=== PATIENT | male | born 1970 | race Caucasian/White ===

== ENCOUNTER 2019-10-29 17:01 | Emergency (ER) | payer OTHER, SELFPAY ==
[2019-10-29] VITALS (7 sets, daily range): BP systolic 129–140; BP diastolic 87–93; PULSE 77–98; RESP 14–17; TEMP 36.7; O2SAT 92–96; BMI 34.9
--- NOTE | 2019-10-29 17:31 | ED_ITS ---
Entered by Dania Solis, acting as scribe for Curtis Valdovinos DO Oct 29, 2019 17:01 Documented by User: Curtis Valdovinos DO 10/30/19 06:18 HPI - Abdominal Pain General: Chief Complaint: Abdominal Pain Stated Complaint: ABD PAIN LOW Time Seen by Provider: 10/29/19 17:34 History of Present Illness: HPI narrative: 49 yo male presents with abd pain. Pt states that his pain started today. pt states that he has nausea and chills. Pt denies vomiting or diarrhea. MD elicited complaint: abdominal pain Associated Symptoms: Reports nausea; Denies chills, coffee ground emesis, constipation, GI cramping, diarrhea, dysuria, fever(s), heartburn, hematochezia, hematuria, hematemesis, melena, syncope and vomiting Review of Systems Const: Denies: fever, chills, body aches, fatigue, malaise or night sweats Eyes: Denies: change in vision or blurry vision ENMT: Denies: throat pain, oral sores/lesions, dental pain, nasal discharge or nasal congestion Card: Denies: chest pain, palpitations, irregular heart rhythm, edema, syncope, shortness of breath on exertion, shortness of breath when lying down or leg pain with exertion Resp: Denies: shortness of breath, productive cough, non-productive cough or wheezing GI: Reports: abdominal pain and nausea; Denies: vomiting, vomiting blood, coffee grounds in vomit, difficulty swallowing, heartburn/indigestion, diarrhea, constipation, cramping, blood in stool or black tarry stool : Denies: flank pain, difficulty urinating, painful urination, urinary frequency, urinary urgency, urinary incontinence or blood in urine Musc: Denies: neck pain, back pain, extremity pain, extremity swelling, joint pain or joint swelling Skin/Breast: Denies: rash, itching or redness Neuro: Denies: headache, numbness in extremities, weakness in extremities, changes in sensation, lack of coordination, difficulty walking, frequent falls, dizziness, vertigo or confusion Psych: Denies: anxiety, depression, loss of interest, visual hallucinations, auditory hallucinations, suicidal ideation or homicidal ideation Endo: Denies: excessive urination, excessive thirst, tired all the time or cold intolerance Wiliam/Lymph: Denies: easy bruising, easy bleeding, petechiae, enlarged lymph nodes or tender lymph nodes PFSH ED PFSH: Statuses (acute, chronic, etc) shown below reflect problem list status as previously entered and may not be historically accurate Surgical History History of hemorrhoidectomy (Acute) Social History Smoking and tobacco status: never smoked Physical Exam Const: COMMON NORMALS: average body habitus, oriented x3 and alert GENERAL APPEARANCE: cooperative, comfortable, well kempt and well developed NUTRITIONAL APPEARANCE: obese ORIENTATION/CONSCIOUSNESS: Yes awake, Yes oriented to person and Yes oriented to place HENMT: COMMON NORMALS: normocephalic, head/scalp atraumatic, EAC's normal, TM's normal bilaterally, external nose normal, moist oral mucous membranes and oropharynx normal HEAD & SCALP: normocephalic and atraumatic NOSE: external nose normal EXTERNAL AUDITORY CANAL: EAC's normal TYMPANIC MEMBRANE: TM's normal bilaterally MOUTH: oral and palatal mucosa normal, lip normal and tongue normal THROAT: posterior oropharynx normal and tonsils normal Eye: COMMON NORMALS: PERRL, EOMs intact bilaterally, conjunctivae normal and no scleral icterus CONJUNCTIVA: Yes conjunctivae normal PUPIL: Yes PERRL Neck/C-Spine: COMMON NORMALS: full ROM, no lymphadenopathy, supple, no meningeal signs and thyroid normal THYROID: thyroid normal and asymmetrical Lymph: LYMPHATIC: no lymphadenopathy noted Resp: COMMON NORMALS: normal respiratory effort, no retractions, no use of accessory muscles and clear to auscultation bilaterally AUSCULTATION: clear to auscultation bilaterally Cardio: COMMON NORMALS: regular rate and regular rhythm RATE: regular rate RHYTHM: regular rhythm HEART SOUNDS: no murmurs GI: COMMON NORMALS: soft to palpation; negative for non-tender AUSCULTATION: Yes absent bowel sounds PALPATION: Yes soft and Yes tender (periumbilical) OTHER: umbillical hernia - easily reducible : COMMON NORMALS: Yes no CVA tenderness BLADDER/KIDNEY EXAM: Yes no CVA tenderness Back/Pelvis: COMMON NORMALS: no CVA tenderness LUMBAR SPINE/LOWER BACK: Yes normal to inspection Extremity: COMMON NORMALS: no clubbing, cyanosis or edema, no calf tenderness and no pedal edema Neuro: COMMON NORMALS: oriented x3 SENSORIUM/ORIENTATION: Yes alert, Yes oriented to person and Yes oriented to place MENINGEAL SIGNS: Yes no meningeal signs Psych: APPEARANCE: Yes well kempt Skin: COMMON NORMALS: no rashes or lesions noted and skin turgor normal GENERAL SKIN EXAM: no rashes or lesions noted and turgor normal Course Vital Signs: Vital signs: Vital Signs Temperature 98.1 F 10/29/19 17:21 Pulse Rate 98 10/29/19 21:52 Respiratory Rate 14 10/29/19 21:52 Blood Pressure 133/92 10/29/19 21:52 Pulse Oximetry 94 10/29/19 21:52 MDM - Abdominal Pain Lab Data: Labs: Lab Results 10/29/19 10/29/19 10/29/19 Range/Units 17:54 17:54 18:10 WBC 10.9 H (4.0-10.0) 10^3/ uL RBC 4.71 (4.1-5.3) 10^6/u L Hgb 14.5 (11.7-16.6) g/dL Hct 42.5 (42.0-52.0) % MCV 90.2 (80-94) fL MCH 30.8 (28.0-34.0) pg MCHC 34.1 (30.0-36.0) g/dL RDW 12.1 (12.1-15.1) % Plt Count 196 (130-400) 10^3/c mm MPV 10.8 H (7.4-10.4) fL Neut % (Auto) 70.4 % Lymph % (Auto) 19.3 % [place] % (Auto) 8.8 % Eos % (Auto) 1.1 % Baso % (Auto) 0.2 % Neut # (Auto) 7.7 (1.8-7.7) 10^3/u L Lymph # (Auto) 2.1 (0.8-4.8) 10^3/u L [place] # (Auto) 1.0 H (0.2-0.9) 10^3/u L Eos # (Auto) 0.1 (0.0-0.8) 10^3/u L Baso # (Auto) 0.0 (0.0-0.1) 10^3/u L Nucleated RBC % (a uto) 0 % Nucleated RBCs # 0.0 /100WBC Sodium 140 (136-145) mmol/L Potassium 3.8 (3.5-5.1) mmol/L Chloride 100 (98-107) mmol/L Carbon Dioxide 29 (22-29) mmol/L Anion Gap 14.8 (5-19) BUN 11 (6-20) mg/dL Creatinine 0.9 (0.7-1.2) mg/dL GFR Calculation 89.3 L (90-130) mL/min Glucose 114 (65-115) mg/dL Calcium 10.3 (8.5-10.5) mg/dL Total Bilirubin 0.5 (0.15-1.2) mg/dL AST 17 (0-40) U/L ALT 17 (0-41) U/L Alkaline Phosphata se 65 (40-130) IU/L Total Protein 7.7 (6.6-8.7) g/dL Albumin 4.7 (3.5-5.2) g/dL Globulin 3.0 (1.3-4.6) g/dL Lipase 32 (13-60) U/L Urine Color Yellow (Yellow) Urine Appearance Clear (CLEAR) Urine pH 7 (5-7) Ur Specific Gravit y 1.010 (1.005-1.030) Urine Protein Neg (Negative) Urine Glucose (UA) Norm (Normal) Urine Ketones Negative (Negative) Urine Occult Blood Neg (Negative) Urine Nitrate Negative (Negative) Urine Bilirubin Neg (NEGATIVE) Urine Urobilinogen Norm (Negative) mg/dL Ur Leukocyte Janeen ase Negative (Negative) Discharge Plan Discharge Patient Disposition: Home, Self-Care Clinical Impression: Diverticulitis Condition: Stable Prescriptions: New metronidazole 500 mg tablet 500 mg PO Q8H 10 Days Qty: 30 RF: 0 ciprofloxacin HCl 500 mg tablet 500 mg PO Q12H 10 Days Qty: 20 RF: 0 Zofran 4 mg tablet 4 mg PO Q6H PRN (Reason: nausea and vomiting) Qty: 10 RF: 0 [place] 7.5-325 mg tablet 1 tab PO Q6H PRN (Reason: pain) Qty: 14 RF: 0 Discharge Orders: Discharge Order (Routine); Ordered 10/29/19 Ordered By: Constantin Storm Referrals: Ruben Mueller MD [Physician] - 7-10 days Discharge Diet: Advance as tolerated and Clear Liquid Discharge Activity: Increase activity as tolerated Patient Instructions: Diverticulitis (ED) Activity Restrictions/Additional Instructions: Return for fever greater than 100, worsening pain, vomiting liquids or medications despite 2-3 doses of antibiotics. Return for any other concerning symptoms. You should have a colonoscopy as an outpatient. We will have you follow-up with surgery. Call the surgeon's office listed on your discharge instructions Friday morning for follow-up. Discharge Date/Time: 10/29/19 22:00 Coding Level of Care Code ED Forging Dies Final Finisher for Chg Fwd Exam Problem Focused Documented by User: Constantin Storm DO 10/29/19 19:37 HPI - Abdominal Pain General: Chief Complaint: Abdominal Pain Stated Complaint: ABD PAIN LOW Time Seen by Provider: 10/29/19 17:34 PFSH ED PFSH: Statuses (acute, chronic, etc) shown below reflect problem list status as previously entered and may not be historically accurate Surgical History History of hemorrhoidectomy (Acute) Social History Smoking and tobacco status: never smoked Course ED course: 49-year-old male checked out to me by Dr. Valdovinos. He presents with decreased bowel sounds, and generalized lower belly pain. He has a white count of 11. His electrolytes are normal. His CT scan shows diverticulitis with no abscess. He is not vomiting. He is not had diarrhea. He instead complains of some constipation. Admission was offered, but the patient would like to go home. He will be treated as an outpatient. Warning signs were given to return. Vital Signs: Vital signs: Vital Signs Temperature 98.1 F 10/29/19 17:21 Pulse Rate 98 10/29/19 21:52 Respiratory Rate 14 10/29/19 21:52 Blood Pressure 133/92 10/29/19 21:52 Pulse Oximetry 94 10/29/19 21:52 MDM - Abdominal Pain Lab Data: Labs: Lab Results 10/29/19 10/29/19 10/29/19 Range/Units 17:54 17:54 18:10 WBC 10.9 H (4.0-10.0) 10^3/ uL RBC 4.71 (4.1-5.3) 10^6/u L Hgb 14.5 (11.7-16.6) g/dL Hct 42.5 (42.0-52.0) % MCV 90.2 (80-94) fL MCH 30.8 (28.0-34.0) pg MCHC 34.1 (30.0-36.0) g/dL RDW 12.1 (12.1-15.1) % Plt Count 196 (130-400) 10^3/c mm MPV 10.8 H (7.4-10.4) fL Neut % (Auto) 70.4 % Lymph % (Auto) 19.3 % [place] % (Auto) 8.8 % Eos % (Auto) 1.1 % Baso % (Auto) 0.2 % Neut # (Auto) 7.7 (1.8-7.7) 10^3/u L Lymph # (Auto) 2.1 (0.8-4.8) 10^3/u L [place] # (Auto) 1.0 H (0.2-0.9) 10^3/u L Eos # (Auto) 0.1 (0.0-0.8) 10^3/u L Baso # (Auto) 0.0 (0.0-0.1) 10^3/u L Nucleated RBC % (a uto) 0 % Nucleated RBCs # 0.0 /100WBC Sodium 140 (136-145) mmol/L Potassium 3.8 (3.5-5.1) mmol/L Chloride 100 (98-107) mmol/L Carbon Dioxide 29 (22-29) mmol/L Anion Gap 14.8 (5-19) BUN 11 (6-20) mg/dL Creatinine 0.9 (0.7-1.2) mg/dL GFR Calculation 89.3 L (90-130) mL/min Glucose 114 (65-115) mg/dL Calcium 10.3 (8.5-10.5) mg/dL Total Bilirubin 0.5 (0.15-1.2) mg/dL AST 17 (0-40) U/L ALT 17 (0-41) U/L Alkaline Phosphata se 65 (40-130) IU/L Total Protein 7.7 (6.6-8.7) g/dL Albumin 4.7 (3.5-5.2) g/dL Globulin 3.0 (1.3-4.6) g/dL Lipase 32 (13-60) U/L Urine Color Yellow (Yellow) Urine Appearance Clear (CLEAR) Urine pH 7 (5-7) Ur Specific Gravit y 1.010 (1.005-1.030) Urine Protein Neg (Negative) Urine Glucose (UA) Norm (Normal) Urine Ketones Negative (Negative) Urine Occult Blood Neg (Negative) Urine Nitrate Negative (Negative) Urine Bilirubin Neg (NEGATIVE) Urine Urobilinogen Norm (Negative) mg/dL Ur Leukocyte Janeen ase Negative (Negative) Discharge Plan Discharge Patient Disposition: Home, Self-Care Clinical Impression: Diverticulitis Condition: Stable Prescriptions: New metronidazole 500 mg tablet 500 mg PO Q8H 10 Days Qty: 30 RF: 0 ciprofloxacin HCl 500 mg tablet 500 mg PO Q12H 10 Days Qty: 20 RF: 0 Zofran 4 mg tablet 4 mg PO Q6H PRN (Reason: nausea and vomiting) Qty: 10 RF: 0 [place] 7.5-325 mg tablet 1 tab PO Q6H PRN (Reason: pain) Qty: 14 RF: 0 Discharge Orders: Discharge Order (Routine); Ordered 10/29/19 Ordered By: Constantin Storm Referrals: Ruben Mueller MD [Physician] - 7-10 days Discharge Diet: Advance as tolerated and Clear Liquid Discharge Activity: Increase activity as tolerated Patient Instructions: Diverticulitis (ED) Activity Restrictions/Additional Instructions: Return for fever greater than 100, worsening pain, vomiting liquids or medications despite 2-3 doses of antibiotics. Return for any other concerning symptoms. You should have a colonoscopy as an outpatient. We will have you follow-up with surgery. Call the surgeon's office listed on your discharge instructions Friday morning for follow-up. Discharge Date/Time: 10/29/19 22:00 Coding Level of Care Code ED Forging Dies Final Finisher for Chg Fwd Exam Problem Focused The documentation recorded by the Will cardoza Kialy, accurately reflects the service I personally performed and the decisions made by Aruna marshall Curtis L, DO Oct 29, 2019 17:01
--- NOTE | 2019-10-29 17:47 | CTR_ITS ---
PROCEDURE INFORMATION: Exam: CT Abdomen And Pelvis With Contrast Exam date and time: 10/29/2019 6:23 PM Age: 49 years old Clinical indication: Abdominal pain; Generalized; Additional info: Abd pain TECHNIQUE: Imaging protocol: Computed tomography of the abdomen and pelvis with intravenous contrast. Total DLP: 1336.01 mGy-cm Radiation optimization: All CT scans at this facility use at least one of these dose optimization techniques: automated exposure control; mA and/or kV adjustment per patient size (includes targeted exams where dose is matched to clinical indication); or iterative reconstruction. Contrast material: OMNI 300; Contrast volume: 95 ml; Contrast route: LT AC; COMPARISON: No relevant prior studies available. FINDINGS: Lungs: There is subpleural atelectasis of the dependent portions of the lungs. There is partially calcified subpleural nodule left lung base measuring 7 mm in size. The appearance is compatible with a calcified granuloma or hamartoma. Mediastinum: A small hiatal hernia is present. Liver: There is a diffuse decrease in hepatic parenchymal density, consistent with fatty infiltration. Gallbladder and bile ducts: Normal. No calcified stones. No ductal dilation. Pancreas: Normal. No ductal dilation. Spleen: Normal. No splenomegaly. Adrenals: Normal. No mass. Kidneys and ureters: There is punctate nephrolithiasis. No hydronephrosis. Stomach and bowel: Moderate diverticulosis is present in the distal colon. There is a segment of colonic wall thickening consistent with moderate acute colitis/diverticulitis. As an underlying colonic malignancy cannot be excluded, a follow-up examination after a course of treatment is recommended if clinically warranted. There is pericolonic inflammatory stranding. Appendix: A normal appendix is identified. Intraperitoneal space: Unremarkable. No free air. No significant fluid collection. Vasculature: Unremarkable.No abdominal aortic aneurysm. Lymph nodes: Unremarkable.No enlarged lymph nodes. Bladder: There is nonspecific bladder wall thickening. This may be related to incomplete distention. Reproductive: Unremarkable as visualized. Bones/joints: Unremarkable. No acute fracture. Soft tissues: There is a fat-containing umbilical hernia. Small fat filled inguinal hernias are noted. Other findings: No abscess. CT/CT abdomen pelvis w con* [id number] IMPRESSION: 1. There is a segment of colonic wall thickening consistent with moderate acute colitis/diverticulitis. As an underlying colonic malignancy cannot be excluded, a follow-up examination after a course of treatment is recommended if clinically warranted. No abscess or free air. 2. Bilateral punctate nephrolithiasis. No hydronephrosis. Incidental findings are also noted as above. 3. Partially calcified nodule left lower lobe. This has characteristics compatible with old granulomatous changes or hamartoma. For patients at low risk (minimal or absent history of smoking and of other known risk factors), no routine follow-up is indicated. For patients at high risk (history of smoking or of other known risk factors), consider optional CT at 12 months. (Gladys et al., Fleischner Society, 2017) Radiation Dose CTDIVOL = (mGy): DLP = 1336.01 (mGy-cm)
[2019-10-29 18:03] LABS: Basophils % 0.2 %; Eosinophils # 0.1 10^3/uL (0.0-0.8); Eosinophils % 1.1 %; Hematocrit 42.5 % (42.0-52.0); Hemoglobin 14.5 g/dL (11.7-16.6); Lymphocytes # 2.1 10^3/uL (0.8-4.8); Lymphocytes % 19.3 %; Mean Corpuscular HGB Conc 34.1 g/dL (30.0-36.0); Mean Corpuscular Hemoglobin 30.8 pg (28.0-34.0); Mean Corpuscular Volume 90.2 fL (80-94); Mean Platelet Volume 10.8 fL (7.4-10.4); Monocytes % 8.8 %; Neutrophils # 7.7 10^3/uL (1.8-7.7); Neutrophils % 70.4 %; Nucleated Red Blood Cells % 0 %; Platelet Count 196 10^3/cmm (130-400); Red Blood Count 4.71 10^6/uL (4.1-5.3); Red Cell Distribution Width 12.1 % (12.1-15.1); White Blood Count 10.9 10^3/uL (4.0-10.0)
[2019-10-29 18:19] LABS: Alanine Aminotransferase 17 U/L (0-41); Albumin Level 4.7 g/dL (3.5-5.2); Alkaline Phosphatase 65 IU/L (40-130); Anion Gap 14.8 (5-19); Aspartate Amino Transferase 17 U/L (0-40); Blood Urea Nitrogen 11 mg/dL (6-20); Calcium 10.3 mg/dL (8.5-10.5); Carbon Dioxide 29 mmol/L (22-29); Chloride 100 mmol/L (98-107); Glomerular Filtration Rate 89.3 mL/min (90-130); Glucose 114 mg/dL (65-115); Lipase 32 U/L (13-60); Potassium 3.8 mmol/L (3.5-5.1); Sodium 140 mmol/L (136-145); Total Bilirubin 0.5 mg/dL (0.15-1.2); Total Protein 7.7 g/dL (6.6-8.7)
[2019-10-29 18:20] LABS: Add Urine Microscopic? NO
[2019-10-29] MEDS: sodium chloride 0.9% 1,000 ML 999 ML IV (18:25)
[2019-10-29 18:41] LABS: Bilirubin Urine Neg (NEGATIVE); Blood Urine Neg (Negative); Glucose Urine UA Norm (Normal); Ketones Urine Negative (Negative); Leukocyte Esterase Urine Negative (Negative); Nitrate Urine Negative (Negative); Protein Urine Neg (Negative); Urine Appearance Clear (CLEAR); Urine Color Yellow (Yellow); Urobilinogen Urine Norm (Negative); pH Urine 7 (5-7)
[2019-10-29] MEDS: iohexol 300 mg/mL 100 mL Btl 95 ML IV (18:45)
--- NOTE | 2019-10-29 19:02 | PC.NURSE ---
Patient report given to oncoming shift.
--- NOTE | 2019-10-29 19:03 | PC.NURSE ---
Report received from TOR Tovar and care transferred to TOR Oliver
[2019-10-29] MEDS: metroNIDAZOLE 500 MG Tablet PO (19:42)
[2019-10-29] MEDS: magnesium citrate Btl 296 mL PO (19:42)
[2019-10-29] MEDS: ciprofloxacin 500 mg Tablet PO (19:42)
--- NOTE | 2019-10-29 20:39 | PC.NURSE ---
PATIENT AMBULATED TO BATHROOM
[2019-10-29] MEDS: morphine 4 mg/mL SDV 1 mL IVP (21:11)
[2019-10-29] MEDS: ondansetron 2 mg/ML SDV 2 mL 4 MG IVP (21:11)
--- NOTE | 2019-11-01 11:36 | DCPLANNER ---
corporate travel manager had message to schedule a follow up appointment for patient with Dr. Mueller. corporate travel manager spoke with patient and informed patient that Dr. Mueller was not able to see patient until the end of the month. corporate travel manager offered to schedule a follow up appointment for patient with [facility], patient stated that would be fine. corporate travel manager called the clinic, spoke with Isa, a follow up appointment was scheduled for Friday, November 03, 2019 at 1:[address] Carter. corporate travel manager called patient and informed patient of the scheduled appointment.
--- NOTE | 2019-11-12 15:16 | DCPLANNER ---
Patient did attend appointment scheduled for 11.03.19 with [facility].
== END 2019-10-29 22:00 | disposition home or self-care (01) ==
PROVIDERS: Family Medicine; Emergency Provider Emergency Medicine
DX: K57.92 Diverticulitis of intestine, part unspecified, without perforation or abscess without bleeding (principal)
CPT/HCPCS: 74177; 80053; 81003; 83690; 85025; 96360; 96361; 96365; 96366; 96375; 99283; J2270; J2405; J7030; Q9967

== ENCOUNTER 2019-11-01 12:44 | Emergency (ER) | payer OTHER, SELFPAY ==
[2019-11-01 12:52] VITALS: BP 137/87; PULSE 92; RESP 18; TEMP 36.7; O2SAT 94; BMI 34.9
[2019-11-01 13:53] LABS: Basophils % 0.3 %; Eosinophils # 0.3 10^3/uL (0.0-0.8); Eosinophils % 2.9 %; Hematocrit 43.6 % (42.0-52.0); Hemoglobin 14.4 g/dL (11.7-16.6); Lymphocytes # 2.1 10^3/uL (0.8-4.8); Lymphocytes % 23.3 %; Mean Corpuscular Hemoglobin 30.3 pg (28.0-34.0); Mean Corpuscular Volume 91.6 fL (80-94); Monocytes # 0.7 10^3/uL (0.2-0.9); Neutrophils # 5.9 10^3/uL (1.8-7.7); Neutrophils % 65.2 %; Nucleated Red Blood Cells % 0 %; Platelet Count 230 10^3/cmm (130-400); Red Blood Count 4.76 10^6/uL (4.1-5.3); Red Cell Distribution Width 11.9 % (12.1-15.1)
[2019-11-01 14:06] LABS: Alanine Aminotransferase 16 U/L (0-41); Albumin Level 4.1 g/dL (3.5-5.2); Alkaline Phosphatase 54 IU/L (40-130); Anion Gap 17.1 (5-19); Aspartate Amino Transferase 20 U/L (0-40); Blood Urea Nitrogen 10 mg/dL (6-20); Carbon Dioxide 28 mmol/L (22-29); Chloride 97 mmol/L (98-107); Glomerular Filtration Rate 89.3 mL/min (90-130); Glucose 132 mg/dL (65-115); Lipase 28 U/L (13-60); Potassium 4.1 mmol/L (3.5-5.1); Sodium 138 mmol/L (136-145); Total Bilirubin 0.3 mg/dL (0.15-1.2); Total Protein 7.1 g/dL (6.6-8.7)
--- NOTE | 2019-11-01 14:24 | W.ED.GENADLT ---
HPI - General Adult General: Chief complaint: Abdominal Pain Stated complaint: lower abd pain Time Seen by Provider: 11/01/19 14:16 History of Present Illness: HPI narrative: Patient comes in complaining of some abdominal pain. He had been on pain medicine got constipated since she is diagnosed with diverticulitis and he had been able to have a bowel movement last couple days and now he feels pressure in his lower abdomen. Not having fever chills or other problems. Has been able to work can medications as prescribed but he did stop his pain medicine then he started hurting again. MD complaint: Constipation Onset (ago): day(s) Location: abdomen Radiation: non-radiation Severity scale (1-10): 4 Quality: aching Pain Consistency: intermittent Relieving factors: rest Associated symptoms: Deny chest pain, dyspnea, headache(s), nausea, rash or vomiting Review of Systems Const: Denies: fever, chills or body aches Eyes: Denies: change in vision or blurry vision ENMT: Denies: throat pain or nasal congestion Card: Denies: chest pain or shortness of breath on exertion Resp: Denies: shortness of breath, productive cough or non-productive cough GI: Reports: abdominal pain and constipation; Denies: nausea, vomiting, bloating or cramping : Denies: difficulty urinating Musc: Denies: extremity pain Skin/Breast: Denies: rash Neuro: Denies: headache Psych: Denies: anxiety or depression Wiliam/Lymph: Denies: easy bruising PFSH ED PFSH: Statuses (acute, chronic, etc) shown below reflect problem list status as previously entered and may not be historically accurate Social History Smoking and tobacco status: never smoked Physical Exam Const: COMMON NORMALS: no apparent distress, average body habitus and oriented x3 HENMT: COMMON NORMALS: normocephalic HEAD & SCALP: normal to inspection and normocephalic FACE & SINUS: normal facial exam Eye: COMMON NORMALS: conjunctivae normal GENERAL EYE: normal appearance of both eyes CONJUNCTIVA: Yes conjunctivae normal Neck/C-Spine: COMMON NORMALS: no JVD Chest: COMMONS NORMALS: inspection of chest normal Resp: COMMON NORMALS: normal respiratory effort and clear to auscultation bilaterally AUSCULTATION: clear to auscultation bilaterally Cardio: COMMON NORMALS: no JVD, regular rate and regular rhythm RATE: regular rate RHYTHM: regular rhythm GI: COMMON NORMALS: normal to inspection, nondistended, normoactive bowel sounds INSPECTION: Yes normal to inspection AUSCULTATION: Yes normoactive bowel sounds PALPATION: Yes tender Details: LUQ and RUQ Extremity: COMMON NORMALS: normal to inspection and full ROM Neuro: COMMON NORMALS: oriented x3 Course Vital Signs: Vital signs: Vital Signs Temperature 98.1 F 11/01/19 12:52 Pulse Rate 92 11/01/19 12:52 Respiratory Rate 18 11/01/19 12:52 Blood Pressure 137/87 11/01/19 12:52 Pulse Oximetry 94 11/01/19 12:52 [facility] - General Adult Lab Data: Labs: Lab Results 11/01/19 11/01/19 Range/Units 13:45 13:45 WBC 9.0 (4.0-10.0) 10^3/ uL RBC 4.76 (4.1-5.3) 10^6/u L Hgb 14.4 (11.7-16.6) g/dL Hct 43.6 (42.0-52.0) % MCV 91.6 (80-94) fL MCH 30.3 (28.0-34.0) pg MCHC 33.0 (30.0-36.0) g/dL RDW 11.9 L (12.1-15.1) % Plt Count 230 (130-400) 10^3/c mm MPV 11.0 H (7.4-10.4) fL Neut % (Auto) 65.2 % Lymph % (Auto) 23.3 % [place] % (Auto) 8.0 % Eos % (Auto) 2.9 % Baso % (Auto) 0.3 % Neut # (Auto) 5.9 (1.8-7.7) 10^3/u L Lymph # (Auto) 2.1 (0.8-4.8) 10^3/u L [place] # (Auto) 0.7 (0.2-0.9) 10^3/u L Eos # (Auto) 0.3 (0.0-0.8) 10^3/u L Baso # (Auto) 0.0 (0.0-0.1) 10^3/u L Nucleated RBC % (a uto) 0 % Nucleated RBCs # 0.0 /100WBC Sodium 138 (136-145) mmol/L Potassium 4.1 (3.5-5.1) mmol/L Chloride 97 L (98-107) mmol/L Carbon Dioxide 28 (22-29) mmol/L Anion Gap 17.1 (5-19) BUN 10 (6-20) mg/dL Creatinine 0.9 (0.7-1.2) mg/dL GFR Calculation 89.3 L (90-130) mL/min Glucose 132 H (65-115) mg/dL Calcium 10.0 (8.5-10.5) mg/dL Total Bilirubin 0.3 (0.15-1.2) mg/dL AST 20 (0-40) U/L ALT 16 (0-41) U/L Alkaline Phosphata se 54 (40-130) IU/L Total Protein 7.1 (6.6-8.7) g/dL Albumin 4.1 (3.5-5.2) g/dL Globulin 3.0 (1.3-4.6) g/dL Lipase 28 (13-60) U/L Discharge Plan Discharge Patient Disposition: Home, Self-Care Clinical Impression: Diverticulitis, Constipation due to pain medication Condition: Stable Prescriptions: No Action metronidazole 500 mg tablet 500 mg PO Q8H 10 Days Qty: 30 RF: 0 ciprofloxacin HCl 500 mg tablet 500 mg PO Q12H 10 Days Qty: 20 RF: 0 Zofran 4 mg tablet 4 mg PO Q6H PRN (Reason: nausea and vomiting) Qty: 10 RF: 0 [place] 7.5-325 mg tablet 1 tab PO Q6H PRN (Reason: pain) Qty: 14 RF: 0 Discharge Orders: Discharge Order (Routine); Ordered 11/01/19 Ordered By: Oskar Martino Discharge Diet: As Directed Discharge Activity: Increase activity as tolerated Patient Instructions: Constipation (ED) Activity Restrictions/Additional Instructions: Follow-up with medical provider as directed. Take medications as prescribed. Return to the ER or your medical provider if condition worsens. Please read and understand discharge instructions. If any questions ask please. Can start back on pain medicine. Use mag citrate to try to get the bowels moving. Increase fluids. Keep appointment for colonoscopy on Friday afternoon. Coding Level of Care Code ED Plating Foreman for Jerman Lira
[2019-11-01 14:41] VITALS: BP 126/89; PULSE 77; RESP 18; O2SAT 95
== END 2019-11-01 14:42 | disposition home or self-care (01) ==
PROVIDERS: Emergency Provider Nurse Practitioner Family
DX: K57.92 Diverticulitis of intestine, part unspecified, without perforation or abscess without bleeding (principal); K59.03 Drug induced constipation
CPT/HCPCS: 36415; 80053; 83690; 85025; 99281; 99282

== ENCOUNTER 2019-11-01 16:08 | Emergency (ER) | payer OTHER, SELFPAY | END 2019-11-01 17:04 | disposition left against medical advice (07) | LOC: ER 11-05 13:13 | PROVIDERS: Emergency Provider Family Medicine | DX: K59.03 Drug induced constipation (principal); K57.92 Diverticulitis of intestine, part unspecified, without perforation or abscess without bleeding; K62.89 Other specified diseases of anus and rectum; Z53.21 Procedure and treatment not carried out due to patient leaving prior to being seen by health care provider | CPT/HCPCS: 99281 ==

== ENCOUNTER 2020-02-23 10:57 | Emergency (ER) | payer OTHER, SELFPAY ==
[2020-02-23 11:17] VITALS: BP 133/82; PULSE 71; RESP 20; TEMP 36.9; O2SAT 95; BMI 34.9
--- NOTE | 2020-02-23 11:30 | W.ED.ABDPA2 ---
HPI - Abdominal Pain General: Chief Complaint: Abdominal Pain Stated Complaint: LOWER ABD PAIN Time Seen by Provider: 02/23/20 11:18 History of Present Illness: HPI narrative: [age]-year-old male comes in complaining of abdominal pain he refers it to mostly suprapubic and began 2 days ago's been slowly worsening since then he denies any fever he has had generalized myalgias he denies any diarrhea actually states it is been difficult for him to go no hematochezia melena no dark tarry stools. Is been very nauseous but not had any vomiting. He has been taking fluids well but unable to take solids very good denies dysuria no other symptoms no shortness of breath cough cold fever sweats or chills recently denies urgency or frequency. He had a similar episode a few months ago and was seen in the ER for extended period of time but declined to be hospitalized sounds like he was set up with Dr. Barnard for an outpatient colonoscopy but due to the recent [place] pandemic this was delayed. MD elicited complaint: abdominal pain Pertinent past history: diverticulitis Onset (ago): day(s) (3) Pain Consistency: constant Location: Suprapubic Severity: moderate Quality: cramping and aching Radiation: none Migration to: LLQ Exacerbating factors: eating Associated Symptoms: Reports anorexia, bloating, change in bowel habits, change in stool character, nausea and poor appetite; Denies coffee ground emesis, diarrhea, dyspepsia, dysuria, fever(s), heartburn, hematochezia, hematuria, hematemesis, fecal incontinence, loose stools, melena, syncope and vomiting Review of Systems Const: Denies: fever(s) ENMT: Denies: throat pain, ear or mastoid pain, nasal discharge or nasal congestion Card: Denies: syncope Resp: Denies: dyspnea, productive cough or non-productive cough GI: Reports: nausea, bloating, change in bowel habits and change in stool character; Denies: vomiting, hematemesis, coffee ground emesis, heartburn, diarrhea, fecal incontinence, hematochezia or melena : Denies: dysuria or hematuria Skin/Breast: Denies: rash or pruritus PFSH ED PFSH: Medical History (Updated 02/23/20 @ 12:50 by Curtis Valdovinos DO) Diverticulitis Surgical History History of hemorrhoidectomy Family History Denies family history of Anesthesia complication Bleeding disorder Social History Smoking and tobacco status: never smoked Physical Exam Const: COMMON NORMALS: no acute distress GENERAL APPEARANCE: cooperative and comfortable ORIENTATION/CONSCIOUSNESS: Yes awake, Yes oriented to person, Yes oriented to place and Yes oriented to time HENMT: COMMON NORMALS: normocephalic, atraumatic, hearing grossly normal bilaterally, external ears normal, EAC's normal, TM's normal bilaterally, Normal nasal mucous membranes and turbinates present, moist oral mucous membranes and oropharynx normal HEAD & SCALP: normocephalic and atraumatic NOSE: Normal nasal mucous membranes and turbinates present EXTERNAL EAR: Yes external ears normal EXTERNAL AUDITORY CANAL: EAC's normal TYMPANIC MEMBRANE: TM's normal bilaterally Eye: COMMON NORMALS: Equal, round and reactive pupils present, EOMs intact bilaterally, conjunctivae normal and no scleral icterus CONJUNCTIVA: Yes conjunctivae normal PUPIL: Yes Equal, round and reactive pupils present Neck/C-Spine: COMMON NORMALS: full ROM, no lymphadenopathy, supple and no JVD Lymph: LYMPHATIC: no lymphadenopathy noted and no lymphedema noted Resp: COMMON NORMALS: normal respiratory effort, No retractions, No use of accessory muscles and clear to auscultation bilaterally AUSCULTATION: clear to auscultation bilaterally Cardio: COMMON NORMALS: no JVD, regular rate, regular rhythm and No murmurs present (Cardio) RATE: regular rate RHYTHM: regular rhythm GI: COMMON NORMALS: Soft to palpation and No hepatosplenomegaly present AUSCULTATION: Yes Hypoactive bowel sounds present PALPATION: Yes Soft to palpation, Yes Tenderness to palpation present (GI) Details: LLQ, No Guarding due to palpation present (GI) and Yes No hepatosplenomegaly present Extremity: COMMON NORMALS: normal to inspection, capillary refill normal, no clubbing, cyanosis or edema, no calf tenderness and no pedal edema Neuro: SENSORIUM/ORIENTATION: Yes oriented to person, Yes oriented to place and Yes oriented to time Skin: COMMON NORMALS: no rashes or lesions noted GENERAL SKIN EXAM: no rashes or lesions noted Course Vital Signs: Vital signs: Vital Signs Temperature 98.4 F 02/23/20 11:17 Pulse Rate 67 02/23/20 14:23 Respiratory Rate 20 H 02/23/20 11:17 Blood Pressure 113/81 02/23/20 14:23 Pulse Oximetry 97 02/23/20 14:23 MDM - Abdominal Pain MDM Narrative: Medical decision making narrative: Reviewed findings with the patient. We will start him on Cipro and metronidazole Zofran hydrocodone for pain he does need to follow-up with Dr. Barnard for another colonoscopy that will be in a few weeks caseworker intake will make arrangements for that. Advised if he has any worsening of symptoms return to the emergency room to be reevaluated. Lab Data: Labs: Lab Results 02/23/20 02/23/20 02/23/20 Range/Units 11:50 11:50 11:50 WBC 8.3 (4.0-10.0) 10^3/ uL RBC 4.72 (4.1-5.3) 10^6/u L Hgb 14.6 (11.7-16.6) g/dL Hct 42.9 (42.0-52.0) % MCV 90.9 (80-94) fL MCH 30.9 (28.0-34.0) pg MCHC 34.0 (30.0-36.0) g/dL RDW 12.1 (12.1-15.1) % Plt Count 172 (130-400) 10^3/c mm MPV 11.1 H (7.4-10.4) fL Neut % (Auto) 67.5 % Lymph % (Auto) 20.2 % [place] % (Auto) 10.4 % Eos % (Auto) 1.5 % Baso % (Auto) 0.2 % Neut # (Auto) 5.6 (1.8-7.7) 10^3/u L Lymph # (Auto) 1.7 (0.8-4.8) 10^3/u L [place] # (Auto) 0.9 (0.2-0.9) 10^3/u L Eos # (Auto) 0.1 (0.0-0.8) 10^3/u L Baso # (Auto) 0.0 (0.0-0.1) 10^3/u L Nucleated RBC % (a uto) 0 % Nucleated RBCs # 0.0 /100WBC Sodium 140 (136-145) mmol/L Potassium 3.7 (3.5-5.1) mmol/L Chloride 100 (98-107) mmol/L Carbon Dioxide 27 (22-29) mmol/L Anion Gap 16.7 (5-19) BUN 12 (6-20) mg/dL Creatinine 0.9 (0.7-1.2) mg/dL GFR Calculation 89.0 L (90-130) mL/min Glucose 101 (65-115) mg/dL Calculated Osmolal ity 286 (285-295) mOsm/k g Lactate 1.1 (0.5-2.2) mmol/L Calcium 9.6 (8.5-10.5) mg/dL Total Bilirubin 0.6 (0.15-1.2) mg/dL AST 17 (0-40) U/L ALT 15 (0-41) U/L Alkaline Phosphata se 57 (40-130) IU/L Total Protein 7.1 (6.6-8.7) g/dL Albumin 4.5 (3.5-5.2) g/dL Globulin 2.6 (1.3-4.6) g/dL Lipase 214 H (13-60) U/L Urine Color (Yellow) Urine Appearance (CLEAR) Urine pH (5-7) Ur Specific Gravit y (1.005-1.030) Urine Protein (Negative) Urine Glucose (UA) (Normal) Urine Ketones (Negative) Urine Blood (Negative) Urine Nitrate (Negative) Urine Bilirubin (NEGATIVE) Urine Urobilinogen (Negative) mg/dL Ur Leukocyte Janeen ase (Negative) Serum Ketones (Negative) 02/23/20 02/23/20 Range/Units 11:50 12:05 WBC (4.0-10.0) 10^3/ uL RBC (4.1-5.3) 10^6/u L Hgb (11.7-16.6) g/dL Hct (42.0-52.0) % MCV (80-94) fL MCH (28.0-34.0) pg MCHC (30.0-36.0) g/dL RDW (12.1-15.1) % Plt Count (130-400) 10^3/c mm MPV (7.4-10.4) fL Neut % (Auto) % Lymph % (Auto) % [place] % (Auto) % Eos % (Auto) % Baso % (Auto) % Neut # (Auto) (1.8-7.7) 10^3/u L Lymph # (Auto) (0.8-4.8) 10^3/u L [place] # (Auto) (0.2-0.9) 10^3/u L Eos # (Auto) (0.0-0.8) 10^3/u L Baso # (Auto) (0.0-0.1) 10^3/u L Nucleated RBC % (a uto) % Nucleated RBCs # /100WBC Sodium (136-145) mmol/L Potassium (3.5-5.1) mmol/L Chloride (98-107) mmol/L Carbon Dioxide (22-29) mmol/L Anion Gap (5-19) BUN (6-20) mg/dL Creatinine (0.7-1.2) mg/dL GFR Calculation (90-130) mL/min Glucose (65-115) mg/dL Calculated Osmolal ity (285-295) mOsm/k g Lactate (0.5-2.2) mmol/L Calcium (8.5-10.5) mg/dL Total Bilirubin (0.15-1.2) mg/dL AST (0-40) U/L ALT (0-41) U/L Alkaline Phosphata se (40-130) IU/L Total Protein (6.6-8.7) g/dL Albumin (3.5-5.2) g/dL Globulin (1.3-4.6) g/dL Lipase (13-60) U/L Urine Color Straw (Yellow) Urine Appearance Clear (CLEAR) Urine pH 6.0 (5-7) Ur Specific Gravit y 1.005 (1.005-1.030) Urine Protein Neg (Negative) Urine Glucose (UA) Norm (Normal) Urine Ketones Negative (Negative) Urine Blood Neg (Negative) Urine Nitrate Negative (Negative) Urine Bilirubin Neg (NEGATIVE) Urine Urobilinogen Norm (Negative) mg/dL Ur Leukocyte Janeen ase Negative (Negative) Serum Ketones Negative (Negative) Discharge Plan Discharge Patient Disposition: Home, Self-Care Clinical Impression: Diverticulitis Condition: Stable Prescriptions: New Cipro 500 mg tablet 500 mg PO BID 7 Days Qty: 14 RF: 0 metronidazole 500 mg tablet 500 mg PO Q8H 7 Days Qty: 21 RF: 0 Zofran 4 mg tablet 4 mg PO Q6H PRN (Reason: nausea and vomiting) Qty: 20 RF: 0 hydrocodone-acetaminophen 5-325 mg tablet 1 tab PO Q6H PRN (Reason: pain) Qty: 20 RF: 0 Discharge Orders: Discharge Order (Routine); Ordered 02/23/20 Ordered By: Curtis Valdovinos Discharge Diet: Clear Liquid Discharge Activity: Limit activity as instructed Activity Restrictions/Additional Instructions: Case management will call to reschedule your appointment Dr. Carter for colonoscopy in a few weeks. Discharge Date/Time: 02/23/20 14:23 Coding Level of Care Code ED Mechanical Meter Tester for Chg Fwd Exam Comprehensive
--- NOTE | 2020-02-23 11:31 | ECG_ITS ---
Measurements Intervals [place] Rate: 75 P: 48 AR: 169 QRS: -18 QRSD: 95 T: 177 QT: 388 QTc: 435 SINUS RHYTHM NONSPECIFIC T-WAVE ABNORMALITY No previous ECG available for comparison Electronically Signed On 02-23-2020 20:57:05 CDT by Nadya Zambrano M.D. [email or web address]
--- NOTE | 2020-02-23 11:42 | CT_ITS ---
WS: [id number] CT abdomen pelvis w con* [id number] REASON FOR EXAM: abd pain IV CONTRAST ADMINISTERED: Omnipaque 300 95 mL. TOTAL EXAM DLP: 1213.[address] scans at [facility] use at least one of these dose optimization techniques: automat ed exposure control; mA and/or kV adjustment per patient size (includes targeted exams where dose is matched to clinical indication); or iterative reconstruction. FINDINGS: At the level of the superior pelvic area the descending colon shows extensive clutter of di verticulosis with stranding of the peritoneum consistent with low-grade peritendinitis. There was no evidence of abscess seen. Sigmoid colon shows diverticular changes also. The bladder was normal. The prostate is small. In the upper abdomen lower lung chen were normal. The liver shows normal appearance no masses in the liver seen. The gallbladder was normal. The head, body, tail of the pancreas are normal. The spleen and stomach show no abnormalities. The right and left adrenal glands were normal with no adenomas seen. The right and left kidneys were normal no hydronephrosis no stones are seen. The aorta and inferior vena cava were normal. The right colon was normal. The small bowel was normal. The pelvis bony structures were normal. The lumbar spine was normal. CT/CT abdomen pelvis w con* [id number] IMPRESSION: Extensive diverticulosis with localized diverticulitis of the lower descending colon above the area of the sigmoid colon. On the left side
[2020-02-23 11:53] VITALS: O2SAT 92
[2020-02-23 11:59] LABS: Basophils % 0.2 %; Eosinophils # 0.1 10^3/uL (0.0-0.8); Eosinophils % 1.5 %; Hematocrit 42.9 % (42.0-52.0); Hemoglobin 14.6 g/dL (11.7-16.6); Lymphocytes # 1.7 10^3/uL (0.8-4.8); Lymphocytes % 20.2 %; Mean Corpuscular Hemoglobin 30.9 pg (28.0-34.0); Mean Corpuscular Volume 90.9 fL (80-94); Mean Platelet Volume 11.1 fL (7.4-10.4); Monocytes # 0.9 10^3/uL (0.2-0.9); Monocytes % 10.4 %; Neutrophils # 5.6 10^3/uL (1.8-7.7); Neutrophils % 67.5 %; Nucleated Red Blood Cells % 0 %; Platelet Count 172 10^3/cmm (130-400); Red Blood Count 4.72 10^6/uL (4.1-5.3); Red Cell Distribution Width 12.1 % (12.1-15.1); White Blood Count 8.3 10^3/uL (4.0-10.0)
[2020-02-23] MEDS: ciprofloxacin 400 MG/200 ML PREMIX 200 MG IV (12:03)
[2020-02-23] MEDS: sodium chloride 0.9% 1,000 ML 999 ML IV (12:03)
[2020-02-23] MEDS: ondansetron 2 mg/ML SDV 2 mL 4 MG IVP (12:03)
[2020-02-23 12:07] LABS: Add Urine Microscopic? NO
[2020-02-23 12:14] LABS: Lactate (Lactic Acid level) 1.1 mmol/L (0.5-2.2)
[2020-02-23 12:15] LABS: Alanine Aminotransferase 15 U/L (0-41); Albumin Level 4.5 g/dL (3.5-5.2); Alkaline Phosphatase 57 IU/L (40-130); Anion Gap 16.7 (5-19); Aspartate Amino Transferase 17 U/L (0-40); Blood Urea Nitrogen 12 mg/dL (6-20); Calcium 9.6 mg/dL (8.5-10.5); Carbon Dioxide 27 mmol/L (22-29); Chloride 100 mmol/L (98-107); Globulin 2.6 g/dL (1.3-4.6); Glucose 101 mg/dL (65-115); Lipase 214 U/L (13-60); Osmolality Calculated 286 mOsm/kg (285-295); Potassium 3.7 mmol/L (3.5-5.1); Sodium 140 mmol/L (136-145); Total Bilirubin 0.6 mg/dL (0.15-1.2); Total Protein 7.1 g/dL (6.6-8.7)
[2020-02-23 12:18] LABS: Ketone (Acetest) Serum Negative (Negative)
[2020-02-23 12:21] LABS: Bilirubin Urine Neg (NEGATIVE); Blood Urine Neg (Negative); Glucose Urine UA Norm (Normal); Ketones Urine Negative (Negative); Leukocyte Esterase Urine Negative (Negative); Nitrate Urine Negative (Negative); Protein Urine Neg (Negative); Specific Gravity, Urine 1.005 (1.005-1.030); Urine Appearance Clear (CLEAR); Urine Color Straw (Yellow); Urobilinogen Urine Norm (Negative)
[2020-02-23] MEDS: iohexol 300 mg/mL 100 mL Btl IV (12:29)
[2020-02-23] MEDS: metroNIDAZOLE IV 500 MG/100 ML PREMIX 100 MG IV (13:17)
[2020-02-23 13:21] VITALS: BP 131/91; PULSE 63; O2SAT 97
[2020-02-23 14:23] VITALS: BP 113/81; PULSE 67; O2SAT 97
--- NOTE | 2020-02-23 14:23 | PC.NURSE ---
18 g IV removed from left AC space. tip intact. pressure dressing applied. pt tolerated well.
--- NOTE | 2020-02-24 12:34 | DCPLANNER ---
manager rn case had message to schedule a follow up appointment with [facility]. manager rn case called [facility], spoke with Yi. A follow up appointment is scheduled for , March 02, 2020 at 10:[address] Carter. Clinic will call patient with appointment information.
--- NOTE | 2020-03-09 15:26 | DCPLANNER ---
Patient did attend appointment scheduled for 03.02.20 with [facility].
== END 2020-02-23 14:23 | disposition home or self-care (01) ==
PROVIDERS: Emergency Provider Family Medicine
DX: K57.92 Diverticulitis of intestine, part unspecified, without perforation or abscess without bleeding (principal)
CPT/HCPCS: 12345; 36415; 74177; 80053; 81003; 82009; 83605; 83690; 85025; 87040; 93005; 96360; 96365; 96366; 96375; 99283; 99284; J0744; J2405; J7030; Q9967; S0030

== ENCOUNTER 2020-05-28 15:49 | Emergency (ER) | payer OTHER, SELFPAY ==
[2020-05-28 16:14] VITALS: BP 130/85; PULSE 82; RESP 20; TEMP 37.1; O2SAT 97; BMI 36.6
[2020-05-28 16:19] VITALS: BP 130/85; PULSE 79; RESP 20; TEMP 36.9; O2SAT 97
--- NOTE | 2020-05-28 16:35 | ED_ITS ---
HPI - Abdominal Pain General: Chief Complaint: Abdominal Pain Stated Complaint: abd pain Time Seen by Provider: 05/28/20 16:16 Source: patient Mode of arrival: ambulatory Limitations: no limitations History of Present Illness: HPI narrative: Patient is a nice 50-year-old male who presents to ED today with complaint of left lower quadrant pain over the past few days. He is also had watery diarrhea. He states the watery diarrhea at a maximum is 7 stools a day. No foul odor present. No bloody stools. No nausea/vomiting. No fevers. He has a hx of diverticulitis. Associated Symptoms: Reports diarrhea; Denies chills, dysuria, fever(s), nausea and vomiting Review of Systems Const: Denies: fever(s), chills, body aches, fatigue or malaise Card: Denies: chest pain Resp: Denies: dyspnea GI: Reports: abdominal pain and diarrhea; Denies: nausea or vomiting : Denies: flank pain, difficulty urinating, dysuria, urinary frequency or urinary urgency Musc: Denies: neck pain, back pain, extremity pain, extremity swelling, joint pain or joint swelling Skin/Breast: Denies: rash Neuro: Denies: headache(s), numbness in extremities, weakness in extremities or sensory changes PFS ED PFSH: Medical History (Updated 05/28/20 @ 17:21 by ISRAEL Oglesby) Diverticulitis Surgical History History of hemorrhoidectomy Family History Denies family history of Anesthesia complication Bleeding disorder Social History Smoking and tobacco status: never smoked Physical Exam Const: COMMON NORMALS: no acute distress, average body habitus, patient oriented x3, no limitations, healthy appearing, alert and well nourished Resp: COMMON NORMALS: normal respiratory effort and clear to auscultation bilaterally AUSCULTATION: clear to auscultation bilaterally Cardio: COMMON NORMALS: regular rate and regular rhythm RATE: regular rate RHYTHM: regular rhythm GI: COMMON NORMALS: Normal to inspection, nondistended, normoactive bowel sounds present, Soft to palpation, No hepatosplenomegaly present and no masses PALPATION: Yes Soft to palpation, Yes Tenderness to palpation present (GI) Details: LLQ and Yes No hepatosplenomegaly present : COMMON NORMALS: Yes no CVA tenderness BLADDER/KIDNEY EXAM: Yes no CVA tenderness Back/Pelvis: COMMON NORMALS: no CVA tenderness Extremity: COMMON NORMALS: normal to inspection and no pedal edema GENERAL: Yes normal exam except as noted Neuro: COMMON NORMALS: patient oriented x3 SENSORIUM/ORIENTATION: Yes alert Skin: COMMON NORMALS: no rashes or lesions noted GENERAL SKIN EXAM: no rashes or lesions noted Course Vital Signs: Vital signs: Vital Signs Temperature 98.4 F 05/28/20 16:19 Pulse Rate 79 05/28/20 16:19 Respiratory Rate 20 H 05/28/20 16:19 Blood Pressure 130/85 05/28/20 16:19 Pulse Oximetry 97 05/28/20 16:19 MDM - Abdominal Pain Lab Data: Labs: Lab Results 05/28/20 05/28/20 05/28/20 Range/Units 16:25 16:25 17:11 WBC 10.5 H (4.0-10.0) 10^3/ uL RBC 4.98 (4.1-5.3) 10^6/u L Hgb 15.5 (11.7-16.6) g/dL Hct 46.6 (42.0-52.0) % MCV 93.6 (80-94) fL MCH 31.1 (28.0-34.0) pg MCHC 33.3 (30.0-36.0) g/dL RDW 12.3 (12.1-15.1) % Plt Count 181 (130-400) 10^3/c mm MPV 11.8 H (7.4-10.4) fL Neut % (Auto) 71.0 % Lymph % (Auto) 19.3 % [place] % (Auto) 7.8 % Eos % (Auto) 1.4 % Baso % (Auto) 0.3 % Neut # (Auto) 7.48 (1.8-7.7) 10^3/u L Lymph # (Auto) 2.0 (0.8-4.8) 10^3/u L [place] # (Auto) 0.8 (0.2-0.9) 10^3/u L Eos # (Auto) 0.2 (0.0-0.8) 10^3/u L Baso # (Auto) 0.0 (0.0-0.1) 10^3/u L Nucleated RBC % (a uto) 0 % Nucleated RBCs # 0.0 /100WBC Sodium 140 (136-145) mmol/L Potassium 4.0 (3.5-5.1) mmol/L Chloride 104 (98-107) mmol/L Carbon Dioxide 26 (22-29) mmol/L Anion Gap 14.0 (5-19) BUN 20 (6-20) mg/dL Creatinine 0.8 (0.7-1.2) mg/dL GFR Calculation 101.9 (90-130) mL/min Glucose 107 (65-115) mg/dL Calculated Osmolal ity 287 (285-295) mOsm/k g Calcium 9.2 (8.5-10.5) mg/dL Total Bilirubin 0.6 (0.15-1.2) mg/dL AST 21 (0-40) U/L ALT 17 (0-41) U/L Alkaline Phosphata se 50 (40-130) IU/L Total Protein 7.2 (6.6-8.7) g/dL Albumin 4.5 (3.5-5.2) g/dL Globulin 2.7 (1.3-4.6) g/dL Lipase 35 (13-60) U/L Urine Color Yellow (Yellow) Urine Appearance Clear (CLEAR) Urine pH 6.5 (5-7) Ur Specific Gravit y 1.005 (1.005-1.030) Urine Protein Neg (Negative) Urine Glucose (UA) Norm (Normal) Urine Ketones Negative (Negative) Urine Blood Neg (Negative) Urine Nitrate Negative (Negative) Urine Bilirubin Neg (NEGATIVE) Urine Urobilinogen Norm (Negative) mg/dL Ur Leukocyte Janeen ase Negative (Negative) Imaging Data ^: CT Abd/Pel: Radiologist's impression: [address] [id number] [address] Scan Report Signed Patient: Dex Cross Unit #: [id number] : 1970 Age/Sex: 50 / M ADM Date: 05/28/20 Loc: ER Room/Bed: Attending Dr: Ordering Provider/Ordering MD: Sarah Benoit Date of Service: 05/28/20 Procedure(s): CT abdomen pelvis w con* [id number] Accession Number(s): [id number] Report Number: [id number] PROCEDURE INFORMATION: Exam: CT Abdomen And Pelvis With Contrast Exam date and time: 05/28/2020 4:57 PM Age: 50 years old Clinical indication: Other: Diarrhea; Abdominal pain; Localized; Left lower quadrant (llq); Patient HX: HX of diverticulitis; Additional info: Llq pain; Diarrhea; HX of diverticulitis TECHNIQUE: Imaging protocol: Computed tomography of the abdomen and pelvis with intravenous contrast. Radiation optimization: All CT scans at this facility use at least one of these dose optimization techniques: automated exposure control; mA and/or kV adjustment per patient size (includes targeted exams where dose is matched to clinical indication); or iterative reconstruction. Contrast material: OMNIPAQUE 300; Contrast volume: 95 ml; Contrast route: INTRAVENOUS (IV); COMPARISON: CT abdomen pelvis w con* [id number] 02/23/2020 12:19 PM RADIATION DOSE METRICS: Total DLP (mGy-cm): 1104.51 FINDINGS: Liver: Normal. No mass. Gallbladder and bile ducts: Normal. No calcified stones. No ductal dilation. Pancreas: Normal. No ductal dilation. Spleen: Normal. No splenomegaly. Adrenals: Normal. No mass. Kidneys and ureters: Normal. No hydronephrosis. Stomach and bowel: Mild colonic diverticulosis. Mild left lower quadrant diverticulitis without abscess or perforation in the junction of the descending colon and sigmoid colon. Appendix: Normal appendix. Intraperitoneal space: Unremarkable. No free air. No significant fluid collection. Vasculature: Calcification of the abdominal aorta and/or iliac arteries consistent with atherosclerotic vessel disease. Lymph nodes: Unremarkable. No enlarged lymph nodes. Bladder: Unremarkable as visualized. Reproductive: Unremarkable as visualized. Bones/joints: Unremarkable. No acute fracture. Soft tissues: Unremarkable. CT/CT abdomen pelvis w con* [id number] IMPRESSION: Mild left lower quadrant diverticulitis without abscess or perforation in the junction of the descending colon and sigmoid colon. Radiation Dose CTDIVOL = (mGy): DLP = 1104.51 (mGy-cm) Dictated By: Oskar Watters MD Signed By: Oskar Watters MD Signed Date/Time: 0 05/28/201714 DD/ 12 Discharge Plan Discharge Patient Disposition: Home Clinical Impression: Diverticulitis Condition: Stable Prescriptions: New Flagyl 500 mg tablet 500 mg PO BID 7 Days Qty: 14 RF: 0 Cipro 500 mg tablet 500 mg PO Q12H Qty: 14 RF: 0 No Action multivitamin Tablet 1 tab PO DAILY RF: 0 Discharge Orders: Discharge Order (Routine); Ordered 05/28/20 Ordered By: Sarah Benoit Patient Instructions: Diverticulitis, Diverticulitis (ED) Activity Restrictions/Additional Instructions: Please return to ED for worsening abdominal pain, vomiting, diarrhea, bloody stools, or fevers or any other concerns you may have. Coding Level of Care Code ED Service Worker Helper for Jerman Fwd Exam Detailed
[2020-05-28 16:36] LABS: Basophils % 0.3 %; Eosinophils # 0.2 10^3/uL (0.0-0.8); Eosinophils % 1.4 %; Hematocrit 46.6 % (42.0-52.0); Hemoglobin 15.5 g/dL (11.7-16.6); Lymphocytes % 19.3 %; Mean Corpuscular HGB Conc 33.3 g/dL (30.0-36.0); Mean Corpuscular Hemoglobin 31.1 pg (28.0-34.0); Mean Corpuscular Volume 93.6 fL (80-94); Mean Platelet Volume 11.8 fL (7.4-10.4); Monocytes # 0.8 10^3/uL (0.2-0.9); Monocytes % 7.8 %; Neutrophils # 7.48 10^3/uL (1.8-7.7); Nucleated Red Blood Cells % 0 %; Platelet Count 181 10^3/cmm (130-400); Red Blood Count 4.98 10^6/uL (4.1-5.3); Red Cell Distribution Width 12.3 % (12.1-15.1); White Blood Count 10.5 10^3/uL (4.0-10.0)
[2020-05-28 16:54] LABS: Alanine Aminotransferase 17 U/L (0-41); Albumin Level 4.5 g/dL (3.5-5.2); Alkaline Phosphatase 50 IU/L (40-130); Aspartate Amino Transferase 21 U/L (0-40); Blood Urea Nitrogen 20 mg/dL (6-20); Calcium 9.2 mg/dL (8.5-10.5); Carbon Dioxide 26 mmol/L (22-29); Chloride 104 mmol/L (98-107); Globulin 2.7 g/dL (1.3-4.6); Glomerular Filtration Rate 101.9 mL/min (90-130); Glucose 107 mg/dL (65-115); Lipase 35 U/L (13-60); Osmolality Calculated 287 mOsm/kg (285-295); Sodium 140 mmol/L (136-145); Total Bilirubin 0.6 mg/dL (0.15-1.2); Total Protein 7.2 g/dL (6.6-8.7)
[2020-05-28] MEDS: iohexol 300 mg/mL 100 mL Btl IV (16:59)
[2020-05-28 17:15] LABS: Add Urine Microscopic? NO
[2020-05-28] MEDS: sodium chloride 0.9% 1,000 ML 999 ML IV (17:15)
[2020-05-28 17:32] LABS: Bilirubin Urine Neg (NEGATIVE); Blood Urine Neg (Negative); Glucose Urine UA Norm (Normal); Ketones Urine Negative (Negative); Leukocyte Esterase Urine Negative (Negative); Nitrate Urine Negative (Negative); Protein Urine Neg (Negative); Specific Gravity, Urine 1.005 (1.005-1.030); Urine Appearance Clear (CLEAR); Urine Color Yellow (Yellow); Urobilinogen Urine Norm (Negative); pH Urine 6.5 (5-7)
[2020-05-28 17:53] VITALS: BP 132/85; PULSE 65; RESP 16; O2SAT 97
[2020-05-28] MEDS: metroNIDAZOLE 500 MG Tablet PO (18:20)
[2020-05-28] MEDS: ciprofloxacin 500 mg Tablet PO (18:20)
== END 2020-05-28 17:53 | disposition home or self-care (01) ==
PROVIDERS: Emergency Provider Physician Assistant
DX: K57.92 Diverticulitis of intestine, part unspecified, without perforation or abscess without bleeding (principal)
CPT/HCPCS: 12345; 74177; 80053; 81003; 83690; 85025; 96360; 99283; J7030; Q9967

== ENCOUNTER 2020-10-01 18:35 | Emergency (ER) | payer OTHER, SELFPAY ==
--- NOTE | 2020-10-01 19:11 | XRR_ITS ---
PROCEDURE INFORMATION: Exam: XR Right Wrist Exam date and time: 10/01/2020 7:17 PM Age: 50 years old Clinical indication: Injury or trauma; Fall; Blunt trauma (contusions or hematomas); Wrist; Right TECHNIQUE: Imaging protocol: XR Right wrist. Views: 3 or more views. COMPARISON: CR Hand 3 views, RIGHT* [id number] 09/21/2018 10:18 PM FINDINGS: Bones/joints: Normal. Soft tissues: There is edema and/or hematoma in the soft tissues along the dorsum of the wrist and forearm. XR/XR wrist RT min 3V* [id number] IMPRESSION: There is edema and/or hematoma in the soft tissues along the dorsum of the wrist and forearm.
--- NOTE | 2020-10-01 19:11 | XRR_ITS ---
PROCEDURE INFORMATION: Exam: XR Right Hand Exam date and time: 10/01/2020 7:17 PM Age: 50 years old Clinical indication: Injury or trauma; Fall; Blunt trauma (contusions or hematomas); Wrist; Right TECHNIQUE: Imaging protocol: XR Right hand. Views: 3 or more views. COMPARISON: CR Hand 3 views, RIGHT* [id number] 09/21/2018 10:18 PM FINDINGS: Bones/joints: Normal. Soft tissues: There is edema and/or hematoma in the soft tissues along the dorsum of the wrist. XR/XR hand RT min 3V* [id number] IMPRESSION: There is edema and/or hematoma in the soft tissues along the dorsum of the wrist.
[2020-10-01 19:13] VITALS: BP 143/80; PULSE 69; RESP 14; TEMP 36.2; O2SAT 97; BMI 36.6
[2020-10-01 19:59] VITALS: PULSE 71
[2020-10-01 20:20] VITALS: RESP 17; O2SAT 97
[2020-10-01] MEDS: oxyCODONE-APAP 5-325 mg Tablet 2 TAB PO (20:20)
[2020-10-01] MEDS: HYDROcodone-acetaminophen 5-325 mg Tablet 2 TAB PO (20:47)
[2020-10-01 20:49] VITALS: BP 140/92; PULSE 89; RESP 17; TEMP 36.6; O2SAT 97
--- NOTE | 2020-10-02 02:00 | W.ED.EXTPRO ---
HPI - Extremity Problem General: Chief complaint: Extremity Injury, Upper Stated complaint: fall/injury to right wrist & hand Time Seen by Provider: 10/01/20 19:36 History of Present Illness: HPI Narrative: 50-year-old gentleman who fell at home, on his outstretched hand. He complains of right wrist pain and swelling. MD Complaint: extremity pain, extremity swelling and joint pain Onset (ago): hour(s) Pain Consistency: constant Location: right and upper extremity Quality: stabbing and aching Radiation: none Relieving factors: immobilization Exacerbating factors: range of motion Associated symptoms: Deny chest pain, fever(s), myalgias, rash or short of breath Review of Systems Const: Denies: fever(s) Card: Denies: chest pain Resp: Denies: dyspnea GI: Denies: abdominal pain, nausea or vomiting Skin/Breast: Denies: rash PFSH ED PFSH: Medical History (Updated 10/01/20 @ 20:11 by Constantin Storm DO) Diverticulitis Surgical History History of hemorrhoidectomy Family History Denies family history of Anesthesia complication Bleeding disorder Social History Smoking and tobacco status: never smoked Physical Exam Const: COMMON NORMALS: no acute distress, patient oriented x3 and alert Resp: COMMON NORMALS: normal respiratory effort, No retractions and No use of accessory muscles Cardio: COMMON NORMALS: regular rate and regular rhythm RATE: regular rate RHYTHM: regular rhythm Extremity: OTHER: Exam the right wrist reveals mainly ulnar-sided tenderness. There is no deformity. There is mild dorsal swelling. There is pain with finger and wrist motion. Neurovascularly intact. Neuro: COMMON NORMALS: patient oriented x3 SENSORIUM/ORIENTATION: Yes alert Course Vital Signs: Vital signs: Vital Signs Temperature 97.8 F 10/01/20 20:49 Pulse Rate 89 10/01/20 20:49 Respiratory Rate 17 10/01/20 20:49 Blood Pressure 140/92 10/01/20 20:49 Pulse Oximetry 97 10/01/20 20:49 MDM - Extremity (Nontraumatic) MDM Narrative: Medical decision making narrative: X-ray of the wrist is negative for bony injury. There is soft tissue swelling, and perhaps a small joint effusion. Attempted to place a Velcro wrist brace, but we did not have one that fit. Instead a volar splint is fashioned. He will follow up with his primary physician next week. We have prescribed him a volar Velcro wrist brace to be acquired from the medical supply store. Discharge Plan Discharge Patient Disposition: Home Clinical Impression: Sprain and strain of wrist Condition: Stable Prescriptions: [place] 5-325 mg tablet 1 tab PO Q6H Qty: 7 RF: 0 No Action multivitamin Tablet 1 tab PO DAILY RF: 0 Cipro 500 mg tablet 500 mg PO Q12H Qty: 14 RF: 0 Discharge Orders: Discharge ED (Routine); Ordered 10/01/20 Ordered By: Constantin Storm Discharge Diet: Usual diet Discharge Activity: Limit activity as instructed Patient Instructions: Wrist Sprain (ED) Activity Restrictions/Additional Instructions: Wear the brace you were given for 1 week. If still painful, see your primary care physician for repeat exam and possible repeat x-ray. Ice will help with pain and swelling. Anti-inflammatories will help with pain and swelling, such as ibuprofen. You may take a pain pill if needed. Stand Alone Forms: Work/School Release Coding Level of Care Code ED Boatbuilder Apprentice Wood for Jerman Lira
== END 2020-10-01 20:49 | disposition home or self-care (01) ==
PROVIDERS: Emergency Provider Emergency Medicine
DX: S63.501A Unspecified sprain of right wrist, initial encounter (principal); S66.911A Strain of unspecified muscle, fascia and tendon at wrist and hand level, right hand, initial encounter; W19.XXXA Unspecified fall, initial encounter
CPT/HCPCS: 12345; 29125; 73110; 73130; 99281; 99283

== ENCOUNTER → 2020-11-29 14:30 | Outpatient (BNVA) | payer OTHER, SELFPAY | PROVIDERS: Visit Provider Surgery | DX: Z01.812 Encounter for preprocedural laboratory examination (principal); K64.9 Unspecified hemorrhoids | CPT/HCPCS: 87635 ==

== ENCOUNTER 2020-12-05 08:05 | Day surgery (SDC) | payer OTHER, SELFPAY ==
[2020-12-04 09:33] VITALS: BMI 36.6
[2020-12-05 08:22] VITALS: BP 134/96; PULSE 68; RESP 18; TEMP 36.6; O2SAT 95
[2020-12-05] MEDS: sodium chloride 0.9% 1,000 ML 30 ML IV (08:40)
--- NOTE | 2020-12-05 10:05 | ANES.PREANE2 ---
Pre-Anesthetic Assessment Pre-Anesthetic Assessment: Height/Weight: Height 1.65 m Weight 99.79 kg Temp Pulse Resp BP Pulse Ox 97.8 F 68 18 134/96 95 12/05/20 08:22 12/05/20 08:22 12/05/20 08:22 12/05/20 08:22 12/05/20 08:22 Preop Diagnosis: Symptomatic hemorrhoids And perianal fistula Proposed Procedure: Operation Date: 12/05/20 09:45 Proposed Procedures p Exam Under Anesthesia 41924 K64.9(Not Applicable) - Simon Carter MD s Poss Fistulotomy Anal 29136 K64.9(Not Applicable) - Simon Carter MD s Poss Hemorroidectomy 08691 K64.9(Not Applicable) - Simon Carter MD Was Beta Jael taken within 24 hours: N/A Was Clonidine taken within 24 hours: N/A Last intake: Intake Last Liquid Date 12/04/20 Last Liquid Time 22:00 Last Solid Date 12/04/20 Last Solid Time 12:00 Social: Social History: No alcohol and No tobacco Exam: Pre-Anes Outpt Exam: alert, oriented x 3, clear to auscultation bilaterally and regular rate & rhythm Airway: Submandibular: WNL Cervical ROM: WNL MP: 2 Dentition: Full Pulmonary: Pulmonary: Sleep apnea Metabolic: Metabolic: Morbid obesity Anesthetic Plan: ASA status: 2 Anesthesia: General Risk of > 500 ml blood loss (7ml/kg in children): No Meds/Allergies Current Medications: Current Medications Generic Name Dose Route Start Last Admin Trade Name Freq PRN Reason Stop Dose Admin Sodium Chloride 1,000 mls @ 30 ml s/hr 12/05/20 08:15 12/05/20 08:40 Sodium Chloride 0.9% IV 12/06/20 08:14 30 mls/hr .Q24H FISH Administration PFSH Anesthesia PFSH: Medical History Diverticulitis Surgical History History of hemorrhoidectomy Family History Denies family history of Anesthesia complication Bleeding disorder Social History Smoking and tobacco status: never smoked Data Anesthesia Cardiac Studies: No Data to Display
--- NOTE | 2020-12-05 10:45 | W.PM.OPSUD ---
Surgery/Procedure H&P Update DATE OF PROCEDURE: December 05, 2020 DATE H&P PERFORMED: 11/29/20 H&P UPDATE INFORMATION: I have reviewed H&P completed within last 30 days, I have examined patient prior to procedure and No changes to prior documentation PREOP DIAGNOSIS: Symptomatic hemorrhoids And perianal fistula PRIMARY INDICATION FOR PROCEDURE: The same PLANNED PROCEDURE: Operation Date: 12/05/20 09:45 Proposed Procedures p Exam Under Anesthesia 97301 K64.9(Not Applicable) - Simon Carter MD s Poss Fistulotomy Anal 69083 K64.9(Not Applicable) - Simon Carter MD s Poss Hemorroidectomy 79819 K64.9(Not Applicable) - Simon Carter MD
[2020-12-05] MEDS: piperacillin-tazobactam 3.375 GM in sodium chloride 0.9% (plus) 50 ML IV (11:50)
[2020-12-05] MEDS: lidocaine 2% INJ 20 mL (12:00)
[2020-12-05] MEDS: neomycin-poly-bacitracin oint 28 gm 28 APPLIC (12:02)
--- NOTE | 2020-12-05 12:03 | PM.OP ---
Operative Report Date of procedure: December 05, 2020 Pre-op Diagnosis: Symptomatic hemorrhoids And perianal fistula Post-op Findings: Normal anal examination except for left perianal cyst 1 x 1 cm no evidence of fistulae or hemorrhoidal disease Procedure Done: Examination under anesthesia and excision of left perianal cyst Specimens removed/disposition: Left perianal cyst Surgeon: Simon Carter Garment Steamer: Frankie Garg Circulating nurse Peyton Anesthesia: General (LMA Marisol Donnelly and Dr. Hall) Estimated blood loss (mL): 5 Condition: stable Disposition: same day Brief History: Bleeding per rectum and concern of hemorrhoidal disease and perianal fistula. Full H&P per chart and informed consent. Procedure: Patient was identified in the holding area and was taken back to the operating room, which was first placed in supine position got intubated by anesthesia, prophylactic IV antibiotics were given per protocol,Time-out was done verifying the patient's name/date of /planned procedure and destination after the procedure, all were in agreement. Patient was placed in lithotomy position were all pressure points were padded, prep and drape of the perineum was done under the usual sterile technique. Digital rectal examination was done showed no masses or induration. Perianal examination showed no fistulae or fissures yet a small 1 x 1 cm left perianal cyst was noticed.A lubricated Anoscope was introduced to facilitate examination under anesthesia and wet 4 x 4 was placed in the anal canal and thorough examination of the anal segment was done showing no fistulae or hemorrhoidal disease. Or anal masses. Attention was deviated towards the left perianal cyst and lacrimal probe was used for cannulation for concern of any potential underlying fistula and examination was negative.lidocaine 2% was injected surrounding cyst size. An elliptical incision was done for excision of the cyst and dissection was carried without violating the external sphincter. And the cyst was excised sent for permanent pathology.Continuous 3-0 chromic catgut was used to close the dissection site. At that point after removal of the 4 x 4's was achieved. Triple antibiotic ointment was applied at the site of the excision of the cyst followed by ABDs and surgical pants. Count was completed at the end of the procedure, patient was then extubated and was taken to the recovery room in stable condition I was present for the whole entire procedure
[2020-12-05 12:13] VITALS: BP 120/92; PULSE 66; RESP 8; TEMP 36.4; O2SAT 98
[2020-12-05 12:15] VITALS: BP 117/87; PULSE 66; RESP 10; TEMP 36.4; O2SAT 98
[2020-12-05 12:20] VITALS: BP 120/92; PULSE 64; RESP 16; O2SAT 99
[2020-12-05 12:35] VITALS: BP 139/102; PULSE 68; TEMP 36.7; O2SAT 94
--- NOTE | 2020-12-05 12:40 | SUR.PHASEI ---
1232 PT AWAKEALERT TALKING TO DR RAMIREZ ,ASKING QUESTIONS VSS DRESSING D/I HANDOFF AT BEDSIDE.
[2020-12-05 12:55] VITALS: BP 135/83; PULSE 68; O2SAT 92
[2020-12-05] MEDS: HYDROcodone-acetaminophen 5-325 mg Tablet 1 TAB PO (13:10)
--- NOTE | 2020-12-05 14:13 | ANE.PACU2 ---
Inpatient post-anesthesia follow up: Airway intact: Yes Vital signs: Temperature 98.1 F Pulse Rate 68 Respiratory Rate 16 Blood Pressure 135/83 Pulse Oximetry 92 Oxygen Delivery Me thod Room Air Oxygen Flow Rate 6 Fraction of Inspir ed Oxygen Hydration adequate: Yes Nausea and vomiting: No Pain level: 1 Mental status: Baseline
== END 2020-12-05 13:31 | disposition home or self-care (01) ==
PROVIDERS: Visit Provider Surgery
PROC: (CPT 46922; principal; 2020-12-05 09:45)
DX: K62.89 Other specified diseases of anus and rectum (principal); K64.4 Residual hemorrhoidal skin tags; G47.30 Sleep apnea, unspecified; E66.01 Morbid (severe) obesity due to excess calories; Z68.36 Body mass index [BMI] 36.0-36.9, adult
CPT/HCPCS: 46922; 88304; J0131; J1100; J2405; J2543; J2704; J3010; J7030

== ENCOUNTER 2021-09-04 14:25 | Inpatient (IN) | payer OTHER, SELFPAY ==
[2021-09-04 14:39] VITALS: BP 146/89; PULSE 74; RESP 18; TEMP 37.2; O2SAT 97; BMI 33.1
[2021-09-04 18:03] LABS: Basophils % 0.1 %; Eosinophils # 0.1 10^3/uL (0.0-0.8); Eosinophils % 0.4 %; Hematocrit 46.2 % (42.0-52.0); Hemoglobin 15.3 g/dL (11.7-16.6); Lymphocytes # 2.2 10^3/uL (0.8-4.8); Lymphocytes % 14.1 %; Mean Corpuscular HGB Conc 33.1 g/dL (30.0-36.0); Mean Corpuscular Hemoglobin 30.7 pg (28.0-34.0); Mean Corpuscular Volume 92.8 fl (80-94); Mean Platelet Volume 11.9 fL (7.4-10.4); Monocytes # 1.2 10^3/uL (0.2-0.9); Monocytes % 7.5 %; Neutrophils # 12.08 10^3/uL (1.8-7.7); Neutrophils % 77.6 %; Nucleated Red Blood Cells % 0 %; Platelet Count 211 10^3/cmm (130-400); Red Blood Count 4.98 10^6/uL (4.1-5.3); Red Cell Distribution Width 12.2 % (12.1-15.1); White Blood Count 15.6 10^3/uL (4.0-10.0)
[2021-09-04 18:23] LABS: Alanine Aminotransferase 12 U/L (0-41); Albumin Level 4.6 g/dL (3.5-5.2); Alkaline Phosphatase 50 IU/L (40-130); Anion Gap 18.1 (5-19); Aspartate Amino Transferase 12 U/L (0-40); Blood Urea Nitrogen 9 mg/dL (6-20); Calcium 9.3 mg/dL (8.5-10.5); Carbon Dioxide 27 mmol/L (22-29); Chloride 100 mmol/L (98-107); Globulin 2.8 g/dL (1.3-4.6); Glomerular Filtration Rate 101.5 mL/min (90-130); Glucose 88 mg/dL (65-115); Osmolality Calculated 290 mOsm/kg (285-295); Potassium 4.1 mmol/L (3.5-5.1); Sodium 141 mmol/L (136-145); Total Bilirubin 0.8 mg/dL (0.15-1.2); Total Protein 7.4 g/dL (6.6-8.7)
--- NOTE | 2021-09-04 19:51 | CTR_ITS ---
PROCEDURE INFORMATION: Exam: CT Abdomen And Pelvis With Contrast Exam date and time: 09/04/2021 7:51 PM Age: 51 years old Clinical indication: Nausea; Abdominal pain; Localized; Right lower quadrant (rlq); Additional info: Abd pain, HX of diveritculitis TECHNIQUE: Imaging protocol: Computed tomography of the abdomen and pelvis with contrast. Radiation optimization: All CT scans at this facility use at least one of these dose optimization techniques: automated exposure control; mA and/or kV adjustment per patient size (includes targeted exams where dose is matched to clinical indication); or iterative reconstruction. Contrast material: OMNI 300; Contrast volume: 95 ml; Contrast route: INTRAVENOUS (IV); COMPARISON: CT abdomen pelvis w con* [id number] 05/28/2020 4:53 PM RADIATION DOSE METRICS: Total DLP (mGy-cm): 1645.55 FINDINGS: Lungs: Visualized lungs are clear. Stable partially calcified granuloma in the left lower lobe. Pleural spaces: No pleural effusion. Heart: Visualized portions of the heart are unremarkable. Liver: The liver is unremarkable. Gallbladder and bile ducts: The gallbladder is unremarkable. No biliary ductal dilatation. Pancreas: The pancreas is unremarkable. No pancreatic ductal dilatation. Spleen: The spleen is unremarkable. Adrenal glands: The right and left adrenal glands are unremarkable. Kidneys and ureters: The right and left kidneys are unremarkable. The right and left ureters are unremarkable. Stomach and bowel: No acute abnormality in the stomach. No acute abnormality in the small bowel. Numerous diverticula in the sigmoid colon. Marked wall thickening of the sigmoid colon with extensive surrounding pericolonic inflammatory change. Two tiny foci of extraluminal air just superior to the area of inflamed sigmoid colon, consistent with localized diverticular perforation (series 602, images 41-42 and series 2, images 58-60). Appendix: The appendix is visualized and is unremarkable. No findings to suggest acute appendicitis. Intraperitoneal space: No loculated fluid collections to suggest an abscess. No ascites. Vasculature: Hepatic veins, portal veins, splenic vein, and SMV are patent. Mild atherosclerotic changes in the visualized arteries. No evidence for aortic aneurysm or aortic dissection. Lymph nodes: No lymphadenopathy. Urinary bladder: The bladder is incompletely filled, which can limit evaluation. No focal abnormality in the bladder however. Reproductive: Stable calcifications in the vas deferens. Bones/joints: Degenerative changes in the spine and hips. Mild spinal canal stenosis at L3-L4, L4-L5, and L5-S1 Multilevel foraminal stenosis of varying severity in the lumbar spine. Osseous findings are stable. Soft tissues: No acute abnormality in the extra-abdominal soft tissues. Small, fat-containing umbilical hernia. No evidence for strangulation. CT/CT abdomen pelvis w con* [id number] IMPRESSION: 1. Sigmoid diverticulosis. Findings consistent with severe sigmoid diverticulitis and associated findings consistent with localized diverticular perforation just superior to the inflamed sigmoid colon. 2. Stable calcifications in the vas deferens. Findings raise suspicion for diabetes mellitus. Recommend clinical correlation. 3. Incidental/nonacute findings are listed in the report.
--- NOTE | 2021-09-04 19:53 | ED_ITS ---
HPI - Abdominal Pain General: Chief Complaint: Abdominal Pain Stated Complaint: R LOWER ABD & BACK PAIN Time Seen by Provider: 09/04/21 19:50 History of Present Illness: HPI narrative: A 51-year-old male comes in today with right lower quadrant abdominal pain since Friday evening. Patient reports history of diverticulitis and a rectal abscess. Patient denies any other abdominal surgeries and continues to have his gallbladder and appendix. Patient reports feeling feverish but no recorded temperature was noted. Patient was seen by primary care today and was referred to the ER for further evaluation due to right lower quadrant tenderness. Patient appears mildly unwell but not toxic. Patient appears in moderate pain. Review of Systems General: Reports: 10 or more systems reviewed and unremarkable except in HPI and below GI: Reports: abdominal pain (rlq) PFSH ED PFSH: Medical History Diverticulitis Perianal cyst Surgical History History of hemorrhoidectomy Family History Denies family history of Anesthesia complication Bleeding disorder Social History Smoking and tobacco status: never smoked Physical Exam Const: COMMON NORMALS: no acute distress and patient oriented x3 GENERAL APPEARANCE: cooperative HENMT: COMMON NORMALS: normocephalic and Normal external nose present HEAD & SCALP: normal to inspection and normocephalic NOSE: Normal external nose present MOUTH: Normal oral and palatal mucosa present Eye: GENERAL EYE: appearance normal, both eyes and all related structures Neck/C-Spine: COMMON NORMALS: full ROM Chest: COMMONS NORMALS: normal inspection of the chest Resp: COMMON NORMALS: normal respiratory effort EFFORT & INSPECTION: Yes able to speak in complete sentences Cardio: COMMON NORMALS: regular rate and regular rhythm RATE: regular rate RHYTHM: regular rhythm GI: COMMON NORMALS: Soft to palpation AUSCULTATION: Yes normoactive bowel sounds PALPATION: Yes Soft to palpation, Yes Tenderness to palpation present (GI) Details: RLQ, Yes Guarding due to palpation present (GI) and Yes Rebound tenderness present : BLADDER/KIDNEY EXAM: Yes CVA tenderness on the right Back/Pelvis: COMMON NORMALS: thoracic and lumbar spine normal to inspection GENERAL BACK: Yes CVA tenderness Extremity: COMMON NORMALS: normal to inspection Neuro: COMMON NORMALS: patient oriented x3 and moves all extremities Psych: COMMON NORMALS: mental status grossly normal and cooperative Skin: COMMON NORMALS: no rashes or lesions noted GENERAL SKIN EXAM: no rashes or lesions noted Course ED course: 2139, discussed with Dr. Villavicencio patient's abnormal CT of diverticulitis with microperforation/contained perforation. He recommended discussion with Dr. Carter with admission to hospitalist care. 2156, Dr. Carter was consulted and agreed to plan with IV antibiotics and to consult. 2199, Dr. Velarde agreed to admission to hospitalist care for IV antibiotic treatment of diverticulitis with microperforation. Vital Signs: Vital signs: Vital Signs Temperature 98.9 F 09/04/21 14:39 Pulse Rate 74 09/04/21 14:39 Respiratory Rate 18 09/04/21 20:07 Blood Pressure 146/89 09/04/21 14:39 Pulse Oximetry 97 09/04/21 14:39 MDM - Abdominal Pain MDM Narrative: Medical decision making narrative: 51-year-old male patient comes in today with complaints of mid to right abdominal pain since Friday evening. Patient was seen by primary care today and was referred to the ER for further evaluation. On exam patient was tender on palpation to the right lower quadrant of the abdomen. Patient did have some rebound tenderness and also some CVA right tenderness on percussion. Vital signs were normal. Skin was warm and dry. Differential diagnosis includes but not limited to appendicitis, diverticulitis, intra-abdominal abscess. CT of the abdomen indicated diverticulitis with microperforation with no obvious abscess at this time. Patient was started on IV antibiotics at first we were going to give Cipro and patient was infused Cipro but due to shortage of Flagyl we switched to Zosyn single therapy. Dr. Carter was consulted for surgical. Dr. Velarde will admit to hospitalist care. Reviewed care with Dr. Villavicencio who agreed to plan. Lab Data: Labs: Lab Results 09/04/21 09/04/21 09/04/21 14:53 17:42 17:42 WBC 15.6 10^3/uL H 10 ^3/uL (4.0-10.0) RBC 4.98 10^6/uL 10^6 /uL (4.1-5.3) Hgb 15.3 g/dL g/dL (11.7-16.6) Hct 46.2 % % (42.0-52.0) MCV 92.8 fl fl (80-94) MCH 30.7 pg pg (28.0-34.0) MCHC 33.1 g/dL g/dL (30.0-36.0) RDW 12.2 % % (12.1-15.1) Plt Count 211 10^3/cmm 10^3 /cmm (130-400) MPV 11.9 fL H fL (7.4-10.4) Neut % (Auto) 77.6 % % Lymph % (Auto) 14.1 % % [place] % (Auto) 7.5 % % Eos % (Auto) 0.4 % % Baso % (Auto) 0.1 % % Neut # (Auto) 12.08 10^3/uL H 1 0^3/uL (1.8-7.7) Lymph # (Auto) 2.2 10^3/uL 10^3/ uL (0.8-4.8) [place] # (Auto) 1.2 10^3/uL H 10^ 3/uL (0.2-0.9) Eos # (Auto) 0.1 10^3/uL 10^3/ uL (0.0-0.8) Baso # (Auto) 0.0 10^3/uL 10^3/ uL (0.0-0.1) Nucleated RBC % (a uto) 0 % % Nucleated RBCs # 0.0 /100WBC /100W BC Sodium 141 mmol/L mmol/L (136-145) Potassium 4.1 mmol/L mmol/L (3.5-5.1) Chloride 100 mmol/L mmol/L (98-107) Carbon Dioxide 27 mmol/L mmol/L (22-29) Anion Gap 18.1 (5-19) BUN 9 mg/dL mg/dL (6-20) Creatinine 0.8 mg/dL mg/dL (0.7-1.2) GFR Calculation 101.5 mL/min mL/m in (90-130) Glucose 88 mg/dL mg/dL (65-115) Calculated Osmolal ity 290 mOsm/kg mOsm/ kg (285-295) Calcium 9.3 mg/dL mg/dL (8.5-10.5) Total Bilirubin 0.8 mg/dL mg/dL (0.15-1.2) AST 12 U/L U/L (0-40) ALT 12 U/L U/L (0-41) Alkaline Phosphata se 50 IU/L IU/L (40-130) Total Protein 7.4 g/dL g/dL (6.6-8.7) Albumin 4.6 g/dL g/dL (3.5-5.2) Globulin 2.8 g/dL g/dL (1.3-4.6) Urine Color Yellow (Yellow) Urine Appearance Clear (CLEAR) Urine pH 8 H (5-7) Ur Specific Gravit y 1.010 (1.005-1.030) Urine Protein Neg (Negative) Urine Glucose (UA) Norm (Normal) Urine Ketones Negative (Negative) Urine Blood Neg (Negative) Urine Nitrate Negative (Negative) Urine Bilirubin Neg (Negative) Urine Urobilinogen Norm mg/dL mg/dL (Negative) Ur Leukocyte Janeen ase Negative (Negative) Discharge Plan Discharge Patient Disposition: Admitted As Inpatient Clinical Impression: Diverticulitis of colon with perforation Condition: Stable Coding Level of Care 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
[2021-09-04] MEDS: ondansetron 2 mg/ML SDV 2 mL 4 MG IVP (20:04)
[2021-09-04] MEDS: sodium chloride 0.9% 1,000 ML 999 ML IV (20:04)
[2021-09-04 20:07] VITALS: RESP 18
[2021-09-04] MEDS: morphine 4 mg/mL SDV 1 mL IVP (20:07)
[2021-09-04] MEDS: iohexol 300 mg/mL 100 mL Btl IV (20:14)
[2021-09-04 20:59] LABS: Add Urine Microscopic? NO; Charge for UA Resulting for Rev
[2021-09-04 21:01] LABS: Urine Appearance Clear (CLEAR); Urine Color Yellow (Yellow); pH Urine 8 (5-7)
[2021-09-04 21:02] LABS: Bilirubin Urine Neg (Negative); Blood Urine Neg (Negative); Glucose Urine UA Norm (Normal); Ketones Urine Negative (Negative); Leukocyte Esterase Urine Negative (Negative); Nitrate Urine Negative (Negative); Protein Urine Neg (Negative); Urobilinogen Urine Norm (Negative)
[2021-09-04] MEDS: ciprofloxacin 400 MG/200 ML PREMIX 200 MG IV (21:57)
[2021-09-04 22:30] LABS: Lactic Sepsis W/Reflex 0.6 mmol/L (0.5-2.2)
[2021-09-04 22:37] VITALS: BP 120/72; PULSE 72; RESP 16; O2SAT 94
[2021-09-04] MEDS: piperacillin-tazobactam 3.375 GM in sodium chloride 0.9% (plus) 50 ML IV (22:59)
[2021-09-04 23:18] VITALS: BP 114/70; PULSE 71; RESP 16; O2SAT 96
[2021-09-05] VITALS (13 sets, daily range): BP systolic 102–116; BP diastolic 64–73; PULSE 71–77; RESP 16–22; TEMP 36.9–37.5; O2SAT 91–98; BMI 33.6
--- NOTE | 2021-09-05 00:35 | PM.HP ---
Providers/Chief Complaint Admitting Physician: Shy Velarde MD Primary Care Provider: Halie Batres MD Chief Complaint: R LOWER ABD & BACK PAIN History of Present Illness Dex Cross is a 51 year old male with history of sigmoid colon diverticulitis(10/2019) treated with oral abx at the time, colonoscopy delayed due to COVID pandemic and other reasons at the time. He has had multiple ER visits through 2019 for recurrent abdominal pain. In 11/2020, found to have left perianal cyst s/p removal, no evidence of fistulae at the time. Planned colonoscopy for screening purposes in few months recommended but not completed yet. Presented to ER today with right lower quadrant abdominal pain that started ~2 days ago. He was evaluated by PCP today and instructed to present to ER due to concerns for recurrent diverticulitis vs appendicitis. Ct abdomen shows sigmoid diverticulitis with conatiend perfortaion. Gen/surg consulted from ER. Denies any known medical comorbidities. Review of Systems General: Reports: 10 or more systems reviewed and unremarkable except in HPI and below Const: Denies: fever(s), chills or body aches Eyes: Denies: change in vision, blurry vision or photophobia ENMT: Denies: throat pain, enlarged tonsils, odynophagia or nasal congestion Card: Denies: chest pain, palpitations, irregular heart rhythm, edema, swelling of feet/ankles, lightheadedness, pre-syncope, dyspnea on exertion or orthopnea Resp: Denies: dyspnea, productive cough, non-productive cough, wheezing, stridor, pain on inspiration, change in phlegm color, hemoptysis or chest congestion GI: Reports: abdominal pain and nausea; Denies: vomiting, hematemesis, coffee ground emesis, dysphagia, heartburn, diarrhea, constipation, GI cramping, change in stool character, hematochezia or melena : Denies: flank pain, dysuria, urinary frequency, urinary urgency, urinary hesitancy or hematuria Musc: Denies: neck pain, back pain, extremity pain, joint swelling, joint warmth or deformity Neuro: Denies: headache(s), numbness in extremities, weakness in extremities, sensory changes, difficulty walking, frequent falls, dizziness, vertigo, behavioral changes, Slurred speech present or seizure-like activity Psych: Denies: anxiety, depression, suicidal ideation or homicidal ideation Endo: Denies: polyuria, polydipsia, tired all the time, cold intolerance or hot flashes [place]/Lymph: Denies: easy bruising or easy bleeding Medications/Allergies Home Medications Medication Instructions Recorded Confirmed Last Taken Type multivitamin 1 tab PO DAILY 05/28/20 01/11/21 12/03/20 History omega-3 fatty acids-fish oil 1 cap PO DAILY 12/04/20 01/11/21 12/03/20 History Allergies Allergy/AdvReac Type Severity Reaction Status Date / Time No Known Allergies Allergy Verified 09/05/21 00:49 PFSH Acute PFSH: Medical History Diverticulitis Perianal cyst Surgical History History of hemorrhoidectomy Family History Denies family history of Anesthesia complication Bleeding disorder Social History Smoking and tobacco status: never smoked Vitals/I&O/Wt Last Vital Signs Temp 98.9 F 09/04/21 14:39 Pulse 74 09/05/21 00:05 Resp 16 09/05/21 00:05 BP 116/73 09/05/21 00:05 Pulse Ox 98 09/05/21 00:05 09/04/21 09/04/21 09/05/21 14:59 22:59 06:59 Intake Total 1000 / 1000 250 / 1250 Balance 1000 / 1000 250 / 1250 Weight last 48 hrs Weight 90.265 kg Data : 09/04/21 17:42 09/04/21 17:42 Micro: Microbiology 09/04/21 21:24 Blood Culture - Preliminary Blood SPECIMEN COLLECTED 09/04/21 21:24 Blood Culture - Preliminary Blood SPECIMEN COLLECTED Attestation for Other Data: I personally reviewed and interpreted the following: Other data: Laboratory Results WBC 15.6 10^3/uL (4.0-10.0) H 09/04/21 17:42 RBC 4.98 10^6/uL (4.1-5.3) 09/04/21 17:42 Hgb 15.3 g/dL (11.7-16.6) 09/04/21 17:42 Hct 46.2 % (42.0-52.0) 09/04/21 17:42 MCV 92.8 fl (80-94) 09/04/21 17:42 MCH 30.7 pg (28.0-34.0) 09/04/21 17:42 MCHC 33.1 g/dL (30.0-36.0) 09/04/21 17:42 RDW 12.2 % (12.1-15.1) 09/04/21 17:42 Plt Count 211 10^3/cmm (130-400) 09/04/21 17:42 MPV 11.9 fL (7.4-10.4) H 09/04/21 17:42 Neut % (Auto) 77.6 % 09/04/21 17:42 Lymph % (Auto) 14.1 % 09/04/21 17:42 [place] % (Auto) 7.5 % 09/04/21 17:42 Eos % (Auto) 0.4 % 09/04/21 17:42 Baso % (Auto) 0.1 % 09/04/21 17:42 Neut # (Auto) 12.08 10^3/uL (1.8-7.7) H 09/04/21 17:42 Lymph # (Auto) 2.2 10^3/uL (0.8-4.8) 09/04/21 17:42 [place] # (Auto) 1.2 10^3/uL (0.2-0.9) H 09/04/21 17:42 Eos # (Auto) 0.1 10^3/uL (0.0-0.8) 09/04/21 17:42 Baso # (Auto) 0.0 10^3/uL (0.0-0.1) 09/04/21 17:42 Nucleated RBC % (auto) 0 % 09/04/21 17:42 Nucleated RBCs # 0.0 /100WBC 09/04/21 17:42 Sodium 141 mmol/L (136-145) 09/04/21 17:42 Potassium 4.1 mmol/L (3.5-5.1) 09/04/21 17:42 Chloride 100 mmol/L (98-107) 09/04/21 17:42 Carbon Dioxide 27 mmol/L (22-29) 09/04/21 17:42 Anion Gap 18.1 (5-19) 09/04/21 17:42 BUN 9 mg/dL (6-20) 09/04/21 17:42 Creatinine 0.8 mg/dL (0.7-1.2) 09/04/21 17:42 GFR Calculation 101.5 mL/min (90-130) 09/04/21 17:42 Glucose 88 mg/dL (65-115) 09/04/21 17:42 Calculated Osmolality 290 mOsm/kg (285-295) 09/04/21 17:42 Lactic Acid 0.6 mmol/L (0.5-2.2) 09/04/21 21:54 Calcium 9.3 mg/dL (8.5-10.5) 09/04/21 17:42 Total Bilirubin 0.8 mg/dL (0.15-1.2) 09/04/21 17:42 AST 12 U/L (0-40) 09/04/21 17:42 ALT 12 U/L (0-41) 09/04/21 17:42 Alkaline Phosphatase 50 IU/L (40-130) 09/04/21 17:42 Total Protein 7.4 g/dL (6.6-8.7) 09/04/21 17:42 Albumin 4.6 g/dL (3.5-5.2) 09/04/21 17:42 Globulin 2.8 g/dL (1.3-4.6) 09/04/21 17:42 Urine Color Yellow (Yellow) 09/04/21 14:53 Urine Appearance Clear (CLEAR) 09/04/21 14:53 Urine pH 8 (5-7) H 09/04/21 14:53 Ur Specific [place] 1.010 (1.005-1.030) 09/04/21 14:53 Urine Protein Neg (Negative) 09/04/21 14:53 Urine Glucose (UA) Norm (Normal) 09/04/21 14:53 Urine Ketones Negative (Negative) 09/04/21 14:53 Urine Blood Neg (Negative) 09/04/21 14:53 Urine Nitrate Negative (Negative) 09/04/21 14:53 Urine Bilirubin Neg (Negative) 09/04/21 14:53 Urine Urobilinogen Norm mg/dL (Negative) 09/04/21 14:53 Ur Leukocyte Esterase Negative (Negative) 09/04/21 14:53 Impressions Abdomen/Pelvis CT 09/04/21 19:51 IMPRESSION: 1. Sigmoid diverticulosis. Findings consistent with severe sigmoid diverticulitis and associated findings consistent with localized diverticular perforation just superior to the inflamed sigmoid colon. 2. Stable calcifications in the vas deferens. Findings raise suspicion for diabetes mellitus. Recommend clinical correlation. Date of Service: 05/28/20 Procedure(s): CT abdomen pelvis w con* [id number] IMPRESSION: Mild left lower quadrant diverticulitis without abscess or perforation in the junction of the descending colon and sigmoid colon. 02/23/20 Procedure(s): CT abdomen pelvis w con* [id number] Extensive diverticulosis with localized diverticulitis of the lower descending colon above the area of the sigmoid colon. On the left side 10/29/19 Procedure(s): CT abdomen pelvis w con* [id number] IMPRESSION: 1. There is a segment of colonic wall thickening consistent with moderate acute colitis/diverticulitis. As an underlying colonic malignancy cannot be excluded, a follow-up examination after a course of treatment is recommende A&P Assessment and plan (1) Diverticulitis of colon with perforation: Sigmoid diverticulosis currently with severe sigmoid diverticulitis and associated findings consistent with localized diverticular perforation just superior to the inflamed sigmoid colon. H/o recurrent diverticulitis appearing to be in same region on priro scans NPO Currently IVF D5 NS @ 75cc/hr trend leukocytosis Blood cx taken prior to starting abx Iv abx treatment with Piperacillin-Tazobactam. This will provide broad spectrum coverage incl gram negatives and anaerobes. 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
[2021-09-05] MEDS: dextrose 5%-sod chloride 0.9% 1,000 ML 75 ML IV ×2 (01:22→13:51)
[2021-09-05] MEDS: famotidine 20 mg/2 mL INJ IVP ×2 (01:28→11:52)
[2021-09-05] MEDS: morphine 4 mg/mL SDV 1 mL 2 MG IVP ×2 (01:28→06:05)
[2021-09-05 01:30] LABS: Estmated Average Glucose 103; Hemoglobin A1C 5.2 % (4.0-6.0)
[2021-09-05] MEDS: piperacillin-tazobactam 3.375 GM in sodium chloride 0.9% (plus) 50 ML IV ×3 (05:54→21:44)
--- NOTE | 2021-09-05 06:09 | PM.CONSULT ---
Providers/Reason For Consult Consulting Physician/Specialty*: Simon Carter MD Reason for Consult*: Sigmoid diverticulitis Attending Physician: Shy Velarde MD Primary Care Provider: Halie Batres MD History of Present Illness History of Present Illness Chief Complaint: My tummy hurts History of present illness: Mr. Dex Cross is a 51 year old male is well-known to me from previous clinical encounters, presents with worsening right-sided abdominal pain being sharp for the past couple of days or so not being referred nothing seems to make it better or worse, she had a previous episode of sigmoid diverticulitis back in 2019 and was treated with oral antibiotics at the time. Mr. Cross was supposed to get a colonoscopy at some point but that did not take place yet. Further work-up in the ER showed leukocytosis of 15.6 otherwise unremarkable lab values. CT scan of the abdomen pelvis shows 1. Sigmoid diverticulosis. Findings consistent with severe sigmoid diverticulitis and associated findings consistent with localized diverticular perforation just superior to the inflamed sigmoid colon. 2. Stable calcifications in the vas deferens. Findings raise suspicion for diabetes mellitus. Recommend clinical correlation. 3. Incidental/nonacute findings are listed in the report. Patient was admitted on the hospitalist service and was placed on broad-spectrum antibiotics and general surgery was consulted for potential management due to the concern of the above findings Review of Systems General: Reports: 10 or more systems reviewed and unremarkable except in HPI and below Meds/Allergies Home Medications and Allergies Home Medications Medication Instructions Recorded Confirmed Last Taken Type multivitamin 1 tab PO DAILY 05/28/20 09/05/21 12/03/20 History omega-3 fatty acids-fish oil 1 cap PO DAILY 12/04/20 09/05/21 12/03/20 History Allergies Allergy/AdvReac Type Severity Reaction Status Date / Time No Known Allergies Allergy Verified 09/05/21 15:02 Current Medications Current Medications Generic Name Dose Route Start Last Admin Trade Name Freq PRN Reason Stop Dose Admin Famotidine 20 mg 09/05/21 01:00 09/05/21 01:28 Famotidine 20 Mg/2 Ml Inj IVP 20 mg Q12H FISH Administration Dextrose/Sodium Chloride 1,000 mls @ 75 mls/hr 09/05/21 01:00 09/05/21 01:22 Dextrose 5%-Sod Chloride 0.9% IV 75 mls/hr .[id number] FISH Administration Piperacillin Sod/Tazobactam 50 mls @ 12.5 mls/hr 09/05/21 06:00 09/05/21 05:54 Sod 3.375 gm/ Sodium Chloride IV 12.5 mls/hr Q8H FISH Administration Protocol Morphine Sulfate 2 mg 09/05/21 00:56 09/05/21 01:28 Morphine 4 Mg/Ml Sdv 1 Ml IVP 2 mg Q4H PRN Administration SEVERE PAIN PFSH Acute PFSH: Medical History Diverticulitis Perianal cyst Surgical History History of hemorrhoidectomy Family History Denies family history of Anesthesia complication Bleeding disorder Social History Smoking and tobacco status: never smoked Vitals/I&O/Wt Last Vital Signs Temp 98.9 F 09/05/21 03:59 Pulse 73 09/05/21 03:59 Resp 17 09/05/21 03:59 BP 103/64 09/05/21 03:59 Pulse Ox 94 09/05/21 03:59 09/04/21 09/04/21 09/05/21 14:59 22:59 06:59 Intake Total 1000 / 1000 250 / 1250 Output Total 200 / 200 Balance 1000 / 1000 50 / 1050 Weight last 48 hrs Weight 202 lb 8 oz Weight 202 lb Weight 199 lb Physical Exam Const: COMMON NORMALS: no acute distress and patient oriented x3 GENERAL APPEARANCE: cooperative ORIENTATION/CONSCIOUSNESS: Yes awake, Yes oriented to person, Yes oriented to place and Yes oriented to time HENMT: COMMON NORMALS: normocephalic HEAD & SCALP: normocephalic Eye: COMMON NORMALS: Equal, round and reactive pupils present and no scleral icterus PUPIL: Yes Equal, round and reactive pupils present Lymph: LYMPHATIC: no lymphadenopathy noted Chest: COMMONS NORMALS: normal inspection of the chest Resp: COMMON NORMALS: normal respiratory effort and clear to auscultation bilaterally AUSCULTATION: clear to auscultation bilaterally Cardio: COMMON NORMALS: S1 normal heart sound present and S2 normal heart sound present; negative for No murmurs present (Cardio) HEART SOUNDS: S1 normal heart sound present and S2 normal heart sound present GI: COMMON NORMALS: Soft to palpation; negative for No hepatosplenomegaly present INSPECTION: Yes normal to inspection PALPATION: Yes Soft to palpation, No Firmness to palpation present (GI), Yes Tenderness to palpation present (GI) Details: RLQ and other (Suprapubic tenderness), No Guarding due to palpation present (GI), No Rigid due to palpation and No No hepatosplenomegaly present Neuro: COMMON NORMALS: patient oriented x3 SENSORIUM/ORIENTATION: Yes oriented to person, Yes oriented to place and Yes oriented to time Psych: COMMON NORMALS: mental status grossly normal Skin: COMMON NORMALS: no rashes or lesions noted GENERAL SKIN EXAM: no rashes or lesions noted Data Micro: Micro: Microbiology 09/04/21 21:24 Blood Culture - Pr eliminary Blood SPECIMEN [facility] 09/04/21 21:24 Blood Culture - Pr eliminary Blood SPECIMEN [facility] A&P Assessment and plan (1) Diverticulitis of colon with perforation: After thorough history physical examination reviewing the chart and images with my personal interpretation. I do see couple of gas bubbles at the sigmoid colon likely due to microperforation. From surgical standpoint of view I would highly recommend the following: Broad-spectrum IV antibiotic IV fluid resuscitation Strict I's and O's Ice chips for now Pharmacologic DVT prophylaxis Repeated physical examination Encourage ambulation Likely the patient would benefit from a colonoscopy in 6 to 8 weeks after the subsidence of this episode to rule out potential underlying colon malignancy Assurance and education All questions have been answered and all concerns have been addressed to patient's satisfaction. Thank you for consulting general surgery to participate taking care Mr. Cross Status: Acute Consult Attestations Medical Necessity Statement: Per admitting service Time Spent in Patient Care: (>than 50% of time spent in counselling and/or direct pt care on unit). Coding Level of Care Code Acute Photographic Equipment Technician for [facility] Fwd Exam Comprehensive Diagnoses Diverticulitis of colon with perforation K57.20
[2021-09-05 06:43] LABS: Alanine Aminotransferase 10 U/L (0-41); Albumin Level 4.2 g/dL (3.5-5.2); Alkaline Phosphatase 39 IU/L (40-130); Aspartate Amino Transferase 12 U/L (0-40); Blood Urea Nitrogen 8 mg/dL (6-20); Calcium 8.5 mg/dL (8.5-10.5); Carbon Dioxide 26 mmol/L (22-29); Chloride 101 mmol/L (98-107); Globulin 2.4 g/dL (1.3-4.6); Glomerular Filtration Rate 88.6 mL/min (90-130); Glucose 97 mg/dL (65-115); Osmolality Calculated 292 mOsm/kg (285-295); Sodium 142 mmol/L (136-145); Total Bilirubin 0.9 mg/dL (0.15-1.2); Total Protein 6.6 g/dL (6.6-8.7)
[2021-09-05] MEDS: morphine 4 mg/mL SDV 1 mL IVP (09:28)
--- NOTE | 2021-09-05 10:11 | PC.CHAP ---
Pastoral Care Encounter/Spiritual Assessment Type of Contact [] Declined digital archivist visit [] Patient/Family/Request visit [] Outpatient visit [] Follow-up visit [] Physician referral [] Code/Alert x[x] Routine visit [] Staff referral [] Actively dying [] Patient sleeping [] Family support [] [] Out of room [] Palliative care [] [] Receiving care in room [] Pre-surgical visit [] Trauma [] Long length of stay [] ICU visit [] Other: Relational/Emotional Strength [x] Patient feels connected with others/family/visitors/staff [] Distress [] Loneliness/isolation [] Abandonment Spirituality of Patient [x] Person of Shi [] Attends Scientology of their Shi [x] Believes in Prayer [] Reads Bible or Samaritan materials [] There are Spiritual issues to be addressed Technician [employer] Interventions [x] Prayer [x] Active listening [x] Non-anxious presence [] Spiritual/emotional support [] Crisis/trauma care [] Spiritual counseling [] Bereavement support [] Provided bereavement packet [] Provided Bible/devotional materials [] Provided toy/stuffed animal, coloring book to patient or family member [] Provided Communion [] Anointing/Murray [] Salvation [] Completed spiritual assessment [] Other: Impact on Illness or Injury [] Angry [] Fearful [] Anxious [] Often cries [] Exhaustion [x] Unable to work [x] Unable to attend spiritism [] Unable to walk/stand [] Unable to read [] Unable to drive [] Unable to eat/drink [] Unable to sleep [] Unable to be with family [] Patient intubated [] Other: Summary Time spent with patient 10 min
[2021-09-05] MEDS: HYDROmorphone 1 mg/mL INJ 1 mL 0.5 MG IVP ×3 (11:53→21:50)
[2021-09-06] VITALS (9 sets, daily range): BP systolic 95–115; BP diastolic 60–77; PULSE 57–65; RESP 16–18; TEMP 36.5–37.2; O2SAT 93–97
[2021-09-06] MEDS: famotidine 20 mg/2 mL INJ IVP ×3 (00:28→23:40)
[2021-09-06] MEDS: dextrose 5%-sod chloride 0.9% 1,000 ML 75 ML IV (01:31)
[2021-09-06] MEDS: acetaminophen 325 mg Tablet 650 MG PO (01:31)
[2021-09-06] MEDS: piperacillin-tazobactam 3.375 GM in sodium chloride 0.9% (plus) 50 ML IV ×3 (05:32→21:59)
[2021-09-06 05:48] LABS: Basophils % 0.2 %; Eosinophils # 0.2 10^3/uL (0.0-0.8); Eosinophils % 2.1 %; Hematocrit 39.1 % (42.0-52.0); Hemoglobin 13.1 g/dL (11.7-16.6); Lymphocytes # 2.2 10^3/uL (0.8-4.8); Lymphocytes % 20.9 %; Mean Corpuscular HGB Conc 33.5 g/dL (30.0-36.0); Mean Corpuscular Hemoglobin 31.5 pg (28.0-34.0); Mean Platelet Volume 11.7 fL (7.4-10.4); Monocytes # 0.9 10^3/uL (0.2-0.9); Monocytes % 8.8 %; Neutrophils # 7.25 10^3/uL (1.8-7.7); Neutrophils % 67.7 %; Nucleated Red Blood Cells % 0 %; Platelet Count 169 10^3/cmm (130-400); Red Blood Count 4.16 10^6/uL (4.1-5.3); White Blood Count 10.7 10^3/uL (4.0-10.0)
[2021-09-06 06:06] LABS: Alanine Aminotransferase 7 U/L (0-41); Albumin Level 3.7 g/dL (3.5-5.2); Alkaline Phosphatase 37 IU/L (40-130); Anion Gap 17.8 (5-19); Aspartate Amino Transferase 8 U/L (0-40); Blood Urea Nitrogen 8 mg/dL (6-20); Calcium 8.5 mg/dL (8.5-10.5); Carbon Dioxide 26 mmol/L (22-29); Chloride 102 mmol/L (98-107); Globulin 2.6 g/dL (1.3-4.6); Glomerular Filtration Rate 101.5 mL/min (90-130); Glucose 99 mg/dL (65-115); Osmolality Calculated 292 mOsm/kg (285-295); Potassium 3.8 mmol/L (3.5-5.1); Sodium 142 mmol/L (136-145); Total Bilirubin 0.7 mg/dL (0.15-1.2); Total Protein 6.3 g/dL (6.6-8.7)
[2021-09-06 06:08] LABS: Lactic Sepsis W/Reflex 0.7 mmol/L (0.5-2.2)
[2021-09-06] MEDS: morphine 4 mg/mL SDV 1 mL IVP ×3 (08:00→23:40)
--- NOTE | 2021-09-06 10:40 | PM.PN ---
Subjective Subjective: Interval history: 51-year-old gentleman admitted with acute sigmoid diverticulitis, with pericolonic contained peritoneal air. This is a very small amount. The colonic wall is also slightly thickened. Patient had an elevated white blood cell count and abdominal pain particularly in the suprapubic region. This is consistent with the presenting diagnosis. In the past 24 hours the patient has tolerated ice chips and reports that his abdominal pain is significantly improved. His white count is also declined to 10. He has had no fevers and chills no tachycardia and is blood pressure is normal. Patient reports that he is ambulating and passing flatus. Vitals/I&O/Wt Last Vital Signs Temp 97.7 F 09/06/21 07:59 Pulse 58 L 09/06/21 07:59 Resp 18 09/06/21 08:00 BP 99/62 09/06/21 07:59 Pulse Ox 93 09/06/21 07:59 09/05/21 09/06/21 09/06/21 22:59 06:59 14:59 Intake Total 80 / 1066.25 925 / 1991.25 50 / 50 Output Total 900 / 900 850 / 1750 Balance -820 / 166.25 75 / 241.25 50 / 50 Weight last 48 hrs Weight 200 lb Weight 202 lb 8 oz Weight 202 lb Weight 199 lb Physical Exam Narrative: EXAM NARRATIVE: Head: Normocephalic atraumatic General: Appearing well, slightly overweight Skin: No jaundice, no exposed lesions Eyes: No scleral icterus, conjugate gaze Neuro: Moves all 4 extremities and follows commands Psych: Cooperative, alert and oriented x3 Abdomen: Soft mildly tender to palpation in left lower and right lower quadrants more tender in the suprapubic region. Very mild tenderness to palpation throughout the abdominal cavity. It is otherwise soft. There is no significant distention. There is no significant rigidity. Lungs: Equal and symmetric rise of the chest wall, no accessory muscle use. Musculoskeletal: No muscular wasting Data : 09/06/21 02:52 09/06/21 02:52 Micro: Microbiology 09/04/21 21:24 Blood Culture - Preliminary Blood NEGATIVE TO DATE 09/04/21 21:24 Blood Culture - Preliminary Blood NEGATIVE TO DATE A&P Additional A&P Information 51-year-old gentleman presenting with acute sigmoid diverticulitis with no free air and not in septic shock. White blood cell count improving on IV antibiotics. I would recommend continuing the IV antibiotics, patient can be started on a clear liquid diet. I encouraged the patient to ambulate as he is currently not on Lovenox. If the patient tolerates a clear liquid diet, then he can be transition to a soft diet tomorrow and started on oral antibiotics assuming that the white blood cell count and the remainder of vital signs are normal Attestations Medical Necessity Statement*: Acute sigmoid diverticulitis requiring inpatient care for IV antibiotics etc. Coding Level of Care Code Acute Home Connect Lpn for [facility]
[2021-09-06] MEDS: enoxaparin 40 mg/0.4 mL Syringe SUBCUT (12:33)
--- NOTE | 2021-09-06 14:17 | P.PN_ITS ---
Subjective Subjective: Interval history: Diet advanced to clear liquid, general surgery evaluate the patient, patient is stating he is improving, abdominal pain has improved, still endorsing mild cramping in epigastric region No active nausea vomiting, no fever hemodynamically stable no leukocytosis His DVT prophylaxis was held at the time of admission in anticipation of any surgical intervention, Lovenox added today he was encouraged to ambulate in the hospital as well Vitals/I&O/Wt Last Vital Signs Temp 97.7 F 09/06/21 11:17 Pulse 57 L 09/06/21 11:17 Resp 16 09/06/21 11:17 BP 95/60 09/06/21 11:17 Pulse Ox 95 09/06/21 11:17 09/05/21 09/06/21 09/06/21 22:59 06:59 14:59 Intake Total 80 / 1066.25 925 / 1991.25 410 / 410 Output Total 900 / 900 850 / 1750 250 / 250 Balance -820 / 166.25 75 / 241.25 160 / 160 Weight last 48 hrs Weight 90.718 kg Weight 91.852 kg Weight 91.626 kg Weight 90.265 kg Physical Exam Narrative: EXAM NARRATIVE: Patient laying supine Nonfocal neuro exam No audible stridor or wheezing Saturating well on room air S1, S2 Abdomen soft tenderness on deep palpation improved Bowel sounds present Nonfocal neuro exam EOMI, PERRLA Data : 09/06/21 02:52 09/06/21 02:52 Micro: Microbiology 09/04/21 21:24 Blood Culture - Preliminary Blood NEGATIVE TO DATE 09/04/21 21:24 Blood Culture - Preliminary Blood NEGATIVE TO DATE A&P Assessment and plan (1) Diverticulitis of colon with perforation: Status: Acute (2) Diverticulitis: Status: Acute Additional A&P Information Diverticulitis with microperforation Clinically stable No leukocytosis Afebrile Diet advanced to clear liquid Plan is to advance his diet by tomorrow and if he is tolerating his diet and clinically stays stable might be able to go home on oral antibiotics and outpatient follow-up for colonoscopy Clear liquid diet DVT prophylaxis Lovenox Full code Appreciate general surgery recommendations Attestations Medical Necessity Statement*: Discharge tomorrow if stable Time Spent in Patient Care: less than 15 minutes Coding Level of Care Code Acute Weaver Needle Loom for [facility] Fwd Diagnoses Diverticulitis of colon with perforation K57.20 Diverticulitis K57.92
[2021-09-07] VITALS: BP 118/78; PULSE 62; RESP 17; TEMP 36.6; O2SAT 95
[2021-09-07 04:00] VITALS: BP 111/74; PULSE 63; RESP 18; TEMP 36.8; O2SAT 94
[2021-09-07] MEDS: piperacillin-tazobactam 3.375 GM in sodium chloride 0.9% (plus) 50 ML IV (04:48)
[2021-09-07 06:33] LABS: Basophils % 0.3 %; Eosinophils # 0.2 10^3/uL (0.0-0.8); Eosinophils % 2.2 %; Hematocrit 40.1 % (42.0-52.0); Hemoglobin 13.5 g/dL (11.7-16.6); Lymphocytes # 2.2 10^3/uL (0.8-4.8); Lymphocytes % 24.8 %; Mean Corpuscular HGB Conc 33.7 g/dL (30.0-36.0); Mean Corpuscular Hemoglobin 31.2 pg (28.0-34.0); Mean Corpuscular Volume 92.6 fl (80-94); Mean Platelet Volume 12.4 fL (7.4-10.4); Monocytes # 0.8 10^3/uL (0.2-0.9); Neutrophils # 5.51 10^3/uL (1.8-7.7); Neutrophils % 63.5 %; Nucleated Red Blood Cells % 0 %; Platelet Count 199 10^3/cmm (130-400); Red Blood Count 4.33 10^6/uL (4.1-5.3); Red Cell Distribution Width 11.7 % (12.1-15.1); White Blood Count 8.7 10^3/uL (4.0-10.0)
[2021-09-07 07:01] LABS: Anion Gap 16.5 (5-19); Blood Urea Nitrogen 7 mg/dL (6-20); Calcium 8.7 mg/dL (8.5-10.5); Carbon Dioxide 25 mmol/L (22-29); Chloride 102 mmol/L (98-107); Glomerular Filtration Rate 101.5 mL/min (90-130); Glucose 78 mg/dL (65-115); Osmolality Calculated 287 mOsm/kg (285-295); Potassium 3.5 mmol/L (3.5-5.1); Sodium 140 mmol/L (136-145)
[2021-09-07 07:47] VITALS: BP 113/69; PULSE 57; RESP 16; TEMP 36.9; O2SAT 94
--- NOTE | 2021-09-07 10:33 | PM.DCS ---
Discharge Providers Date of Admission: 09/04/21 22:04 Date of Discharge: September 07, 2021 Attending Provider at Admission: Shy Velarde MD Attending Provider at Discharge: Kenrick Romero MD Primary Care Provider: Halie Batres MD Diagnoses at Discharge Discharge Diagnosis (1) Diverticulitis of colon with perforation: Status: Acute (2) Diverticulitis: Status: Acute Reason for Visit Reason for Visit: R LOWER ABD & BACK PAIN Hospital Course Hospital Course 51 YO Male who was admitted for management & evaluation of diverticulitis with microperforation. He was managed conservatively. He was kept n.p.o., given IV antibiotics Zosyn. General surgery consulted. Patient's diet was advanced to mechanical soft after 24hrs, he never spiked any fever, no signs of severe leukocytosis, he had a bowel movement on 09/07, was able to tolerate his mechanical soft diet, there was no worsening abdominal pain, nausea, vomiting. Patient got discharged on 08/28/2017 on ciprofloxacin and Flagyl 10-day regimen and outpatient follow-up with Dr. Carter for colonoscopy once his inflammation subsides. Physical Exam Narrative: EXAM NARRATIVE: Patient sitting comfortably in his bed, tolerating his diet Afebrile Abdomen soft No signs of peritonitis, rigidity Well-hydrated S1, S2 Saturating well on room air EOMI, PERRLA Discharge Data Data Completed and Pending: Completed Studies During Hospitalization Category Date Time Status CT abdomen pelvis w con* [id number] Urge nt Cat Scan 09/04/21 19:51 Completed Pending at discharge Category Date Time Status Blood Culture Sta t Lab 09/04/21 21:24 Results Labs from last 24 hours 09/07/21 09/07/21 05:16 05:16 WBC 8.7 RBC 4.33 Hgb 13.5 Hct 40.1 L MCV 92.6 MCH 31.2 MCHC 33.7 RDW 11.7 L Plt Count 199 MPV 12.4 H Neut % (Auto) 63.5 Lymph % (Auto) 24.8 [place] % (Auto) 9.0 Eos % (Auto) 2.2 Baso % (Auto) 0.3 Neut # (Auto) 5.51 Lymph # (Auto) 2.2 [place] # (Auto) 0.8 Eos # (Auto) 0.2 Baso # (Auto) 0.0 Nucleated RBC % (a uto) 0 Nucleated RBCs # 0.0 Sodium 140 Potassium 3.5 Chloride 102 Carbon Dioxide 25 Anion Gap 16.5 BUN 7 Creatinine 0.8 GFR Calculation 101.5 Glucose 78 Calculated Osmolal ity 287 Calcium 8.7 Vitals: Last Vital Signs Temp 98.5 F 09/07/21 07:47 Pulse 57 L 09/07/21 07:47 Resp 16 09/07/21 07:47 BP 113/69 09/07/21 07:47 Pulse Ox 94 09/07/21 07:47 Discharge Plan Discharge Patient Disposition: Home Condition: Stable Prescriptions: New ciprofloxacin HCl 500 mg tablet 500 mg PO BID Qty: 10 RF: 0 Flagyl 500 mg tablet 500 mg PO Q8H 10 Days Qty: 30 RF: 0 oxycodone 5 mg tablet 5 mg PO Q12H PRN (Reason: pain) Qty: 5 RF: 0 Continued omega-3 fatty acids-fish oil 684-1,200 mg Capsule,Delayed Release(Dr/Ec) 1 cap PO DAILY RF: 0 multivitamin Tablet 1 tab PO DAILY RF: 0 Discharge Orders: Discharge Order (Routine); Ordered 09/07/21 Ordered By: Kenrick Romero Referrals: Halie Batres MD [Primary Care Provider] - 09/10/21 4:00 pm Simon Carter MD [Physician] - 10/01/21 9:50 am Discharge Diet: Advance as tolerated Discharge Activity: Resume usual activity Patient Instructions: Diverticulitis, Ciprofloxacin (By mouth) (Cipro), Oxycodone/Acetaminophen (By mouth), Metronidazole (By mouth), Perforated Bowel (IP), Opioid Safety Discharge Attestations Time Spent in Discharge Care*: less than 30 min Quality Metrics Clinical Quality Measures During this hospital stay, did patient experience: None Coding Level of Care Code Acute Chg FW DC note Diagnoses Diverticulitis of colon with perforation K57.20 Diverticulitis K57.92
[2021-09-07 11:40] VITALS: BP 117/81; PULSE 60; RESP 16; TEMP 36.6; O2SAT 95
--- NOTE | 2021-09-09 15:21 | PM.HP ---
Providers/Chief Complaint Admitting Physician: Shy Velarde MD Primary Care Provider: Halie Batres MD Chief Complaint: R LOWER ABD & BACK PAIN History of Present Illness Dex Cross is a 51 year old male had multiple admissions secondary to abdominal pain, has history of diverticulitis, could not go for colonoscopy because of Covid pandemic, he was discharged on 09/07 on oral antibiotics and opioids after inpatient treatment with IV antibiotics for 48 hours, he remained afebrile, no leukocytosis, abdominal pain improved at the time of discharge, he tolerated his diet and had a bowel movement, today he presented for worsening of his abdominal pain which she is describing as cramping/colicky sensation in his lower quadrants. In the ER he was diagnosed with: Diverticulitis abscess in right pelvis appendicitis cannot completely ruled out, general surgery notified and consulted started him on IV antibiotics, keep him n.p.o. no signs of sepsis, no leukocytosis, Plan for surgical intervention today Review of Systems Eyes: Denies: change in vision ENMT: Denies: throat pain Card: Denies: palpitations Resp: Denies: dyspnea GI: Reports: abdominal pain, nausea and GI cramping : Denies: flank pain Musc: Denies: neck pain Skin/Breast: Denies: rash Neuro: Denies: headache(s) Psych: Reports: anxiety Endo: Denies: polyuria Wiliam/Lymph: Denies: easy bruising All/Imm: Denies: urticaria Medications/Allergies Home Medications Medication Instructions Recorded Confirmed Last Taken Type multivitamin 1 tab PO DAILY 05/28/20 09/09/21 09/08/21 History omega-3 fatty acids-fish oil 1 cap PO DAILY 12/04/20 09/09/21 09/08/21 History ciprofloxacin HCl 500 mg PO BID #10 tab 09/07/21 09/09/21 09/08/21 Rx metronidazole [Flagyl] 500 mg PO Q8H 10 Days #30 tab 09/07/21 09/09/21 09/08/21 Rx oxycodone 5 mg PO Q12H PRN #5 tab 09/07/21 09/09/21 Unknown Rx Allergies Allergy/AdvReac Type Severity Reaction Status Date / Time No Known Allergies Allergy Verified 09/05/21 15:02 PFSH Acute PFSH: Medical History Diverticulitis Perianal cyst Surgical History History of hemorrhoidectomy Family History Denies family history of Anesthesia complication Bleeding disorder Social History Smoking and tobacco status: never smoked Vitals/I&O/Wt Last Vital Signs Temp 97.9 F 09/07/21 11:40 Pulse 60 09/07/21 11:40 Resp 16 09/07/21 11:40 BP 117/81 09/07/21 11:40 Pulse Ox 95 09/07/21 11:40 Physical Exam Narrative: EXAM NARRATIVE: male Appear stated age signs of dehydration In distress because of abdominal pain Abdominal pain elicited on palpation of abdomen, rigidity, guarding positive EOMI, PERRLA Nonfocal neuro exam Saturating well on room air Data : 09/07/21 05:16 09/07/21 05:16 A&P Assessment and plan (1) Pelvic abscess: Status: Acute (2) Diverticulitis: Status: Acute Additional A&P Information Diverticulitis with perforation Right pelvic abscess Appendicitis not completely ruled out Clinically has signs of rigidity and guarding plan to take him to the OR for surgical intervention Start IV antibiotics, keep him n.p.o. Start DVT prophylaxis 12 hours after the surgery Opioids for analgesia Maintain IV line for IV fluids Full code N.p.o. 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
[2021-09-10 03:13] LABS: Basophils % 0.3 %; Hematocrit 42.1 % (42.0-52.0); Hemoglobin 13.8 g/dL (11.7-16.6); Lymphocytes # 0.4 10^3/uL (0.8-4.8); Lymphocytes % 2.6 %; Mean Corpuscular HGB Conc 32.8 g/dL (30.0-36.0); Mean Corpuscular Volume 94.6 fl (80-94); Mean Platelet Volume 11.9 fL (7.4-10.4); Monocytes % 6.4 %; Neutrophils # 13.94 10^3/uL (1.8-7.7); Neutrophils % 90.4 %; Nucleated Red Blood Cells % 0 %; Platelet Count 252 10^3/cmm (130-400); Red Blood Count 4.45 10^6/uL (4.1-5.3); Red Cell Distribution Width 11.9 % (12.1-15.1); White Blood Count 15.4 10^3/uL (4.0-10.0)
[2021-09-10 03:48] LABS: Blood Urea Nitrogen 7 mg/dL (6-20); C Reactive Protein 113.5 mg/L (0.0-4.9); Calcium 8.2 mg/dL (8.5-10.5); Carbon Dioxide 22 mmol/L (22-29); Chloride 104 mmol/L (98-107); Glomerular Filtration Rate 88.6 mL/min (90-130); Glucose 193 mg/dL (65-115); Magnesium 1.8 mg/dL (1.7-2.3); Osmolality Calculated 295 mOsm/kg (285-295); Sodium 141 mmol/L (136-145)
== END 2021-09-07 13:00 | disposition home or self-care (01) | DRG 392 ==
LOC: ER 23:42 → MEDSURG 23:44
PROVIDERS: Physician Assistant; Admitting Provider Student in an Organized Health Care Education/Training Program; Emergency Provider Nurse Practitioner Family; PCP Family Medicine; Visit Provider Internal Medicine
DX: K57.20 Diverticulitis of large intestine with perforation and abscess without bleeding (principal)
CPT/HCPCS: 12345; 36415; 74177; 80048; 80053; 81003; 83036; 83605; 83735; 85025; 86140; 87040; 96365; 96367; 96372; 96375; 99285; J0744; J1170; J1650; J2270; J2405; J2543; J3490; J7030; Q9967

== ENCOUNTER 2021-09-09 11:37 | Inpatient (IN) | payer OTHER, SELFPAY ==
[2021-09-09] VITALS (15 sets, daily range): BP systolic 111–168; BP diastolic 62–108; PULSE 75–104; RESP 10–26; TEMP 36.3–36.5; O2SAT 90–100; BMI 31.6
--- NOTE | 2021-09-09 12:06 | CTR_ITS ---
PROCEDURE INFORMATION: Exam: CT Abdomen And Pelvis With Contrast Exam date and time: 09/09/2021 12:06 PM Age: 51 years old Clinical indication: Right lower quadrant abdominal pain. Worsening diverticulitis post discharge? TECHNIQUE: Imaging protocol: Computed tomography of the abdomen and pelvis with contrast. Radiation optimization: All CT scans at this facility use at least one of these dose optimization techniques: automated exposure control; mA and/or kV adjustment per patient size (includes targeted exams where dose is matched to clinical indication); or iterative reconstruction. Contrast material: OMNI 300; Contrast volume: 95 ml; Contrast route: INTRAVENOUS (IV); COMPARISON: CT abdomen pelvis w con* [id number] 09/04/2021 8:12 PM RADIATION DOSE METRICS: Total DLP (mGy-cm): 1650.05 FINDINGS: Lungs: Calcified granuloma in the left lower lobe. No pericardial effusion. No hiatal hernia. Liver: The liver is enlarged measuring 18.5 cm. Gallbladder and bile ducts: The gallbladder is unremarkable. Pancreas: The pancreas is unremarkable. Spleen: The spleen is unremarkable. Adrenal glands: The adrenal glands are unremarkable. Kidneys and ureters: A subcentimeter right renal hypodensity is too small to accurately characterize and requires no follow-up. Stomach and bowel: Colonic diverticulosis with acute diverticulitis involving the mid sigmoid colon. There is perforation with mild free air. There is a collection containing gas and fluid in the right pelvis that measures 5.3 x 1.8 x 5.6 cm. This collection appears to have a recess that extends along the margin of the distal ileum. There is reactive wall thickening of the large and small bowel loops in the right pelvis. Appendix: The appendix is thickened measuring up to 1 cm. This is suspected to be reactive. It is impossible to completely exclude acute appendicitis. Vasculature: No abdominal aortic aneurysm. Lymph nodes: No retroperitoneal lymphadenopathy. Urinary bladder: The bladder wall is thickened. Correlate with urinalysis to exclude cystitis. Reproductive: The prostate measures 3.1 x 3.5 cm. Bones/joints: No acute fracture is seen. Soft tissues: Small fat containing umbilical hernia. CT/CT abdomen pelvis w con* [id number] IMPRESSION: 1. Findings compatible with acute sigmoid diverticulitis. There is perforation with mild free air, and there is an abscess in the right pelvis containing gas and fluid. There is extensive associated inflammation in the right pelvis with reactive wall thickening of large and small bowel loops. 2. The appendix is thickened measuring up to 1 cm. This is suspected to be reactive. It is impossible to completely exclude acute appendicitis. 3. The bladder wall is thickened. Correlate with urinalysis to exclude cystitis. 4. Hepatomegaly.
--- NOTE | 2021-09-09 12:08 | W.ED.GENADLT ---
HPI - General Adult General: Chief complaint: Abdominal Pain Stated complaint: ABD pains Time Seen by Provider: 09/09/21 12:01 History of Present Illness: HPI narrative: Patient is a 51-year-old male with history of recurrent diverticulitis most recently discharged from hospital in 09/07/2021 presenting to emergency room with worsening right lower quadrant dull pain x1 day. Patient tells me that on 09/04 2021, he had right lower quadrant abdominal pain was told to go to the emergency room evaluation of appendicitis and was found to have diverticulitis w/ perforation. Patient was admitted to the hospital for IV abx. Since his discharge from the hospital, patient has been taking his antibiotics compliantly. Yesterday night, patient suddenly noted severe pain in the right lower quadrant in the same area where he had diverticulitis previously. Patient denies any fever/chills, has had mild dysuria symptoms. Denies any testicular pain or new penile discharge. Patient denies any melena or hematochezia. Patient has been able to tolerate p.o. No history of inguinal hernias. Onset:1 day ago Duration:1 day Location:home Severity:moderate/severe Review of Systems Narrative: Constitutional: No fever, no chills. HEENT: No vision changes CV: No chest pain, no palpitations PULM: no cough, no dyspnea. GI: +RLQ abdominal pain, no N/V/D. : No dysuria MSKEL: No muscle pain SKIN: No new rashes, no lesions. NEURO: No headache, no focal weakness. 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 NO guarding rebound, guarding, rigidity. No CVA tenderness to percussion. Neg Cruz/Neg McBurney's point tenderness, no suprabupic tenderness to palpation. EXTREMITY: Normal ROM SKIN: No rash or erythema NEURO: Awake and alert, no focal motor deficits PSYCH: Normal mood and affect : normal external genitalia, Testicles non-tender b/l, no erythema. Course Vital Signs: Vital signs: Vital Signs Temperature 98.4 F 09/10/21 20:06 Pulse Rate 63 09/10/21 20:06 Respiratory Rate 16 09/10/21 20:06 Blood Pressure 112/69 09/10/21 20:06 Pulse Oximetry 95 09/10/21 20:06 MDM - General Adult MDM Narrative: Medical decision making narrative: 51-year-old male presents emergency room with worsening right lower quadrant pain after discharge from hospital with diagnosis of diverticulitis. Today, patient is afebrile, in moderate distress with significant right lower quadrant tenderness palpation. No guarding no rebound tenderness. S/p zosyn for pelvic abscess and perforation At 2pm, Findings of abscess and perforation discussed with Dr. Jeffery who recommended admission for abx for now and possible OR vs IR guided drainage. Pain controlled with morphine. Dr. Jeffery took patient to the OR for drainage and bowel evaluation. Disposition: admission Lab Data: Labs: Lab Results 09/09/21 09/09/21 09/09/21 12:15 12:15 12:15 WBC 8.9 10^3/uL 10^3/ uL (4.0-10.0) RBC 4.67 10^6/uL 10^6 /uL (4.1-5.3) Hgb 14.7 g/dL g/dL (11.7-16.6) Hct 43.3 % % (42.0-52.0) MCV 92.7 fl fl (80-94) MCH 31.5 pg pg (28.0-34.0) MCHC 33.9 g/dL g/dL (30.0-36.0) RDW 12.0 % L % (12.1-15.1) Plt Count 239 10^3/cmm 10^3 /cmm (130-400) MPV 11.2 fL H fL (7.4-10.4) Neut % (Auto) 68.6 % % Lymph % (Auto) 19.8 % % [place] % (Auto) 10.3 % % Eos % (Auto) 1.0 % % Baso % (Auto) 0.2 % % Neut # (Auto) 6.13 10^3/uL 10^3 /uL (1.8-7.7) Lymph # (Auto) 1.8 10^3/uL 10^3/ uL (0.8-4.8) [place] # (Auto) 0.9 10^3/uL 10^3/ uL (0.2-0.9) Eos # (Auto) 0.1 10^3/uL 10^3/ uL (0.0-0.8) Baso # (Auto) 0.0 10^3/uL 10^3/ uL (0.0-0.1) Nucleated RBC % (a uto) 0 % % Nucleated RBCs # 0.0 /100WBC /100W BC PT INR APTT Sodium 142 mmol/L mmol/L (136-145) Potassium 3.7 mmol/L mmol/L (3.5-5.1) Chloride 102 mmol/L mmol/L (98-107) Carbon Dioxide 25 mmol/L mmol/L (22-29) Anion Gap 18.7 (5-19) BUN 7 mg/dL mg/dL (6-20) Creatinine 0.9 mg/dL mg/dL (0.7-1.2) GFR Calculation 88.6 mL/min L mL/ min (90-130) Glucose 95 mg/dL mg/dL (65-115) Calculated Osmolal ity 292 mOsm/kg mOsm/ kg (285-295) Lactate 1.4 mmol/L mmol/L (0.5-2.2) Calcium 9.0 mg/dL mg/dL (8.5-10.5) Total Bilirubin 0.4 mg/dL mg/dL (0.15-1.2) AST 13 U/L U/L (0-40) ALT 11 U/L U/L (0-41) Alkaline Phosphata se 47 IU/L IU/L (40-130) Total Protein 7.1 g/dL g/dL (6.6-8.7) Albumin 4.2 g/dL g/dL (3.5-5.2) Globulin 2.9 g/dL g/dL (1.3-4.6) Lipase 57 U/L U/L (13-60) Procalcitonin 09/09/21 09/09/21 12:15 14:10 WBC RBC Hgb Hct MCV MCH MCHC RDW Plt Count MPV Neut % (Auto) Lymph % (Auto) [place] % (Auto) Eos % (Auto) Baso % (Auto) Neut # (Auto) Lymph # (Auto) [place] # (Auto) Eos # (Auto) Baso # (Auto) Nucleated RBC % (a uto) Nucleated RBCs # PT 15.10 SECONDS H S ECONDS (12.1-14.9) INR 1.15 (0.8-1.2) APTT 29.9 SECONDS SECO NDS (23.9-36.7) Sodium Potassium Chloride Carbon Dioxide Anion Gap BUN Creatinine GFR Calculation Glucose Calculated Osmolal ity Lactate Calcium Total Bilirubin AST ALT Alkaline Phosphata se Total Protein Albumin Globulin Lipase Procalcitonin 0.08 ng/mL ng/mL (0-0.5) Imaging Data^: Other Imaging: Radiologist's impression: [address] [id number] Scan ReportSigned with Addenda Patient: Greg Cross #: [id number]: 1970Acct#:[id number]/Sex: 51 / MADM Date: 09/09/21Loc: ERRoom/Bed:Attending Dr: Ordering Provider/Ordering MD: Jose Francisco Benavides MD Date of Service: 09/09/21 Procedure(s): CT abdomen pelvis w con* [id number] Accession Number(s): [id number] Report Number: [id number]/CT abdomen pelvis w con* [id number] Findings relayed to JOSE FRANCISCO BENAVIDES who confirmed receipt of report at 09/09/2021 1:55 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 Addendum Dictated By: Andres McintoshAddendum Signed By: Bernie Mcintosh Date/Time:09/09/21 1356Addendum Cosigned By: PROCEDURE INFORMATION: Exam: CT Abdomen And Pelvis With Contrast Exam date and time: 09/09/2021 12:06 PM Age: 51 years old Clinical indication: Right lower quadrant abdominal pain. Worsening diverticulitis post discharge? TECHNIQUE: Imaging protocol: Computed tomography of the abdomen and pelvis with contrast. Radiation optimization: All CT scans at this facility use at least one of these dose optimization techniques: automated exposure control; mA and/or kV adjustment per patient size (includes targeted exams where dose is matched to clinical indication); or iterative reconstruction. Contrast material: OMNI 300; Contrast volume: 95 ml; Contrast route: INTRAVENOUS (IV); COMPARISON: CT abdomen pelvis w con* [id number] 09/04/2021 8:12 PM RADIATION DOSE METRICS: Total DLP (mGy-cm): 1650.05 FINDINGS: Lungs: Calcified granuloma in the left lower lobe. No pericardial effusion. No hiatal hernia. Liver: The liver is enlarged measuring 18.5 cm. Gallbladder and bile ducts: The gallbladder is unremarkable. Pancreas: The pancreas is unremarkable. Spleen: The spleen is unremarkable. Adrenal glands: The adrenal glands are unremarkable. Kidneys and ureters: A subcentimeter right renal hypodensity is too small to accurately characterize and requires no follow-up. Stomach and bowel: Colonic diverticulosis with acute diverticulitis involving the mid sigmoid colon. There is perforation with mild free air. There is a collection containing gas and fluid in the right pelvis that measures 5.3 x 1.8 x 5.6 cm. This collection appears to have a recess that extends along the margin of the distal ileum. There is reactive wall thickening of the large and small bowel loops in the right pelvis. Appendix: The appendix is thickened measuring up to 1 cm. This is suspected to be reactive. It is impossible to completely exclude acute appendicitis. Vasculature: No abdominal aortic aneurysm. Lymph nodes: No retroperitoneal lymphadenopathy. Urinary bladder: The bladder wall is thickened. Correlate with urinalysis to exclude cystitis. Reproductive: The prostate measures 3.1 x 3.5 cm. Bones/joints: No acute fracture is seen. Soft tissues: Small fat containing umbilical hernia. CT/CT abdomen pelvis w con* [id number] IMPRESSION: 1. Findings compatible with acute sigmoid diverticulitis. There is perforation with mild free air, and there is an abscess in the right pelvis containing gas and fluid. There is extensive associated inflammation in the right pelvis with reactive wall thickening of large and small bowel loops. 2. The appendix is thickened measuring up to 1 cm. This is suspected to be reactive. It is impossible to completely exclude acute appendicitis. 3. The bladder wall is thickened. Correlate with urinalysis to exclude cystitis. 4. Hepatomegaly. 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
[2021-09-09 12:23] LABS: Basophils % 0.2 %; Eosinophils # 0.1 10^3/uL (0.0-0.8); Hematocrit 43.3 % (42.0-52.0); Hemoglobin 14.7 g/dL (11.7-16.6); Lymphocytes # 1.8 10^3/uL (0.8-4.8); Lymphocytes % 19.8 %; Mean Corpuscular HGB Conc 33.9 g/dL (30.0-36.0); Mean Corpuscular Hemoglobin 31.5 pg (28.0-34.0); Mean Corpuscular Volume 92.7 fl (80-94); Mean Platelet Volume 11.2 fL (7.4-10.4); Monocytes # 0.9 10^3/uL (0.2-0.9); Monocytes % 10.3 %; Neutrophils # 6.13 10^3/uL (1.8-7.7); Neutrophils % 68.6 %; Nucleated Red Blood Cells % 0 %; Platelet Count 239 10^3/cmm (130-400); Red Blood Count 4.67 10^6/uL (4.1-5.3); White Blood Count 8.9 10^3/uL (4.0-10.0)
[2021-09-09] MEDS: morphine 4 mg/mL SDV 1 mL IVP (12:46)
[2021-09-09] MEDS: sodium chloride 0.9% 1,000 ML 999 ML IV (12:47)
[2021-09-09] MEDS: famotidine 20 mg/2 mL INJ IVP (12:47)
[2021-09-09 13:02] LABS: Alanine Aminotransferase 11 U/L (0-41); Albumin Level 4.2 g/dL (3.5-5.2); Alkaline Phosphatase 47 IU/L (40-130); Anion Gap 18.7 (5-19); Aspartate Amino Transferase 13 U/L (0-40); Blood Urea Nitrogen 7 mg/dL (6-20); Carbon Dioxide 25 mmol/L (22-29); Chloride 102 mmol/L (98-107); Globulin 2.9 g/dL (1.3-4.6); Glomerular Filtration Rate 88.6 mL/min (90-130); Glucose 95 mg/dL (65-115); Lactate (Lactic Acid level) 1.4 mmol/L (0.5-2.2); Lipase 57 U/L (13-60); Osmolality Calculated 292 mOsm/kg (285-295); Potassium 3.7 mmol/L (3.5-5.1); Sodium 142 mmol/L (136-145); Total Bilirubin 0.4 mg/dL (0.15-1.2); Total Protein 7.1 g/dL (6.6-8.7)
[2021-09-09] MEDS: piperacillin-tazobactam 4.5 GM in sodium chloride 0.9% (plus) 50 ML IV (14:12)
[2021-09-09 14:32] LABS: INR 1.15 (0.8-1.2)
[2021-09-09 14:33] LABS: Partial Thromboplastin Time 29.9 SECONDS (23.9-36.7)
--- NOTE | 2021-09-09 15:13 | PM.CONSULT ---
Providers/Reason For Consult Consulting Physician/Specialty*: shapera Reason for Consult*: sigmoid diverticulitis Primary Care Provider: Halie Batres MD History of Present Illness History of Present Illness Dex Cross is a 51 year old male presenting with abdominal pain. He was recently discharged from the hospital with a diagnosis of hinchey ii acute sigmoid diverticulitis on oral antibiotics after successful nonoperative management. 24 hours after discharge the patient reports vague abdominal tenderness and malaise. The pain then localized to the right lower quadrant. He proceeded to the emergency department after the oxycodone that he was given (he was given 5 oxycodone, 5 tablets, to be taken every 12 hours), was insufficient to manage his pain. He had been prescribed ciprofloxacin and metronidazole orally as well. At the emergency department he has normal vital signs, no fever, no white blood cell count. On CT scan however there is a 5 cm irregular shaped fluid collection with air within it adjacent to the sigmoid colon. The CT scan a few days prior obtained from the prior visit did not have this fluid collection, it did have some mesenteric inflammation and phlegmon changes. In addition the CT scan shows an inflamed appearing appendix. Past medical history: The patient denies any. Past surgical history: Patient denies any abdominal surgery, he reports hemorrhoidectomy. Allergies: Nonpertinent. Family history: None regarding colon or stomach cancer. Social history: Never abused tobacco before. Rare alcohol use in the past. Review of Systems General: Reports: 10 or more systems reviewed and unremarkable except in HPI and below Meds/Allergies Home Medications and Allergies Home Medications Medication Instructions Recorded Confirmed Last Taken Type multivitamin 1 tab PO DAILY 05/28/20 09/09/21 09/08/21 History omega-3 fatty acids-fish oil 1 cap PO DAILY 12/04/20 09/09/21 09/08/21 History ciprofloxacin HCl 500 mg PO BID #10 tab 09/07/21 09/09/21 09/08/21 Rx metronidazole [Flagyl] 500 mg PO Q8H 10 Days #30 tab 09/07/21 09/09/21 09/08/21 Rx oxycodone 5 mg PO Q12H PRN #5 tab 09/07/21 09/09/21 Unknown Rx Allergies Allergy/AdvReac Type Severity Reaction Status Date / Time No Known Allergies Allergy Verified 09/05/21 15:02 PFSH Acute PFSH: Medical History Diverticulitis Perianal cyst Surgical History History of hemorrhoidectomy Family History Denies family history of Anesthesia complication Bleeding disorder Social History Smoking and tobacco status: never smoked Vitals/I&O/Wt Last Vital Signs Temp 97.7 F 09/09/21 12:01 Pulse 77 09/09/21 12:01 Resp 18 09/09/21 12:01 BP 130/86 09/09/21 12:01 Pulse Ox 96 09/09/21 12:01 09/09/21 09/09/21 09/09/21 06:59 14:59 22:59 Intake Total 50 / 50 Balance 50 / 50 Weight last 48 hrs Weight 190 lb Physical Exam Narrative: EXAM NARRATIVE: Head: Normocephalic, atraumatic. Eyes: No scleral icterus, normal conjugate gaze Psych: Cooperative, pleasant mood. Neuro: Moves all 4 extremities follows commands. Skin: No jaundice no major exposed lesions. Abdomen: Umbilical hernia is appreciated, it is reducible. There is substantial tenderness in the bilateral lower quadrants worse on the right. There is no rigidity, there is rebound tenderness however. Lungs: Normal symmetric expansion of the chest wall, no accessory muscle use. Musculoskeletal: No obvious muscle wasting, appropriate tone Data Micro: Micro: Microbiology 09/09/21 12:53 Blood Culture - Pr eliminary Blood SPECIMEN [facility] 09/09/21 12:57 Blood Culture - Pr eliminary Blood SPECIMEN [facility] A&P Additional A&P Information 51-year-old gentleman recently discharged with hinchey ii diverticulitis. Although he is hemodynamically normal with a normal white blood cell count, he was on oral antibiotics. The CT scan shows extraluminal air and fluid, possible reactive versus acutely inflamed appendix. In addition there has been a sudden change in the patient's clinical picture so that he is very tender in the right lower quadrant. The change in the character of the pain from vague to localize to the right lower quadrant does argue for appendicitis even though it is likely that the appendix is inflamed secondarily to the abscess. I had a discussion with the radiologist who read the CT scan, unfortunately he is not in-house. However we discussed that there is no good window for interventional radiologist to drain the abscess. Therefore the patient will require laparoscopic drainage of this abscess and drain placement. In addition I shall examine the cecum and attempt an appendectomy. I explained to the patient that there is a small possibility that a free sigmoid perforation will be identified intraoperatively. If this is the case then a sigmoidectomy may be required, possibly with a Danelle procedure versus loop ileostomy to protect any possible anastomosis. I also explained that I may have to convert to an exploratory laparotomy. The risks benefits indications alternatives and expected perioperative recovery of such procedure was explained to the patient in simple terms and he expressed an understanding to proceed. Plan: 1. Keep the patient n.p.o. administer IV fluids administer IV antibiotics. 2. Take the patient to the operating room for the operating plan as above. 3. Postoperatively the patient will require chemical DVT prophylaxis. Thank you for allowing me to participate in the care of this patient. 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
--- NOTE | 2021-09-09 15:50 | ANES.PREANE2 ---
Pre-Anesthetic Assessment Pre-Anesthetic Assessment: Height/Weight: Height 1.65 m Weight 86.183 kg Temp Pulse Resp BP Pulse Ox 97.7 F 77 18 130/86 96 09/09/21 12:01 09/09/21 12:01 09/09/21 12:01 09/09/21 12:01 09/09/21 12:01 Preop Diagnosis: Symptomatic hemorrhoids And perianal fistula Proposed Procedure: Operation Date: 09/09/21 17:00 Proposed Procedures p Laparoscopy(Not Applicable) - Hernandez Jeffery MD Was Beta Jael taken within 24 hours: N/A Was Clonidine taken within 24 hours: N/A Social: Social History: No alcohol and No tobacco Exam: Pre-Anes Outpt Exam: alert, oriented x 3, clear to auscultation bilaterally and regular rate & rhythm Airway: Submandibular: WNL Cervical ROM: WNL MP: 1 Dentition: Full History/ROS: No significant history except as noted Pulmonary: Pulmonary: None reported CV/HEM: CV/HEM: None reported : : None reported Hepatic: Hepatic: None reported GI: Comments: CT Abdomen CT/CT abdomen pelvis w con* [id number] IMPRESSION: 1. Findings compatible with acute sigmoid diverticulitis. There is perforation with mild free air, and there is an abscess in the right pelvis containing gas and fluid. There is extensive associated inflammation in the right pelvis with reactive wall thickening of large and small bowel loops. 2. The appendix is thickened measuring up to 1 cm. This is suspected to be reactive. It is impossible to completely exclude acute appendicitis. 3. The bladder wall is thickened. Correlate with urinalysis to exclude cystitis. 4. Hepatomegaly. Metabolic: Metabolic: None reported Musc/skel: Musc/skel: None reported Neuropsych: Neuropsych: None reported Anesthetic Plan: ASA status: 2 Anesthesia: General Risk of > 500 ml blood loss (7ml/kg in children): No PFSH Anesthesia PFSH: Medical History Diverticulitis Perianal cyst Surgical History History of hemorrhoidectomy Family History Denies family history of Anesthesia complication Bleeding disorder Social History Smoking and tobacco status: never smoked Data Anesthesia CBC & Chem 7: 09/09/21 12:15 09/09/21 12:15 Other Labs: Laboratory Results - last 48 hr 09/09/21 09/09/21 09/09/21 12:15 12:15 12:15 WBC 8.9 RBC 4.67 Hgb 14.7 Hct 43.3 MCV 92.7 MCH 31.5 MCHC 33.9 RDW 12.0 L Plt Count 239 MPV 11.2 H Neut % (Auto) 68.6 Lymph % (Auto) 19.8 [place] % (Auto) 10.3 Eos % (Auto) 1.0 Baso % (Auto) 0.2 Neut # (Auto) 6.13 Lymph # (Auto) 1.8 [place] # (Auto) 0.9 Eos # (Auto) 0.1 Baso # (Auto) 0.0 Nucleated RBC % (auto) 0 Nucleated RBCs # 0.0 PT INR APTT Sodium 142 Potassium 3.7 Chloride 102 Carbon Dioxide 25 Anion Gap 18.7 BUN 7 Creatinine 0.9 GFR Calculation 88.6 L Glucose 95 Calculated Osmolality 292 Lactate 1.4 Calcium 9.0 Total Bilirubin 0.4 AST 13 ALT 11 Alkaline Phosphatase 47 Total Protein 7.1 Albumin 4.2 Globulin 2.9 Lipase 57 09/09/21 14:10 WBC RBC Hgb Hct MCV MCH MCHC RDW Plt Count MPV Neut % (Auto) Lymph % (Auto) [place] % (Auto) Eos % (Auto) Baso % (Auto) Neut # (Auto) Lymph # (Auto) [place] # (Auto) Eos # (Auto) Baso # (Auto) Nucleated RBC % (auto) Nucleated RBCs # PT 15.10 H INR 1.15 APTT 29.9 Sodium Potassium Chloride Carbon Dioxide Anion Gap BUN Creatinine GFR Calculation Glucose Calculated Osmolality Lactate Calcium Total Bilirubin AST ALT Alkaline Phosphatase Total Protein Albumin Globulin Lipase Micro: Microbiology 09/09/21 12:53 Blood Culture - Preliminary Blood SPECIMEN COLLECTED 09/09/21 12:57 Blood Culture - Preliminary Blood SPECIMEN COLLECTED Cardiac Studies: No Data to Display
[2021-09-09] MEDS: sodium chloride 0.9% 1,000 ML 30 ML IV (16:15)
--- NOTE | 2021-09-09 18:43 | PM.HP ---
Providers/Chief Complaint Admitting Physician: Hernandez Jeffery MD Primary Care Provider: Halie Batres MD Chief Complaint: ABD pains History of Present Illness History of Present Illness Dex Cross is a 51 year old male had multiple admissions secondary to abdominal pain, has history of diverticulitis, could not go for colonoscopy because of Covid pandemic, he was discharged on 09/07 on oral antibiotics and opioids after inpatient treatment with IV antibiotics for 48 hours, he remained afebrile, no leukocytosis, abdominal pain improved, he tolerated his diet and had a bowel movement at the time of discharge, today he presented for worsening of his abdominal pain which she is describing as cramping/colicky sensation in his lower quadrants. Stating that when he was discharged she went straight to [facility] to get his antibiotics, he felt fine on Friday and on Friday he did eat lira which was air fried, he had hotdogs on Friday, he started experiencing diarrhea and some pain which got worse on Friday evening, he called his PCP who recommended him to watch him for next few hours, he could not tolerate his pain on Friday, drove himself to the ER for further evaluation. In the ER he was diagnosed with: Diverticulitis abscess in right pelvis appendicitis cannot , general surgery notified and consulted started him on IV antibiotics, keep him n.p.o. no signs of sepsis, no leukocytosis, Plan for surgical intervention today Review of Systems Narrative: Review of Systems Eyes: Denies: change in vision ENMT: Denies: throat pain Card: Denies: palpitations Resp: Denies: dyspnea GI: Reports: abdominal pain, nausea and GI cramping : Denies: flank pain Musc: Denies: neck pain Skin/Breast: Denies: rash Neuro: Denies: headache(s) Psych: Reports: anxiety Endo: Denies: polyuria Wiliam/Lymph: Denies: easy bruising All/Imm: Denies: urticaria Medications/Allergies Home Medications Medication Instructions Recorded Confirmed Last Taken Type multivitamin 1 tab PO DAILY 05/28/20 09/09/21 09/08/21 History omega-3 fatty acids-fish oil 1 cap PO DAILY 12/04/20 09/09/21 09/08/21 History ciprofloxacin HCl 500 mg PO BID #10 tab 09/07/21 09/09/21 09/08/21 Rx metronidazole [Flagyl] 500 mg PO Q8H 10 Days #30 tab 09/07/21 09/09/21 09/08/21 Rx oxycodone 5 mg PO Q12H PRN #5 tab 09/07/21 09/09/21 Unknown Rx Allergies Allergy/AdvReac Type Severity Reaction Status Date / Time silk Allergy Unknown Unknown Verified 09/10/21 01:54 hydromorphone Allergy ADR-Headach Verified 09/09/21 23:46 e PFSH Acute PFSH: Medical History Diverticulitis Perianal cyst Surgical History History of hemorrhoidectomy Family History Denies family history of Anesthesia complication Bleeding disorder Social History Smoking and tobacco status: never smoked Current occupation: [employer] op Vitals/I&O/Wt Last Vital Signs Temp 97.7 F 09/09/21 16:19 Pulse 75 09/09/21 16:19 Resp 18 09/09/21 16:19 BP 130/80 09/09/21 16:19 Pulse Ox 96 09/09/21 16:19 09/09/21 09/09/21 09/09/21 06:59 14:59 22:59 Intake Total 50 / 50 Balance 50 / 50 Weight last 48 hrs Weight 86.183 kg Physical Exam Narrative: EXAM NARRATIVE: male Appears stated age signs of dehydration In distress because of abdominal pain Abdominal pain elicited on palpation of abdomen, rigidity, guarding positive EOMI, PERRLA Nonfocal neuro exam Saturating well on room air Urinary Catheter Management^: Madsen: Cath Placed During This Visit: yes Urinary Catheter Date of Insertion: 09/09/21 Urinary Catheter Time of Insertion: 16:40 Data : 09/09/21 12:15 09/10/21 02:06 Micro: Microbiology 09/09/21 12:53 Blood Culture - Preliminary Blood SPECIMEN COLLECTED 09/09/21 12:57 Blood Culture - Preliminary Blood SPECIMEN COLLECTED A&P Assessment and plan (1) Diverticulitis: Status: Acute (2) Pelvic abscess: Status: Acute (3) Abdominal pain: Status: Acute Additional A&P Information Diverticulitis with perforation Right pelvic abscess Appendicitis not completely ruled out Clinically has signs of rigidity and guarding plan to take him to the OR for surgical intervention Start IV antibiotics, keep him n.p.o. Start DVT prophylaxis 12 hours after the surgery Opioids for analgesia Maintain IV line for IV fluids Full code N.p.o. 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
[2021-09-09 19:21] LABS: Procalcitonin 0.08 ng/mL (0-0.5)
--- NOTE | 2021-09-09 20:10 | PC.NURSE ---
2004 attempted to call the sister by cell phone but no answer
[2021-09-09] MEDS: piperacillin-tazobactam 3.375 GM in sodium chloride 0.9% (plus) 50 ML IV (20:16)
--- NOTE | 2021-09-09 21:56 | PM.OP ---
Operative Report Date of procedure: September 09, 2021 Pre-op Diagnosis: 1. Acute Appendicitis 2. Diverticulitis, perforated Post-op diagnosis: same Procedure Done: 1. Diagnostic Laparoscopy 2. Laparoscopic Sigmoidectomy 3. End Colostomy and Danelle's pouch 4. Drain placement Specimens removed/disposition: 1. Appendix 2. Sigmoid Colon Surgeon: Hernandez Jeffery Anesthesia: General Estimated blood loss (mL): 200 Condition: stable Disposition: floor Procedure: This is a 51-year-old gentleman who presented abdominal pain after nonoperative management of diverticulitis. CT scan showed an acutely inflamed appendix and a fluid collection in the pelvis not amenable to IR drainage. Therefore an operation is indicated to remove the appendix at the drain the fluid collection. I explained to the patient that if I unroofed the fluid collection, there is a chance that I could encounter a free hole in the sigmoid colon which would mandate sigmoidectomy. This may lead to Iver anastomosis and loop ileostomy, or a Danelle procedure with an end colostomy. Patient understood these risks and elected to proceed. The operation is indicated because the patient is having worsening symptoms and is returned to the hospital after discharge on antibiotics. Therefore this is failure of nonoperative management. Patient was taken to the OR by anesthesia in the OR stop. He was laid supine induced intubated prepped and draped. At the umbilicus the peritoneal cavity was entered by cutdown technique and pneumoperitoneum was established to 15 mmHg pressure. A 5 mm trocar was inserted at the suprapubic region and the left lower quadrant under direct laparoscopic visualization. The cecum was identified. The ileum the sigmoid colon and the cecum were adherent to each of her due to an interloop abscess loop. These loops of intestine were carefully teased apart and the abscess suctioned. The perforation in the sigmoid colon was appreciated. It was leaking purulence and had only a very thin friable film of fibrinous exudates around it. Therefore at this point I could not depend on the sigmoid colon sealing itself off especially since the patient already had a fluid collection and worsening abdominal pain. In addition identified the appendix after freeing up the cecum and appreciate that it was significantly inflamed, more than what would be expected from simple reactive process to the diverticular fluid collection. I proceeded to transect the appendix with a blue load on Ethicon stapler and divided the mesoappendix with a laparoscopic vessel sealing device. The appendix was placed in an Endo Catch bag and retrieved through the umbilical incision. Next the sigmoid colon mesentery was mobilized and freed from the retroperitoneum. The diverticular perforation was right in fact very close to the rectosigmoid junction. Therefore I had to make a window in the mesentery of the proximal portion of the rectum. I used a green load to transect the rectum. This required 2 firings. Next taking great care not to enter into the retroperitoneum the mesentery of the sigmoid colon was divided. In anticipation of a planned colorectal anastomosis the left colon was mobilized by dividing the white line of Toldt. This required an additional 5 MM trocar to be inserted in the right lower quadrant for adequate retraction and exposure. I mobilized the splenic flexure. I chose a point immediately proximal to where the diverticuli ended. I divided the colon here with use of a green load of the laparoscopic stapler. The sigmoid colon was then placed in a large Endo Catch bag. Next I attempted to bring the 2 ends of the colon together. Unfortunately the left colon did not appear to reach the rectum very well. I could not complete this anastomosis laparoscopically. I enlarged the incision on the left lower quadrant port site and expanded the fascial incision here. I brought the rectum stump and left colon up through this wound, although the left colon could reach the rectal stump could barely protrude through the fascia. I therefore could not safely perform an open colorectal anastomosis. At this point I elected not to mobilize the transverse colon, and I elected not to perform a handsewn anastomosis as the resection of the sigmoid colon had already required a significant amount of time due to the very inflamed short and fat and nature of the visceral fat in the mesentery of the rectum and colon, due to the patient's habitus. This also likely contributed to the inability of the left colon to reach down to the rectum. At this point I made the decision that the safest next step for the patient was to proceed with the creation of an end colostomy. I sutured a 2-0 Prolene suture onto the rectal stump staple line at a long length so that a future surgeon could easily identify the rectal stump in preparation for a future colorectal anastomosis and restorationism of intestinal continuity. I also placed a 10 Icelandic VASILIY drain through the right lower quadrant incision and secured at the skin level with nylon stitch. This drain will help capture any fluid of further purulence. I then attempted to search for any fervor infected fluid I could find none. I performed a thorough diagnostic laparoscopy and could find no further pathology. The remainder of the intestine was all completely viable and healthy. I would also like to point out that at no point to light into the retroperitoneum, and the Madsen remained free of any bloody output. I was confident that I did not injure any ureter. I retrieved the sigmoid colon specimen in the Endo Catch bag through the left lower quadrant incision and then I proceeded to mature the left and colon stump enterocolostomy. I did this with the use of 2-0 Vicryl suture interrupted at 12 points. The colon at the colostomy appeared viable and healthy at the end of the case. The colostomy bag was placed on top. The patient tolerated the procedure very well without any immediate evidence of complications.
[2021-09-09] MEDS: labetalol 5 mg/mL SDV 20mL IVP (22:14)
--- NOTE | 2021-09-09 22:55 | PC.NURSE ---
2255 Emptied VASILIY drain of 40ml serousanginuous fluid, dark red in color.
[2021-09-10] VITALS (11 sets, daily range): BP systolic 105–138; BP diastolic 53–80; PULSE 62–88; RESP 16–18; TEMP 36.4–36.9; O2SAT 95–98; BMI 34.2
[2021-09-10] MEDS: dextrose 5%-sod chloride 0.9% 1,000 ML 125 ML IV ×3 (00:24→18:09)
[2021-09-10] MEDS: ketorolac 30 mg/mL INJ 15 MG IVP ×5 (00:24→23:43)
[2021-09-10] MEDS: piperacillin-tazobactam 3.375 GM in sodium chloride 0.9% (plus) 50 ML IV ×3 (02:05→18:00)
[2021-09-10 03:47] LABS: Alanine Aminotransferase 10 U/L (0-41); Albumin Level 3.6 g/dL (3.5-5.2); Alkaline Phosphatase 42 IU/L (40-130); Anion Gap 20.3 (5-19); Aspartate Amino Transferase 14 U/L (0-40); Blood Urea Nitrogen 7 mg/dL (6-20); Calcium 7.8 mg/dL (8.5-10.5); Carbon Dioxide 22 mmol/L (22-29); Chloride 104 mmol/L (98-107); Glomerular Filtration Rate 88.6 mL/min (90-130); Glucose 189 mg/dL (65-115); Osmolality Calculated 297 mOsm/kg (285-295); Potassium 4.3 mmol/L (3.5-5.1); Sodium 142 mmol/L (136-145); Total Bilirubin 0.5 mg/dL (0.15-1.2); Total Protein 5.6 g/dL (6.6-8.7)
[2021-09-10] MEDS: morphine 4 mg/mL SDV 1 mL IVP (09:26)
--- NOTE | 2021-09-10 10:35 | P.PN_ITS ---
Vitals/I&O/Wt Last Vital Signs Temp 97.8 F 09/10/21 07:11 Pulse 67 09/10/21 07:11 Resp 18 09/10/21 09:26 BP 138/53 09/10/21 07:11 Pulse Ox 96 09/10/21 09:26 09/09/21 09/10/21 09/10/21 22:59 06:59 14:59 Intake Total 2350 / 2400 50 / 2450 1000 / 1000 Output Total 400 / 400 1010 / 1410 Balance 1950 / 2000 -960 / 1040 1000 / 1000 Weight last 48 hrs Weight 206 lb 1.6 oz Weight 190 lb Physical Exam Urinary Catheter Management^: Madsen: Cath Placed During This Visit: yes Reason for Continuing Indwelling Catheter: Required Immobilization for Trauma or Surgery or Anesthesia Urinary Catheter Date of Insertion: 09/09/21 Urinary Catheter Time of Insertion: 16:40 Data : 09/09/21 12:15 09/10/21 02:06 Micro: Microbiology 09/09/21 12:53 Blood Culture - Preliminary Blood SPECIMEN COLLECTED 09/09/21 12:57 Blood Culture - Preliminary Blood SPECIMEN COLLECTED A&P Additional A&P Information 51-year-old gentleman who is postoperative day 1 from diagnostic laparoscopy, laparoscopic appendectomy, laparoscopic sigmoidectomy, laparoscopic-assisted end colostomy. He had recently been discharged after nonoperative management of HINCHEY 2 diverticulitis. Patient reports feeling mentally better. His main concern is abdominal pain from the incisions. There was no fever or chills overnight. No tachycardia. RN reports 70 cc of serosanguineous output from the VASILIY drain. On physical examination his abdomen is appropriately tender to incisions but soft. The colon at the colostomy site appears viable. There is no output. The wounds are well dressed. The VASILIY drain is serosanguineous output. White blood cell count is 15, this is a expected postoperative rise from yesterday. Patient appears to be recovering well from surgery. Plan: 1. Patient can be given sips of liquids. I have added p.o. gabapentin scheduled, p.o. Flexeril as needed, p.o. oxycodone as needed. He already has IV morphine as needed and IV Toradol scheduled. 2. I counseled the patient on the importance of ambulation. 3. Start Lovenox 40 mg injection for DVT prophylaxis 4. Incentive spirometry to prevent pneumonia and atelectasis. 5. Physical therapy and Occupational Therapy consultation. 6. Case management consultation for possible need for placement. 7. Continue IV Zosyn antibiotics. Trend CBC and chemistry daily. 8. We will plan to advance diet tomorrow if doing well. 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
--- NOTE | 2021-09-10 11:01 | ANE.PACU2 ---
Inpatient post-anesthesia follow up: Airway intact: Yes Vital signs: Temperature 97.8 F Pulse Rate 67 Respiratory Rate 18 Blood Pressure 138/53 Pulse Oximetry 96 Oxygen Delivery Me thod Nasal Cannula Oxygen Flow Rate 2 Fraction of Inspir ed Oxygen Hydration adequate: Yes Nausea and vomiting: No Pain level: 3 Mental status: Baseline Additional Comments: EMR review
[2021-09-10] MEDS: oxyCODONE 5 mg IR Tab/Cap PO ×2 (12:03→22:18)
[2021-09-10] MEDS: enoxaparin 40 mg/0.4 mL Syringe SUBCUT (12:15)
[2021-09-10] MEDS: phenazopyridine 100 mg Tablet 200 MG PO (12:15)
--- NOTE | 2021-09-10 13:55 | PM.PN ---
Subjective Subjective: Interval history: Patient is n.p.o. tolerating ice chips Complaining of pain / Afebrile Madsen catheter removed Patient was complaining of mild burning, requested Pyridium Vitals/I&O/Wt Last Vital Signs Temp 97.5 F L 09/10/21 12:14 Pulse 74 09/10/21 12:14 Resp 17 09/10/21 12:14 BP 121/79 09/10/21 12:14 Pulse Ox 95 09/10/21 12:14 09/09/21 09/10/21 09/10/21 22:59 06:59 14:59 Intake Total 2350 / 2400 50 / 2450 1000 / 1000 Output Total 400 / 400 1010 / 1410 345 / 345 Balance 1950 / 1999 -960 / 1040 655 / 655 Weight last 48 hrs Weight 93.485 kg Weight 86.183 kg Physical Exam Urinary Catheter Management^: Madsen: Cath Placed During This Visit: yes, but has since been removed by the nurse Reason for Continuing Indwelling Catheter: Required Immobilization for Trauma or Surgery or Anesthesia Urinary Catheter Date of Insertion: 09/09/21 Urinary Catheter Time of Insertion: 16:40 Date Urinary Catheter Removed: 09/10/21 Time Urinary Catheter Discontinued: 10:55 Data : 09/09/21 12:15 09/10/21 02:06 Micro: Microbiology 09/09/21 12:53 Blood Culture - Preliminary Blood NEGATIVE TO DATE 09/09/21 12:57 Blood Culture - Preliminary Blood NEGATIVE TO DATE A&P Additional A&P Information Postoperative day 1 from diagnostic laparoscopy, laparoscopic appendectomy, laparoscopic sigmoidectomy, laparoscopic-assisted end colostomy. -Continue Zosyn Diet will be advanced as per general surgery recommendations Patient has 50 to 70 cc of serosanguineous discharge which was noted by the nursing staff and VASILIY drain Colostomy bag without output Patient is complaining of pain 6/10 however abdomen is soft no drainage around surgical site Afebrile Blood cultures are negative Madsen catheter removed, start Pyridium for burning sensation, will request UA Continue IV fluids Full code DVT prophylaxis started today Attestations Medical Necessity Statement*: Continue medical management Time Spent in Patient Care: less than 15 minutes Coding Level of Care Code 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
[2021-09-10] MEDS: gabapentin 100 mg Capsule PO ×2 (15:41→20:27)
[2021-09-10] MEDS: oxyCODONE 5 mg IR Tab/Cap 10 MG PO (18:07)
[2021-09-10] MEDS: cyclobenzaprine 10 mg Tablet 5 MG PO (18:07)
[2021-09-10 18:51] LABS: Urine Appearance Clear (CLEAR); Urine Color Orange (Yellow); pH Urine 5 (5-7)
[2021-09-10 18:52] LABS: Add Urine Microscopic? YES; Bilirubin Urine Neg (Negative); Blood Urine 2+ (Negative); Glucose Urine UA Norm (Normal); Ketones Urine Negative (Negative); Leukocyte Esterase Urine Negative (Negative); Nitrate Urine Positive (Negative); Protein Urine 2+ (Negative); Urobilinogen Urine 4 mg/dL (Negative)
[2021-09-10 18:53] LABS: RBC Urine 0-4 /hpf (0-2)
[2021-09-10 18:54] LABS: Add Urine Culture? Yes; Bacteria Urine TRACE /hpf
[2021-09-11] VITALS (10 sets, daily range): BP systolic 97–119; BP diastolic 59–77; PULSE 71–83; RESP 16–21; TEMP 36.4–36.7; O2SAT 90–95
[2021-09-11] MEDS: piperacillin-tazobactam 3.375 GM in sodium chloride 0.9% (plus) 50 ML IV ×3 (01:37→18:33)
[2021-09-11] MEDS: dextrose 5%-sod chloride 0.9% 1,000 ML 125 ML IV ×2 (01:37→09:18)
[2021-09-11 02:51] LABS: Basophils % 0.1 %; Eosinophils % 0.2 %; Hematocrit 35.4 % (42.0-52.0); Hemoglobin 11.4 g/dL (11.7-16.6); Lymphocytes # 1.9 10^3/uL (0.8-4.8); Mean Corpuscular HGB Conc 32.2 g/dL (30.0-36.0); Mean Corpuscular Hemoglobin 30.5 pg (28.0-34.0); Mean Corpuscular Volume 94.7 fl (80-94); Mean Platelet Volume 11.7 fL (7.4-10.4); Monocytes # 0.9 10^3/uL (0.2-0.9); Monocytes % 7.5 %; Neutrophils # 8.77 10^3/uL (1.8-7.7); Neutrophils % 75.9 %; Nucleated Red Blood Cells % 0 %; Platelet Count 231 10^3/cmm (130-400); Red Blood Count 3.74 10^6/uL (4.1-5.3); Red Cell Distribution Width 12.1 % (12.1-15.1); White Blood Count 11.6 10^3/uL (4.0-10.0)
[2021-09-11 03:25] LABS: Anion Gap 14.6 (5-19); Blood Urea Nitrogen 8 mg/dL (6-20); Calcium 7.9 mg/dL (8.5-10.5); Carbon Dioxide 24 mmol/L (22-29); Chloride 108 mmol/L (98-107); Glomerular Filtration Rate 118.4 mL/min (90-130); Glucose 115 mg/dL (65-115); Osmolality Calculated 295 mOsm/kg (285-295); Potassium 3.6 mmol/L (3.5-5.1); Sodium 143 mmol/L (136-145)
[2021-09-11] MEDS: oxyCODONE 5 mg IR Tab/Cap 10 MG PO ×3 (05:28→21:04)
[2021-09-11] MEDS: ketorolac 30 mg/mL INJ 15 MG IVP ×4 (05:29→23:48)
[2021-09-11] MEDS: gabapentin 100 mg Capsule PO ×3 (09:18→21:05)
[2021-09-11] MEDS: cyclobenzaprine 10 mg Tablet 5 MG PO ×2 (09:19→16:52)
[2021-09-11] MEDS: oxyCODONE 5 mg IR Tab/Cap PO (09:19)
--- NOTE | 2021-09-11 09:28 | P.PN_ITS ---
Subjective Subjective: Interval history: Diet advanced by during surgery Leukocytosis trending down, afebrile He is noticing output from his colostomy bag Patient is stating that he had a rough night, was not able to sleep when he got muscle relaxant and opioids, he was drowsy but not able to go to sleep because of restless legs Tolerating his clear liquid diet Patient stated that this morning eggs/ biscuit were brought in the room however he told them that he is on restricted diet and did not eat any, I would report this to the charge nurse Vitals/I&O/Wt Last Vital Signs Temp 98.1 F 09/11/21 07:25 Pulse 74 09/11/21 07:25 Resp 18 09/11/21 09:19 BP 105/68 09/11/21 07:25 Pulse Ox 92 09/11/21 09:19 09/10/21 09/11/21 09/11/21 22:59 06:59 14:59 Intake Total 1170 / 2220 1203.333 / 3423.333 960.417 / 960.417 Output Total 320 / 665 600 / 1265 Balance 850 / 1555 603.333 / 2158.333 960.417 / 960.417 Weight last 48 hrs Weight 93.485 kg Weight 86.183 kg Physical Exam Narrative: EXAM NARRATIVE: Patient laying comfortably in his bed Dark room Watching television Abdomen soft Output noted from colostomy bag VASILIY drain 100 mL serosanguineous discharge Abdomen no signs of peritonitis Active bowel sounds, loud sounds No acute respite distress saturating well on room air S1, S2 Clinically does not look well-hydrated Urinary Catheter Management^: Madsen: Cath Placed During This Visit: yes, but has since been removed by the nurse Reason for Continuing Indwelling Catheter: Required Immobilization for Trauma or Surgery or Anesthesia Urinary Catheter Date of Insertion: 09/09/21 Urinary Catheter Time of Insertion: 16:40 Date Urinary Catheter Removed: 09/10/21 Time Urinary Catheter Discontinued: 10:55 Data : 09/11/21 01:42 09/11/21 01:42 Micro: Microbiology 09/09/21 12:53 Blood Culture - Preliminary Blood NEGATIVE TO DATE 09/09/21 12:57 Blood Culture - Preliminary Blood NEGATIVE TO DATE A&P Assessment and plan (1) Diverticulitis: Status: Acute (2) Pelvic abscess: Status: Acute Additional A&P Information Postop day 2 Diet advance per general surgery Leukocytosis improving Output noticed through colostomy bag, active bowel sounds Afebrile Normal blood pressure Continue IV antibiotics For insomnia we will give him 1 dose of Ambien this morning, he could not sleep last night Try liquid diet DVT prophylaxis on board Full code Attestations Medical Necessity Statement*: Continue medical management Time Spent in Patient Care: less than 15 minutes Coding Level of Care Code Acute Airport Clerk for [facility] Diagnoses Diverticulitis K57.92 Pelvic abscess
--- NOTE | 2021-09-11 10:07 | PC.NUTR ---
Nutrition note: Notified by MD in rounds this AM that patient received wrong diet at breakfast. Spoke with pt and nurse, who confirmed this. Unclear whether dietary staff or nursing aid delivered tray, but pt confirms that it was not clear liquids as ordered. Fortunately pt states he not eat the incorrect items received, and did later receive appropriate tray. Apologized to patient and have notified kitchen steward.
[2021-09-11] MEDS: morphine 4 mg/mL SDV 1 mL IVP (10:12)
--- NOTE | 2021-09-11 11:58 | PM.PN ---
Vitals/I&O/Wt Last Vital Signs Temp 97.8 F 09/11/21 11:15 Pulse 72 09/11/21 11:15 Resp 18 09/11/21 11:15 BP 97/59 09/11/21 11:15 Pulse Ox 90 09/11/21 11:15 09/10/21 09/11/21 09/11/21 22:59 06:59 14:59 Intake Total 1170 / 2220 1203.333 / 3423.333 1140.417 / 1140.417 Output Total 320 / 665 600 / 1265 Balance 850 / 1555 603.333 / 2158.333 1140.417 / 1140.417 Weight last 48 hrs Weight 206 lb 1.6 oz Weight 190 lb Physical Exam Urinary Catheter Management^: Madsen: Cath Placed During This Visit: yes, but has since been removed by the nurse Reason for Continuing Indwelling Catheter: Required Immobilization for Trauma or Surgery or Anesthesia Urinary Catheter Date of Insertion: 09/09/21 Urinary Catheter Time of Insertion: 16:40 Date Urinary Catheter Removed: 09/10/21 Time Urinary Catheter Discontinued: 10:55 Data : 09/11/21 01:42 09/11/21 01:42 Micro: Microbiology 09/09/21 12:53 Blood Culture - Preliminary Blood NEGATIVE TO DATE 09/09/21 12:57 Blood Culture - Preliminary Blood NEGATIVE TO DATE A&P Additional A&P Information 51 y M POD 2 from laparoscopic sigoidmectomy and eloisa procedure. Patient complaining of abdominal incisional pain, dysuria, pain when ambulating, but feels better. Taking multiple oral pain medications (oxycodone, morphine, gabapentin, cyclobenzaprine) and IV Toradol. He tolerated a liquid diet. On exam, his wound dressings are intact. His ostomy is productive of stool. His abdomen is benign. His WBC is 11 from 15. He has no fever, no tachycardia, no hypotension Plan: Advance diet to soft as he is not liking the soups. He is hungry. He has bowel function. Continue IV Abx. Can transition to oral abx, consider Augmentin or Cipro/Flagyl. Stop IV Fluids. Lovenox 40 mg daily for DVT prophylaxis. Continue VASILIY Drain for now, but may DC soon, tomorrow or day after as it is not purulent, only 120ml in 24 hrs. 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
--- NOTE | 2021-09-11 11:59 | PC.CHAP ---
Pastoral Care Encounter/Spiritual Assessment Type of Contact [] Declined software systems analyst visit [] Patient/Family/Request visit [] Outpatient visit [] Follow-up visit [] Physician referral [] Code/Alert [x] Routine visit [] Staff referral [] Actively dying [] Patient sleeping [] Family support [] [] Out of room [] Palliative care [] [] Receiving care in room [] Pre-surgical visit [] Trauma [] Long length of stay [] ICU visit [] Other: Relational/Emotional Strength [] Patient feels connected with others/family/visitors/staff [] Distress [] Loneliness/isolation [] Abandonment Spirituality of Patient [] Person of Shi [] Attends Shinto of their Shi [] Believes in Prayer [] Reads Bible or Sabianism materials [x] There are Spiritual issues to be addressed Fur Machine Operator Interventions [] Prayer [] Active listening [] Non-anxious presence [] Spiritual/emotional support [] Crisis/trauma care [] Spiritual counseling [] Bereavement support [] Provided bereavement packet [] Provided Bible/devotional materials [] Provided toy/stuffed animal, coloring book to patient or family member [] Provided Communion [] Anointing/[place] [] Salvation [] Completed spiritual assessment [] Other: Impact on Illness or Injury [] Angry [] Fearful [] Anxious [] Often cries [] Exhaustion [] Unable to work [] Unable to attend holiness [] Unable to walk/stand [] Unable to read [] Unable to drive [] Unable to eat/drink [] Unable to sleep [] Unable to be with family [] Patient intubated [] Other: Summary After introducing self, Pt stated he was not having a good day. Explored this with Pt and he stated he really didn't want to get started on it but he was very unhappy. I asked if he was unhappy with his care at the hospital and he again stated it is best he not talk about it. He was friendly but closed and it was apparent by his mannerism he was upset. Time spent with patient 5m
[2021-09-11] MEDS: enoxaparin 40 mg/0.4 mL Syringe SUBCUT (13:20)
[2021-09-11] MEDS: zolpidem 5 mg Tablet PO (21:04)
[2021-09-12] VITALS (9 sets, daily range): BP systolic 105–116; BP diastolic 65–74; PULSE 56–72; RESP 16–19; TEMP 36.6–36.9; O2SAT 92–96
[2021-09-12] MEDS: piperacillin-tazobactam 3.375 GM in sodium chloride 0.9% (plus) 50 ML IV ×2 (02:05→07:53)
[2021-09-12] MEDS: oxyCODONE 5 mg IR Tab/Cap 10 MG PO ×5 (02:39→23:37)
[2021-09-12 03:47] LABS: Basophils % 0.2 %; Eosinophils # 0.1 10^3/uL (0.0-0.8); Eosinophils % 1.6 %; Hemoglobin 11.2 g/dL (11.7-16.6); Lymphocytes # 2.2 10^3/uL (0.8-4.8); Lymphocytes % 24.3 %; Mean Corpuscular HGB Conc 31.1 g/dL (30.0-36.0); Mean Corpuscular Hemoglobin 30.4 pg (28.0-34.0); Mean Corpuscular Volume 97.8 fl (80-94); Mean Platelet Volume 11.3 fL (7.4-10.4); Monocytes # 0.9 10^3/uL (0.2-0.9); Monocytes % 10.1 %; Neutrophils # 5.65 10^3/uL (1.8-7.7); Neutrophils % 63.4 %; Nucleated Red Blood Cells % 0 %; Platelet Count 254 10^3/cmm (130-400); Red Blood Count 3.68 10^6/uL (4.1-5.3); White Blood Count 8.9 10^3/uL (4.0-10.0)
[2021-09-12 04:14] LABS: Anion Gap 15.6 (5-19); Blood Urea Nitrogen 7 mg/dL (6-20); Calcium 8.3 mg/dL (8.5-10.5); Carbon Dioxide 27 mmol/L (22-29); Chloride 101 mmol/L (98-107); Glomerular Filtration Rate 88.6 mL/min (90-130); Glucose 73 mg/dL (65-115); Magnesium 1.9 mg/dL (1.7-2.3); Osmolality Calculated 287 mOsm/kg (285-295); Phosphorus 3.2 mg/dL (2.5-4.5); Potassium 3.6 mmol/L (3.5-5.1); Sodium 140 mmol/L (136-145)
[2021-09-12] MEDS: ketorolac 30 mg/mL INJ 15 MG IVP ×4 (06:21→23:28)
--- NOTE | 2021-09-12 06:22 | PC.NURSE ---
SHIFT SUMMARY Has rested better tonight. Told me last evening that he had not slept well since being here. Received the prn Ambien at HS. Has been medicated for pain tonight with only the po OXYIR and scheduled IV Toradol. Says the pain pills do seem to last longer. Is up in room and ambulated in the penny in the evening. Dressings to abd incisions are C&D. VASILIY drain R abd with 75ml serosanguinous drainage this shift. Ostomy to LLQ abd with soft BM and appears to be functioning well. Receiving IV antibiotics as ordered. Taking po fluids well
[2021-09-12] MEDS: gabapentin 100 mg Capsule PO ×3 (07:52→19:24)
--- NOTE | 2021-09-12 08:59 | P.PN_ITS ---
Subjective Subjective: Interval history: Diet advanced yesterday, experiences abdominal pain and discomfort when he tries to get out of bed however he has been using walker to ambulate Leukocytosis improved Normal hemodynamics Hemoglobin 11.2 Potassium 3.6 magnesium 1.9, afebrile Patient stating that his family will be traveling this Tiffany, he is very anxious about going home, agreeable with home health services if he is feeling better by tomorrow, did not qualify for snf Vitals/I&O/Wt Last Vital Signs Temp 98.5 F 09/12/21 07:41 Pulse 64 09/12/21 07:41 Resp 16 09/12/21 07:41 BP 109/69 09/12/21 07:41 Pulse Ox 94 09/12/21 07:41 09/11/21 09/12/21 09/12/21 22:59 06:59 14:59 Intake Total 1780 / 3714.584 460 / 4174.584 Output Total 1025 / 1025 1475 / 2500 Balance 755 / 2689.584 -1015 / 1674.584 Physical Exam Narrative: EXAM NARRATIVE: Patient lying comfortably in his bed Abdomen is soft no signs of peritonitis VASILIY drain 100 cc of serosanguineous fluid Output noted from colostomy bag No signs of rigidity No signs of edema of legs Sacral area not palpated Looks well-hydrated S1, S2 Nonfocal neuro exam Doing well on room air no audible stridor or wheezing Urinary Catheter Management^: Madsen: Cath Placed During This Visit: yes, but has since been removed by the nurse Reason for Continuing Indwelling Catheter: Required Immobilization for Trauma or Surgery or Anesthesia Urinary Catheter Date of Insertion: 09/09/21 Urinary Catheter Time of Insertion: 16:40 Date Urinary Catheter Removed: 09/10/21 Time Urinary Catheter Discontinued: 10:55 Data : 09/12/21 02:36 09/12/21 02:36 A&P Assessment and plan (1) Diverticulitis: Status: Acute (2) Pelvic abscess: Status: Acute (3) Status post laparoscopic-assisted sigmoidectomy: Status: Acute (4) Status post Eloisa procedure: Status: Acute (5) Appendicitis: Status: Acute (6) S/P appendectomy: Status: Acute Additional A&P Information POD 3 from laparoscopic sigoidmectomy, appendectomy and eloisa procedure Patient tolerating his GI soft diet Good output from colostomy Leukocytosis improved Afebrile VASILIY drain to be removed by general surgery Replenish mag and potassium Patient stating that today he is not ready to go home, did not qualify for snf De-escalate antibiotics to Augmentin, Plan to discharge him home with home health services Diet to be advanced as per general surgery recommendations DVT prophylaxis on board Encouraged patient to walk with a walker Full code Attestations Medical Necessity Statement*: Discharged within the next 24 to 36 hours Time Spent in Patient Care: less than 15 minutes Coding Level of Care Code Acute 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
[2021-09-12] MEDS: potassium chloride ER 20 mEq Tablet 40 MEQ PO (09:17)
[2021-09-12] MEDS: amoxicillin-clav 875-125 mg Tablet 1 TAB PO ×2 (09:17→18:00)
[2021-09-12] MEDS: enoxaparin 40 mg/0.4 mL Syringe SUBCUT (10:55)
--- NOTE | 2021-09-12 13:41 | PM.PN ---
Vitals/I&O/Wt Last Vital Signs Temp 98 F 09/12/21 11:53 Pulse 61 09/12/21 11:53 Resp 16 09/12/21 11:53 BP 105/66 09/12/21 11:53 Pulse Ox 96 09/12/21 11:53 09/11/21 09/12/21 09/12/21 22:59 06:59 14:59 Intake Total 1780 / 3714.584 460 / 4174.584 166.25 / 166.25 Output Total 1025 / 1025 1475 / 2500 Balance 755 / 2689.584 -1015 / 1674.584 166.25 / 166.25 Physical Exam Urinary Catheter Management^: Madsen: Cath Placed During This Visit: yes, but has since been removed by the nurse Reason for Continuing Indwelling Catheter: Required Immobilization for Trauma or Surgery or Anesthesia Urinary Catheter Date of Insertion: 09/09/21 Urinary Catheter Time of Insertion: 16:40 Date Urinary Catheter Removed: 09/10/21 Time Urinary Catheter Discontinued: 10:55 Data : 09/12/21 02:36 09/12/21 02:36 Micro: Microbiology 09/11/21 12:01 Urine Culture - Preliminary Urine,Voided A&P Additional A&P Information 51 y M who is POD 3 from laparoscopic sigmoidectomy for acute perforated diverticulitis after failure of non-operative management. His abdominal pain is under control. He ambulates. He has ostomy output. He tolerated a diet. He is voiding appropriately. He was given liquids multiple times from the kitchen despite being given a soft diet order. On exam, his abdomen is benign, the colostomy appears viable, there is good functional stool output. His labs show no leukocytosis. Cultures are negative. VASILIY drain is serosanguinous. Plan: Continue soft diet until follow up with Dr Wheatley in 2 weeks. Can remove VASILIY drain tomorrow. Recommend aggressive PT, OT. Patient disposition dependent on ability to physically take care of himself. Agree with change IV Abx to PO Augmentin. Also DC'd IV opioids. Continue Lovenox until discharge and ambulatory at home. 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
[2021-09-12] MEDS: magnesium oxide 400 mg tablet PO (18:00)
--- NOTE | 2021-09-12 19:25 | PC.NURSE ---
patient requested gabapentin now , planning on going to bed
[2021-09-13] VITALS (9 sets, daily range): BP systolic 117–169; BP diastolic 67–92; PULSE 57–64; RESP 16–18; TEMP 36.3–36.7; O2SAT 92–96
[2021-09-13 02:40] LABS: Basophils % 0.4 %; Eosinophils # 0.3 10^3/uL (0.0-0.8); Eosinophils % 4.1 %; Hematocrit 35.9 % (42.0-52.0); Hemoglobin 11.9 g/dL (11.7-16.6); Lymphocytes # 2.2 10^3/uL (0.8-4.8); Lymphocytes % 31.3 %; Mean Corpuscular HGB Conc 33.1 g/dL (30.0-36.0); Mean Corpuscular Volume 93.5 fl (80-94); Monocytes # 0.6 10^3/uL (0.2-0.9); Neutrophils # 3.93 10^3/uL (1.8-7.7); Neutrophils % 54.9 %; Nucleated Red Blood Cells % 0 %; Platelet Count 274 10^3/cmm (130-400); Red Blood Count 3.84 10^6/uL (4.1-5.3); Red Cell Distribution Width 11.8 % (12.1-15.1); White Blood Count 7.2 10^3/uL (4.0-10.0)
[2021-09-13 03:19] LABS: Anion Gap 17.6 (5-19); Blood Urea Nitrogen 8 mg/dL (6-20); Calcium 8.6 mg/dL (8.5-10.5); Carbon Dioxide 28 mmol/L (22-29); Chloride 101 mmol/L (98-107); Glomerular Filtration Rate 78.5 mL/min (90-130); Glucose 95 mg/dL (65-115); Osmolality Calculated 294 mOsm/kg (285-295); Potassium 3.6 mmol/L (3.5-5.1); Sodium 143 mmol/L (136-145)
[2021-09-13] MEDS: ketorolac 30 mg/mL INJ 15 MG IVP ×3 (06:21→18:10)
[2021-09-13] MEDS: magnesium oxide 400 mg tablet PO ×2 (08:01→17:32)
[2021-09-13] MEDS: gabapentin 100 mg Capsule PO ×3 (08:01→20:54)
[2021-09-13] MEDS: amoxicillin-clav 875-125 mg Tablet 1 TAB PO ×2 (08:01→17:32)
[2021-09-13] MEDS: oxyCODONE 5 mg IR Tab/Cap 10 MG PO ×4 (08:06→23:29)
--- NOTE | 2021-09-13 09:05 | P.PN_ITS ---
Subjective Subjective: Interval history: Patient is tolerating his diet Adequate output from colostomy VASILIY drain bulb 300 cc drained by the nurse, patient is complaining of abdominal cramps and burning sensation especially when he tries to get out of bed, he is very concerned and anxious about his abdominal pain, he thinks he will be ready to go home by tomorrow Tolerating GI soft diet, general surgery to advance his diet Afebrile, no leukocytosis Cultures negative Vitals/I&O/Wt Last Vital Signs Temp 97.8 F 09/13/21 07:29 Pulse 64 09/13/21 07:29 Resp 18 09/13/21 08:06 BP 137/84 09/13/21 07:29 Pulse Ox 94 09/13/21 08:06 09/12/21 09/13/21 09/13/21 22:59 06:59 14:59 Intake Total 240 / 406.25 760 / 1166.25 Output Total 650 / 650 1090 / 1740 Balance -410 / -243.75 -330 / -573.75 Physical Exam Narrative: EXAM NARRATIVE: Clinically hydrated Appears comfortable in his bed S1, S2 Abdomen soft Adequate output from colostomy bag VASILIY drain with serosanguineous discharge above 30 cc Abdomen is soft no signs of peritonitis Tova, PERRLUZ Nonfocal exam Saturating well on room air Nurse at the bedside Urinary Catheter Management^: Madsen: Cath Placed During This Visit: yes, but has since been removed by the nurse Reason for Continuing Indwelling Catheter: Required Immobilization for Trauma or Surgery or Anesthesia Urinary Catheter Date of Insertion: 09/09/21 Urinary Catheter Time of Insertion: 16:40 Date Urinary Catheter Removed: 09/10/21 Time Urinary Catheter Discontinued: 10:55 Data : 09/13/21 02:10 09/13/21 02:10 Micro: Microbiology 09/11/21 12:01 Urine Culture - Preliminary Urine,Voided A&P Assessment and plan (1) S/P appendectomy: Status: Acute (2) Appendicitis: Status: Acute (3) Status post Danelle procedure: Status: Acute (4) Status post laparoscopic-assisted sigmoidectomy: Status: Acute (5) Diverticulitis: Status: Acute (6) Pelvic abscess: Status: Acute (7) Abdominal pain: Status: Acute Additional A&P Information Postop day 4 Laparoscopic sigmoidectomy for perforated diverticulitis s/p Appendectomy Pain under control Adequate output from colostomy bag Afebrile Cultures negative Urine culture negative, he was complaining of burning sensation Diet to be advanced by general surgery currently tolerating his GI soft No signs of peritonitis VASILIY drain removal as per general surgery Anxiety: Requiring gabapentin, muscle relaxants Patient is able to ambulate, he did walk in the hallway without the use of walker I did teach him to roll over in his bed in order to get up and put a pillow in front of his abdomen to avoid putting too much pressure DVT prophylaxis: Lovenox GI soft diet Plan to discharge him on home health services, opioids and 10 days of Augmentin at the time of discharge Attestations Medical Necessity Statement*: Discharge tomorrow Time Spent in Patient Care: 16 - 35 minutes Coding Level of Care Code Acute 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
[2021-09-13] MEDS: enoxaparin 40 mg/0.4 mL Syringe SUBCUT (12:44)
--- NOTE | 2021-09-13 17:03 | P.PN_ITS ---
Subjective Subjective: Interval history: Patient still reporting some significant pain. Denies N/V. Tolerating regular diet. Vitals/I&O/Wt Last Vital Signs Temp 97.7 F 09/13/21 15:36 Pulse 62 09/13/21 15:36 Resp 18 09/13/21 15:36 BP 144/92 09/13/21 15:36 Pulse Ox 95 09/13/21 15:36 09/13/21 09/13/21 09/13/21 06:59 14:59 22:59 Intake Total 760 / 1166.25 360 / 360 Output Total 1090 / 1740 Balance -330 / -573.75 360 / 360 -15 / 345 Physical Exam Narrative: EXAM NARRATIVE: NAD, AAOx3 GI: OTHER: S, ND, appropriately TTP, no g/r/m Ostomy viable with moderate output Urinary Catheter Management^: Madsen: Cath Placed During This Visit: yes, but has since been removed by the nurse Reason for Continuing Indwelling Catheter: Required Immobilization for Trauma or Surgery or Anesthesia Urinary Catheter Date of Insertion: 09/09/21 Urinary Catheter Time of Insertion: 16:40 Date Urinary Catheter Removed: 09/10/21 Time Urinary Catheter Discontinued: 10:55 Data : 09/13/21 02:10 09/13/21 02:10 Micro: Microbiology 09/11/21 12:01 Urine Culture - Final Urine,Voided A&P Additional A&P Information 51 y M who is POD 4 from laparoscopic sigmoidectomy for acute perforated diverticulitis after failure of non-operative management. 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
[2021-09-13] MEDS: zolpidem 5 mg Tablet PO (23:30)
[2021-09-14] VITALS (8 sets, daily range): BP systolic 127–132; BP diastolic 84–86; PULSE 54–67; RESP 16–18; TEMP 36.2–36.7; O2SAT 92–98
[2021-09-14] MEDS: ketorolac 30 mg/mL INJ 15 MG IVP ×3 (00:24→11:28)
[2021-09-14 05:40] LABS: Basophils % 0.5 %; Eosinophils # 0.3 10^3/uL (0.0-0.8); Eosinophils % 4.7 %; Hematocrit 39.1 % (42.0-52.0); Hemoglobin 12.9 g/dL (11.7-16.6); Lymphocytes # 1.9 10^3/uL (0.8-4.8); Lymphocytes % 32.3 %; Mean Corpuscular Hemoglobin 30.3 pg (28.0-34.0); Mean Corpuscular Volume 91.8 fl (80-94); Mean Platelet Volume 11.3 fL (7.4-10.4); Monocytes # 0.6 10^3/uL (0.2-0.9); Monocytes % 10.1 %; Neutrophils # 3.11 10^3/uL (1.8-7.7); Neutrophils % 52.2 %; Nucleated Red Blood Cells % 0 %; Platelet Count 321 10^3/cmm (130-400); Red Blood Count 4.26 10^6/uL (4.1-5.3); Red Cell Distribution Width 11.6 % (12.1-15.1)
[2021-09-14 05:55] LABS: Anion Gap 17.6 (5-19); Blood Urea Nitrogen 10 mg/dL (6-20); Calcium 8.8 mg/dL (8.5-10.5); Carbon Dioxide 28 mmol/L (22-29); Chloride 100 mmol/L (98-107); Glomerular Filtration Rate 101.5 mL/min (90-130); Glucose 105 mg/dL (65-115); Osmolality Calculated 293 mOsm/kg (285-295); Potassium 3.6 mmol/L (3.5-5.1); Sodium 142 mmol/L (136-145)
[2021-09-14] MEDS: magnesium oxide 400 mg tablet PO ×2 (08:02→16:44)
[2021-09-14] MEDS: amoxicillin-clav 875-125 mg Tablet 1 TAB PO ×2 (08:02→16:44)
[2021-09-14] MEDS: gabapentin 100 mg Capsule PO ×2 (08:03→15:30)
[2021-09-14] MEDS: oxyCODONE 5 mg IR Tab/Cap 10 MG PO ×3 (08:16→16:44)
--- NOTE | 2021-09-14 11:10 | PC.NURSE ---
stoma measured to be 2.25in in width and 1in. in length. Stoma is shaped oblong not round. Was wet and red in appearance. Patient tolerated dressing change well.
--- NOTE | 2021-09-14 11:24 | PM.PN ---
Subjective Subjective: Interval history: Seen this AM. Still reports abdominal pain. Denies nausea/vomitting. States he cannot take care of his colostomy bag at home on his own. He would like to be trained on it and would like to change it infront of nurses to make sure he can handle it. Tolerating diet. Vitals/I&O/Wt Last Vital Signs Temp 97.1 F L 09/14/21 07:59 Pulse 54 L 09/14/21 07:59 Resp 16 09/14/21 08:16 BP 132/84 09/14/21 07:59 Pulse Ox 98 09/14/21 07:59 09/13/21 09/14/21 09/14/21 22:59 06:59 14:59 Intake Total 880 / 1240 620 / 1860 240 / 240 Output Total 415 / 430 Balance 865 / 1225 205 / 1430 240 / 240 Physical Exam Narrative: EXAM NARRATIVE: Appears comfortable in his bed S1, S2 Abdomen soft, non tender to palpation, adequate output from colostomy bag, no guarding Neuro: Nonfocal Saturating well on room air Lungs clear to auscultation b/l, no LE edema Urinary Catheter Management^: Madsen: Cath Placed During This Visit: yes, but has since been removed by the nurse Reason for Continuing Indwelling Catheter: Required Immobilization for Trauma or Surgery or Anesthesia Urinary Catheter Date of Insertion: 09/09/21 Urinary Catheter Time of Insertion: 16:40 Date Urinary Catheter Removed: 09/10/21 Time Urinary Catheter Discontinued: 10:55 Data : 09/14/21 04:42 09/14/21 04:42 Micro: Microbiology 09/11/21 12:01 Urine Culture - Final Urine,Voided A&P Assessment and plan (1) S/P appendectomy: Status: Acute (2) Appendicitis: Status: Acute (3) Status post Danelle procedure: Status: Acute (4) Status post laparoscopic-assisted sigmoidectomy: Status: Acute (5) Diverticulitis: Status: Acute (6) Pelvic abscess: Status: Acute (7) Abdominal pain: Status: Acute Additional A&P Information Postop day 5 Laparoscopic sigmoidectomy for perforated diverticulitis s/p Appendectomy Pain under control Adequate output from colostomy bag Afebrile Cultures negative Urine culture negative, he was complaining of burning sensation Diet to be advanced by general surgery currently tolerating his rregular diet. No signs of peritonitis VASILIY drain removal as per general surgery Anxiety: Requiring gabapentin, muscle relaxants Plan to send home with home health in AM. DVT prophylaxis: Lovenox Regular diet Plan to discharge him on home health services, opioids and 10 days of Augmentin at the time of discharge Attestations Medical Necessity Statement*: > 24 hour stay Coding Level of Care Code Acute Assistant At Surgery for [facility] Fw Diagnoses S/P appendectomy Z90.49 Appendicitis K37 Status post Danelle procedure Z93.3 Status post laparoscopic-assisted sigmoidectomy Z90.49 Diverticulitis K57.92 Pelvic abscess Abdominal pain R10.9
[2021-09-14] MEDS: enoxaparin 40 mg/0.4 mL Syringe SUBCUT (11:28)
--- NOTE | 2021-09-14 11:35 | PC.CHAP ---
Pastoral Care Encounter/Spiritual Assessment Type of Contact [] Declined girls tennis coach visit [] Patient/Family/Request visit [] Outpatient visit [xx] Follow-up visit [] Physician referral [] Code/Alert [xx] Routine visit [] Staff referral [] Actively dying [] Patient sleeping [] Family support [] [] Out of room [] Palliative care [] [] Receiving care in room [] Pre-surgical visit [] Trauma [xx] Long length of stay [] ICU visit [] Other: Relational/Emotional Strength [xx] Patient feels connected with others/family/visitors/staff [] Distress [] Loneliness/isolation [] Abandonment Spirituality of Patient [] Person of Shi [] Attends Anabaptism of their Shi [xx] Believes in Prayer [] Reads Bible or Quaker materials [] There are Spiritual issues to be addressed Medical Technician Assistant Interventions [xx] Prayer [xx] Active listening [xx] Non-anxious presence [] Spiritual/emotional support [] Crisis/trauma care [] Spiritual counseling [] Bereavement support [] Provided bereavement packet [] Provided Bible/devotional materials [] Provided toy/stuffed animal, coloring book to patient or family member [] Provided Communion [] Anointing/Clune [] Salvation [xx] Completed spiritual assessment [] Other: Impact on Illness or Injury [] Angry [] Fearful [xx] Anxious [] Often cries [] Exhaustion [] Unable to work [] Unable to attend nondenominational [] Unable to walk/stand [] Unable to read [] Unable to drive [] Unable to eat/drink [] Unable to sleep [] Unable to be with family [] Patient intubated [] Other: Summary Patient wants to go home but feels he has not had proper instruction on on use of colostomy bag and its care. Medical Technician Assistant mentioned this to a nurse who checked and said this instruction would be given to him today. Time spent with patient 5 minutes
--- NOTE | 2021-09-14 13:14 | PM.DCS ---
Discharge Providers Date of Admission: 09/09/21 18:04 Date of Discharge: September 14, 2021 Attending Provider at Admission: Hernandez Jeffery MD Attending Provider at Discharge: Rebel Mcclure DO Primary Care Provider: Halie Batres MD Diagnoses at Discharge Discharge Diagnosis (1) S/P appendectomy: Status: Acute (2) Appendicitis: Status: Acute (3) Status post Danelle procedure: Status: Acute (4) Status post laparoscopic-assisted sigmoidectomy: Status: Acute (5) Diverticulitis: Status: Acute (6) Pelvic abscess: Status: Acute (7) Abdominal pain: Status: Acute Reason for Visit Reason for Visit: [facility] Hospital Course Hospital Course 51 year old gentleman presented to the hospital with abdominal pain. He was found to have perforated diverticulitis and appendicitis. He underwent a Danelle procedure as well as appendectomy. He did well postoperatively and was discharged home on POD#5 with home health antibiotics and pain medication, in good condition. Physical Exam Const: COMMON NORMALS: no acute distress and patient oriented x3 Chest: COMMONS NORMALS: normal inspection of the chest and normal palpation of entire chest wall Resp: COMMON NORMALS: normal respiratory effort and No retractions GI: OTHER: Abdomen S, ND, appropriately tender. ostomy pink/patent and producing Neuro: COMMON NORMALS: patient oriented x3 Urinary Catheter Management^: Madsen: Cath Placed During This Visit: yes, but has since been removed by the nurse Reason for Continuing Indwelling Catheter: Required Immobilization for Trauma or Surgery or Anesthesia Urinary Catheter Date of Insertion: 09/09/21 Urinary Catheter Time of Insertion: 16:40 Date Urinary Catheter Removed: 09/10/21 Time Urinary Catheter Discontinued: 10:55 Discharge Data Data Completed and Pending: Completed Studies During Hospitalization Category Date Time Status CT abdomen pelvis w con* [id number] Urge nt Cat Scan 09/09/21 12:06 Completed Pathology: Surgic al [PTH] Routine Pth 09/09/21 21:30 Completed Pending at discharge Category Date Time Status ES surgery / GI i mages Routine Exams 09/09/21 16:05 Taken Basic Metabolic P kevin AM LABS Lab 09/15/21 04:00 Ordered Complete Blood Co unt w/Auto AM LABS Lab 09/15/21 04:00 Ordered Magnesium AM LABS Lab 09/15/21 04:00 Ordered Labs from last 24 hours 09/14/21 09/14/21 04:42 04:42 WBC 6.0 RBC 4.26 Hgb 12.9 Hct 39.1 L MCV 91.8 MCH 30.3 MCHC 33.0 RDW 11.6 L Plt Count 321 MPV 11.3 H Neut % (Auto) 52.2 Lymph % (Auto) 32.3 Sharkey % (Auto) 10.1 Eos % (Auto) 4.7 Baso % (Auto) 0.5 Neut # (Auto) 3.11 Lymph # (Auto) 1.9 Sharkey # (Auto) 0.6 Eos # (Auto) 0.3 Baso # (Auto) 0.0 Nucleated RBC % (a uto) 0 Nucleated RBCs # 0.0 Sodium 142 Potassium 3.6 Chloride 100 Carbon Dioxide 28 Anion Gap 17.6 BUN 10 Creatinine 0.8 GFR Calculation 101.5 Glucose 105 Calculated Osmolal ity 293 Calcium 8.8 Magnesium 2.0 Vitals: Last Vital Signs Temp 97.1 F L 09/14/21 12:00 Pulse 67 09/14/21 12:00 Resp 16 09/14/21 13:12 BP 128/86 09/14/21 12:00 Pulse Ox 92 09/14/21 12:00 Discharge Plan Discharge Patient Disposition: Home Health Service Condition: Stable Prescriptions: New Augmentin 875-125 mg tablet 1 tab PO Q12H 10 Days Qty: 20 RF: 0 oxycodone 10 mg tablet 10 mg PO Q8H PRN (Reason: pain) Qty: 25 RF: 0 Continued omega-3 fatty acids-fish oil 684-1,200 mg Capsule,Delayed Release(Dr/Ec) 1 cap PO DAILY RF: 0 multivitamin Tablet 1 tab PO DAILY RF: 0 Held oxycodone 5 mg tablet 5 mg PO Q12H PRN (Reason: pain) Qty: 5 RF: 0 Hold Instructions: Resume on 09/18/21. hold until your prescription from the hospital is finished Discontinued ciprofloxacin HCl 500 mg tablet 500 mg PO BID Qty: 10 RF: 0 metronidazole [Flagyl] 500 mg tablet 500 mg PO Q8H 10 Days Qty: 30 RF: 0 Discharge Orders: Discharge Order (Routine); Ordered 09/14/21 Ordered By: Rebel Mcclure Referrals: Halie Batres MD [Primary Care Provider] - Discharge Diet: Advance as tolerated Discharge Activity: Limit activity as instructed Patient Instructions: Opioid Safety Activity Restrictions/Additional Instructions: Do not lift, push or pull anything over 15 lbs for 6 weeks. Follow up with general surgery in 2 weeks Follow up with your primary care physician in 1-2 weeks Discharge Attestations Time Spent in Discharge Care*: less than 30 min Specific Discharge Activities: educating patient Quality Metrics Clinical Quality Measures During this hospital stay, did patient experience: None Coding Level of Care Code Acute [facility] note Diagnoses S/P appendectomy Z90.49 Appendicitis K37 Status post Danelle procedure Z93.3 Status post laparoscopic-assisted sigmoidectomy Z90.49 Diverticulitis K57.92 Pelvic abscess Abdominal pain R10.9
--- NOTE | 2021-09-14 15:34 | PC.NURSE ---
Patient was explained that he was being discharged and asked what questions he had about his colostomy. He stated he felt comfortable with his discharge. Described in depth how to change a colostomy bag. Refused to demonstrate the process.
--- NOTE | 2021-09-14 16:35 | PC.NURSE ---
Educated patient on how to change the ostomy again and what to look for. Educated patient on showering at home. Discharge and meds discussed along with follow ups to be made when the clinic is open on Friday. All questions were answered and paper prescription was given. Copy in the chart.
== END 2021-09-14 17:16 | disposition home health service (06) | DRG 330 ==
LOC: ER 15:21 → OR 15:33 → MEDSURG 09-10 06:44
PROVIDERS: Emergency Medicine; Internal Medicine; Admitting Provider Surgery; Emergency Provider Emergency Medicine; PCP Family Medicine; Visit Provider Surgery
PROC: 0DTJ4ZZ Resection of Appendix, Percutaneous Endoscopic Approach (ICD-10-PCS; CPT 44970; principal; 2021-09-09 17:00)
PROC: 0DTN4ZZ Resection of Sigmoid Colon, Percutaneous Endoscopic Approach (ICD-10-PCS; CPT 44204; 2021-09-09 17:00)
PROC: 0DTN4ZZ Resection of Sigmoid Colon, Percutaneous Endoscopic Approach (ICD-10-PCS; CPT 44320; 2021-09-09 17:00)
DX: K57.20 Diverticulitis of large intestine with perforation and abscess without bleeding (principal); K35.80 Unspecified acute appendicitis
CPT/HCPCS: 12345; 36415; 51702; 74177; 76705; 80048; 80053; 81001; 83605; 83690; 83735; 84100; 84145; 85025; 85610; 85730; 87040; 87086; 88304; 88309; 96365; 96372; 96375; 97116; 97161; 97165; 99285; J0330; J1100; J1170; J1650; J1885; J2250; J2270; J2405; J2543; J2704; J2710; J3010; J3490; J7030; Q9967

== ENCOUNTER 2022-01-30 20:32 | Emergency (ER) | payer OTHER, MEDICAID, SELFPAY ==
[2022-01-30 20:38] VITALS: BP 202/111; PULSE 68; RESP 20; TEMP 36.7; O2SAT 98; BMI 36.2
--- NOTE | 2022-01-30 20:47 | W.ED.BACK ---
HPI - Back Pain/Injury General: Chief Complaint: Back Pain/Injury Stated Complaint: back pain Time Seen by Provider: 01/30/22 20:41 History of Present Illness: Patient is a 52-year-old male comes to the ED with back pain. Injury occurred approximately 3 days ago. Patient was lifting an AC unit and strained his lower back. Since then he has been having muscle pain and spasms in lower back with certain movements. He rates his pain currently 8 out of 10. He denies any cauda equina symptoms. He does not have any pain or numbness tingling radiating down his legs. Associated symptoms: Deny abdominal pain, chills, dysuria, fatigue, fever(s), hematuria, nausea or vomiting Review of Systems Const: Denies: fever(s), chills or fatigue Eyes: Denies: change in vision or eye discomfort ENMT: Denies: throat pain, odynophagia, nasal discharge or nasal congestion Card: Denies: chest pain, palpitations, edema, swelling of feet/ankles, dyspnea on exertion or orthopnea Resp: Denies: dyspnea, productive cough or non-productive cough GI: Denies: abdominal pain, nausea, vomiting, diarrhea, constipation or hematochezia : Denies: flank pain, difficulty urinating, dysuria or hematuria Musc: Reports: back pain; Denies: neck pain or extremity swelling Skin/Breast: Denies: rash or new lesions Neuro: Denies: headache(s), numbness in extremities or weakness in extremities PFS ED PFSH: Medical History Diverticulitis Perianal cyst Surgical History History of hemorrhoidectomy Family History Denies family history of Anesthesia complication Bleeding disorder Social History Smoking and tobacco status: never smoked Alcohol intake: current Alcohol intake frequency: holidays/special occasions only Current occupation: [employer] History of recent travel: No Physical Exam Const: COMMON NORMALS: patient oriented x3, healthy appearing and alert GENERAL APPEARANCE: cooperative and comfortable HENMT: COMMON NORMALS: normocephalic HEAD & SCALP: normocephalic MOUTH: Normal oral and palatal mucosa present THROAT: posterior oropharynx normal and uvula midline Neck/C-Spine: COMMON NORMALS: supple GENERAL: Yes normal visual inspection Resp: COMMON NORMALS: normal respiratory effort, No retractions, No use of accessory muscles and clear to auscultation bilaterally AUSCULTATION: clear to auscultation bilaterally Cardio: COMMON NORMALS: regular rate, regular rhythm, S1 normal heart sound present, S2 normal heart sound present, No gallops present (Cardio), No clicks present (Cardio), No murmurs present (Cardio) and Peripheral pulses 2+ throughout RATE: regular rate RHYTHM: regular rhythm HEART SOUNDS: S1 normal heart sound present and S2 normal heart sound present PERIPHERAL PULSES: Peripheral pulses 2+ throughout GI: COMMON NORMALS: Normal to inspection, nondistended, normoactive bowel sounds present, Soft to palpation, non-tender and no masses PALPATION: Yes Soft to palpation : COMMON NORMALS: Yes no CVA tenderness BLADDER/KIDNEY EXAM: Yes no CVA tenderness Back/Pelvis: COMMON NORMALS: no CVA tenderness LUMBAR SPINE/LOWER BACK: Yes pain with ROM, No lumbar spinal tenderness and Yes paraspinal muscle tenderness Lumbar paraspinal muscle tenderness: bilateral Bilateral lumbar paraspinal muscle tenderness: L3, L4 and L5 Extremity: COMMON NORMALS: normal to inspection Neuro: COMMON NORMALS: patient oriented x3 and moves all extremities SENSORIUM/ORIENTATION: Yes alert Skin: GENERAL SKIN EXAM: dry skin Course Vital Signs: Vital signs: Vital Signs Temperature 97.7 F 01/30/22 21:35 Pulse Rate 60 01/30/22 21:35 Respiratory Rate 18 01/30/22 21:35 Blood Pressure 149/93 01/30/22 21:35 Pulse Oximetry 97 01/30/22 21:35 MDM - Back Pain/Injury Medical Decision Making Patient is a 52-year-old male comes to the ED with low back strain. Patient was lifting a heavy object and caused symptoms in the lower back. Denies any cauda equina symptoms. Denies any pain radiating down the legs. Vitals are stable. He has some paraspinal lumbar muscle tenderness bilaterally with no spinal tenderness noted. Patient was given a dose of Toradol, Norflex and steroid while here in the ED. Diagnosed with low back strain. He was stable for discharge home. He was sent home with a prescription for Celebrex, muscle relaxer and steroid. Return to ED precautions. Follow-up with PCP in the next week for reevaluation. Patient was treated with plan. Discharge Plan Discharge Patient Disposition: Home Clinical Impression: Low back strain Qualifiers: Encounter type: initial encounter Qualified Code(s): S39.012A - Strain of muscle, fascia and tendon of lower back, initial encounter Condition: Stable Prescriptions: New Celebrex 100 mg capsule 100 mg PO BID PRN (Reason: pain) Qty: 20 0RF prednisone 20 mg tablet 20 mg PO BID 5 Days Qty: 10 0RF cyclobenzaprine 7.5 mg tablet 7.5 mg PO BID PRN (Reason: muscle spasm) Qty: 20 0RF No Action omega-3 fatty acids-fish oil 684-1,200 mg Capsule,Delayed Release(Dr/Ec) 1 cap PO DAILY 0RF multivitamin Tablet 1 tab PO DAILY 0RF Discharge Orders: Discharge ED (Routine); Ordered 01/30/22 Ordered By: Nestor Rosales Referrals: Halie Batres MD [Primary Care Provider] - Discharge Diet: Regular Discharge Activity: Increase activity as tolerated Patient Instructions: Low Back Strain (ED), Lower Back Exercises (ED) Activity Restrictions/Additional Instructions: Follow-up with medical provider as directed in the next 7 to 10 days reevaluation. Take medications as prescribed. Apply cold pack on lower back to help with symptoms. Stretch lower back daily and also massage lower back muscles lumbar symptoms as well. Return to the ER or your medical provider if condition worsens. Please read and understand discharge instructions. Thank you for choosing [facility] [place] for your healthcare needs today. Please realize this is an emergency room and that we are providing you with a medical screening exam and this may not be complete and all inclusive of all the testing and or work up that you may need to determine your ailment or severity of your illness. It is very important that you follow up as instructed or that you return to the Emergency Department should you have concerns or if your condition changes or worsens in any way. Stand Alone Forms: Work/School Release Coding Level of Care Code ED Bsa Officer for Jerman Fwly Exam Comprehensive
[2022-01-30 20:56] VITALS: BP 157/87; PULSE 65; RESP 18; O2SAT 97
[2022-01-30] MEDS: ketorolac 60 mg/2 mL INJ IM (21:07)
[2022-01-30] MEDS: orphenadrine 30 mg/mL Inj 2 mL 60 MG IM (21:08)
[2022-01-30 21:35] VITALS: BP 149/93; PULSE 60; RESP 18; TEMP 36.5; O2SAT 97
== END 2022-01-30 21:37 | disposition home or self-care (01) ==
PROVIDERS: Emergency Provider Physician Assistant; PCP Family Medicine
DX: S39.012A Strain of muscle, fascia and tendon of lower back, initial encounter (principal); X50.0XXA Overexertion from strenuous movement or load, initial encounter
CPT/HCPCS: 96372; 99283; J1885; J2360; J2930

== ENCOUNTER 2022-04-13 17:05 | Emergency (ER) | payer MEDICAID, SELFPAY ==
[2022-04-13 18:26] VITALS: BMI 33.3
--- NOTE | 2022-04-13 19:54 | CTR_ITS ---
PROCEDURE INFORMATION: Exam: CT Abdomen And Pelvis With Contrast Exam date and time: 04/13/2022 8:05 PM Age: 52 years old Clinical indication: Prior surgery; Surgery date: 6+ months; Surgery type: Danelle procedure. Patient HX: New onset of swelling and pain to ostomy site. ; Additional info: Ostomy pain TECHNIQUE: Imaging protocol: Computed tomography of the abdomen and pelvis with contrast. Radiation optimization: All CT scans at this facility use at least one of these dose optimization techniques: automated exposure control; mA and/or kV adjustment per patient size (includes targeted exams where dose is matched to clinical indication); or iterative reconstruction. Contrast material: OMNI 350; Contrast volume: 95 ml; Contrast route: INTRAVENOUS (IV); COMPARISON: CT abdomen pelvis w con* [id number] 09/09/2021 12:25 PM RADIATION DOSE METRICS: Total DLP (mGy-cm): 1181.66 FINDINGS: Liver: Normal. No mass. Gallbladder and bile ducts: Normal. No calcified stones. No ductal dilation. Pancreas: Normal. No ductal dilation. Spleen: Normal. No splenomegaly. Adrenal glands: Normal. No mass. Kidneys and ureters: Normal. No hydronephrosis. Stomach and bowel: Interval partial left colectomy with left rectosigmoid colon stump. Left lower quadrant colostomy with inflammation in the fat surrounding the percutaneous portion of the colostomy. Appendix: No evidence of appendicitis. Intraperitoneal space: Unremarkable. No free air. No significant fluid collection. Vasculature: Unremarkable. No abdominal aortic aneurysm. Lymph nodes: Stable left calcified hilar nodes and/or mediastinal nodes and/or lung nodules consistent with old granulomatous disease. Urinary bladder: Unremarkable as visualized. Reproductive: Unremarkable as visualized. Bones/joints: Unremarkable. No acute fracture. Soft tissues: Unremarkable. CT/CT abdomen pelvis w con* [id number] IMPRESSION: 1. Interval partial left colectomy with left rectosigmoid colon stump. 2. Left lower quadrant colostomy with inflammation in the fat surrounding the percutaneous portion of the colostomy.
--- NOTE | 2022-04-13 19:55 | ED_ITS ---
HPI - Abdominal Pain General: Chief Complaint: Abdominal Pain Stated Complaint: swelling around post op site Time Seen by Provider: 04/13/22 19:42 History of Present Illness: 52-year-old presents due to abdominal pain. He had an ostomy placed in August and states that over the last week it has become red and inflamed. Still has output from the ostomy site. Denies any nausea vomiting diarrhea constipation. Denies fevers or chills. Denies dysuria or urethral discharge. Denies any other abdominal pain. Review of Systems 2 Narrative: - CONSTITUTIONAL: Denies weight loss, fever and chills. - HEENT: Denies changes in vision and hearing. - RESPIRATORY: Denies SOB and cough. - CV: Denies palpitations and CP. - GI: As above - : Denies dysuria and urinary frequency. - MSK: Denies myalgia and joint pain. - SKIN: Denies rash and pruritus. - NEUROLOGICAL: Denies headache, weakness, numbness and syncope. - PSYCHIATRIC: Denies suicidal ideation PFSH ED PFSH: Medical History Diverticulitis Perianal cyst Surgical History History of hemorrhoidectomy Family History Denies family history of Anesthesia complication Bleeding disorder Social History Smoking and tobacco status: never smoked Alcohol intake: current Alcohol intake frequency: holidays/special occasions only Current occupation: [employer] History of recent travel: No Physical Exam Narrative: EXAM NARRATIVE: - GENERAL: Alert and oriented x 3. No acute distress. Well-nourished. - EYES: EOMI. Anicteric. - HENT: Atraumatic, no C-spine tenderness. Moist mucous membranes. No scleral icterus. No cervical lymphadenopathy. - LUNGS: Clear to auscultation bilaterally. No accessory muscle use. Equal lung sounds bilaterally. No respiratory distress. - CARDIOVASCULAR: Regular rate and rhythm. No murmur. No JVD. - ABDOMEN: Soft, non-distended. Negative CVA tenderness bilaterally, no rebound or guarding, negative Cruz sign. No palpable masses. There is a left-sided abdominal ostomy with some erythema and tenderness to palpation. - EXTREMITIES: No edema. Non-tender. - SKIN: No rashes or lesions. Warm. - NEUROLOGIC: No meningismus or focal neurological deficits. CN II-XII grossly intact. - PSYCHIATRIC: Cooperative. Appropriate mood and affect. Course Vital Signs: Vital signs: Vital Signs Temperature 97.9 F 04/13/22 19:59 Pulse Rate 62 04/13/22 21:00 Respiratory Rate 17 04/13/22 20:30 Blood Pressure 129/84 04/13/22 21:00 Pulse Oximetry 96 04/13/22 21:00 MDM - Abdominal Pain Medical Decision Making 52-year-old presents with pain and irritation to stoma site. CT scan does not reveal any obstruction herniation or acute abnormality except some surrounding edema and fatty tissue consistent with localized focal infection without sign of abscess. Lab work unremarkable. Discussed with surgeon on-call and recommends application of zinc oxide to the stoma and prescription for Augmentin which was provided. At this time I believe patient would be safe for discharge and outpatient follow-up. Return precautions provided. Plan was reviewed with the patient who expressed understanding. Questions answered. Patient will follow up with surgery. Patient discharged in stable condition. Lab Data : 04/13/22 20:01 04/13/22 20:01 Labs/Radiology: Radiology Impressions Abdomen/Pelvis CT 04/13/22 19:54 IMPRESSION: 1. Interval partial left colectomy with left rectosigmoid colon stump. 2. Left lower quadrant colostomy with inflammation in the fat surrounding the percutaneous portion of the colostomy. Laboratory Results WBC 8.4 10^3/uL (4.0-10.0) 04/13/22 20:01 RBC 4.93 10^6/uL (4.1-5.3) 04/13/22 20:01 Hgb 15.4 g/dL (11.7-16.6) 04/13/22 20:01 Hct 45.1 % (42.0-52.0) 04/13/22 20:01 MCV 91.5 fl (80-94) 04/13/22 20:01 MCH 31.2 pg (28.0-34.0) 04/13/22 20: MCHC 34.1 g/dL (30.0-36.0) 04/13/22 20:01 RDW 12.7 % (12.1-15.1) 04/13/22 20:01 Plt Count 200 10^3/cmm (130-400) 04/13/22 20:01 MPV 11.0 fL (7.4-10.4) H 04/13/22 20:01 Neut % (Auto) 54.9 % 04/13/22 20:01 Lymph % (Auto) 34.1 % 04/13/22 20:01 [place] % (Auto) 9.1 % 04/13/22 20:01 Eos % (Auto) 1.4 % 04/13/22 20:01 Baso % (Auto) 0.4 % 04/13/22 20:01 Neut # (Auto) 4.62 10^3/uL (1.8-7.7) 04/13/22 20:01 Lymph # (Auto) 2.9 10^3/uL (0.8-4.8) 04/13/22 20:01 [place] # (Auto) 0.8 10^3/uL (0.2-0.9) 04/13/22 20:01 Eos # (Auto) 0.1 10^3/uL (0.0-0.8) 04/13/22 20:01 Baso # (Auto) 0.0 10^3/uL (0.0-0.1) 04/13/22 20:01 Nucleated RBC % (auto) 0 % 04/13/22 20: Nucleated RBCs # 0.0 /100WBC 04/13/22 20:01 Sodium 135 mmol/L (136-145) L 04/13/22 20:01 Potassium 3.9 mmol/L (3.5-5.1) 04/13/22 20:01 Chloride 99 mmol/L (98-107) 04/13/22 20:01 Carbon Dioxide 26 mmol/L (22-29) 04/13/22 20:01 Anion Gap 13.9 (5-19) 04/13/22 20:01 BUN 12 mg/dL (6-20) 04/13/22 20:01 Creatinine 0.9 mg/dL (0.7-1.2) 04/13/22 20: GFR Calculation 88.3 mL/min (90-130) L 04/13/22 20:01 Glucose 85 mg/dL (65-115) 04/13/22 20:01 Calculated Osmolality 279 mOsm/kg (285-295) L 04/13/22 20: Calcium 9.9 mg/dL (8.5-10.5) 04/13/22 20: Total Bilirubin 0.6 mg/dL (0.15-1.2) 04/13/22 20: AST 30 U/L (0-40) 04/13/22 20: ALT 29 U/L (0-41) 04/13/22 20: Alkaline Phosphatase 46 IU/L (40-130) 04/13/22 20: Total Protein 7.5 g/dL (6.6-8.7) 04/13/22 20: Albumin 5.1 g/dL (3.5-5.2) 04/13/22 20: Globulin 2.4 g/dL (1.3-4.6) 04/13/22 20: Lipase 32 U/L (13-60) 04/13/22 20: Urine Color Yellow (Yellow) 04/13/22 20: Urine Appearance Clear (CLEAR) 04/13/22 20: Urine pH 6 (5-7) 04/13/22 20:31 Ur Specific Gate 1.015 (1.005-1.030) 04/13/22 20: Urine Protein Neg (Negative) 04/13/22 20: Urine Glucose (UA) Norm (Normal) 04/13/22 20: Urine Ketones Negative (Negative) 04/13/22 20: Urine Blood Neg (Negative) 04/13/22 20: Urine Nitrate Negative (Negative) 04/13/22 20:31 Urine Bilirubin Neg (Negative) 04/13/22 20:31 Urine Urobilinogen Neg mg/dL (Negative) 04/13/22 20: Ur Leukocyte Esterase Negative (Negative) 04/13/22 20: Urine RBC 0-4 /hpf (0-2) H 04/13/22 20:31 Urine WBC 0-4 /hpf (0-5) H 04/13/22 20:31 Ur Squamous Epith Cells 0-4 /hpf (0-5) H 04/13/22 20:31 Amorphous Sediment Trace /hpf 04/13/22 20:31 Urine Bacteria None /hpf (NONE) 04/13/22 20:31 Urine Mucus 1+ /hpf 04/13/22 20:31 Discharge Plan Discharge Condition: Stable Prescriptions: No Action omega-3 fatty acids-fish oil 684-1,200 mg Capsule,Delayed Release(Dr/Ec) 1 cap PO DAILY 0RF multivitamin Tablet 1 tab PO DAILY 0RF Celebrex 100 mg capsule 100 mg PO BID PRN (Reason: pain) Qty: 20 0RF cyclobenzaprine 7.5 mg tablet 7.5 mg PO BID PRN (Reason: muscle spasm) Qty: 20 0RF Referrals: Halie Batres MD [Primary Care Provider] - Coding Level of Care Code ED Compliance Officer for Jerman Lira
[2022-04-13 19:59] VITALS: BP 134/101; PULSE 95; RESP 18; TEMP 36.6; O2SAT 95
[2022-04-13 20:00] VITALS: BP 135/90; PULSE 67; RESP 16; O2SAT 92
[2022-04-13 20:05] LABS: Basophils % 0.4 %; Eosinophils # 0.1 10^3/uL (0.0-0.8); Eosinophils % 1.4 %; Hematocrit 45.1 % (42.0-52.0); Hemoglobin 15.4 g/dL (11.7-16.6); Lymphocytes # 2.9 10^3/uL (0.8-4.8); Lymphocytes % 34.1 %; Mean Corpuscular HGB Conc 34.1 g/dL (30.0-36.0); Mean Corpuscular Hemoglobin 31.2 pg (28.0-34.0); Mean Corpuscular Volume 91.5 fl (80-94); Monocytes # 0.8 10^3/uL (0.2-0.9); Monocytes % 9.1 %; Neutrophils # 4.62 10^3/uL (1.8-7.7); Neutrophils % 54.9 %; Nucleated Red Blood Cells % 0 %; Platelet Count 200 10^3/cmm (130-400); Red Blood Count 4.93 10^6/uL (4.1-5.3); Red Cell Distribution Width 12.7 % (12.1-15.1); White Blood Count 8.4 10^3/uL (4.0-10.0)
[2022-04-13] MEDS: iohexol 350 mg/mL 100 mL Btl IV (20:08)
[2022-04-13] MEDS: sodium chloride 0.9% 1,000 ML 999 ML IV (20:24)
[2022-04-13] MEDS: fentaNYL 50 mcg/mL INJ 2mL IVP (20:25)
[2022-04-13] MEDS: ondansetron 2 mg/ML SDV 2 mL 4 MG IVP (20:26)
[2022-04-13 20:27] LABS: Alanine Aminotransferase 29 U/L (0-41); Albumin Level 5.1 g/dL (3.5-5.2); Alkaline Phosphatase 46 IU/L (40-130); Anion Gap 13.9 (5-19); Aspartate Amino Transferase 30 U/L (0-40); Blood Urea Nitrogen 12 mg/dL (6-20); Calcium 9.9 mg/dL (8.5-10.5); Carbon Dioxide 26 mmol/L (22-29); Chloride 99 mmol/L (98-107); Globulin 2.4 g/dL (1.3-4.6); Glomerular Filtration Rate 88.3 mL/min (90-130); Glucose 85 mg/dL (65-115); Lipase 32 U/L (13-60); Osmolality Calculated 279 mOsm/kg (285-295); Potassium 3.9 mmol/L (3.5-5.1); Sodium 135 mmol/L (136-145); Total Bilirubin 0.6 mg/dL (0.15-1.2); Total Protein 7.5 g/dL (6.6-8.7)
[2022-04-13 20:30] VITALS: BP 117/89; RESP 17; O2SAT 97
[2022-04-13 20:44] LABS: Bilirubin Urine Neg (Negative); Blood Urine Neg (Negative); Glucose Urine UA Norm (Normal); Ketones Urine Negative (Negative); Leukocyte Esterase Urine Negative (Negative); Mucus Urine 1+ /hpf; Nitrate Urine Negative (Negative); Protein Urine Neg (Negative); RBC Urine 0-4 /hpf (0-2); Specific Gravity, Urine 1.015 (1.005-1.030); Squamous Epithelial Cell Urine 0-4 /hpf (0-5); Urine Appearance Clear (CLEAR); Urine Color Yellow (Yellow); Urobilinogen Urine Neg (Negative); WBC Urine 0-4 /hpf (0-5); pH Urine 6 (5-7)
[2022-04-13 20:45] LABS: Add Urine Culture? No; Amorphous Sediment Urine TRACE /hpf
[2022-04-13 21:00] VITALS: BP 129/84; PULSE 62; O2SAT 96
[2022-04-13 21:20] LABS: Lactate (Lactic Acid level) 1.2 mmol/L (0.5-2.2)
[2022-04-13] MEDS: amoxicillin-clav 875-125 mg Tablet 1 TAB PO (22:25)
[2022-04-13] MEDS: HYDROcodone-acetaminophen 5-325 mg Tablet 1 TAB PO (22:25)
[2022-04-13 22:31] VITALS: BP 129/84; PULSE 62; O2SAT 96
== END 2022-04-13 22:33 | disposition home or self-care (01) ==
PROVIDERS: Emergency Medicine; Emergency Provider Emergency Medicine; PCP Family Medicine
DX: R10.9 Unspecified abdominal pain (principal)
CPT/HCPCS: 74177; 80053; 81001; 83605; 83690; 85025; 96374; 96375; 99285; J2405; J3010; J7030; Q9967

== ENCOUNTER 2022-04-25 14:09 | Emergency (ER) | payer MEDICAID, SELFPAY ==
[2022-04-25 14:44] VITALS: BP 156/100; PULSE 63; RESP 16; TEMP 36.4; O2SAT 97
[2022-04-25 16:30] LABS: Basophils % 0.4 %; Eosinophils # 0.2 10^3/uL (0.0-0.8); Eosinophils % 2.3 %; Hematocrit 45.6 % (42.0-52.0); Hemoglobin 15.2 g/dL (11.7-16.6); Lymphocytes # 2.7 10^3/uL (0.8-4.8); Lymphocytes % 37.9 %; Mean Corpuscular HGB Conc 33.3 g/dL (30.0-36.0); Mean Corpuscular Hemoglobin 31.3 pg (28.0-34.0); Mean Corpuscular Volume 93.8 fl (80-94); Mean Platelet Volume 11.4 fL (7.4-10.4); Monocytes # 0.7 10^3/uL (0.2-0.9); Neutrophils % 49.3 %; Nucleated Red Blood Cells % 0 %; Platelet Count 169 10^3/cmm (130-400); Red Blood Count 4.86 10^6/uL (4.1-5.3); Red Cell Distribution Width 12.9 % (12.1-15.1); White Blood Count 7.1 10^3/uL (4.0-10.0)
[2022-04-25 17:06] LABS: Alanine Aminotransferase 33 U/L (0-41); Albumin Level 4.8 g/dL (3.5-5.2); Alkaline Phosphatase 46 IU/L (40-130); Anion Gap 11.9 (5-19); Aspartate Amino Transferase 29 U/L (0-40); Blood Urea Nitrogen 11 mg/dL (6-20); Calcium 9.7 mg/dL (8.5-10.5); Carbon Dioxide 30 mmol/L (22-29); Chloride 100 mmol/L (98-107); Globulin 2.6 g/dL (1.3-4.6); Glomerular Filtration Rate 88.3 mL/min (90-130); Glucose 84 mg/dL (65-115); Osmolality Calculated 285 mOsm/kg (285-295); Potassium 3.9 mmol/L (3.5-5.1); Sodium 138 mmol/L (136-145); Total Bilirubin 0.5 mg/dL (0.15-1.2); Total Protein 7.4 g/dL (6.6-8.7)
--- NOTE | 2022-04-25 18:50 | W.ED.ABDPA2 ---
HPI - Abdominal Pain General: Chief Complaint: Abdominal Pain Stated Complaint: open wound on stomach Time Seen by Provider: 04/25/22 18:26 History of Present Illness: Patient is a 52-year-old male comes to the ED with abdominal pain. Patient had an ostomy placed back in August 2021 after he had a perforated bowel due to diverticulitis. He has had problems with the stoma ever since surgery. Over the past 2 weeks he has had some pain right around his stoma. He was seen here in the ED on April 13 and diagnosed with cellulitis around stoma and put on an antibiotic. He took all of his antibiotics says the stoma area still sore and painful. He endorses feeling malaise and fatigue. He has not had a bowel movement now out of his ostomy in the last 24 hours. Denies any fevers, nausea or vomiting. Patient is also complaining of having some pain in his left ear. Associated Symptoms: Denies chills, constipation, diarrhea, dysuria, fever(s), hematochezia, hematuria, nausea and vomiting Review of Systems Const: Reports: fatigue and malaise; Denies: fever(s) or chills Eyes: Denies: change in vision or eye discomfort ENMT: Reports: ear or mastoid pain (Left ear); Denies: throat pain, odynophagia, nasal discharge or nasal congestion Card: Denies: chest pain, palpitations, edema, swelling of feet/ankles, dyspnea on exertion or orthopnea Resp: Denies: dyspnea, productive cough or non-productive cough GI: Reports: abdominal pain (Pain at ostomy site); Denies: nausea, vomiting, diarrhea, constipation or hematochezia : Denies: flank pain, difficulty urinating, dysuria or hematuria Musc: Denies: neck pain, back pain or extremity swelling Skin/Breast: Denies: rash or new lesions Neuro: Denies: headache(s), numbness in extremities or weakness in extremities PFS ED PFSH: Medical History Diverticulitis Perianal cyst Surgical History History of hemorrhoidectomy Family History Denies family history of Anesthesia complication Bleeding disorder Social History Smoking and tobacco status: never smoked Alcohol intake: current Alcohol intake frequency: holidays/special occasions only Current occupation: [employer] History of recent travel: No Physical Exam Const: COMMON NORMALS: patient oriented x3 and alert GENERAL APPEARANCE: cooperative HENMT: COMMON NORMALS: normocephalic HEAD & SCALP: normocephalic EXTERNAL AUDITORY CANAL: Abnormal EAC present EAC laterality: left Details: erythema, edema and EAC tenderness TYMPANIC MEMBRANE: TM abnormal TM laterality: bilateral dull and with fluid behind the TM MOUTH: Normal oral and palatal mucosa present THROAT: posterior oropharynx normal and uvula midline Eye: COMMON NORMALS: Equal, round and reactive pupils present and conjunctivae normal CONJUNCTIVA: Yes conjunctivae normal PUPIL: Yes Equal, round and reactive pupils present Neck/C-Spine: COMMON NORMALS: supple GENERAL: Yes normal visual inspection Resp: COMMON NORMALS: normal respiratory effort, No retractions, No use of accessory muscles and clear to auscultation bilaterally AUSCULTATION: clear to auscultation bilaterally Cardio: COMMON NORMALS: regular rate, regular rhythm, S1 normal heart sound present, S2 normal heart sound present, No gallops present (Cardio), No clicks present (Cardio), No murmurs present (Cardio) and Peripheral pulses 2+ throughout RATE: regular rate RHYTHM: regular rhythm HEART SOUNDS: S1 normal heart sound present and S2 normal heart sound present PERIPHERAL PULSES: Peripheral pulses 2+ throughout GI: COMMON NORMALS: Normal to inspection, nondistended, normoactive bowel sounds present, Soft to palpation and no masses INSPECTION: Yes GI ostomy present (Stoma appears normal and no surrounding erythema or warmth) PALPATION: Yes Soft to palpation and Yes Tenderness to palpation present (GI) (Tenderness around ostomy site in the left lower quadrant) : COMMON NORMALS: Yes no CVA tenderness BLADDER/KIDNEY EXAM: Yes no CVA tenderness Back/Pelvis: COMMON NORMALS: no CVA tenderness Extremity: COMMON NORMALS: normal to inspection Neuro: COMMON NORMALS: patient oriented x3 SENSORIUM/ORIENTATION: Yes alert GAIT: Yes Normal gait present Skin: GENERAL SKIN EXAM: dry skin Course Vital Signs: Vital signs: Vital Signs Temperature 97.8 F 04/25/22 22:59 Pulse Rate 62 04/25/22 22:59 Respiratory Rate 17 04/25/22 22:59 Blood Pressure 119/79 04/25/22 22:59 Pulse Oximetry 95 04/25/22 22:59 Oxygen Delivery Me thod 04/25/22 22:54 MDM - Abdominal Pain Medical Decision Making Exam of thePatient is a 52-year-old male comes to the ED with abdominal pain. Patient had an ostomy placed back in August 2021 after he had a perforated bowel due to diverticulitis. He has had problems with the stoma ever since surgery. Over the past 2 weeks he has had some pain right around his stoma. He was seen here in the ED on April 13 and diagnosed with cellulitis around stoma and put on an antibiotic. He took all of his antibiotics says the stoma area still sore and painful. He endorses feeling malaise and fatigue. He has not had a bowel movement now out of his ostomy in the last 24 hours. Denies any fevers, nausea or vomiting. Patient is also complaining of having some pain in his left ear. Vital stable. Patient appears nontoxic and in no acute distress. Patient's ostomy and stoma appear normal and no signs of cellulitis around stoma noted. He does have some tenderness upon palpation around ostomy. Pain patient's left EAC shows otitis externa. rest of exam is benign. Labs are all unremarkable. CT of abdomen pelvis showed no acute findings but did note some constipation. Patient was diagnosed with constipation and otitis externa. He was discharged home with Ciprodex eardrops and told to take [id number] MiraLAX to help with constipation. He has a follow-up appointment with surgeon in the next couple weeks. Strict return to ED precautions given. Patient understood and agreed with plan. Lab Data I reviewed the patient's lab results. : 04/25/22 16:23 04/25/22 16:23 Labs/Radiology: Radiology Impressions Abdomen/Pelvis CT 04/25/22 18:54 IMPRESSION: 1. Negative for acute inflammatory process in the abdomen or pelvis. 2. Left lower lobe calcified granuloma. 3. Hepatic steatosis. 4. Constipation. 5. Left-sided ostomy site. Laboratory Results WBC 7.1 10^3/uL (4.0-10.0) 04/25/22 16:23 RBC 4.86 10^6/uL (4.1-5.3) 04/25/22 16: Hgb 15.2 g/dL (11.7-16.6) 04/25/22 16: Hct 45.6 % (42.0-52.0) 04/25/22 16: MCV 93.8 fl (80-94) 04/25/22 16: MCH 31.3 pg (28.0-34.0) 04/25/22 16: MCHC 33.3 g/dL (30.0-36.0) 04/25/22 16: RDW 12.9 % (12.1-15.1) 04/25/22: Plt Count 169 10^3/cmm (130-400) 04/25/22 16: MPV 11.4 fL (7.4-10.4) H 04/25/22 16: Neut % (Auto) 49.3 % 04/25/22 16: Lymph % (Auto) 37.9 % 04/25/22 16: [place] % (Auto) 10.0 % 04/25/22 16: Eos % (Auto) 2.3 % 04/25/22 16: Baso % (Auto) 0.4 % 04/25/22: Neut # (Auto) 3.50 10^3/uL (1.8-7.7) 04/25/22 16: Lymph # (Auto) 2.7 10^3/uL (0.8-4.8) 04/25/22 16: [place] # (Auto) 0.7 10^3/uL (0.2-0.9) 04/25/22 16: Eos # (Auto) 0.2 10^3/uL (0.0-0.8) 04/25/22: Baso # (Auto) 0.0 10^3/uL (0.0-0.1) 04/25/22: Nucleated RBC % (auto) 0 % 04/25/22: Nucleated RBCs # 0.0 /100WBC 04/25/22 16: Sodium 138 mmol/L (136-145) 04/25/22 16: Potassium 3.9 mmol/L (3.5-5.1) 04/25/22 16:23 Chloride 100 mmol/L (98-107) 04/25/22 16:23 Carbon Dioxide 30 mmol/L (22-29) H 04/25/22 16:23 Anion Gap 11.9 (5-19) 04/25/22 16:23 BUN 11 mg/dL (6-20) 04/25/22 16:23 Creatinine 0.9 mg/dL (0.7-1.2) 04/25/22 16:23 GFR Calculation 88.3 mL/min (90-130) L 04/25/22 16:23 Glucose 84 mg/dL (65-115) 04/25/22 16:23 Calculated Osmolality 285 mOsm/kg (285-295) 04/25/22 16:23 Calcium 9.7 mg/dL (8.5-10.5) 04/25/22 16:23 Total Bilirubin 0.5 mg/dL (0.15-1.2) 04/25/22 16:23 AST 29 U/L (0-40) 04/25/22 16:23 ALT 33 U/L (0-41) 04/25/22 16:23 Alkaline Phosphatase 46 IU/L (40-130) 04/25/22 16:23 Total Protein 7.4 g/dL (6.6-8.7) 04/25/22 16:23 Albumin 4.8 g/dL (3.5-5.2) 04/25/22 16:23 Globulin 2.6 g/dL (1.3-4.6) 04/25/22 16:23 Discharge Plan Discharge Patient Disposition: Home Clinical Impression: Constipation Qualifiers: Constipation type: unspecified constipation type Qualified Code(s): K59.00 - Constipation, unspecified Otitis externa Qualifiers: Otitis externa type: unspecified type Chronicity: acute Laterality: left Qualified Code(s): H60.502 - Unspecified acute noninfective otitis externa, left ear Condition: Stable Prescriptions: New Ciprodex 0.3-0.1 % drops,suspension 4 drp otic (ear) BID 7 Days Qty: 7.5 0RF No Action multivitamin Tablet 1 tab PO DAILY potassium 99 mg Tablet 99 mg PO DAILY Discharge Orders: Discharge ED (Routine); Ordered 04/25/22 Ordered By: Nestor Rosales Referrals: Halie Batres MD [Primary Care Provider] - Discharge Diet: Regular Discharge Activity: Increase activity as tolerated Patient Instructions: Otitis Externa - Adult, Constipation (DC) Activity Restrictions/Additional Instructions: Follow-up with medical provider as directed. Take [id number] MiraLAX as needed for constipation. Continue taking all home medications as previously prescribed. Drink plenty of fluids and stay hydrated. Use eardrops in left ear as prescribed. Return to the ER or your medical provider if condition worsens. Please read and understand discharge instructions. Thank you for choosing [facility] for your healthcare needs today. Please realize this is an emergency room and that we are providing you with a medical screening exam and this may not be complete and all inclusive of all the testing and or work up that you may need to determine your ailment or severity of your illness. It is very important that you follow up as instructed or that you return to the Emergency Department should you have concerns or if your condition changes or worsens in any way. Coding Level of Care Code ED [employer] for Chg Fwd Exam Comprehensive
--- NOTE | 2022-04-25 18:54 | CTR_ITS ---
PROCEDURE INFORMATION: Exam: CT Abdomen And Pelvis With Contrast Exam date and time: 04/25/2022 8:57 PM Age: 52 years old Clinical indication: Abdominal pain; Generalized; Prior surgery; Surgery type: Danelle procedure; Patient HX: C/O abd pain with no bm; Additional info: Pain around ostomy, no bowel movement in 24 hours TECHNIQUE: Imaging protocol: Computed tomography of the abdomen and pelvis with contrast. Radiation optimization: All CT scans at this facility use at least one of these dose optimization techniques: automated exposure control; mA and/or kV adjustment per patient size (includes targeted exams where dose is matched to clinical indication); or iterative reconstruction. Contrast material: OMNI 350; Contrast volume: 80 ml; Contrast route: INTRAVENOUS (IV); COMPARISON: CT abdomen pelvis w con* [id number] 04/13/2022 8:05 PM RADIATION DOSE METRICS: Total DLP (mGy-cm): 946.07 FINDINGS: Lungs: Left lower lobe calcified granuloma. Liver: Hepatic steatosis. Gallbladder and bile ducts: Normal. No calcified stones. No ductal dilation. Pancreas: Normal. No ductal dilation. Spleen: Normal. No splenomegaly. Adrenal glands: Normal. No mass. Kidneys and ureters: Normal. No hydronephrosis. Stomach and bowel: Constipation. Left-sided ostomy site. Appendix: No evidence of appendicitis. Intraperitoneal space: Unremarkable. No free air. No significant fluid collection. Vasculature: Unremarkable. No abdominal aortic aneurysm. Lymph nodes: Unremarkable. No enlarged lymph nodes. Urinary bladder: Unremarkable as visualized. Reproductive: Unremarkable as visualized. Bones/joints: Unremarkable. No acute fracture. Soft tissues: Unremarkable. CT/CT abdomen pelvis w con* [id number] IMPRESSION: 1. Negative for acute inflammatory process in the abdomen or pelvis. 2. Left lower lobe calcified granuloma. 3. Hepatic steatosis. 4. Constipation. 5. Left-sided ostomy site.
[2022-04-25 19:02] VITALS: BP 161/105; PULSE 62; O2SAT 94
[2022-04-25 19:22] VITALS: RESP 18
[2022-04-25] MEDS: morphine 4 mg/mL SDV 1 mL IVP (19:22)
[2022-04-25] MEDS: sodium chloride 0.9% 500 ML 999 ML IV (19:23)
[2022-04-25] MEDS: ondansetron 2 mg/ML SDV 2 mL 4 MG IVP (19:23)
[2022-04-25] MEDS: ciprofloxacin-dexameth Otic Susp 7.5 mL Btl 4 DROP EAR-LEFT (20:23)
[2022-04-25] MEDS: iohexol 350 mg/mL 100 mL Btl IV (21:04)
[2022-04-25 22:19] VITALS: BP 130/75; PULSE 68; O2SAT 92
--- NOTE | 2022-04-25 22:20 | PC.NURSE ---
Pt reports to this nurse that there has not been any output from ostomy in 24 hours. Bowel sounds hypoactive in all quadrants.
[2022-04-25 22:54] VITALS: BP 119/79; PULSE 62; RESP 17; TEMP 36.6; O2SAT 95
[2022-04-25 22:59] VITALS: BP 119/79; PULSE 62; RESP 17; TEMP 36.6; O2SAT 95
== END 2022-04-25 23:03 | disposition home or self-care (01) ==
PROVIDERS: Physician Assistant; Emergency Provider Physician Assistant; PCP Family Medicine
DX: K59.00 Constipation, unspecified (principal); H60.502 Unspecified acute noninfective otitis externa, left ear
CPT/HCPCS: 36415; 74177; 80053; 85025; 96361; 96374; 96375; 99285; J2270; J2405; J7040; Q9967

== ENCOUNTER → 2022-05-02 13:55 | Outpatient (BNVA) | payer MEDICAID, SELFPAY | PROVIDERS: PCP Family Medicine; Visit Provider Surgery | DX: Z93.3 Colostomy status (principal); Z90.49 Acquired absence of other specified parts of digestive tract | CPT/HCPCS: 99213 ==

== ENCOUNTER 2022-05-30 07:41 | Outpatient (CLI) | payer MEDICAID, SELFPAY ==
--- NOTE | 2022-05-30 07:52 | FL_ITS ---
WS: [id number] Barium enema, 05/30/2022 Clinical Data: S/P [place] PROCEDURE SIGMOIDECTOMY Comparison: None. Fluoroscopy time: 2min [id number] # of spot films: 12 Findings: The barium was introduced in the rectum to fill the [place] pouch. No extravasation was seen. There were no polyps, masses or abnormalities. The postdrainage film was not remarkable. The barium was then introduced into the left lower quadrant colostomy. The entire colon proximal to t he colostomy was visualized. The ileocecal valve was normal and there was reflux into the terminal il eum. No polyps, masses or erosions are seen. The hospital pattern was normal. The postdrainage film s howed no abnormalities. FL/FL barium enema [id number] Impression: 1. Normal distal sigmoid and rectum. 2. Normal proximal colon.
== END 2022-05-30 07:42 | disposition home or self-care (01) ==
LOC: RAD 07:41
PROVIDERS: PCP Family Medicine; Visit Provider Surgery
DX: Z93.3 Colostomy status (principal); Z90.49 Acquired absence of other specified parts of digestive tract
CPT/HCPCS: 74270

== ENCOUNTER 2022-06-07 09:30 | Day surgery (SDC) | payer MEDICAID, SELFPAY ==
--- NOTE | 2022-06-07 06:52 | W.PM.OPSUD ---
Surgery/Procedure H&P Update DATE OF PROCEDURE: June 07, 2022 DATE H&P PERFORMED: 06/06/22 H&P UPDATE INFORMATION: I have reviewed H&P completed within last 30 days, I have examined patient prior to procedure and No changes to prior documentation PREOP DIAGNOSIS: 1. Acute Appendicitis 2. Diverticulitis, perforated PRIMARY INDICATION FOR PROCEDURE: The same PLANNED PROCEDURE: Operation Date: 06/07/22 11:00 Proposed Procedures p Sigmoidoscopy(Not Applicable) - Simon Carter MD
[2022-06-07 10:17] VITALS: BP 122/88; PULSE 68; RESP 18; TEMP 36.5; O2SAT 96; BMI 35.9
--- NOTE | 2022-06-07 10:22 | PC.NURSE ---
ostomy RLQ with bag attached. clean
[2022-06-07] MEDS: sodium chloride 0.9% 1,000 ML 30 ML IV (10:29)
--- NOTE | 2022-06-07 10:57 | P.ANESASSM_ITS ---
Pre-Anesthetic Assessment Height/Weight: Height 1.65 m Weight 97.976 kg Temp Pulse Resp BP Pulse Ox O2 Del Method 97.7 F 68 18 122/88 96 06/07/22 10:17 06/07/22 10:17 06/07/22 10:17 06/07/22 10:17 06/07/22 10:17 06/07/22 10:17 Preop Diagnosis: Status post sigmoidectomy Operation Date: 06/07/22 11:00 Proposed Procedures p Sigmoidoscopy(Not Applicable) - Simon Carter MD Familial anesthetic complications: None Was Beta Jael taken within 24 hours: N/A Was Clonidine taken within 24 hours: N/A Last intake: Intake Last Liquid Date 06/06/22 Last Liquid Time 23:55 Last Solid Date 06/06/22 Last Solid Time 20:00 Social No alcohol and No tobacco Exam alert, oriented x 3, clear to auscultation bilaterally and regular rate & rhythm Airway Submandibular: within normal limits Cervical ROM: within normal limits Mallampati: Class I Comments: Comments: Missing teeth History/ROS No significant complaints Pulmonary None reported CV/HEM None reported None reported Hepatic None reported GI Ostomy Metabolic None reported Musc/skel None reported Neuropsych None reported Anesthetic Plan ASA status: 2 Anesthesia: Anesthesia Evaluation and General Other: We discussed risk and benefits of general anesthesia including PONV, sore throat (sometimes severe), corneal abrasion, positioning and peripheral nerve injuries, life threatening allergic reaction, post operative ICU admission requiring prolonged intubation, stroke, heart attack, , and rare incidences of recall. Patient consents to proceed with general anesthesia. Risk of > 500 ml blood loss (7ml/kg in children): No Medications/Allergies Home Medications Medication Instructions Recorded Confirmed Last Taken Type multivitamin 1 tab PO DAILY 05/28/20 06/07/22 06/05/22 History potassium 99 mg tablet 99 mg PO DAILY 04/25/22 06/07/22 06/05/22 History Allergies Allergy/AdvReac Type Severity Reaction Status Date / Time silk Allergy Unknown Unknown Verified 06/06/22 17:09 Current Medications Generic Name Dose Route Start Last Admin Trade Name Freq PRN Reason Stop Dose Admin Sodium Chloride 1,000 mls @ 30 mls/hr 06/07/22 09:45 06/07/22 10:29 Sodium Chloride 0.9% IV 06/08/22 09:44 30 mls/hr .Q24H FISH Administration PFSH Anesthesia Medical History Diverticulitis Perianal cyst Surgical History History of hemorrhoidectomy Family History Denies family history of Anesthesia complication Bleeding disorder Social History Smoking and tobacco status: never smoked Alcohol intake: current Alcohol intake frequency: holidays/special occasions only Current occupation: [employer] op History of recent travel: No Data Anesthesia Cardiac Studies: No Data to Display
[2022-06-07 11:47] VITALS: BP 114/79; PULSE 63; RESP 18; TEMP 36.1; O2SAT 96
[2022-06-07 12:09] VITALS: BP 128/84; PULSE 62; RESP 18; O2SAT 98
--- NOTE | 2022-06-07 13:02 | PC.NURSE ---
Pt with rectal pain. Denies abdominal pain. Light blood stain on toilet paper while wiping. Called Dr landeros and ordered one time order of lidocaine 2% gel for pain. Applied and pt voiced relief. Attempted to call home prescription for patient and unable to locate lido gel at pharm in town. Dr Landeros called and ordered Zinc oxide cream BID PRN. Pt stated he does not want the cream after got off phone with . Pt also voiced weakness in legs. Anesthesia came to evaluate patient and patient was able to ambulate independently to restroom without difficulty. D/C info confirmed with pt's sister and pt. Voiced understanding. Taken to personal vehicle via WC with all personal belongings.
--- NOTE | 2022-06-07 13:54 | ANE.PACU2 ---
Inpatient post-anesthesia follow up: Airway intact: Yes Vital signs: Temperature 97.0 F Pulse Rate 62 Respiratory Rate 18 Blood Pressure 128/84 Pulse Oximetry 98 Oxygen Delivery Me thod Room Air Oxygen Flow Rate Fraction of Inspir ed Oxygen Hydration adequate: Yes Nausea and vomiting: No Pain level: 1 Mental status: Baseline
== END 2022-06-07 13:05 | disposition home or self-care (01) ==
PROVIDERS: PCP Family Medicine; Visit Provider Surgery
PROC: 0DJD8ZZ Inspection of Lower Intestinal Tract, Via Natural or Artificial Opening Endoscopic (ICD-10-PCS; CPT 45330; principal; 2022-06-07 11:00)
DX: Z09 Encounter for follow-up examination after completed treatment for conditions other than malignant neoplasm (principal); Z87.19 Personal history of other diseases of the digestive system; Z93.3 Colostomy status
CPT/HCPCS: 45330; J2704; J7030

== ENCOUNTER 2022-07-11 14:49 | Emergency (ER) | payer MEDICAID, SELFPAY ==
[2022-07-11 15:09] VITALS: BP 152/103; PULSE 70; RESP 15; TEMP 36.2; O2SAT 95; BMI 36.6
[2022-07-11 19:26] LABS: Basophils % 0.3 %; Eosinophils # 0.2 10^3/uL (0.0-0.8); Eosinophils % 2.5 %; Hematocrit 47.3 % (42.0-52.0); Hemoglobin 15.5 g/dL (11.7-16.6); Lymphocytes # 3.2 10^3/uL (0.8-4.8); Lymphocytes % 44.2 %; Mean Corpuscular HGB Conc 32.8 g/dL (30.0-36.0); Mean Corpuscular Hemoglobin 30.6 pg (28.0-34.0); Mean Corpuscular Volume 93.5 fl (80-94); Mean Platelet Volume 11.5 fL (7.4-10.4); Monocytes # 0.6 10^3/uL (0.2-0.9); Monocytes % 8.1 %; Neutrophils % 44.6 %; Nucleated Red Blood Cells % 0 %; Platelet Count 191 10^3/cmm (130-400); Red Blood Count 5.06 10^6/uL (4.1-5.3); Red Cell Distribution Width 12.5 % (12.1-15.1); White Blood Count 7.2 10^3/uL (4.0-10.0)
[2022-07-11 19:52] LABS: Alanine Aminotransferase 32 U/L (0-41); Albumin Level 4.4 g/dL (3.5-5.2); Alkaline Phosphatase 55 U/L (40-130); Aspartate Amino Transferase 26 U/L (0-40); Blood Urea Nitrogen 15 mg/dL (6-20); Calcium 9.9 mg/dL (8.5-10.5); Carbon Dioxide 27 mmol/L (22-29); Chloride 100 mmol/L (98-107); Globulin 3.2 g/dL (1.3-4.6); Glomerular Filtration Rate 101.1 mL/min (90-130); Glucose 73 mg/dL (65-115); Osmolality Calculated 283 mOsm/kg (285-295); Sodium 137 mmol/L (136-145); Total Bilirubin 0.4 mg/dL (0.15-1.2); Total Protein 7.6 g/dL (6.6-8.7)
[2022-07-11 19:53] LABS: Anion Gap 13.9 (5-19); Potassium 3.9 mmol/L (3.5-5.1)
--- NOTE | 2022-07-11 19:54 | ED_ITS ---
HPI - Skin/Abscess/Foreign Bdy General: Chief complaint: Skin/Abscess/Foreign Body Stated complaint: stomach bag has bubble in it Time Seen by Provider: 07/11/22 19:45 Source: patient Mode of arrival: ambulatory Limitations: no limitations History of Present Illness: 52-year-old male who states that he had a colectomy with a colostomy placed back in August he scheduled in 2 weeks for reversal he states that yesterday he noticed some swelling to the upper portion of the ostomy and was concerned he denies any fever he has had some mild pain denies any drainage she denies any worsening improving factors. Associated symptoms: Deny chills, fever(s), nausea or vomiting Review of Systems Const: Denies: fever(s), chills, body aches or change in appetite Eyes: Denies: blurry vision or eye discomfort ENMT: Denies: throat pain or dental pain Card: Denies: chest pain Resp: Denies: dyspnea GI: Denies: abdominal pain, nausea, vomiting or diarrhea : Denies: dysuria Musc: Denies: neck pain or back pain Skin/Breast: Denies: rash Neuro: Denies: headache(s) Psych: Denies: depression Wiliam/Lymph: Denies: easy bruising All/Imm: Denies: urticaria PFSH ED PFSH: Medical History Diverticulitis Perianal cyst Surgical History History of hemorrhoidectomy Family History Denies family history of Anesthesia complication Bleeding disorder Social History Smoking and tobacco status: never smoked Alcohol intake: current Alcohol intake frequency: holidays/special occasions only Current occupation: [employer] op History of recent travel: No Physical Exam Const: COMMON NORMALS: no acute distress, patient oriented x3 and healthy appearing HENMT: COMMON NORMALS: normocephalic and atraumatic HEAD & SCALP: normocephalic and atraumatic Eye: COMMON NORMALS: conjunctivae normal CONJUNCTIVA: Yes conjunctivae normal Neck/C-Spine: COMMON NORMALS: full ROM and supple Chest: COMMONS NORMALS: normal inspection of the chest Resp: COMMON NORMALS: normal respiratory effort Cardio: COMMON NORMALS: regular rate and No murmurs present (Cardio) RATE: regular rate GI: COMMON NORMALS: Normal to inspection, nondistended, normoactive bowel sounds present, Soft to palpation, non-tender and no masses PALPATION: Yes Soft to palpation OTHER: Took his ostomy dressing off ostomy is well-appearing no redness no fluid collection no abscess no drainage. Extremity: COMMON NORMALS: normal to inspection and full ROM Neuro: COMMON NORMALS: patient oriented x3, moves all extremities and no focal motor deficits Psych: COMMON NORMALS: mental status grossly normal, Normal thought process present and cooperative THOUGHT PROCESS: Normal thought process present Skin: COMMON NORMALS: no rashes or lesions noted and no wounds GENERAL SKIN EXAM: no rashes or lesions noted Course Vital Signs: Vital signs: Vital Signs Temperature 97.1 F L 07/11/22 15:09 Pulse Rate 70 07/11/22 15:09 Respiratory Rate 15 07/11/22 15:09 Blood Pressure 152/103 07/11/22 15:09 Pulse Oximetry 95 07/11/22 15:09 Oxygen Delivery Me thod 07/11/22 15:09 MDM - Skin/Abscess/Foreign Bdy Medicial Decision Making Patient presents here with concern of his colostomy ostomy. It is well- appearing here he is no redness no drainage no fluid collection he is stable for discharge she is to follow-up with his surgeon in 2 weeks for his reversal. He is return if worsening. Lab Data : 07/11/22 18:53 07/11/22 18:53 Laboratory Results WBC 7.2 10^3/uL (4.0-10.0) 07/11/22 18:53 RBC 5.06 10^6/uL (4.1-5.3) 07/11/22 18:53 Hgb 15.5 g/dL (11.7-16.6) 07/11/22 18:53 Hct 47.3 % (42.0-52.0) 07/11/22 18:53 MCV 93.5 fl (80-94) 07/11/22 18:53 MCH 30.6 pg (28.0-34.0) 07/11/22 18:53 MCHC 32.8 g/dL (30.0-36.0) 07/11/22 18:53 RDW 12.5 % (12.1-15.1) 07/11/22 18:53 Plt Count 191 10^3/cmm (130-400) 07/11/22 18:53 MPV 11.5 fL (7.4-10.4) H 07/11/22 18:53 Neut % (Auto) 44.6 % 07/11/22 18:53 Lymph % (Auto) 44.2 % 07/11/22 18:53 [place] % (Auto) 8.1 % 07/11/22 18:53 Eos % (Auto) 2.5 % 07/11/22 18:53 Baso % (Auto) 0.3 % 07/11/22 18:53 Neut # (Auto) 3.20 10^3/uL (1.8-7.7) 07/11/22 18:53 Lymph # (Auto) 3.2 10^3/uL (0.8-4.8) 07/11/22 18:53 [place] # (Auto) 0.6 10^3/uL (0.2-0.9) 07/11/22 18:53 Eos # (Auto) 0.2 10^3/uL (0.0-0.8) 07/11/22 18:53 Baso # (Auto) 0.0 10^3/uL (0.0-0.1) 07/11/22 18:53 Nucleated RBC % (auto) 0 % 07/11/22 18:53 Nucleated RBCs # 0.0 /100WBC 07/11/22 18:53 Sodium 137 mmol/L (136-145) 07/11/22 18:53 Potassium 3.9 mmol/L (3.5-5.1) 07/11/22 18:53 Chloride 100 mmol/L (98-107) 07/11/22 18:53 Carbon Dioxide 27 mmol/L (22-29) 07/11/22 18:53 Anion Gap 13.9 (5-19) 07/11/22 18:53 BUN 15 mg/dL (6-20) 07/11/22 18:53 Creatinine 0.8 mg/dL (0.7-1.2) 07/11/22 18:53 GFR Calculation 101.1 mL/min (90-130) 07/11/22 18:53 Glucose 73 mg/dL (65-115) 07/11/22 18:53 Calculated Osmolality 283 mOsm/kg (285-295) L 07/11/22 18:53 Calcium 9.9 mg/dL (8.5-10.5) 07/11/22 18:53 Total Bilirubin 0.4 mg/dL (0.15-1.2) 07/11/22 18:53 AST 26 U/L (0-40) 07/11/22 18:53 ALT 32 U/L (0-41) 07/11/22 18:53 Alkaline Phosphatase 55 U/L (40-130) 07/11/22 18:53 Total Protein 7.6 g/dL (6.6-8.7) 07/11/22 18:53 Albumin 4.4 g/dL (3.5-5.2) 07/11/22 18:53 Globulin 3.2 g/dL (1.3-4.6) 07/11/22 18:53 Discharge Plan Discharge Patient Disposition: Home Clinical Impression: Colostomy care Condition: Stable Prescriptions: No Action potassium 99 mg Tablet 99 mg PO DAILY Discharge Orders: Discharge ED (Routine); Ordered 07/11/22 Ordered By: Spencer Villavicencio Referrals: Halie Batres MD [Primary Care Provider] - Discharge Diet: Advance as tolerated Discharge Activity: Resume usual activity Patient Instructions: Colostomy Care (ED) Coding Level of Care Code ED Credit Risk Management Director for Jerman Lira
[2022-07-11] MEDS: HYDROcodone-acetaminophen 5-325 mg Tablet 1 TAB PO (20:07)
[2022-07-11 20:13] VITALS: BP 150/111; PULSE 74; RESP 18; O2SAT 96
== END 2022-07-11 20:15 | disposition home or self-care (01) ==
PROVIDERS: Registered Nurse; Emergency Provider Emergency Medicine; PCP Family Medicine
DX: Z43.3 Encounter for attention to colostomy (principal)
CPT/HCPCS: 36415; 80053; 85025; 99283

== ENCOUNTER 2022-08-01 13:41 | Emergency (ER) | payer MEDICAID, SELFPAY ==
[2022-08-01] VITALS (10 sets, daily range): BP systolic 120–146; BP diastolic 72–96; PULSE 79–98; RESP 14–18; TEMP 36.8; O2SAT 90–98
--- NOTE | 2022-08-01 14:12 | ED_ITS ---
HPI - Abdominal Pain General: Chief Complaint: Abdominal Pain Stated Complaint: ABD pain/nausea Time Seen by Provider: 08/01/22 13:45 History of Present Illness: 52-year-old male presents with abdominal pain, difficulty urinating. Patient reports that 5 days ago he had a ostomy reversal done in [place] robotically. That he was sent home 2 days ago. That he had a lot of pain on the right home. Since then he has had a lot of abdominal pain. The he has been taking his hydrocodone. He feels like he might be a little bit dry and is having difficulty urinating now with pain in the lower abdomen. Patient reports he has had a lot of pain. Reports that he was passing gas but now does not seem to be passing as much. Patient also has not been having a lot of intake. Associated Symptoms: Reports nausea; Denies chills, diarrhea, fever(s) and vomiting Review of Systems Const: Denies: fever(s) or chills Eyes: Denies: change in vision or blurry vision ENMT: Denies: throat pain or ear or mastoid pain Card: Denies: chest pain or palpitations Resp: Denies: dyspnea or productive cough GI: Reports: abdominal pain and nausea; Denies: vomiting or diarrhea : Reports: difficulty urinating; Denies: flank pain Musc: Denies: neck pain or back pain Skin/Breast: Denies: rash or pruritus Neuro: Denies: headache(s) or dizziness Psych: Denies: anxiety or depression PFS ED PFSH: Medical History Diverticulitis Perianal cyst Surgical History History of hemorrhoidectomy Family History Denies family history of Anesthesia complication Bleeding disorder Social History Smoking and tobacco status: never smoked Alcohol intake: current Alcohol intake frequency: holidays/special occasions only Current occupation: [employer] History of recent travel: No Physical Exam Const: COMMON NORMALS: no acute distress and alert HENMT: COMMON NORMALS: normocephalic and hearing grossly normal bilaterally HEAD & SCALP: normocephalic Resp: COMMON NORMALS: normal respiratory effort, No use of accessory muscles and clear to auscultation bilaterally AUSCULTATION: clear to auscultation bilaterally Cardio: COMMON NORMALS: regular rate and regular rhythm RATE: regular rate RHYTHM: regular rhythm GI: COMMON NORMALS: Soft to palpation INSPECTION: Yes incision (Clean dry and intact) Inspection of incision: healing well PALPATION: Yes Soft to palpation and Yes Tenderness to palpation present (GI) (Diffuse) Extremity: COMMON NORMALS: normal to inspection, full ROM and capillary refill normal Neuro: COMMON NORMALS: moves all extremities and no focal motor deficits SENSORIUM/ORIENTATION: Yes alert Psych: COMMON NORMALS: mental status grossly normal and Normal thought process present THOUGHT PROCESS: Normal thought process present Skin: NARRATIVE SKIN EXAM: Recent surgical incisions with jakob, clean dry and intact with no signs of infection Course Vital Signs: Vital signs: Vital Signs Temperature 98.2 F 08/01/22 13:42 Pulse Rate 89 08/01/22 15:30 Respiratory Rate 16 08/01/22 16:23 Blood Pressure 141/81 08/01/22 15:30 Pulse Oximetry 94 08/01/22 16:23 Oxygen Delivery Me thod 08/01/22 13:42 MDM - Abdominal Pain Medical Decision Making Patient with concerning findings on CT exam for possible leakage or perforation and and a stenosis site. Patient does have elevated white count and elevated procalcitonin. Called and discussed with pt surgeon Dr. Abraham findings on CT. He felt that he would like to conservatively treat this with IV antibiotics and requested that we keep patient at [facility] and then transfer as needed. Called and discussed with Dr. Stone hospitalist who was uncomfortable due to concerning CT findings. Patient to be transferred to [facility] to ER for further inpatient management. Patient was given Zosyn prior to transfer. Lab Data : 08/01/22 14:25 08/01/22 14:25 Labs/Radiology: Radiology Impressions Abdomen/Pelvis CT 08/01/22 15:24 IMPRESSION: 1. Interval takedown of the left colostomy with left sigmoid anastomosis. 2. Linear row skin jakob over the left lower quadrant colostomy site. 3. 5.0 x 3.7 x 1.8 cm postoperative fluid collection in the subcutaneous fat deep to the skin jakob in the left lower quadrant. 4. Loculated free air with air-fluid level anterior to the anastomosis site most consistent with leakage or perforation in the region of the anastomosis site. 5. Moderate inflammation in the loops of small bowel and peritoneal fat in the left abdomen consistent with peritonitis. ADDENDUM: 08/01/227 History: Surgery last Friday, approximally 7 days ago. THIS REPORT CONTAINS FINDINGS THAT MAY BE CRITICAL TO PATIENT CARE. The findings were verbally communicated via telephone conference with SEBASTIAN DENNEY at 4:16 PM ORACLE BUSINESS ANALYST on 08/01/2022. The findings were acknowledged and understood. Laboratory Results WBC 14.4 10^3/uL (4.0-10.0) H 08/01/22 14:25 RBC 4.41 10^6/uL (4.1-5.3) 08/01/22 14:25 Hgb 13.8 g/dL (11.7-16.6) 08/01/22 14:25 Hct 43.6 % (42.0-52.0) 08/01/22 14:25 MCV 98.9 fl (80-94) H 08/01/22 14:25 MCH 31.3 pg (28.0-34.0) 08/01/22 14:25 MCHC 31.7 g/dL (30.0-36.0) 08/01/22 14:25 RDW 12.4 % (12.1-15.1) 08/01/22 14:25 Plt Count 186 10^3/cmm (130-400) 08/01/22 14:25 MPV 10.9 fL (7.4-10.4) H 08/01/22 14:25 Neut % (Auto) 80.8 % 08/01/22 14:25 Lymph % (Auto) 9.5 % 08/01/22 14:25 Lynn % (Auto) 8.4 % 08/01/22 14:25 Eos % (Auto) 0.3 % 08/01/22 14:25 Baso % (Auto) 0.2 % 08/01/22 14:25 Neut # (Auto) 11.62 10^3/uL (1.8-7.7) H 08/01/22 14:25 Lymph # (Auto) 1.4 10^3/uL (0.8-4.8) 08/01/22 14:25 Lynn # (Auto) 1.2 10^3/uL (0.2-0.9) H 08/01/22 14:25 Eos # (Auto) 0.0 10^3/uL (0.0-0.8) 08/01/22 14:25 Baso # (Auto) 0.0 10^3/uL (0.0-0.1) 08/01/22 14:25 Nucleated RBC % (auto) 0 % 08/01/22 14:25 Nucleated RBCs # 0.0 /100WBC 08/01/22 14:25 Sodium 132 mmol/L (136-145) L 08/01/22 14:25 Potassium 3.6 mmol/L (3.5-5.1) 08/01/22 14:25 Chloride 94 mmol/L (98-107) L 08/01/22 14:25 Carbon Dioxide 27 mmol/L (22-29) 08/01/22 14:25 Anion Gap 14.6 (5-19) 08/01/22 14:25 BUN 16 mg/dL (6-20) 08/01/22 14:25 Creatinine 0.9 mg/dL (0.7-1.2) 08/01/22 14:25 GFR Calculation 88.3 mL/min (90-130) L 08/01/22 14:25 Glucose 132 mg/dL (65-115) H 08/01/22 14:25 Calculated Osmolality 277 mOsm/kg (285-295) L 08/01/22 14:25 Calcium 9.4 mg/dL (8.5-10.5) 08/01/22 14:25 Magnesium 2.0 mg/dL (1.7-2.3) 08/01/22 14:25 Total Bilirubin 0.8 mg/dL (0.15-1.2) 08/01/22 14:25 AST 14 U/L (0-40) 08/01/22 14:25 ALT 17 U/L (0-41) 08/01/22 14:25 Alkaline Phosphatase 53 U/L (40-130) 08/01/22 14:25 Total Protein 6.9 g/dL (6.6-8.7) 08/01/22 14:25 Albumin 3.5 g/dL (3.5-5.2) 08/01/22 14:25 Globulin 3.4 g/dL (1.3-4.6) 08/01/22 14:25 Procalcitonin 4.76 ng/mL (0-0.5) H 08/01/22 14:25 Urine Color Yellow (Yellow) 08/01/22 14:25 Urine Appearance Clear (CLEAR) 08/01/22 14:25 Urine pH 6.5 (5-7) 08/01/22 14:25 Ur Specific [place] 1.015 (1.005-1.030) 08/01/22 14:25 Urine Protein 1+ (Negative) H 08/01/22 14:25 Urine Glucose (UA) Norm (Normal) 08/01/22 14:25 Urine Ketones Negative (Negative) 08/01/22 14:25 Urine Blood Neg (Negative) 08/01/22 14:25 Urine Nitrate Negative (Negative) 08/01/22 14:25 Urine Bilirubin Neg (Negative) 08/01/22 14:25 Urine Urobilinogen 4 mg/dL (Negative) H 08/01/22 14:25 Ur Leukocyte Esterase Negative (Negative) 08/01/22 14:25 Urine RBC 0-4 /hpf (0-2) H 08/01/22 14:25 Urine WBC 0-4 /hpf (0-5) H 08/01/22 14:25 Ur Squamous Epith Cells 0-4 /hpf (0-5) H 08/01/22 14:25 Amorphous Sediment 2+ /hpf 08/01/22 14:25 Urine Bacteria Trace /hpf (NONE) 08/01/22 14:25 Discharge Plan Discharge Patient Disposition: Xfer Short-Term Hosp Clinical Impression: Complication, postoperative infection, Complications of internal anastomosis of GI tract Condition: Stable Referrals: Halie Batres MD [Primary Care Provider] - Coding Level of Care Code ED Belt Splicer for Chg Fwd Exam Comprehensive
[2022-08-01] MEDS: sodium chloride 0.9% 1,000 ML 999 ML IV (14:24)
[2022-08-01 14:33] LABS: Basophils % 0.2 %; Eosinophils % 0.3 %; Hematocrit 43.6 % (42.0-52.0); Hemoglobin 13.8 g/dL (11.7-16.6); Lymphocytes # 1.4 10^3/uL (0.8-4.8); Lymphocytes % 9.5 %; Mean Corpuscular HGB Conc 31.7 g/dL (30.0-36.0); Mean Corpuscular Hemoglobin 31.3 pg (28.0-34.0); Mean Corpuscular Volume 98.9 fl (80-94); Mean Platelet Volume 10.9 fL (7.4-10.4); Monocytes # 1.2 10^3/uL (0.2-0.9); Monocytes % 8.4 %; Neutrophils # 11.62 10^3/uL (1.8-7.7); Neutrophils % 80.8 %; Nucleated Red Blood Cells % 0 %; Platelet Count 186 10^3/cmm (130-400); Red Blood Count 4.41 10^6/uL (4.1-5.3); Red Cell Distribution Width 12.4 % (12.1-15.1); White Blood Count 14.4 10^3/uL (4.0-10.0)
[2022-08-01 14:34] LABS: Urine Appearance Clear (CLEAR); Urine Color Yellow (Yellow)
[2022-08-01 14:35] LABS: Add Urine Microscopic? YES; Bilirubin Urine Neg (Negative); Blood Urine Neg (Negative); Glucose Urine UA Norm (Normal); Ketones Urine Negative (Negative); Leukocyte Esterase Urine Negative (Negative); Nitrate Urine Negative (Negative); Protein Urine 1+ (Negative); Specific Gravity, Urine 1.015 (1.005-1.030); Urobilinogen Urine 4 mg/dL (Negative); pH Urine 6.5 (5-7)
[2022-08-01 14:40] LABS: Bacteria Urine TRACE /hpf; RBC Urine 0-4 /hpf (0-2); Squamous Epithelial Cell Urine 0-4 /hpf (0-5); WBC Urine 0-4 /hpf (0-5)
[2022-08-01 14:41] LABS: Add Urine Culture? No; Amorphous Sediment Urine 2+ /hpf
[2022-08-01 14:52] LABS: Alanine Aminotransferase 17 U/L (0-41); Albumin Level 3.5 g/dL (3.5-5.2); Alkaline Phosphatase 53 U/L (40-130); Anion Gap 14.6 (5-19); Aspartate Amino Transferase 14 U/L (0-40); Blood Urea Nitrogen 16 mg/dL (6-20); Calcium 9.4 mg/dL (8.5-10.5); Carbon Dioxide 27 mmol/L (22-29); Chloride 94 mmol/L (98-107); Globulin 3.4 g/dL (1.3-4.6); Glomerular Filtration Rate 88.3 mL/min (90-130); Glucose 132 mg/dL (65-115); Osmolality Calculated 277 mOsm/kg (285-295); Potassium 3.6 mmol/L (3.5-5.1); Sodium 132 mmol/L (136-145); Total Bilirubin 0.8 mg/dL (0.15-1.2); Total Protein 6.9 g/dL (6.6-8.7)
[2022-08-01 14:59] LABS: Procalcitonin 4.76 ng/mL (0-0.5)
--- NOTE | 2022-08-01 15:24 | CTR_ITS ---
PROCEDURE INFORMATION: Exam: CT Abdomen And Pelvis With Contrast Exam date and time: 08/01/2022 3:38 PM Age: 52 years old Clinical indication: Abdominal pain; Prior surgery; Additional info: Abd pain, post op TECHNIQUE: Imaging protocol: Computed tomography of the abdomen and pelvis with contrast. Radiation optimization: All CT scans at this facility use at least one of these dose optimization techniques: automated exposure control; mA and/or kV adjustment per patient size (includes targeted exams where dose is matched to clinical indication); or iterative reconstruction. Contrast material: OMNI 350; Contrast volume: 100 ml; Contrast route: INTRAVENOUS (IV); COMPARISON: CT abdomen pelvis w con* [id number] 04/25/2022 8:57 PM RADIATION DOSE METRICS: Total DLP (mGy-cm): 1110.43 FINDINGS: Liver: Normal. No mass. Gallbladder and bile ducts: Normal. No calcified stones. No ductal dilation. Pancreas: Normal. No ductal dilation. Spleen: Normal. No splenomegaly. Adrenal glands: Normal. No mass. Kidneys and ureters: Normal. No hydronephrosis. Stomach and bowel: Interval takedown of the left colostomy with left sigmoid anastomosis. Appendix: Stable appendectomy. Intraperitoneal space: Loculated free air with air-fluid level anterior to the anastomosis site most consistent with leakage or perforation in the region of the anastomosis site. Moderate inflammation in the loops of small bowel and peritoneal fat in the left abdomen consistent with peritonitis. Vasculature: Calcification of the abdominal aorta and/or iliac arteries consistent with atherosclerotic vessel disease. Lymph nodes: Stable left calcified hilar nodes and/or mediastinal nodes and/or lung nodules consistent with old granulomatous disease. Urinary bladder: Unremarkable as visualized. Reproductive: Unremarkable as visualized. Bones/joints: Unremarkable. No acute fracture. Soft tissues: Linear row skin jakob over the left lower quadrant colostomy site. 5.0 x 3.7 x 1.8 cm postoperative fluid collection in the subcutaneous fat deep to the skin jakob in the left lower quadrant. CT/CT abdomen pelvis w con* [id number] IMPRESSION: 1. Interval takedown of the left colostomy with left sigmoid anastomosis. 2. Linear row skin jakob over the left lower quadrant colostomy site. 3. 5.0 x 3.7 x 1.8 cm postoperative fluid collection in the subcutaneous fat deep to the skin jakob in the left lower quadrant. 4. Loculated free air with air-fluid level anterior to the anastomosis site most consistent with leakage or perforation in the region of the anastomosis site. 5. Moderate inflammation in the loops of small bowel and peritoneal fat in the left abdomen consistent with peritonitis.
[2022-08-01] MEDS: iohexol 350 mg/mL 500 mL Btl (per mL) IV (15:41)
[2022-08-01] MEDS: ondansetron 2 mg/ML SDV 2 mL 4 MG IVP ×3 (16:14→22:21)
[2022-08-01] MEDS: fentaNYL 50 mcg/mL INJ 2mL IVP ×3 (16:23→22:22)
--- NOTE | 2022-08-01 16:53 | PC.NURSE ---
DR. DENNEY INSTRUCTED NOT TO GET BLOOD CULTURE.
[2022-08-01] MEDS: piperacillin-tazobactam 3.375 GM in sodium chloride 0.9% (plus) 50 ML IV (16:59)
[2022-08-01] MEDS: sodium chloride 0.9% 500 ML 100 ML IV (18:29)
--- NOTE | 2022-08-01 20:59 | PC.NURSE ---
transfer of care Report called to Layla mcintyre on pt prior to transfer to room 902-1.
== END 2022-08-01 22:51 | disposition short-term general hospital (02) ==
PROVIDERS: Emergency Provider Student in an Organized Health Care Education/Training Program; PCP Family Medicine
DX: K91.89 Other postprocedural complications and disorders of digestive system (principal); T81.40XA Infection following a procedure, unspecified, initial encounter
CPT/HCPCS: 74177; 80053; 81001; 83735; 84145; 85025; 96365; 96375; 96376; 99285; J1885; J2405; J2543; J3010; J7030; J7040; Q9967

== ENCOUNTER 2022-08-12 13:36 | Emergency (ER) | payer MEDICAID, SELFPAY ==
[2022-08-12 14:00] VITALS: BP 138/98; PULSE 70; TEMP 36.7; O2SAT 96; BMI 35.7
--- NOTE | 2022-08-12 14:08 | ED_ITS ---
HPI - General Adult General: Chief complaint: General Medical Stated complaint: jakob removed, med adjustment Time Seen by Provider: 08/12/22 14:03 History of Present Illness: 52-year-old male patient states he was referred to the ER for removal of his jakob by his surgeon, Dr. Abraham. Patient had a reanastomosis for colectomy done about 2 weeks ago. Patient reports some continued pain and discomfort to his abdomen but cannot return to his surgeon due to transportation issues. Patient appears nontoxic. Patient appears in mild pain. Patient denies any fever. Staple sites are well approximated and healed. Review of Systems Const: Denies: fever(s) GI: Reports: abdominal pain Skin/Breast: Reports: changing lesions (Healing surgical incisions) PFSH ED PFSH: Medical History Diverticulitis Perianal cyst Surgical History History of hemorrhoidectomy Family History Denies family history of Anesthesia complication Bleeding disorder Social History Smoking and tobacco status: never smoked Alcohol intake: current Alcohol intake frequency: holidays/special occasions only Current occupation: [employer] History of recent travel: No Physical Exam Const: COMMON NORMALS: alert HENMT: COMMON NORMALS: normocephalic HEAD & SCALP: normocephalic Resp: COMMON NORMALS: normal respiratory effort and clear to auscultation bilaterally AUSCULTATION: clear to auscultation bilaterally Cardio: COMMON NORMALS: regular rate RATE: regular rate GI: COMMON NORMALS: Soft to palpation AUSCULTATION: Yes normoactive bowel sounds PALPATION: Yes Soft to palpation OTHER: Healed surgical wounds, jakob intact Extremity: COMMON NORMALS: no pedal edema Neuro: SENSORIUM/ORIENTATION: Yes alert Skin: NARRATIVE SKIN EXAM: Surgical wounds are dry and well approximated. No signs of significant redness or induration. Course 2 Vital Signs: Vital signs: Vital Signs Temperature 98.1 F 08/12/22 14:00 Pulse Rate 70 08/12/22 14:00 Blood Pressure 138/98 08/12/22 14:00 Pulse Oximetry 96 08/12/22 14:00 Oxygen Delivery Me thod 08/12/22 14:00 MDM - General Adult Medical Decision Making Patient comes in for removal of surgical jakob. Burgess were removed to the surgical wounds patient tolerated well. Surgical sites were well approximated with no significant redness or induration. Abdomen is soft and bowel sounds are present. Vital signs were normal. Strongly recommend patient follow-up with surgeon for further treatment and refills on medications. Patient was covered for 3 days for his pain medication until he can follow-up with surgeon. Patient reported understanding of care plan and need for follow-up or return to the ED. Differential diagnosis considered was peritonitis, wound infection, malingering. Discharge Plan Discharge Patient Disposition: Home Clinical Impression: Postop check, Encounter for staple removal Abdominal pain Qualifiers: Abdominal location: unspecified location Qualified Code(s): R10.9 - Unspecified abdominal pain Condition: Stable Prescriptions: New hydrocodone-acetaminophen 7.5-325 mg tablet 1 tab PO Q6H PRN (Reason: pain) Qty: 12 0RF Discontinued ketorolac [Toradol] 10 mg Tablet 10 mg PO QID PRN (Reason: Pain) oxycodone 5 mg Tablet 5 mg PO Q4H PRN (Reason: Pain) No Action docusate sodium 100 mg Capsule 100 mg PO BID Discharge Orders: Discharge ED (Routine); Ordered 08/12/22 Ordered By: Andres Montoya Referrals: Halie Batres MD [Primary Care Provider] - Discharge Diet: Usual diet Discharge Activity: Increase activity as tolerated Patient Instructions: Abdominal Pain (ED), Opioid Safety, Pain Management Activity Restrictions/Additional Instructions: Follow-up with primary care for further instructions or surgeon. Return to the emergency department for high fever greater than 100.4, blood in vomit or stool, inability to hold fluids, or new concerns. Coding Level of Care Code ED Synchronous Motor Assembler for Jerman Lira
== END 2022-08-12 14:40 | disposition home or self-care (01) ==
PROVIDERS: Emergency Provider Nurse Practitioner Family; PCP Family Medicine
DX: Z48.1 Encounter for planned postprocedural wound closure (principal); R10.9 Unspecified abdominal pain
CPT/HCPCS: 99283

== ENCOUNTER 2022-08-26 13:36 | Emergency (ER) | payer MEDICAID, SELFPAY ==
[2022-08-26 13:48] VITALS: BP 142/94; PULSE 65; RESP 18; TEMP 36.3; O2SAT 97
[2022-08-26 15:25] LABS: Basophils % 0.2 %; Eosinophils # 0.2 10^3/uL (0.0-0.8); Eosinophils % 2.8 %; Hematocrit 43.2 % (42.0-52.0); Hemoglobin 14.5 g/dL (11.7-16.6); Lymphocytes # 2.2 10^3/uL (0.8-4.8); Lymphocytes % 35.8 %; Mean Corpuscular HGB Conc 33.6 g/dL (30.0-36.0); Mean Corpuscular Volume 92.3 fl (80-94); Mean Platelet Volume 11.9 fL (7.4-10.4); Monocytes # 0.5 10^3/uL (0.2-0.9); Monocytes % 8.6 %; Neutrophils # 3.23 10^3/uL (1.8-7.7); Neutrophils % 52.4 %; Nucleated Red Blood Cells % 0 %; Platelet Count 188 10^3/cmm (130-400); Red Blood Count 4.68 10^6/uL (4.1-5.3); Red Cell Distribution Width 12.7 % (12.1-15.1); White Blood Count 6.2 10^3/uL (4.0-10.0)
[2022-08-26 15:44] LABS: Alanine Aminotransferase 21 U/L (0-41); Albumin Level 4.6 g/dL (3.5-5.2); Alkaline Phosphatase 54 U/L (40-130); Anion Gap 15.3 (5-19); Aspartate Amino Transferase 22 U/L (0-40); Blood Urea Nitrogen 10 mg/dL (6-20); Calcium 10.3 mg/dL (8.5-10.5); Carbon Dioxide 29 mmol/L (22-29); Chloride 100 mmol/L (98-107); Globulin 2.9 g/dL (1.3-4.6); Glomerular Filtration Rate 88.3 mL/min (90-130); Glucose 87 mg/dL (65-115); Lipase 57 U/L (13-60); Osmolality Calculated 288 mOsm/kg (285-295); Potassium 4.3 mmol/L (3.5-5.1); Sodium 140 mmol/L (136-145); Total Bilirubin 0.5 mg/dL (0.15-1.2); Total Protein 7.5 g/dL (6.6-8.7)
[2022-08-26 16:33] VITALS: BP 100/52; PULSE 60; O2SAT 96
--- NOTE | 2022-08-26 16:33 | PC.NURSE ---
WHILE WITH PT IN LOBBY PT IS IN NAD.
--- NOTE | 2022-08-26 18:25 | CTR_ITS ---
PROCEDURE INFORMATION: Exam: CT Abdomen And Pelvis Without Contrast Exam date and time: 08/26/2022 7:00 PM Age: 52 years old Clinical indication: Other: Pelvic pain; Prior surgery; Surgery date: 6+ months; Surgery type: Small bowel, and reverse ostomy; Patient HX: Reverse ostomy 07/26/2022; Additional info: Abd pain TECHNIQUE: Imaging protocol: Computed tomography of the abdomen and pelvis without contrast. Radiation optimization: All CT scans at this facility use at least one of these dose optimization techniques: automated exposure control; mA and/or kV adjustment per patient size (includes targeted exams where dose is matched to clinical indication); or iterative reconstruction. COMPARISON: CT abdomen pelvis w con* [id number] 08/01/2022 3:38 PM RADIATION DOSE METRICS: Total DLP (mGy-cm): 905.53 FINDINGS: Lungs: Left lower lobe calcified benign granuloma. Liver: Normal. No mass. Gallbladder and bile ducts: Normal. No calcified stones. No ductal dilation. Pancreas: Normal. No ductal dilation. Spleen: Normal. No splenomegaly. Adrenal glands: Normal. No mass. Kidneys and ureters: Normal. No hydronephrosis. Stomach and bowel: Sigmoid colon surgical suture line with surrounding edema and an 18 mm collection of fluid and air along the anterior aspect of the suture line in the region of a previously seen larger 5 cm fluid and air collection may reflect a resolving abscess or postsurgical fluid collection. Prominent fluid in the small bowel without dilation may reflect an ileus. Appendix: No evidence of appendicitis. Intraperitoneal space: Unremarkable. No free air. No significant fluid collection. Vasculature: Unremarkable. No abdominal aortic aneurysm. Lymph nodes: Unremarkable. No enlarged lymph nodes. Urinary bladder: Unremarkable as visualized. Reproductive: Unremarkable as visualized. Bones/joints: Unremarkable. No acute fracture. Soft tissues: Left lower abdominal wall postsurgical soft tissue changes. CT/CT abdomen pelvis wo con [id number] IMPRESSION: 1. Sigmoid colon surgical suture line with surrounding edema and an 18 mm collection of fluid and air along the anterior aspect of the suture line in the region of a previously seen larger 5 cm fluid and air collection may reflect a resolving abscess or postsurgical fluid collection. 2. Prominent fluid in the small bowel without dilation may reflect an ileus. 3. Left lower lobe calcified benign granuloma. 4. Left lower abdominal wall postsurgical soft tissue changes.
[2022-08-26 19:36] VITALS: BP 118/73; PULSE 60; O2SAT 94
[2022-08-26 19:45] VITALS: BP 113/70; PULSE 65; RESP 18; O2SAT 96
[2022-08-26 19:47] LABS: Add Urine Microscopic? NO; Charge for UA Resulting for Rev
[2022-08-26 19:50] LABS: Bilirubin Urine Neg (Negative); Blood Urine Neg (Negative); Glucose Urine UA Norm (Normal); Ketones Urine Negative (Negative); Leukocyte Esterase Urine Negative (Negative); Nitrate Urine Negative (Negative); Protein Urine Neg (Negative); Specific Gravity, Urine 1.015 (1.005-1.030); Urine Appearance Clear (CLEAR); Urine Color Yellow (Yellow); Urobilinogen Urine Norm (Negative); pH Urine 6.5 (5-7)
--- NOTE | 2022-08-26 19:54 | W.ED.ABDPA2 ---
HPI - Abdominal Pain General: Chief Complaint: Abdominal Pain Stated Complaint: bowel issues Time Seen by Provider: 08/26/22 18:15 Source: patient Limitations: no limitations History of Present Illness: 52-year-old male states been having abdominal pain over the last few days he states he is mainly felt like he has been constipated been taking MiraLAX has had decrease bowel movements. He states that he had a colostomy reversal roughly a month ago and then had to have another surgery 2 weeks ago he denies any acute pain denies any fever she denies any vomiting or diarrhea. Associated Symptoms: Denies chills, dysuria and fever(s) Review of Systems Const: Denies: fever(s), chills, body aches or change in appetite Eyes: Denies: blurry vision or eye discomfort ENMT: Denies: throat pain or dental pain Card: Denies: chest pain Resp: Denies: dyspnea GI: Reports: abdominal pain : Denies: dysuria Musc: Denies: neck pain or back pain Skin/Breast: Denies: rash Neuro: Denies: headache(s) Psych: Denies: depression Wiliam/Lymph: Denies: easy bruising All/Imm: Denies: urticaria PFSH ED PFSH: Medical History Diverticulitis Perianal cyst Surgical History History of hemorrhoidectomy Family History Denies family history of Anesthesia complication Bleeding disorder Social History Smoking and tobacco status: never smoked Alcohol intake: current Alcohol intake frequency: holidays/special occasions only Current occupation: [employer] History of recent travel: No Physical Exam Const: COMMON NORMALS: no acute distress, patient oriented x3 and healthy appearing HENMT: COMMON NORMALS: normocephalic and atraumatic HEAD & SCALP: normocephalic and atraumatic Eye: COMMON NORMALS: Equal, round and reactive pupils present and EOMs intact bilaterally PUPIL: Yes Equal, round and reactive pupils present Neck/C-Spine: COMMON NORMALS: full ROM and supple Chest: COMMONS NORMALS: normal inspection of the chest and normal palpation of entire chest wall Resp: COMMON NORMALS: normal respiratory effort, No retractions, No use of accessory muscles and clear to auscultation bilaterally AUSCULTATION: clear to auscultation bilaterally Cardio: COMMON NORMALS: regular rate, regular rhythm and No murmurs present (Cardio) RATE: regular rate RHYTHM: regular rhythm GI: COMMON NORMALS: Normal to inspection, nondistended, normoactive bowel sounds present, Soft to palpation, non-tender and no masses PALPATION: Yes Soft to palpation Extremity: COMMON NORMALS: normal to inspection and full ROM Neuro: COMMON NORMALS: patient oriented x3, moves all extremities and no focal motor deficits Psych: COMMON NORMALS: mental status grossly normal, Normal thought process present and cooperative THOUGHT PROCESS: Normal thought process present Skin: COMMON NORMALS: no rashes or lesions noted and no wounds GENERAL SKIN EXAM: no rashes or lesions noted Course Vital Signs: Vital signs: Vital Signs Temperature 97.4 F L 08/26/22 13:48 Pulse Rate 60 08/26/22 16:33 Respiratory Rate 18 08/26/22 13:48 Blood Pressure 100/52 08/26/22 16:33 Pulse Oximetry 96 08/26/22 16:33 Oxygen Delivery Me thod 08/26/22 16:33 MDM - Abdominal Pain Medical Decision Making Patient presents with abdominal pain CT shows some postop changes no acute findings he is stable for discharge she is to follow-up with PCP and return if worsening he understands agrees to plan. Lab Data 08/26/22 15:03 08/26/22 15:03 Labs/Radiology: Radiology Impressions Abdomen/Pelvis CT 08/26/22 18:25 IMPRESSION: 1. Sigmoid colon surgical suture line with surrounding edema and an 18 mm collection of fluid and air along the anterior aspect of the suture line in the region of a previously seen larger 5 cm fluid and air collection may reflect a resolving abscess or postsurgical fluid collection. 2. Prominent fluid in the small bowel without dilation may reflect an ileus. 3. Left lower lobe calcified benign granuloma. 4. Left lower abdominal wall postsurgical soft tissue changes. Laboratory Results WBC 6.2 10^3/uL (4.0-10.0) 08/26/22 15:03 RBC 4.68 10^6/uL (4.1-5.3) 08/26/22 15:03 Hgb 14.5 g/dL (11.7-16.6) 08/26/22 15:03 Hct 43.2 % (42.0-52.0) 08/26/22 15:03 MCV 92.3 fl (80-94) 08/26/22 15:03 MCH 31.0 pg (28.0-34.0) 08/26/22 15:03 MCHC 33.6 g/dL (30.0-36.0) 08/26/22 15:03 RDW 12.7 % (12.1-15.1) 08/26/22 15:03 Plt Count 188 10^3/cmm (130-400) 08/26/22 15:03 MPV 11.9 fL (7.4-10.4) H 08/26/22 15:03 Neut % (Auto) 52.4 % 08/26/22 15:03 Lymph % (Auto) 35.8 % 08/26/22 15:03 [place] % (Auto) 8.6 % 08/26/22 15:03 Eos % (Auto) 2.8 % 08/26/22 15:03 Baso % (Auto) 0.2 % 08/26/22 15:03 Neut # (Auto) 3.23 10^3/uL (1.8-7.7) 08/26/22 15:03 Lymph # (Auto) 2.2 10^3/uL (0.8-4.8) 08/26/22 15:03 [place]enson # (Auto) 0.5 10^3/uL (0.2-0.9) 08/26/22 15:03 Eos # (Auto) 0.2 10^3/uL (0.0-0.8) 08/26/22 15:03 Baso # (Auto) 0.0 10^3/uL (0.0-0.1) 08/26/22 15:03 Nucleated RBC % (auto) 0 % 08/26/22 15:03 Nucleated RBCs # 0.0 /100WBC 08/26/22 15:03 Sodium 140 mmol/L (136-145) 08/26/22 15:03 Potassium 4.3 mmol/L (3.5-5.1) 08/26/22 15:03 Chloride 100 mmol/L (98-107) 08/26/22 15:03 Carbon Dioxide 29 mmol/L (22-29) 08/26/22 15:03 Anion Gap 15.3 (5-19) 08/26/22 15:03 BUN 10 mg/dL (6-20) 08/26/22 15:03 Creatinine 0.9 mg/dL (0.7-1.2) 08/26/22 15:03 GFR Calculation 88.3 mL/min (90-130) L 08/26/22 15:03 Glucose 87 mg/dL (65-115) 08/26/22 15:03 Calculated Osmolality 288 mOsm/kg (285-295) 08/26/22 15:03 Calcium 10.3 mg/dL (8.5-10.5) 08/26/22 15:03 Total Bilirubin 0.5 mg/dL (0.15-1.2) 08/26/22 15:03 AST 22 U/L (0-40) 08/26/22 15:03 ALT 21 U/L (0-41) 08/26/22 15:03 Alkaline Phosphatase 54 U/L (40-130) 08/26/22 15:03 Total Protein 7.5 g/dL (6.6-8.7) 08/26/22 15:03 Albumin 4.6 g/dL (3.5-5.2) 08/26/22 15:03 Globulin 2.9 g/dL (1.3-4.6) 08/26/22 15:03 Lipase 57 U/L (13-60) 08/26/22 15:03 Urine Color Yellow (Yellow) 08/26/22 18:42 Urine Appearance Clear (CLEAR) 08/26/22 18:42 Urine pH 6.5 (5-7) 08/26/22 18:42 Ur Specific [place] 1.015 (1.005-1.030) 08/26/22 18:42 Urine Protein Neg (Negative) 08/26/22 18:42 Urine Glucose (UA) Norm (Normal) 08/26/22 18:42 Urine Ketones Negative (Negative) 08/26/22 18:42 Urine Blood Neg (Negative) 08/26/22 18:42 Urine Nitrate Negative (Negative) 08/26/22 18:42 Urine Bilirubin Neg (Negative) 08/26/22 18:42 Urine Urobilinogen Norm mg/dL (Negative) 08/26/22 18:42 Ur Leukocyte Esterase Negative (Negative) 08/26/22 18:42 Discharge Plan Discharge Patient Disposition: Home Clinical Impression: Abdominal pain Condition: Stable Prescriptions: No Action docusate sodium 100 mg Capsule 100 mg PO BID hydrocodone-acetaminophen 7.5-325 mg tablet 1 tab PO Q6H PRN (Reason: pain) Qty: 12 0RF Discharge Orders: Discharge ED (Routine); Ordered 08/26/22 Ordered By: Spencer Villavicencio Referrals: Halie Batres MD [Primary Care Provider] - 1-3 days Discharge Diet: Advance as tolerated Discharge Activity: Resume usual activity Patient Instructions: Abdominal Pain (ED) Coding Level of Care Code ED Wide Area Network Administrator for Jerman Lira
[2022-08-26 20:00] VITALS: BP 112/73; PULSE 57; RESP 18; O2SAT 95
== END 2022-08-26 20:26 | disposition home or self-care (01) ==
PROVIDERS: Emergency Medicine; Emergency Provider Emergency Medicine; PCP Family Medicine
DX: R10.9 Unspecified abdominal pain (principal)
CPT/HCPCS: 36415; 74176; 80053; 81003; 83690; 85025; 99284

== ENCOUNTER → 2022-09-09 15:17 | Outpatient (BNVA) | payer MEDICAID, SELFPAY | PROVIDERS: PCP Family Medicine; Visit Provider Family Medicine Adult Medicine | DX: J06.9 Acute upper respiratory infection, unspecified (principal) | CPT/HCPCS: 87400 ==

== ENCOUNTER 2022-09-15 13:47 | Emergency (ER) | payer MEDICAID, SELFPAY ==
[2022-09-15 14:43] VITALS: BP 138/90; PULSE 72; RESP 14; TEMP 36.4; O2SAT 97
[2022-09-15 17:56] VITALS: BP 124/84; PULSE 67; RESP 18; O2SAT 95
--- NOTE | 2022-09-15 18:42 | CTR_ITS ---
PROCEDURE INFORMATION: Exam: CT Pelvis With Contrast Exam date and time: 09/15/2022 7:15 PM Age: 52 years old Clinical indication: Perianal pain; Additional info: Anal pain, suspect deep abscess around anus extending to perineum TECHNIQUE: Imaging protocol: Computed tomography of the pelvis with contrast. Radiation optimization: All CT scans at this facility use at least one of these dose optimization techniques: automated exposure control; mA and/or kV adjustment per patient size (includes targeted exams where dose is matched to clinical indication); or iterative reconstruction. Contrast material: OMNIPAQUE 350; Contrast volume: 95 ml; Contrast route: INTRAVENOUS (IV); COMPARISON: CT abdomen pelvis wo con [id number] 08/26/2022 7:00 PM RADIATION DOSE METRICS: Total DLP (mGy-cm): 481.24 FINDINGS: Stomach and bowel: There are postoperative changes at the junction of the distal descending and sigmoid colon. There is mucosal thickening of the large bowel proximal to this region with mild adjacent stranding. Postoperative changes are present in the overlying right lower quadrant ventral abdominal wall. Appendix: No evidence of appendicitis. Intraperitoneal space: Unremarkable. No free air. No significant fluid collection. Lymph nodes: Unremarkable. No enlarged lymph nodes. Urinary bladder: Normal. No mass. Reproductive: Normal as visualized. Bones/joints: Unremarkable. No acute fracture. No dislocation. Soft tissues: Left perianal abscess measures 1.8 x 1.0 x 3.5 cm in the AP/transverse/craniocaudad dimensions and extends to the skin surface of the left gluteal cleft. There is surrounding soft tissue edema. CT/CT pelvis w con* [id number] IMPRESSION: 1. Left perianal soft tissue abscess extensive skin surface of the left gluteal cleft as described above. 2. There is mucosal thickening of the large bowel proximal to the postoperative change at the junction of the distal descending/sigmoid colon. Differential includes nonspecific colitis and neoplasm.
--- NOTE | 2022-09-15 18:44 | ED_ITS ---
HPI - Male Genitourinary General: Chief complaint: Urogenital-Male Stated complaint: skin abnormality Time Seen by Provider: 09/15/22 17:34 Source: patient Mode of arrival: ambulatory Limitations: no limitations History of Present Illness: Patient presents emergency department today for evaluation treatment of 3 to 4 days of anal pain. Patient has a long history of GI issues including colectomy with colostomy. Patient had a colostomy reversal several weeks ago. He has been seen in the emergency department several times over the last couple of months for various abdominal complaints. However, p lexi states today he presents due to worsening pain and tenderness in his anal region. Patient has issues with constipation and states he takes MiraLAX twice a day. He still stools once or twice a day or, every other day. He does have a history of anal fissures per his report-chart review also shows a history of an anal cyst and a hemorrhoidectomy. Patient states he does not notice any extra difficulty in passing stools the last few days but has had a significant increase in food intake due to the holidays. He has not had any blood in the stool, in the toilet water, or on his toilet paper however, he indicates pain with defecation and with wiping. Patient states he feels a swollen, hard knot in the anal area. Associated symptoms: Reports nausea Review of Systems General: Reports: 10 or more systems reviewed and unremarkable except in HPI and below GI: Reports: nausea, constipation (treated daily), pain on defecation, rectal pain and rectal swelling; Denies: change in bowel habits, hematochezia or melena PFSH ED PFSH: Medical History Diverticulitis Erectile dysfunction Hx of sigmoidoscopy Perianal cyst URI with cough and congestion Surgical History History of hemorrhoidectomy Family History Denies family history of Anesthesia complication Bleeding disorder Social History Smoking and tobacco status: never smoked Alcohol intake: current Alcohol intake frequency: holidays/special occasions only Current occupation: [employer] History of recent travel: No Physical Exam Const: COMMON NORMALS: no acute distress, average body habitus, patient oriented x3 and alert HENMT: COMMON NORMALS: normocephalic, atraumatic, hearing grossly normal bilaterally and moist oral mucous membranes HEAD & SCALP: normocephalic and atraumatic Eye: COMMON NORMALS: Equal, round and reactive pupils present, EOMs intact bilaterally and conjunctivae normal CONJUNCTIVA: Yes conjunctivae normal PUPIL: Yes Equal, round and reactive pupils present Neck/C-Spine: COMMON NORMALS: no JVD Lymph: LYMPHATIC: no lymphadenopathy noted Resp: COMMON NORMALS: normal respiratory effort, No retractions and No use of accessory muscles Cardio: COMMON NORMALS: no JVD and regular rate RATE: regular rate GI: RECTAL EXAM: No abnormal sphincter tone, No hemorrhoids, No Rectal prolapse, No Lesions present (GI), No Anal fissure(s) present, Yes tenderness a nd Yes Anal wink reflex intact OTHER: Patient has several well-healing surgical scars on the lower abdomen without signs of erythema or active draining. Patient has a couple of small skin tags on the anal opening without any active signs of fissures or bleeding. There is no signs of significant erythema or bulging however, when patient indicates his area of discomfort, there is firmness deep to palpation extending from the rectum 3:00 to 12:00 extending towards the perineum. This area was extremely tender to touch. Extremity: COMMON NORMALS: normal to inspection, full ROM and capillary refill normal Neuro: COMMON NORMALS: patient oriented x3 SENSORIUM/ORIENTATION: Yes alert Psych: COMMON NORMALS: mental status grossly normal, cooperative, normal af fect, speech normal and activity/motor behavior normal SPEECH: Yes normal speech Procedures Abscess I/D Site: aura-rectal Side (if applicable): left Sedation/analgesia: other ([place] on arrival) Local Anesthetic: bupivacaine 0.5% Technique: incised with #11 blade Packing used?: none Complications: other (none) Course Vital Signs: Vital signs: Vital Signs Temperature 97.5 F L 09/15/22 14:43 Pulse Rate 88 09/15/22 19:09 Respiratory Rate 22 H 09/15/22 19:09 Blood Pressure 108/63 09/15/22 19:09 Pulse Oximetry 98 09/15/22 19:09 Oxygen Delivery Me thod 09/15/22 19:09 MDM - Male Medical Decision Making Patient presented to the emergency department today for evaluation and treatment of complaints of tenderness and a bump in the patient's anal area. Patient deals with constipation has had multiple GI issues over the last several years- especially the last couple of months. Patient had no bleeding but has had a history of hemorrhoids as well as fissures. Examination revealed no signs of any obvious active hemorrhoid both external or internal but, there is no significant erythema or swelling around the anal region. However, on deep palpation there was tenderness and firmness. CT examination confirmed a perianal abscess. I spoke with Dr. Storm regarding this finding. He performed an I&D of this area and indicated he got good purulent return. Patient received IV clindamycin here in the ER with a prescription of clindamycin to continue for the next 10 days. He was also given a prescription for probiotics and warned of the side effect of loose stool and diarrhea. Referral to general surgery was initiated on his behalf and patient will be notified through a engine repair supervisor regarding this follow-up. Patient was given return precautions. He needs to keep upcoming appointments with his GI doctor or should be seen and reevaluated if acutely worsening. Differential Diagnosis Unlikely urinary tract infection, genital herpes simplex or prostatitis (suspect internal/external hemorrhoid, fissue, perianal abscess) Lab Data 09/15/22 18:59 09/15/22 18:[address] 09/15/22 18:42 IMPRESSION: 1. Left perianal soft tissue abscess extensive skin surface of the left gluteal cleft as described above. 2. There is mucosal thickening of the large bowel proximal to the postoperative change at the junction of the distal descending/sigmoid colon. Differential includes nonspecific colitis and neoplasm. Laboratory Results WBC 10.9 10^3/uL (4.0-10.0) H 09/15/22 18:59 RBC 4.48 10^6/uL (4.1-5.3) 09/15/22 18:59 Hgb 13.6 g/dL (11.7-16.6) 09/15/22 18:59 Hct 41.9 % (42.0-52.0) L 09/15/22 18:59 MCV 93.5 fl (80-94) 09/15/22 18:59 MCH 30.4 pg (28.0-34.0) 09/15/22 18:59 MCHC 32.5 g/dL (30.0-36.0) 09/15/22 18:59 RDW 12.5 % (12.1-15.1) 09/15/22 18:59 Plt Count 303 10^3/cmm (130-400) 09/15/22 18:59 MPV 10.0 fL (7.4-10.4) 09/15/22 18:59 Neut % (Auto) 63.0 % 09/15/22 18:59 Lymph % (Auto) 25.9 % 09/15/22 18:59 [place] % (Auto) 8.2 % 09/15/22 18:59 Eos % (Auto) 2.2 % 09/15/22 18:59 Baso % (Auto) 0.4 % 09/15/22 18:59 Neut # (Auto) 6.87 10^3/uL (1.8-7.7) 09/15/22 18:59 Lymph # (Auto) 2.8 10^3/uL (0.8-4.8) 09/15/22 18:59 [place] # (Auto) 0.9 10^3/uL (0.2-0.9) 09/15/22 18:59 Eos # (Auto) 0.2 10^3/uL (0.0-0.8) 09/15/22 18:59 Baso # (Auto) 0.0 10^3/uL (0.0-0.1) 09/15/22 18:59 Nucleated RBC % (auto) 0 % 09/15/22 18:59 Nucleated RBCs # 0.0 /100WBC 09/15/22 18:59 Sodium 139 mmol/L (136-145) 09/15/22 18:59 Potassium 4.2 mmol/L (3.5-5.1) 09/15/22 18:59 Chloride 101 mmol/L (98-107) 09/15/22 18:59 Carbon Dioxide 29 mmol/L (22-29) 09/15/22 18:59 Anion Gap 13.2 (5-19) 09/15/22 18:59 BUN 17 mg/dL (6-20) 09/15/22 18:59 Creatinine 0.9 mg/dL (0.7-1.2) 09/15/22 18:59 GFR Calculation 88.3 mL/min (90-130) L 09/15/22 18:59 Glucose 81 mg/dL (65-115) 09/15/22 18:59 Calculated Osmolality 289 mOsm/kg (285-295) 09/15/22 18:59 Calcium 9.7 mg/dL (8.5-10.5) 09/15/22 18:59 Total Bilirubin 0.2 mg/dL (0.15-1.2) 09/15/22 18:59 AST 15 U/L (0-40) 09/15/22 18:59 ALT 12 U/L (0-41) 09/15/22 18:59 Alkaline Phosphatase 65 U/L (40-130) 09/15/22 18:59 Total Protein 7.6 g/dL (6.6-8.7) 09/15/22 18:59 Albumin 4.2 g/dL (3.5-5.2) 09/15/22 18:59 Globulin 3.4 g/dL (1.3-4.6) 09/15/22 18:[address] Abd/Pel: Radiologist's impression: Reports a left perianal abscess 1.8 x 1.0 x 3.5 cm extending to the surface of the left gluteal cleft Discharge Plan Discharge Patient Disposition: Home Clinical Impression: Abscess, perianal Condition: Stable Prescriptions: New clindamycin HCl 300 mg capsule 300 mg PO Q6H 10 Days Qty: 40 0RF Bifidobacterium infantis 4 mg capsule 4 mg PO DAILY Qty: 14 0RF No Action Chloraseptic Max 15-10 mg lozenge 1 ken PO .q 2hr PRN (Reason: sore throat) Qty: 15 1RF fluticasone propionate 50 mcg/actuation spray,suspension 2 spray intranasal DAILY PRN (Reason: nasal congestion) Qty: 16 1RF Rx Instructions: administer into each nostril meloxicam 15 mg tablet 15 mg PO DAILY Qty: 15 0RF docusate sodium 100 mg Capsule 100 mg PO BID hydrocodone-acetaminophen 7.5-325 mg tablet 1 tab PO Q6H PRN (Reason: pain) Qty: 12 0RF Discharge Orders: Discharge ED (Routine); Ordered 09/15/22 Ordered By: Fior Chin Referrals: Halie Batres MD [Primary Care Provider] - Discharge Diet: Usual diet Discharge Activity: Increase activity as tolerated Patient Instructions: Rectal Abscess (ED) Activity Restrictions/Additional Instructions: Imaging confirmed a perianal abscess. The emergency room physician donavon was able to drain this and we are starting you on antibiotics. I put in a request for your follow-up with general surgery and they should be calling you to set up that follow-up. Take your prescriptions as prescribed. These antibiotics can cause loose stool and diarrhea so I have also prescribed to you a probiotic to be taken while you are on your antibiotic regimen. Continue to monitor the area. You can do warm soaks/sitz bath to help with discomfort. Return if worsening. Coding Level of Care Code ED Animal Ride Manager for Walterg Fwd Exam Comprehensive
[2022-09-15 19:03] LABS: Basophils % 0.4 %; Eosinophils # 0.2 10^3/uL (0.0-0.8); Eosinophils % 2.2 %; Hematocrit 41.9 % (42.0-52.0); Hemoglobin 13.6 g/dL (11.7-16.6); Lymphocytes # 2.8 10^3/uL (0.8-4.8); Lymphocytes % 25.9 %; Mean Corpuscular HGB Conc 32.5 g/dL (30.0-36.0); Mean Corpuscular Hemoglobin 30.4 pg (28.0-34.0); Mean Corpuscular Volume 93.5 fl (80-94); Monocytes # 0.9 10^3/uL (0.2-0.9); Monocytes % 8.2 %; Neutrophils # 6.87 10^3/uL (1.8-7.7); Nucleated Red Blood Cells % 0 %; Platelet Count 303 10^3/cmm (130-400); Red Blood Count 4.48 10^6/uL (4.1-5.3); Red Cell Distribution Width 12.5 % (12.1-15.1); White Blood Count 10.9 10^3/uL (4.0-10.0)
[2022-09-15 19:09] VITALS: BP 108/63; PULSE 88; RESP 22; O2SAT 98
[2022-09-15] MEDS: HYDROcodone-acetaminophen 5-325 mg Tablet 1 TAB PO (19:09)
[2022-09-15] MEDS: ondansetron 2 mg/ML SDV 2 mL 4 MG IVP (19:09)
[2022-09-15] MEDS: iohexol 350 mg/mL 500 mL Btl (per mL) IV (19:11)
[2022-09-15 19:19] LABS: Alanine Aminotransferase 12 U/L (0-41); Albumin Level 4.2 g/dL (3.5-5.2); Alkaline Phosphatase 65 U/L (40-130); Anion Gap 13.2 (5-19); Aspartate Amino Transferase 15 U/L (0-40); Blood Urea Nitrogen 17 mg/dL (6-20); Calcium 9.7 mg/dL (8.5-10.5); Carbon Dioxide 29 mmol/L (22-29); Chloride 101 mmol/L (98-107); Globulin 3.4 g/dL (1.3-4.6); Glomerular Filtration Rate 88.3 mL/min (90-130); Glucose 81 mg/dL (65-115); Osmolality Calculated 289 mOsm/kg (285-295); Potassium 4.2 mmol/L (3.5-5.1); Sodium 139 mmol/L (136-145); Total Bilirubin 0.2 mg/dL (0.15-1.2); Total Protein 7.6 g/dL (6.6-8.7)
[2022-09-15] MEDS: clindamycin 900 MG/50 ML PREMIX 100 MG IV (20:46)
[2022-09-15 21:26] VITALS: BP 139/84; PULSE 94; RESP 19; O2SAT 97
--- NOTE | 2022-09-17 09:25 | DCPLANNER ---
Addendum entered by Jennifer Toro 09/30/22 11:42: workday manager called [facility] - to confirm that clinic received patients information. workday manager was told that clinic did receive patients information, clinic called patient, was told that patient will need to figure out transportation and will call clinic to schedule an appointment. Addendum entered by Jennifer Toro 09/25/22 10:59: Patient called case filler stating the Dr. Weston can not see patient. The patient stated that he would like to be referred to [facility]. workday manager called [facility] at [phone] and faxed patients information to the clinic at fax number [phone]. Patients information will be reviewed. Clinic will call patient with appointment information. Addendum entered by Jennifer Toro 09/18/22 10:39: workday manager received the following message from the general surgery clinic regarding referral: Due to patient having [facility], please refer elsewhere. workday manager called patient to inform patient that case filler will be sending patients information to the office of Dr. Mueller for follow up due to [facility] provider not being in network with [facility]. Patient stated that would be fine. workday manager faxed patients chart to the office of Dr. Mueller. Patients information will be reviewed. Clinic will call patient with appointment information. Original Note: workday manager had message to schedule a follow up appointment for patient with general surgery. workday manager sent patients information to the front office staff at general surgery. Patients information will be printed and reviewed. Clinic will call patient with appointment information.
== END 2022-09-15 21:28 | disposition home or self-care (01) ==
PROVIDERS: Emergency Provider Physician Assistant; PCP Family Medicine
DX: K61.0 Anal abscess (principal)
CPT/HCPCS: 46050; 72193; 80053; 85025; 96365; 96375; 99285; J2405; J3490; Q9967

== ENCOUNTER → 2023-03-06 14:55 | Outpatient (BNVA) | payer MEDICAID, SELFPAY | PROVIDERS: PCP Family Medicine; Referring Provider Family Medicine; Visit Provider Student in an Organized Health Care Education/Training Program | DX: M65.331 Trigger finger, right middle finger (principal); G56.03 Carpal tunnel syndrome, bilateral upper limbs | CPT/HCPCS: 73130 ==

== ENCOUNTER 2023-03-24 12:18 | Emergency (ER) | payer MEDICAID, SELFPAY ==
[2023-03-24 12:41] VITALS: BP 171/126; PULSE 82; RESP 18; TEMP 36.8; O2SAT 95; BMI 34.9
--- NOTE | 2023-03-24 12:55 | W.ED.PSYCHS ---
HPI - Psych General: Chief Complaint: Psychiatric Symptoms Stated Complaint: MHE Time Seen by Provider: 03/24/23 12:22 Source: patient Mode of arrival: ambulatory Limitations: no limitations History of Present Illness: 53-year-old male states that his PCP and recently started him on bupropion he states for having some anxiety states that since then he has been feeling worse. States that today he had a fly land on his head and wrists he states all he can think about is his bugs crawling on his head he states he is feeling just extremely anxious denies any suicidal or homicidal ideations he is answering all my questions appropriately. Denies any worsening proving factors. PFSH ED PFSH: Medical History Abscess, perianal Constipation Diverticulitis Erectile dysfunction Hx of sigmoidoscopy Perianal cyst URI with cough and congestion Surgical History History of colostomy reversal History of hemorrhoidectomy Hx of appendectomy Family History Grandmother Cancer Maternal-unknown Other Dementia Diabetes Hyperlipidemia Hypertension Psychiatric illness Stroke Denies family history of CAD (coronary artery disease) Clotting disorder Chronic kidney disease (CKD) Anesthesia complication Bleeding disorder Lung disease Social History Smoking and tobacco status: former smoker Quit status (tobacco): has quit using tobacco Year quit tobacco: 2021 Alcohol intake: former 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/quit date alcohol: 2020 Substance/Drug Use: former Lives independently: Yes Current occupational status: unemployed Special viral needs: No Agree to transfusion: Yes Physical Exam Const: COMMON NORMALS: no acute distress, patient oriented x3 and healthy appearing HENMT: COMMON NORMALS: normocephalic and atraumatic HEAD & SCALP: normocephalic and atraumatic Eye: COMMON NORMALS: Equal, round and reactive pupils present and EOMs intact bilaterally PUPIL: Yes Equal, round and reactive pupils present Neck/C-Spine: COMMON NORMALS: full ROM and supple Chest: COMMONS NORMALS: normal inspection of the chest and normal palpation of entire chest wall Resp: COMMON NORMALS: normal respiratory effort, No retractions, No use of accessory muscles and clear to auscultation bilaterally AUSCULTATION: clear to auscultation bilaterally Cardio: COMMON NORMALS: regular rate, regular rhythm and No murmurs present (Cardio) RATE: regular rate RHYTHM: regular rhythm GI: COMMON NORMALS: Normal to inspection, nondistended, normoactive bowel sounds present, Soft to palpation, non-tender and no masses PALPATION: Yes Soft to palpation Extremity: COMMON NORMALS: normal to inspection and full ROM Neuro: COMMON NORMALS: patient oriented x3, moves all extremities and no focal motor deficits Psych: COMMON NORMALS: Normal thought process present and cooperative THOUGHT PROCESS: Normal thought process present Skin: COMMON NORMALS: no rashes or lesions noted and no wounds GENERAL SKIN EXAM: no rashes or lesions noted Course Vital Signs: Vital signs: Vital Signs Temperature 98.3 F 03/24/23 12:41 Pulse Rate 82 03/24/23 12:41 Respiratory Rate 18 03/24/23 12:41 Blood Pressure 171/126 03/24/23 12:41 Pulse Oximetry 95 03/24/23 12:41 Oxygen Delivery Me thod Room Air 03/24/23 12:41 [facility] - Psych Medical Decision Making Patient presents with anxiety states that he felt like the bupropion he was started on a week ago admitting felt very anxious. Patient's not suicidal not homicidal he states that he felt like he had a fly on his head but he is not acutely psychotic he is answering my question appropriately he does not want to be admitted to the psych varghese. He is not a threat to himself or others not able to place him under 96 did give him Klonopin he is been cooperative well-appearing here he is to continue stop the Wellbutrin we will start him on a few days of Klonopin get him follow-up with [facility] Discharge Plan Discharge Patient Disposition: Home Clinical Impression: Acute anxiety Condition: Stable Prescriptions: New Klonopin 1 mg tablet 1 mg PO DAILY PRN (Reason: anxiety) Qty: 7 0RF No Action bupropion HCl [Wellbutrin XL] 300 mg tablet extended release 24 hr 300 mg PO QAM Qty: 30 1RF polyethylene glycol 3350 [Miralax] 17 gram/dose powder 17 g PO BID PRN (Reason: constipation) Qty: 510 4RF Discharge Orders: Discharge ED (Routine); Ordered 03/24/23 Ordered By: Spencer Villavicencio Referrals: [facility], [Staff Physician] - 1-3 days Popeye Bueno MD [Primary Care Provider] - Discharge Diet: Advance as tolerated Discharge Activity: Resume usual activity Patient Instructions: Anxiety (ED) Coding Level of Care Code ED Waste Machine Offbearer for Jerman Lira
[2023-03-24] MEDS: LORazepam 1 mg Tablet PO (13:08)
== END 2023-03-24 13:09 | disposition home or self-care (01) ==
PROVIDERS: Emergency Provider Emergency Medicine; PCP Family Medicine
DX: F41.9 Anxiety disorder, unspecified (principal); Z79.899 Other long term (current) drug therapy
CPT/HCPCS: 99283

== ENCOUNTER 2023-09-28 10:30 | Emergency (ER) | payer MEDICAID, SELFPAY ==
[2023-09-28 10:36] VITALS: BP 130/88; PULSE 93; RESP 18; TEMP 36.7; O2SAT 89; BMI 37.4
--- NOTE | 2023-09-28 10:42 | XRR_ITS ---
PROCEDURE INFORMATION: Exam: XR Chest Exam date and time: 09/28/2023 10:51 AM Age: 53 years old Clinical indication: Cough TECHNIQUE: Imaging protocol: Radiologic exam of the chest. Views: 2 views. COMPARISON: CR XR chest 1V [id number] 09/16/2019 6:00 AM FINDINGS: Lungs: Slight opacity right lung base. Slight opacity, indistinctness, blunting right lateral costophrenic angle. Pleural spaces: No pneumothorax seen. Heart/Mediastinum: Heart size appears within normal. Vasculature: Atherosclerotic disease aorta. Bones/joints: Curvature, degenerative changes spine. Soft tissues: Rib cartilage calcifications. XR/XR chest 2V* [id number] IMPRESSION: Slight opacity, infiltrate, or atelectasis right lung base with small right pleural effusion.
--- NOTE | 2023-09-28 10:44 | ED_ITS ---
HPI - COVID 2 General: Chief Complaint: COVID symptoms Stated Complaint: sob, cough, swollen face Time Seen by Provider: 09/28/23 10:40 History of Present Illness: 53-year-old male presents emergency depa rtment with complaints of nonproductive cough. He states he is coughed so much that his chest muscles are hurting. He states that the chest muscles hurt worse when he is coughing. He does state he feels significantly short of breath after having repeat coughing episodes. He also endorses generalized bodyaches and overall fatigue and malaise. He does endorse recent sick contacts with similar illnesses. COVID 19 common symptoms: positive non-productive cough, dyspnea, fatigue and body aches COVID Results: 2 SARS-CoV-2 Antigen (Rapid) negative (Negative) 09/28/23 11:23 Nasal/Oral Coronavirus 2019 PCR Not detected 11/29/20 14:30 Review of Systems 2 General: Reports: 10 or more systems reviewed and unremarkable except in HPI and below Const: Reports: body aches, fatigue and malaise Resp: Reports: dyspnea and non-productive cough PFSH ED 2 PFSH: Medical History (Updated 09/28/23 @ 12:40 by Will Benitez MD) Abscess, perianal Hx of sigmoidoscopy Erectile dysfunction URI with cough and congestion Constipation Diverticulitis Perianal cyst Surgical History History of colostomy reversal Hx of appendectomy History of hemorrhoidectomy Family History Grandmother Cancer Maternal-unknown Other Dementia Diabetes Hyperlipidemia Hypertension Psychiatric illness Stroke Denies family history of CAD (coronary artery disease) Clotting disorder Chronic kidney disease (CKD) Anesthesia complication Bleeding disorder Lung disease Social History Smoking and tobacco/nicotine status: former use of tobacco/nicotine Quit status (tobacco/nicotine): has quit using Year quit tobacco: 2021 Alcohol intake: former 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/quit date alcohol: 2020 Substance/Drug Use: former Lives independently: Yes Current occupational status: unemployed Special viral needs: No Agree to transfusion: Yes Physical Exam 2 Narrative: EXAM NARRATIVE: Constitutional: the patient appears well nourished and with normal development. Vital signs reviewed as documented. HENMT: Normocephalic, atraumatic. Extermal ears with normal appearance without drainage. Nose without drainage, normal appearance. Mucus membranes moist. Neck is supple, No jugular venous distension, trachea is midline, no appreciable carotid bruits. No lymphadenopathy. No meningeal signs. Flexion, extension and lateral rotation is without pain. Eyes: Pupils are equal, round, reactive to light and accommodation. No scleral icterus. Extra-ocular movement are intact. Thorax is symmetrical and with equal rise and fall with respirations. Resp: Lungs are clear to auscultation. No wheezes, rales, crackles or ronchi at present. Cardio: Regular rate and rhythm. Positive S1, S2. No appreciable murmurs, rubs or gallops. GI: Abdominal exam reveals normal bowel sounds to all quadrants. No organomegaly. No obvious palpable masses noted. No hepatomegally appreciated. Soft, nontender to palpation. Extremity: Extremities are non-edematous and both femoral and pedal pulses are 2+ and equal bilaterally. Moves all extremities well, sensation in all extremities. Neuro: Alert and oriented x4, person, place, time and situation. Cranial nerves II through XII are grossly intact, there is no focal neurological deficits that I can appreciate at present. Motor strength in the upper and lower extremities are equal and bilateral 5/5. Psych: Cooperative, calm, normal thought process, appropriate judgment. Skin: No lesions, rashes. No gross abnormalities noted. Back: Symmetrical, no obvious deformity, No CVA tenderness Course 2 Vital Signs: Vital signs: Vital Signs Temperature 98.1 F 09/28/23 10:36 Pulse Rate 88 09/28/23 11:39 Respiratory Rate 16 09/28/23 11:39 Blood Pressure 115/81 09/28/23 11:39 Pulse Oximetry 92 09/28/23 11:39 Oxygen Delivery Me thod Nasal Cannula 09/28/23 11:39 Oxygen Flow Rate 3 09/28/23 11:39 MDM - COVID Medical Decision Making Physical exam completed and documented, CBC, CMP rapid strep screen, influenza A/B and COVID-19 as well as a chest x-ray for evaluation. I suspect most likely this is a viral illness although we will rule out pneumonia and electrolyte abnormality as well as food poisoning. Medical Records I reviewed the patient's medical records. Lab Data 09/28/23 11:11 09/28/23 11:11 Radiology Impressions Chest X-Ray 09/28/23 10:42 IMPRESSION: Slight opacity, infiltrate, or atelectasis right lung base with small right pleural effusion. Laboratory Results WBC 12.37 10^3/uL (3.29-11.43) H 09/28/23 11:11 RBC 4.52 10^6/uL (3.85-5.65) 09/28/23 11:11 Hgb 14.30 g/dL (11.27-16.99) 09/28/23 11:11 Hct 43.4 % (37-53) 09/28/23 11:11 MCV 96.0 fl (82-101) 09/28/23 11:11 MCH 31.6 pg (27-33) 09/28/23 11:11 MCHC 32.9 g/dL (30-55) 09/28/23 11:11 RDW 15.2 % (12.1-15.1) H 09/28/23 11:11 Plt Count 175 10^3/cmm (157-399) 09/28/23 11:11 MPV 11.4 fL (7.4-10.4) H 09/28/23 11:11 Neut % (Auto) 81.7 % 09/28/23 11:11 Lymph % (Auto) 10.6 % 09/28/23 11:11 [place] % (Auto) 4.2 % 09/28/23 11:11 Eos % (Auto) 3.0 % 09/28/23 11:11 Baso % (Auto) 0.2 % 09/28/23 11:11 Neut # (Auto) 10.10 10^3/uL (1.8-7.7) H 09/28/23 11:11 Lymph # (Auto) 1.3 10^3/uL (0.8-4.8) 09/28/23 11:11 [place] # (Auto) 0.5 10^3/uL (0.2-0.9) 09/28/23 11:11 Eos # (Auto) 0.4 10^3/uL (0.0-0.8) 09/28/23 11:11 Baso # (Auto) 0.0 10^3/uL (0.0-0.1) 09/28/23 11:11 Nucleated RBC % (auto) 0 % 09/28/23 11:11 Nucleated RBCs # 0.0 /100WBC 09/28/23 11:11 Sodium 137 mmol/L (136-145) 09/28/23 11:11 Potassium 4.0 mmol/L (3.5-5.1) 09/28/23 11:11 Chloride 100 mmol/L (98-107) 09/28/23 11:11 Carbon Dioxide 28 mmol/L (22-29) 09/28/23 11:11 Anion Gap 13.0 (5-19) 09/28/23 11:11 BUN 16 mg/dL (6-20) 09/28/23 11:11 Creatinine 1.2 mg/dL (0.7-1.2) 09/28/23 11:11 GFR Calculation 63.1 mL/min (90-130) L 09/28/23 11:11 Glucose 120 mg/dL (65-115) H 09/28/23 11:11 Calculated Osmolality 286 mOsm/kg (285-295) 09/28/23 11:11 Calcium 9.2 mg/dL (8.5-10.5) 09/28/23 11:11 Total Bilirubin 1.4 mg/dL (0.15-1.2) H 09/28/23 11:11 AST 34 U/L (0-40) 09/28/23 11:11 ALT 26 U/L (0-41) 09/28/23 11:11 Alkaline Phosphatase 44 U/L (40-130) 09/28/23 11:11 Total Protein 7.4 g/dL (6.6-8.7) 09/28/23 11:11 Albumin 4.0 g/dL (3.5-5.2) 09/28/23 11:11 Globulin 3.4 g/dL (1.3-4.6) 09/28/23 11:11 Influenza Type A Ag negative (Negative) 09/28/23 11:23 Influenza Type B Ag negative (Negative) 09/28/23 11:23 SARS-CoV-2 Ag (Rapid) negative (Negative) 09/28/23 11:23 Group A Strep Rapid Negative (Negative) 09/28/23 11:23 2 SARS-CoV-2 Antigen (Rapid) negative (Negative) 09/28/23 11:23 Nasal/Oral Coronavirus 2019 PCR Not detected 11/29/20 14:30 All radiology interpretation(s) finalized by discharge Discharge Plan Discharge Patient Disposition: Home Clinical Impression: PNA (pneumonia) Qualifiers: Pneumonia type: due to unspecified organism Laterality: right Lung location: l ower lobe of lung Qualified Code(s): J18.9 - Pneumonia, unspecified organism Condition: Stable Prescriptions: New benzonatate 200 mg capsule 200 mg PO TID Qty: 30 0RF albuterol sulfate 90 mcg/actuation HFA aerosol inhaler 2 inh inhalation Q6H PRN (Reason: shortness of breath or wheezing) Qty: 8.5 0RF levofloxacin 750 mg tablet 750 mg PO DAILY 7 Days Qty: 7 0RF No Action polyethylene glycol 3350 [Miralax] 17 gram/dose powder 17 g PO BID PRN (Reason: constipation) Qty: 3060 1RF vitamin B complex Tablet 1 tab PO BID potassium gluconate 595 mg (99 mg) Tablet 595 mg PO BID lutein 40 mg Capsule 40 mg PO BID Discharge Orders: Discharge ED (Routine); Ordered 09/28/23 Ordered By: Will Benitez Referrals: Popeye Bueno MD [Primary Care Provider] - Discharge Diet: Advance as tolerated Discharge Activity: Resume usual activity Patient Instructions: Opioid Safety, Pain Management Activity Restrictions/Additional Instructions: Activity Restrictions/Additional Instructions: Thank you for choosing [facility] for your healthcare needs today. Please realize that you were seen in the Emergency Department and that we are providing you with an emergency medical screening exam and this may not be a complete and all inclusive of all the testing and or medical work-up that you may need to determine your ailment or severity of your illness. It is very important that you follow-up as instructed with your Primary care provider or Specialist for additional evaluation and to discuss your medical treatment plan. You may return to the Emergency Department should you have concerns or if your condition changes or worsens in any way. Coding Level of Care Code ED Director Of Business Continuity for Jerman Lira
[2023-09-28 11:23] LABS: Basophils % 0.2 %; Eosinophils # 0.4 10^3/uL (0.0-0.8); Hematocrit 43.4 % (37-53); Lymphocytes # 1.3 10^3/uL (0.8-4.8); Lymphocytes % 10.6 %; Mean Corpuscular HGB Conc 32.9 g/dL (30-55); Mean Corpuscular Hemoglobin 31.6 pg (27-33); Mean Platelet Volume 11.4 fL (7.4-10.4); Monocytes # 0.5 10^3/uL (0.2-0.9); Monocytes % 4.2 %; Neutrophils % 81.7 %; Nucleated Red Blood Cells % 0 %; Platelet Count 175 10^3/cmm (157-399); Red Blood Count 4.52 10^6/uL (3.85-5.65); Red Cell Distribution Width 15.2 % (12.1-15.1); White Blood Count 12.37 10^3/uL (3.29-11.43)
[2023-09-28 11:33] VITALS: O2SAT 85
[2023-09-28 11:35] LABS: Alanine Aminotransferase 26 U/L (0-41); Alkaline Phosphatase 44 U/L (40-130); Aspartate Amino Transferase 34 U/L (0-40); Blood Urea Nitrogen 16 mg/dL (6-20); Calcium 9.2 mg/dL (8.5-10.5); Carbon Dioxide 28 mmol/L (22-29); Chloride 100 mmol/L (98-107); Globulin 3.4 g/dL (1.3-4.6); Glomerular Filtration Rate 63.1 mL/min (90-130); Glucose 120 mg/dL (65-115); Osmolality Calculated 286 mOsm/kg (285-295); Sodium 137 mmol/L (136-145); Total Bilirubin 1.4 mg/dL (0.15-1.2); Total Protein 7.4 g/dL (6.6-8.7)
[2023-09-28 11:39] VITALS: BP 115/81; PULSE 88; RESP 16; O2SAT 92
[2023-09-28 11:47] LABS: Rapid Strep A Test Negative (Negative)
[2023-09-28 11:53] LABS: Influenza A by IFA negative (Negative); Influenza B by IFA negative (Negative); SARS Covid-2 Antigen negative (Negative)
--- NOTE | 2023-09-28 13:02 | ED_ITS ---
HPI - COVID 2 General: Chief Complaint: COVID symptoms Stated Complaint: sob, cough, swollen face Time Seen by Provider: 09/28/23 10:40 COVID Results: 2 SARS-CoV-2 Antigen (Rapid) negative (Negative) 09/28/23 11:23 Nasal/Oral Coronavirus 2019 PCR Not detected 11/29/20 14:30 PFS ED 2 PFSH: Medical History (Updated 09/28/23 @ 12:40 by Will Benitez MD) Abscess, perianal Hx of sigmoidoscopy Erectile dysfunction URI with cough and congestion Constipation Diverticulitis Perianal cyst Surgical History History of colostomy reversal Hx of appendectomy History of hemorrhoidectomy Family History Grandmother Cancer Maternal-unknown Other Dementia Diabetes Hyperlipidemia Hypertension Psychiatric illness Stroke Denies family history of CAD (coronary artery disease) Clotting disorder Chronic kidney disease (CKD) Anesthesia complication Bleeding disorder Lung disease Social History Smoking and tobacco/nicotine status: former use of tobacco/nicotine Quit status (tobacco/nicotine): has quit using Year quit tobacco: 2021 Alcohol intake: former 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/quit date alcohol: 2020 Substance/Drug Use: former Lives independently: Yes Current occupational status: unemployed Special viral needs: No Agree to transfusion: Yes Course 2 Vital Signs: Vital signs: Vital Signs Temperature 98.1 F 09/28/23 10:36 Pulse Rate 88 09/28/23 11:39 Respiratory Rate 16 09/28/23 11:39 Blood Pressure 115/81 09/28/23 11:39 Pulse Oximetry 92 09/28/23 11:39 Oxygen Delivery Me thod Nasal Cannula 09/28/23 11:39 Oxygen Flow Rate 3 09/28/23 11:39 MDM - COVID Lab Data 09/28/23 11:11 09/28/23 11:11 Radiology Impressions Chest X-Ray 09/28/23 10:42 IMPRESSION: Slight opacity, infiltrate, or atelectasis right lung base with small right pleural effusion. Laboratory Results WBC 12.37 10^3/uL (3.29-11.43) H 09/28/23 11:11 RBC 4.52 10^6/uL (3.85-5.65) 09/28/23 11:11 Hgb 14.30 g/dL (11.27-16.99) 09/28/23 11:11 Hct 43.4 % (37-53) 09/28/23 11:11 MCV 96.0 fl (82-101) 09/28/23 11:11 MCH 31.6 pg (27-33) 09/28/23 11:11 MCHC 32.9 g/dL (30-55) 09/28/23 11:11 RDW 15.2 % (12.1-15.1) H 09/28/23 11:11 Plt Count 175 10^3/cmm (157-399) 09/28/23 11:11 MPV 11.4 fL (7.4-10.4) H 09/28/23 11:11 Neut % (Auto) 81.7 % 09/28/23 11:11 Lymph % (Auto) 10.6 % 09/28/23 11:11 [place] % (Auto) 4.2 % 09/28/23 11:11 Eos % (Auto) 3.0 % 09/28/23 11:11 Baso % (Auto) 0.2 % 09/28/23 11:11 Neut # (Auto) 10.10 10^3/uL (1.8-7.7) H 09/28/23 11:11 Lymph # (Auto) 1.3 10^3/uL (0.8-4.8) 09/28/23 11:11 [place] # (Auto) 0.5 10^3/uL (0.2-0.9) 09/28/23 11:11 Eos # (Auto) 0.4 10^3/uL (0.0-0.8) 09/28/23 11:11 Baso # (Auto) 0.0 10^3/uL (0.0-0.1) 09/28/23 11:11 Nucleated RBC % (auto) 0 % 09/28/23 11:11 Nucleated RBCs # 0.0 /100WBC 09/28/23 11:11 Sodium 137 mmol/L (136-145) 09/28/23 11:11 Potassium 4.0 mmol/L (3.5-5.1) 09/28/23 11:11 Chloride 100 mmol/L (98-107) 09/28/23 11:11 Carbon Dioxide 28 mmol/L (22-29) 09/28/23 11:11 Anion Gap 13.0 (5-19) 09/28/23 11:11 BUN 16 mg/dL (6-20) 09/28/23 11:11 Creatinine 1.2 mg/dL (0.7-1.2) 09/28/23 11:11 GFR Calculation 63.1 mL/min (90-130) L 09/28/23 11:11 Glucose 120 mg/dL (65-115) H 09/28/23 11:11 Calculated Osmolality 286 mOsm/kg (285-295) 09/28/23 11:11 Calcium 9.2 mg/dL (8.5-10.5) 09/28/23 11:11 Total Bilirubin 1.4 mg/dL (0.15-1.2) H 09/28/23 11:11 AST 34 U/L (0-40) 09/28/23 11:11 ALT 26 U/L (0-41) 09/28/23 11:11 Alkaline Phosphatase 44 U/L (40-130) 09/28/23 11:11 Total Protein 7.4 g/dL (6.6-8.7) 09/28/23 11:11 Albumin 4.0 g/dL (3.5-5.2) 09/28/23 11:11 Globulin 3.4 g/dL (1.3-4.6) 09/28/23 11:11 Influenza Type A Ag negative (Negative) 09/28/23 11:23 Influenza Type B Ag negative (Negative) 09/28/23 11:23 SARS-CoV-2 Ag (Rapid) negative (Negative) 09/28/23 11:23 Group A Strep Rapid Negative (Negative) 09/28/23 11:23 2 SARS-CoV-2 Antigen (Rapid) negative (Negative) 09/28/23 11:23 Nasal/Oral Coronavirus 2019 PCR Not detected 11/29/20 14:30 Discharge Plan Discharge Patient Disposition: Home Clinical Impression: PNA (pneumonia) Qualifiers: Pneumonia type: due to unspecified organism Laterality: right Lung location: l ower lobe of lung Qualified Code(s): J18.9 - Pneumonia, unspecified organism Condition: Stable Prescriptions: New benzonatate 200 mg capsule 200 mg PO TID Qty: 30 0RF albuterol sulfate 90 mcg/actuation HFA aerosol inhaler 2 inh inhalation Q6H PRN (Reason: shortness of breath or wheezing) Qty: 8.5 0RF levofloxacin 750 mg tablet 750 mg PO DAILY 7 Days Qty: 7 0RF No Action polyethylene glycol 3350 [Miralax] 17 gram/dose powder 17 g PO BID PRN (Reason: constipation) Qty: 3060 1RF vitamin B complex Tablet 1 tab PO BID potassium gluconate 595 mg (99 mg) Tablet 595 mg PO BID lutein 40 mg Capsule 40 mg PO BID Discharge Orders: Discharge ED (Routine); Ordered 09/28/23 Ordered By: Will Benitez Referrals: Popeye Bueno MD [Primary Care Provider] - Discharge Diet: Advance as tolerated Discharge Activity: Resume usual activity Patient Instructions: Opioid Safety, Pain Management Activity Restrictions/Additional Instructions: Activity Restrictions/Additional Instructions: Thank you for choosing [facility] for your healthcare needs today. Please realize that you were seen in the Emergency Department and that we are providing you with an emergency medical screening exam and this may not be a complete and all inclusive of all the testing and or medical work-up that you may need to determine your ailment or severity of your illness. It is very important that you follow-up as instructed with your Primary care provider or Specialist for additional evaluation and to discuss your medical treatment plan. You may return to the Emergency Department should you have concerns or if your condition changes or worsens in any way. Stand Alone Forms: Work/School Release Coding Level of Care Code ED Electric Wirer for Jerman Lira
[2023-09-28] MEDS: cefTRIAXone 2,000 MG in sodium chloride 0.9% (plus) 50 ML 100 MG IV (13:10)
[2023-09-28 14:04] VITALS: O2SAT 90
[2023-09-28 14:35] VITALS: O2SAT 90
== END 2023-09-28 14:40 | disposition home or self-care (01) ==
PROVIDERS: Emergency Provider Internal Medicine; PCP Family Medicine
DX: J18.9 Pneumonia, unspecified organism (principal); Z11.52 Encounter for screening for COVID-19; Z87.891 Personal history of nicotine dependence
CPT/HCPCS: 36415; 71046; 80053; 85025; 87081; 87426; 87804; 87880; 96365; 99284; J0696

== ENCOUNTER 2023-10-08 17:06 | Inpatient (IN) | payer OTHER, MEDICAID, SELFPAY ==
[2023-10-08] VITALS (9 sets, daily range): BP systolic 98–128; BP diastolic 57–75; PULSE 64–71; RESP 17–22; TEMP 36.6–36.9; O2SAT 84–93; BMI 19.8; BMI 34.1
--- NOTE | 2023-10-08 17:31 | ECG_ITS ---
[facility] Test Date: 2023-10-08 Pat Name: Dex Cross Department: Room: 251 Gender: Male Surveillance Supervisor: : 1970 Requested By: Hank Sidhu Order Number: [id number] Roxann MD: Joe Delacruz M.D. Measurements Intervals [place] Rate: 61 P: 10 ID: 137 QRS: 66 QRSD: 107 T: 222 QT: 426 QTc: 432 Interpretive Statements SINUS RHYTHM POSSIBLE INFERIOR MYOCARDIAL INFARCTION , PROBABLY OLD [30 ms Q WAVE IN II/aVF] Compared to ECG 02/23/2020 11:54:13 Myocardial infarct finding now present T-wave abnormality no longer present Electronically Signed On 10-09-2023 11:07:55 DIRECTOR GOVERNMENT by Joe Delacruz M.D. [id number]
--- NOTE | 2023-10-08 17:35 | XRR_ITS ---
PROCEDURE INFORMATION: Exam: XR Chest Exam date and time: 10/08/2023 6:02 PM Age: 53 years old Clinical indication: Cough and dyspnea; Additional info: Dyspnea/cough TECHNIQUE: Imaging protocol: Radiologic exam of the chest. Views: 1 view. COMPARISON: CR (CHEST, ) 09/28/2023 10:51 AM FINDINGS: Lungs: Bibasilar atelectasis versus minimal infiltrate. Pleural spaces: Unremarkable. No pleural effusion. No pneumothorax. Heart/Mediastinum: Unremarkable. No cardiomegaly. Bones/joints: Unremarkable. XR/XR chest 1V portable [id number] IMPRESSION: Bibasilar atelectasis versus minimal infiltrate.
[2023-10-08 17:41] LABS: ABG PCO2 41.4 mmHg (35-45); ABG PH Result 7.44 (7.35-7.45); Arterial Blood Gas Hematocrit 33.5 % (42-52); Base Excess ABG 3.3 mmol/L (-2.0-2.0); Blood Gas Allen Test Pos; Blood Gas Operator Identificat CAK; Blood Gas Sample Site Brachial, left; Blood Gas Sample Type Arterial; Carboxyhemoglobin 1.7 %THgb (0.4-20.1); HCO3 ABG 27.8 mmol/L (22-26); HGB O2 Sat 91.6 % (95-100); Ionized Calcium Level - ABG 1.3 mmol/L (1.1-1.4); Oxygen Device NRB; Oxygen Saturation ABG 94.1; Potassium Level - ABG 3.9 mmol/L (3.5-5.0); Total Hemoglobin 10.9 g/dL (14-18)
[2023-10-08] MEDS: ipratropium-albuterol 3 mL Neb INHALATION (17:51)
--- NOTE | 2023-10-08 17:51 | ED_ITS ---
Documented by User: Curtis Valdovinos DO 10/08/23 18:15 HPI - SOB/Dyspnea 2 General: Chief Complaint: Shortness of Breath/Dyspnea Stated Complaint: sent over by dr, low bp, low O2 Time Seen by Provider: 10/08/23 17:34 Source: patient Mode of arrival: ambulatory History of Present Illness: HPI Narrative: 53-year-old male presents to the emergen cy room with complaint of dyspnea and decreased exercise tolerance. Additionally he is having some chest discomfort with any exertion. He states it began about 2 weeks ago he thought he had a pneumonia at that time was treated just never seem to get better. Now he is noticing exertional dyspnea and chest discomfort that is relieved by rest as well as shortness of breath with even minimal activity such as eating drinking or talking. He has no history of PE. He said he was tested for COVID and flu previously and those were negative. He has no known history of coronary disease. He is not on any anticoagulants. MD elicited complaint: shortness of breath and cough Onset (ago): minute(s) Timing: constant Severity: mild Exacerbating factors: exertion and coughing Relieving factors: oxygen and rest Associated symptoms: Reports chest congestion, cough, diaphoresis and dizziness; Deny abdominal pain, chest pain, extremity pain, fever(s), hemoptysis, lightheadedness, myalgias, nausea, orthopnea, palpitations, paresthesias, polydipsia, polyuria, rash, sense of impending doom, syncope or vomiting Review of Systems 2 Const: Reports: diaphoresis; Denies: fever(s) Card: Denies: chest pain, palpitations, lightheadedness, syncope or orthopnea Resp: Reports: chest congestion; Denies: hemoptysis GI: Denies: abdominal pain, nausea or vomiting : Denies: dysuria, urinary frequency or urinary urgency Musc: Denies: extremity pain Skin/Breast: Denies: rash Neuro: Reports: dizziness Endo: Denies: polyuria or polydipsia PFSH ED 2 PFSH: Medical History Constipation Abscess, perianal Hx of sigmoidoscopy Erectile dysfunction URI with cough and congestion Diverticulitis Perianal cyst Surgical History History of colostomy reversal Hx of appendectomy History of hemorrhoidectomy Family History Grandmother Cancer Maternal-unknown Other Dementia Diabetes Hyperlipidemia Hypertension Psychiatric illness Stroke Denies family history of CAD (coronary artery disease) Clotting disorder Chronic kidney disease (CKD) Anesthesia complication Bleeding disorder Lung disease Social History Smoking and tobacco/nicotine status: former use of tobacco/nicotine Quit status (tobacco/nicotine): has quit using Year quit tobacco: 2021 Alcohol intake: former 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/quit date alcohol: 2020 Substance/Drug Use: former Lives independently: Yes Current occupational status: unemployed Special viral needs: No Agree to transfusion: Yes Physical Exam 2 Const: GENERAL APPEARANCE: cooperative and comfortable O RIENTATION/CONSCIOUSNESS: Yes awake, Yes oriented to person, Yes oriented to place and Yes oriented to time HENMT: COMMON NORMALS: normocephalic, atraumatic and hearing grossly normal bilaterally HEAD & SCALP: normocephalic and atraumatic Resp: COMMON NORMALS: normal respiratory effort, No retractions and No use of accessory muscles AUSCULTATION: diminished lung sounds Cardio: COMMON NORMALS: regular rate, regular rhythm and No murmurs present (Cardio) RATE: regular rate RHYTHM: regular rhythm GI: COMMON NORMALS: Soft to palpation and No hepatosplenomegaly present A USCULTATION: Yes normoactive bowel sounds PALPATION: Yes Soft to palpation, No Tenderness to palpation present (GI), No Guarding due to palpation present (GI) and Yes No hepatosplenomegaly present Extremity: COMMON NORMALS: normal to inspection, capillary refill normal, no clubbing, cyanosis or edema, no calf tenderness and no pedal edema Neuro: SENSORIUM/ORIENTATION: Yes oriented to person, Yes oriented to place and Yes oriented to time Skin: COMMON NORMALS: no rashes or lesions noted GENERAL SKIN EXAM: no rashes or lesions noted Course 2 Vital Signs: Vital signs: Vital Signs Temperature 97.8 F 10/08/23 23:21 Pulse Rate 64 10/08/23 23:21 Respiratory Rate 20 H 10/08/23 23:21 Blood Pressure 99/69 10/08/23 23:21 Pulse Oximetry 91 10/08/23 23:21 Oxygen Delivery Me thod Nasal Cannula 10/09/23 00:47 Oxygen Flow Rate 5 10/08/23 23:21 MDM - SOB/Dyspnea Medical Decision Making Care signed out to Dr. Sidhu at change of shift. See final notes for diagnosis and disposition. Differential Diagnosis Likely congestive heart failure, community acquired pneumonia and pulmonary embolism Medical Records I reviewed the patient's medical records. Lab Data I reviewed the patient's lab results. 10/08/23 17:48 10/08/23 17:48 Labs/Radiology: Radiology Impressions Chest X-Ray 10/08/23 17:35 IMPRESSION: Bibasilar atelectasis versus minimal infiltrate. Chest CTA 10/08/23 18:42 IMPRESSION: 1. Negative for pulmonary embolus. 2. Patchy bilateral airspace infiltrates. 3. Scattered subcentimeter short axis nonspecific mediastinal lymph nodes. 4. Coronary artery atherosclerotic calcifications. 5. Mild cardiomegaly. 6. Hepatic steatosis. Laboratory Results WBC 12.74 10^3/uL (3.29-11.43) H 10/08/23 17:48 RBC 3.44 10^6/uL (3.85-5.65) L 10/08/23 17:48 Hgb 11.20 g/dL (11.27-16.99) L 10/08/23 17:48 Hct 34.5 % (37-53) L 10/08/23 17:48 MCV 100.3 fl (82-101) 10/08/23 17:48 MCH 32.6 pg (27-33) 10/08/23 17:48 MCHC 32.5 g/dL (30-55) 10/08/23 17:48 RDW 17.6 % (12.1-15.1) H 10/08/23 17:48 Plt Count 295 10^3/cmm (157-399) 10/08/23 17:48 MPV 10.6 fL (7.4-10.4) H 10/08/23 17:48 Neut % (Auto) 67.7 % 10/08/23 17:48 Lymph % (Auto) 20.8 % 10/08/23 17:48 Barber % (Auto) 7.7 % 10/08/23 17:48 Eos % (Auto) 2.8 % 10/08/23 17:48 Baso % (Auto) 0.5 % 10/08/23 17:48 Neut # (Auto) 8.62 10^3/uL (1.8-7.7) H 10/08/23 17:48 Lymph # (Auto) 2.7 10^3/uL (0.8-4.8) 10/08/23 17:48 Barber # (Auto) 1.0 10^3/uL (0.2-0.9) H 10/08/23 17:48 Eos # (Auto) 0.4 10^3/uL (0.0-0.8) 10/08/23 17:48 Baso # (Auto) 0.1 10^3/uL (0.0-0.1) 10/08/23 17:48 Nucleated RBC % (auto) 0 % 10/08/23 17:48 Nucleated RBCs # 0.0 /100WBC 10/08/23 17:48 Specimen Type Arterial 10/08/23 17:29 Sample Site Brachial, left 10/08/23 17:29 ABG pH 7.44 (7.35-7.45) 10/08/23 17:29 ABG pCO2 41.4 mmHg (35-45) 10/08/23 17:29 ABG pO2 223.0 mmHg (80.0-100.0) H 10/08/23 17:29 ABG HCO3 27.8 mmol/L (22-26) H 10/08/23 17:29 ABG O2 Saturation 94.1 10/08/23 17:29 ABG Base Excess 3.3 mmol/L (-2.0-2.0) H 10/08/23 17:29 Duong Test Pos 10/08/23 17:29 A-a O2 Gradient Not Reportable 10/08/23 17:29 Hematocrit 33.5 % (42-52) L 10/08/23 17:29 Hgb O2 Saturation 91.6 % (95-100) L 10/08/23 17: Carboxyhemoglobin 1.7 %THgb (0.4-20.1) 10/08/23 17: Methemoglobin 1.0 % (0.4-1.5) 10/08/23 17: Total Hemoglobin 10.9 g/dL (14-18) L 10/08/23 17:29 Sodium 142.0 mmol/L (131-143) 10/08/23 17:29 Potassium 3.9 mmol/L (3.5-5.0) 10/08/23 17:29 Glucose 86.0 mg/dL (70-115) 10/08/23 17:29 Ionized Calcium 1.3 mmol/L (1.1-1.4) 10/08/23 17:29 O2 Delivery Device Nrb 10/08/23 17:29 O2 Liters/Min 15.0 % 10/08/23 17:29 Weekend Receptionist ID Cak 10/08/23 17:29 Sodium 139 mmol/L (136-145) 10/08/23 17:48 Potassium 3.7 mmol/L (3.5-5.1) 10/08/23 17:48 Chloride 101 mmol/L (98-107) 10/08/23 17:48 Carbon Dioxide 27 mmol/L (22-29) 10/08/23 17:48 Anion Gap 14.7 (5-19) 10/08/23 17:48 BUN 18 mg/dL (6-20) 10/08/23 17:48 Creatinine 1.0 mg/dL (0.7-1.2) 10/08/23 17:48 GFR Calculation 77.9 mL/min (90-130) L 10/08/23 17:48 Glucose 84 mg/dL (65-115) 10/08/23 17:48 Estimat Average Glucose 74 10/08/23 17:48 Hemoglobin A1c 4.2 % (4.0-6.0) 10/08/23 17:48 Calculated Osmolality 289 mOsm/kg (285-295) 10/08/23 17:48 Lactic Acid 1.4 mmol/L (0.5-2.2) 10/08/23 17:48 Calcium 9.4 mg/dL (8.5-10.5) 10/08/23 17:48 Total Bilirubin 1.3 mg/dL (0.15-1.2) H 10/08/23 17:48 AST 21 U/L (0-40) 10/08/23 17:48 ALT 15 U/L (0-41) 10/08/23 17:48 Alkaline Phosphatase 54 U/L (40-130) 10/08/23 17:48 Troponin T Baseline 14 ng/L (0-15) 10/08/23 17:48 Troponin T 120 Minute 11.43 ng/L (0-15) 10/08/23 21:30 Delta Troponin T -2.57 ABS# (0-10) L 10/08/23 21:30 C-Reactive Protein 18.4 mg/L (0.0-4.9) H 10/08/23 17:48 NT-Pro-B Natriuret Pep 67 pg/mL (0-125) 10/08/23 17:48 Total Protein 7.1 g/dL (6.6-8.7) 10/08/23 17:48 Albumin 4.3 g/dL (3.5-5.2) 10/08/23 17:48 Globulin 2.8 g/dL (1.3-4.6) 10/08/23 17:48 Procalcitonin 0.16 ng/mL (0-0.5) 10/08/23 17:48 TSH 1.63 uIU/mL (0.27-4.20) 10/08/23 21:30 Urine Color Yellow (Yellow) 10/08/23 17:40 Urine Appearance Clear (CLEAR) 10/08/23 17:40 Urine pH 7 (5-7) 10/08/23 17:40 Ur Specific Continental 1.010 (1.005-1.030) 10/08/23 17:40 Urine Protein Neg (Negative) 10/08/23 17:40 Urine Glucose (UA) Norm (Normal) 10/08/23 17:40 Urine Ketones Negative (Negative) 10/08/23 17:40 Urine Blood Neg (Negative) 10/08/23 17:40 Urine Nitrate Negative (Negative) 10/08/23 17:40 Urine Bilirubin Neg (Negative) 10/08/23 17:40 Urine Urobilinogen 1 mg/dL (Negative) H 10/08/23 17:40 Ur Leukocyte Esterase Negative (Negative) 10/08/23 17:40 Adenovirus (PCR) Not detected (NOT DETECT) 10/08/23 18:50 C. pneumoniae DNA (PCR) Not detected (NOT DETECT) 10/08/23 18:50 Coronavirus 229E (PCR) Not detected (NOT DETECT) 10/08/23 18:50 Coronavirus 229E (PCR) Not detected (NOT DETECT) 10/08/23 18:50 Human Metapneumovir PCR Not detected (NOT DETECT) 10/08/23 18:50 Influenza A (H1) PCR Not detected (NOT DETECT) 10/08/23 18:50 Influ A (H1/09) PCR Not detected (NOT DETECT) 10/08/23 18:50 Influenza A (H3) PCR Not detected (NOT DETECT) 10/08/23 18:50 Influenza Type A Ag negative (Negative) 10/08/23 18:50 Influenza Type A (PCR) Not detected (NOT DETECT) 10/08/23 18:50 Influenza Type B Ag negative (Negative) 10/08/23 18:50 Influenza Type B (PCR) Not detected (NOT DETECT) 10/08/23 18:50 M. pneumoniae (PCR) Not detected (NOT DETECT) 10/08/23 18:50 Parainfluenza 1 (PCR) Not detected (NOT DETECT) 10/08/23 18:50 Parainfluenza 2 (PCR) Not detected (NOT DETECT) 10/08/23 18:50 Parainfluenza 3 (PCR) Not detected (NOT DETECT) 10/08/23 18:50 Parainfluenza 4 (PCR) Not detected (NOT DETECT) 10/08/23 18:50 RSV Type A (PCR) Not detected (NOT DETECT) 10/08/23 18:50 RSV Type B (PCR) Not detected (NOT DETECT) 10/08/23 18:50 Entero/Rhino (PCR) Not detected (NOT DETECT) 10/08/23 18:50 SARS-CoV-2 (PCR) Not detected (NOT DETECT) 10/08/23 18:50 SARS-CoV-2 (PCR) Not detected (NOT DETECT) 10/08/23 18:50 XR interpretation done by ED provider, pending radiology final review Discharge Plan Discharge Patient Disposition: Admitted As Inpatient Admit Provider: Ger Morales Clinical Impression: Bilateral pneumonia, Acute hypoxemic respiratory failure Condition: Stable Coding Level of Care Code ED Gas Welding Machine Operator for Chg Fwd Documented by User: Hank Sidhu DO 10/09/23 02:16 HPI - SOB/Dyspnea 2 General: Chief Complaint: Shortness of Breath/Dyspnea Stated Complaint: sent over by dr, low bp, low O2 Time Seen by Provider: 10/08/23 17:34 PFSH ED 2 PFSH: Medical History Constipation Abscess, perianal Hx of sigmoidoscopy Erectile dysfunction URI with cough and congestion Diverticulitis Perianal cyst Surgical History History of colostomy reversal Hx of appendectomy History of hemorrhoidectomy Family History Grandmother Cancer Maternal-unknown Other Dementia Diabetes Hyperlipidemia Hypertension Psychiatric illness Stroke Denies family history of CAD (coronary artery disease) Clotting disorder Chronic kidney disease (CKD) Anesthesia complication Bleeding disorder Lung disease Social History Smoking and tobacco/nicotine status: former use of tobacco/nicotine Quit status (tobacco/nicotine): has quit using Year quit tobacco: 2021 Alcohol intake: former 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/quit date alcohol: 2020 Substance/Drug Use: former Lives independently: Yes Current occupational status: unemployed Special viral needs: No Agree to transfusion: Yes Course 2 Vital Signs: Vital signs: Vital Signs Temperature 97.8 F 10/08/23 23:21 Pulse Rate 64 10/08/23 23:21 Respiratory Rate 20 H 10/08/23 23:21 Blood Pressure 99/69 10/08/23 23:21 Pulse Oximetry 91 10/08/23 23:21 Oxygen Delivery Me thod Nasal Cannula 10/09/23 00:47 Oxygen Flow Rate 5 10/08/23 23:21 MDM - SOB/Dyspnea Medical Decision Making Care signed out to Dr. Sidhu at change of shift. See final notes for diagnosis and disposition. She was given 10 mg Solu-Medrol, albuterol nebulizer, lab work and chest x-ray was obtained. Lab work was essentially benign or similar to previous results 1 week ago. Chest x-ray showed bibasilar atelectasis versus infiltrate, chest CTA showed patchy bilateral infiltrate. Patient was given Zosyn 3.[address] Vasques was consulted who agreed to admit the patient to [facility] for further evaluation and treatment. We will obtain a troponin series. Lab Data 10/08/23 17:48 10/08/23 17:48 Labs/Radiology: Radiology Impressions Chest X-Ray 10/08/23 17:35 IMPRESSION: Bibasilar atelectasis versus minimal infiltrate. Chest CTA 10/08/23 18:42 IMPRESSION: 1. Negative for pulmonary embolus. 2. Patchy bilateral airspace infiltrates. 3. Scattered subcentimeter short axis nonspecific mediastinal lymph nodes. 4. Coronary artery atherosclerotic calcifications. 5. Mild cardiomegaly. 6. Hepatic steatosis. Laboratory Results WBC 12.74 10^3/uL (3.29-11.43) H 10/08/23 17:48 RBC 3.44 10^6/uL (3.85-5.65) L 10/08/23 17:48 Hgb 11.20 g/dL (11.27-16.99) L 10/08/23 17:48 Hct 34.5 % (37-53) L 10/08/23 17:48 MCV 100.3 fl (82-101) 10/08/23 17:48 MCH 32.6 pg (27-33) 10/08/23 17:48 MCHC 32.5 g/dL (30-55) 10/08/23 17:48 RDW 17.6 % (12.1-15.1) H 10/08/23 17:48 Plt Count 295 10^3/cmm (157-399) 10/08/23 17:48 MPV 10.6 fL (7.4-10.4) H 10/08/23 17:48 Neut % (Auto) 67.7 % 10/08/23 17:48 Lymph % (Auto) 20.8 % 10/08/23 17:48 Barber % (Auto) 7.7 % 10/08/23 17:48 Eos % (Auto) 2.8 % 10/08/23 17:48 Baso % (Auto) 0.5 % 10/08/23 17:48 Neut # (Auto) 8.62 10^3/uL (1.8-7.7) H 10/08/23 17:48 Lymph # (Auto) 2.7 10^3/uL (0.8-4.8) 10/08/23 17:48 Barber # (Auto) 1.0 10^3/uL (0.2-0.9) H 10/08/23 17:48 Eos # (Auto) 0.4 10^3/uL (0.0-0.8) 10/08/23:48 Baso # (Auto) 0.1 10^3/uL (0.0-0.1) 10/08/23:48 Nucleated RBC % (auto) 0 % 10/08/23: Nucleated RBCs # 0.0 /100WBC 10/08/23:48 Specimen Type Arterial 10/08/23 17: Sample Site Brachial, left 10/08/23: ABG pH 7.44 (7.35-7.45) 10/08/23: ABG pCO2 41.4 mmHg (35-45) 10/08/23: ABG pO2 223.0 mmHg (80.0-100.0) H 10/08/23: ABG HCO3 27.8 mmol/L (22-26) H 10/08/23: ABG O2 Saturation 94.1 10/08/23 17: ABG Base Excess 3.3 mmol/L (-2.0-2.0) H 10/08/23 17: Duong Test Pos 10/08/23: A-a O2 Gradient Not Reportable 10/08/23: Hematocrit 33.5 % (42-52) L 10/08/23 17: Hgb O2 Saturation 91.6 % (95-100) L 10/08/23: Carboxyhemoglobin 1.7 %THgb (0.4-20.1) 10/08/23: Methemoglobin 1.0 % (0.4-1.5) 10/08/23: Total Hemoglobin 10.9 g/dL (14-18) L 10/08/23: Sodium 142.0 mmol/L (131-143) 10/08/23: Potassium 3.9 mmol/L (3.5-5.0) 10/08/23 17:29 Glucose 86.0 mg/dL (70-115) 10/08/23 17:29 Ionized Calcium 1.3 mmol/L (1.1-1.4) 10/08/23 17:29 O2 Delivery Device Nrb 10/08/23 17:29 O2 Liters/Min 15.0 % 10/08/23 17:29 Weekend Receptionist ID Cak 10/08/23 17:29 Sodium 139 mmol/L (136-145) 10/08/23 17:48 Potassium 3.7 mmol/L (3.5-5.1) 10/08/23 17:48 Chloride 101 mmol/L (98-107) 10/08/23 17:48 Carbon Dioxide 27 mmol/L (22-29) 10/08/23 17:48 Anion Gap 14.7 (5-19) 10/08/23 17:48 BUN 18 mg/dL (6-20) 10/08/23 17:48 Creatinine 1.0 mg/dL (0.7-1.2) 10/08/23 17:48 GFR Calculation 77.9 mL/min (90-130) L 10/08/23 17:48 Glucose 84 mg/dL (65-115) 10/08/23 17:48 Estimat Average Glucose 74 10/08/23 17:48 Hemoglobin A1c 4.2 % (4.0-6.0) 10/08/23 17:48 Calculated Osmolality 289 mOsm/kg (285-295) 10/08/23 17:48 Lactic Acid 1.4 mmol/L (0.5-2.2) 10/08/23 17:48 Calcium 9.4 mg/dL (8.5-10.5) 10/08/23 17:48 Total Bilirubin 1.3 mg/dL (0.15-1.2) H 10/08/23 17:48 AST 21 U/L (0-40) 10/08/23 17:48 ALT 15 U/L (0-41) 10/08/23 17:48 Alkaline Phosphatase 54 U/L (40-130) 10/08/23 17:48 Troponin T Baseline 14 ng/L (0-15) 10/08/23 17:48 Troponin T 120 Minute 11.43 ng/L (0-15) 10/08/23 21:30 Delta Troponin T -2.57 ABS# (0-10) L 10/08/23 21:30 C-Reactive Protein 18.4 mg/L (0.0-4.9) H 10/08/23 17:48 NT-Pro-B Natriuret Pep 67 pg/mL (0-125) 10/08/23 17:48 Total Protein 7.1 g/dL (6.6-8.7) 10/08/23 17:48 Albumin 4.3 g/dL (3.5-5.2) 10/08/23 17:48 Globulin 2.8 g/dL (1.3-4.6) 10/08/23 17:48 Procalcitonin 0.16 ng/mL (0-0.5) 10/08/23 17:48 TSH 1.63 uIU/mL (0.27-4.20) 10/08/23 21:30 Urine Color Yellow (Yellow) 10/08/23 17:40 Urine Appearance Clear (CLEAR) 10/08/23 17:40 Urine pH 7 (5-7) 10/08/23 17:40 Ur Specific Continental 1.010 (1.005-1.030) 10/08/23 17:40 Urine Protein Neg (Negative) 10/08/23 17:40 Urine Glucose (UA) Norm (Normal) 10/08/23 17:40 Urine Ketones Negative (Negative) 10/08/23 17:40 Urine Blood Neg (Negative) 10/08/23 17:40 Urine Nitrate Negative (Negative) 10/08/23 17:40 Urine Bilirubin Neg (Negative) 10/08/23 17:40 Urine Urobilinogen 1 mg/dL (Negative) H 10/08/23 17:40 Ur Leukocyte Esterase Negative (Negative) 10/08/23 17:40 Adenovirus (PCR) Not detected (NOT DETECT) 10/08/23 18:50 C. pneumoniae DNA (PCR) Not detected (NOT DETECT) 10/08/23 18:50 Coronavirus 229E (PCR) Not detected (NOT DETECT) 10/08/23 18:50 Coronavirus 229E (PCR) Not detected (NOT DETECT) 10/08/23 18:50 Human Metapneumovir PCR Not detected (NOT DETECT) 10/08/23 18:50 Influenza A (H1) PCR Not detected (NOT DETECT) 10/08/23 18:50 Influ A (H1/09) PCR Not detected (NOT DETECT) 10/08/23 18:50 Influenza A (H3) PCR Not detected (NOT DETECT) 10/08/23 18:50 Influenza Type A Ag negative (Negative) 10/08/23 18:50 Influenza Type A (PCR) Not detected (NOT DETECT) 10/08/23 18:50 Influenza Type B Ag negative (Negative) 10/08/23 18:50 Influenza Type B (PCR) Not detected (NOT DETECT) 10/08/23 18:50 M. pneumoniae (PCR) Not detected (NOT DETECT) 10/08/23 18:50 Parainfluenza 1 (PCR) Not detected (NOT DETECT) 10/08/23 18:50 Parainfluenza 2 (PCR) Not detected (NOT DETECT) 10/08/23 18:50 Parainfluenza 3 (PCR) Not detected (NOT DETECT) 10/08/23 18:50 Parainfluenza 4 (PCR) Not detected (NOT DETECT) 10/08/23 18:50 RSV Type A (PCR) Not detected (NOT DETECT) 10/08/23 18:50 RSV Type B (PCR) Not detected (NOT DETECT) 10/08/23 18:50 Entero/Rhino (PCR) Not detected (NOT DETECT) 10/08/23 18:50 SARS-CoV-2 (PCR) Not detected (NOT DETECT) 10/08/23 18:50 SARS-CoV-2 (PCR) Not detected (NOT DETECT) 10/08/23 18:50 Discharge Plan Discharge Patient Disposition: Admitted As Inpatient Admit Provider: Ger Morales Clinical Impression: Bilateral pneumonia, Acute hypoxemic respiratory failure Condition: Stable Coding Level of Care Code ED Gas Welding Machine Operator for Jerman Lira
[2023-10-08] MEDS: dexamethasone 10 mg/mL INJ IM (17:52)
[2023-10-08 18:02] LABS: Basophils # 0.1 10^3/uL (0.0-0.1); Basophils % 0.5 %; Eosinophils # 0.4 10^3/uL (0.0-0.8); Eosinophils % 2.8 %; Hematocrit 34.5 % (37-53); Lymphocytes # 2.7 10^3/uL (0.8-4.8); Lymphocytes % 20.8 %; Mean Corpuscular HGB Conc 32.5 g/dL (30-55); Mean Corpuscular Hemoglobin 32.6 pg (27-33); Mean Corpuscular Volume 100.3 fl (82-101); Mean Platelet Volume 10.6 fL (7.4-10.4); Monocytes % 7.7 %; Neutrophils # 8.62 10^3/uL (1.8-7.7); Neutrophils % 67.7 %; Nucleated Red Blood Cells % 0 %; Platelet Count 295 10^3/cmm (157-399); Red Blood Count 3.44 10^6/uL (3.85-5.65); Red Cell Distribution Width 17.6 % (12.1-15.1); White Blood Count 12.74 10^3/uL (3.29-11.43)
[2023-10-08 18:17] LABS: Lactic Sepsis W/Reflex 1.4 mmol/L (0.5-2.2)
[2023-10-08 18:28] LABS: Alanine Aminotransferase 15 U/L (0-41); Albumin Level 4.3 g/dL (3.5-5.2); Alkaline Phosphatase 54 U/L (40-130); Anion Gap 14.7 (5-19); Aspartate Amino Transferase 21 U/L (0-40); Blood Urea Nitrogen 18 mg/dL (6-20); Calcium 9.4 mg/dL (8.5-10.5); Carbon Dioxide 27 mmol/L (22-29); Chloride 101 mmol/L (98-107); Globulin 2.8 g/dL (1.3-4.6); Glomerular Filtration Rate 77.9 mL/min (90-130); Glucose 84 mg/dL (65-115); NT Pro B Type Natriuretic Pept 67 pg/mL (0-125); Osmolality Calculated 289 mOsm/kg (285-295); Potassium 3.7 mmol/L (3.5-5.1); Sodium 139 mmol/L (136-145); Total Bilirubin 1.3 mg/dL (0.15-1.2); Total Protein 7.1 g/dL (6.6-8.7)
--- NOTE | 2023-10-08 18:42 | CTR_ITS ---
PROCEDURE INFORMATION: Exam: CTA Chest With Contrast Exam date and time: 10/08/2023 7:29 PM Age: 53 years old Clinical indication: Shortness of breath; Additional info: Dyspnea, hypoxia, chest pain TECHNIQUE: Imaging protocol: Computed tomographic angiography of the chest with contrast. Exam focused on the arteries. 3D rendering (Not supervised by radiologist): MIP and/or 3D reconstructed images were created by the technologist. Radiation optimization: All CT scans at this facility use at least one of these dose optimization techniques: automated exposure control; mA and/or kV adjustment per patient size (includes targeted exams where dose is matched to clinical indication); or iterative reconstruction. Contrast material: OMNI 350; Contrast volume: 100 ml; Contrast route: INTRAVENOUS (IV); COMPARISON: CR (CHEST, ) 10/08/2023 6:02 PM RADIATION DOSE METRICS: Total DLP (mGy-cm): 436 FINDINGS: Pulmonary arteries: Normal. No pulmonary emboli. Aorta: Unremarkable. No aortic aneurysm. No aortic dissection. Lungs: Patchy bilateral airspace infiltrates. Pleural spaces: Unremarkable. No pneumothorax. No pleural effusion. Heart: Mild cardiomegaly. Coronary arteries: Coronary artery atherosclerotic calcifications. Lymph nodes: Scattered subcentimeter short axis nonspecific mediastinal lymph nodes. Liver: Hepatic steatosis. Bones/joints: Unremarkable. No acute fracture. Soft tissues: Unremarkable. CT/CT angio chest PE protcl [id number] IMPRESSION: 1. Negative for pulmonary embolus. 2. Patchy bilateral airspace infiltrates. 3. Scattered subcentimeter short axis nonspecific mediastinal lymph nodes. 4. Coronary artery atherosclerotic calcifications. 5. Mild cardiomegaly. 6. Hepatic steatosis.
[2023-10-08 18:50] LABS: Add Urine Microscopic? NO; Charge for UA Resulting for Rev
[2023-10-08 18:59] LABS: Bilirubin Urine Neg (Negative); Blood Urine Neg (Negative); Glucose Urine UA Norm (Normal); Ketones Urine Negative (Negative); Leukocyte Esterase Urine Negative (Negative); Nitrate Urine Negative (Negative); Protein Urine Neg (Negative); Urine Appearance Clear (CLEAR); Urine Color Yellow (Yellow); Urobilinogen Urine 1 mg/dL (Negative); pH Urine 7 (5-7)
[2023-10-08 19:11] LABS: Influenza A by IFA negative (Negative); Influenza B by IFA negative (Negative)
[2023-10-08] MEDS: piperacillin-tazobactam 3.375 GM in sodium chloride 0.9% (plus) 50 ML IV (20:32)
[2023-10-08 20:56] LABS: Procalcitonin 0.16 ng/mL (0-0.5)
--- NOTE | 2023-10-08 21:21 | ECG_ITS ---
[facility] Test Date: 2023-10-08 Pat Name: Dex Cross Department: Room: Gender: Male Welder: : 1970 Requested By: Hank Sidhu Order Number: [id number] Roxann MD: Joe Delacruz M.D. 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 [email or web address]
[2023-10-08 21:47] LABS: Troponin(5th) Baseline 14 ng/L (0-15)
--- NOTE | 2023-10-08 21:53 | PM.HP ---
Providers/Chief Complaint Primary Care Provider: Popeye Bueno MD Chief Complaint: sent over by , low bp, low O2 History of Present Illness Dex Cross is a 53 year old male with a past medical history of Danelle procedure followed by reversal, history of anal fistula, who presents to [facility] due to shortness of breath, pleurisy, hypoxia. Patient tells me that his symptoms started on 09/28/2023, he was diagnosed with pneumonia, put on antibiotics, he kept off work followed up with his primary care provider, advised him not to go back to work until , he finished off his antibiotics when he went back on , he had shortness of breath with exertion, no lightheadedness, dizziness, no chest pain, he reported pleurisy, over the weekend, with a cold snap, unfortunately all his pipes in his trailer froze, so he had to deal without water over the weekend, he had to go in and out of his mobile home to help thaw the pipes, he tells me that he was short of breath throughout this, which progressed to shortness of breath, today when he went to work, he has shortness of breath with minimal exertion, he went to urgent care who advised him to come to [facility] ER due to hypoxia denies any calf pain, calf swelling no recent travel, no fevers, no chills, no chest pain Review of Systems Const: Reports: fatigue and malaise; Denies: fever(s) or chills Card: Denies: chest pain Resp: Reports: dyspnea and non-productive cough Neuro: Denies: headache(s) Medications/Allergies Home Medications Medication Instructions Recorded Confirmed Last Taken Type albuterol sulfate 90 mcg/actuation 2 inh inhalation Q6H PRN shortness 09/28/23 10/08/23 Unknown Rx aerosol inhaler of breath or wheezing #8.5 grams benzonatate 200 mg capsule 200 mg PO TID Cough #30 caps 09/28/23 10/08/23 Unknown Rx lutein 40 mg capsule 40 mg PO BID 09/28/23 10/08/23 09/26/23 History polyethylene glycol 3350 17 17 g PO BID PRN constipation 09/29/23 10/08/23 Unknown Rx gram/dose oral powder (Miralax) #3,060 grams Allergies Allergy/AdvReac Type Severity Reaction Status Date / Time hydromorphone Allergy Severe ADR-Nausea Verified 10/08/23 16:46 ketorolac Allergy Intermediate ADR-Nausea Verified 10/08/23 16:46 silk Allergy Unknown Unknown Verified 10/08/23 16:46 bupropion [From Wellbutrin] AdvReac Intermediate bug Verified 10/08/23 16:46 crawling sensation PFSH Acute PFSH: Medical History Constipation Abscess, perianal Hx of sigmoidoscopy Erectile dysfunction URI with cough and congestion Diverticulitis Perianal cyst Surgical History History of colostomy reversal Hx of appendectomy History of hemorrhoidectomy Family History Grandmother Cancer Maternal-unknown Other Dementia Diabetes Hyperlipidemia Hypertension Psychiatric illness Stroke Denies family history of CAD (coronary artery disease) Clotting disorder Chronic kidney disease (CKD) Anesthesia complication Bleeding disorder Lung disease Social History Smoking and tobacco/nicotine status: former use of tobacco/nicotine Quit status (tobacco/nicotine): has quit using Year quit tobacco: 2021 Alcohol intake: former 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/quit date alcohol: 2020 Substance/Drug Use: former Lives independently: Yes Current occupational status: unemployed Special viral needs: No Agree to transfusion: Yes Vitals/I&O/Wt Last Vital Signs Temp 98.4 F 10/08/23 17:21 Pulse 65 10/08/23 21:08 Resp 20 H 10/08/23 21:08 BP 110/75 10/08/23 21:08 Pulse Ox 91 10/08/23 21:08 O2 Del Method Nasal Cannula 10/08/23 20:53 O2 Flow Rate 5 10/08/23 20:53 Weight last 48 hrs Weight 53.977 kg Physical Exam Const: COMMON NORMALS: no acute distress and patient oriented x3 HENMT: COMMON NORMALS: normocephalic HEAD & SCALP: normocephalic Eye: COMMON NORMALS: Equal, round and reactive pupils present and EOMs intact bilaterally Neck/C-Spine: COMMON NORMALS: no JVD Lymph: LYMPHATIC: no lymphadenopathy noted Resp: COMMON NORMALS: normal respiratory effort, No retractions and No use of accessory muscles AUSCULTATION: wheezes Cardio: COMMON NORMALS: regular rate, regular rhythm, S1 normal heart sound present and S2 normal heart sound present RATE: regular rate RHYTHM: regular rhythm HEART SOUNDS: S1 normal heart sound present and S2 normal heart sound present GI: COMMON NORMALS: Normal to inspection, nondistended, normoactive bowel sounds present, Soft to palpation and non-tender Extremity: COMMON NORMALS: no calf tenderness and no pedal edema Neuro: COMMON NORMALS: patient oriented x3, CN's II-XII intact bilaterally and moves all extremities Psych: COMMON NORMALS: mental status grossly normal Data 10/08/23 17:48 10/08/23 17:48 A&P Assessment and plan (1) Acute hypoxemic respiratory failure: (2) Bilateral pneumonia: Qualifiers: Lung location: lower lobe of lung Pneumonia type: due to unspecified organism Qualified Code(s): J18.9 - Pneumonia, unspecified organism Plan Acute hypoxic respiratory failure ?secondary to bilateral pneumonia ? COVID antigen pending CT/CT angio chest PE protcl [id number] IMPRESSION: 1. Negative for pulmonary embolus. 2. Patchy bilateral airspace infiltrates. 3. Scattered subcentimeter short axis nonspecific mediastinal lymph nodes. 4. Coronary artery atherosclerotic calcifications. 5. Mild cardiomegaly. 6. Hepatic steatosis. Plan -Has received Zosyn, Decadron in the emergency room -Switch to Rocephin, azithromycin -Decadron 6 mg IV push every 24 hours for pleurisy -Respiratory viral panel -CRP -Blood cultures -Serial EKGs, serial troponins, telemetry monitoring -Currently on 5 L -Monitor respiratory status closely -Incentive spirometer, flutter valve -Full code -Lovenox for DVT prophylaxis Attestations Medical Necessity Statement*: Patient requires hospitalization, inpatient, greater than 2 midnights for acute hypoxic respiratory failure secondary to bilateral pneumonia Diagnoses Acute hypoxemic respiratory failure J96.01 Bilateral pneumonia J18.9 Lung location: lower lobe of lung Pneumonia type: due to unspecified organism
[2023-10-08 21:59] LABS: Troponin 5 2HR 11.43 ng/L (0-15)
[2023-10-08 22:00] LABS: Troponin 5 2HR Delta -2.57 ABS# (0-10)
[2023-10-08 22:11] LABS: C Reactive Protein 18.4 mg/L (0.0-4.9)
[2023-10-08 22:54] LABS: Adenovirus Not Detected (NOT DETECT); Chlamydia Pneumoniae Not Detected (NOT DETECT); Coronavirus 229E,HKU1,NL63,OC4 Not Detected (NOT DETECT); Human Metapneumovirus Not Detected (NOT DETECT); Human Rhinovirus/Enterovirus Not Detected (NOT DETECT); Influenza A Not Detected (NOT DETECT); Influenza A H1 Not Detected (NOT DETECT); Influenza A H1-2009 Not Detected (NOT DETECT); Influenza A H3 Not Detected (NOT DETECT); Influenza B Not Detected (NOT DETECT); Mycoplasma Pneumoniae Not Detected (NOT DETECT); Parainfluenza Virus Type 1 Not Detected (NOT DETECT); Parainfluenza Virus Type 2 Not Detected (NOT DETECT); Parainfluenza Virus Type 3 Not Detected (NOT DETECT); Parainfluenza Virus Type 4 Not Detected (NOT DETECT); Respiratory Syncytial Virus A Not Detected (NOT DETECT); Respiratory Syncytial Virus B Not Detected (NOT DETECT); SARS-COV-2 Not Detected (NOT DETECT)
[2023-10-08 23:51] LABS: Thyroid Stimulating Hormone 1.63 uIU/mL (0.27-4.20)
[2023-10-08] MEDS: pantoprazole 40 mg SDV IVP (23:52)
[2023-10-09] VITALS (8 sets, daily range): BP systolic 90–122; BP diastolic 56–78; PULSE 65–83; RESP 16–18; TEMP 36.4–36.8; O2SAT 90–94
[2023-10-09 00:13] LABS: Estmated Average Glucose 74; Hemoglobin A1C 4.2 % (4.0-6.0)
[2023-10-09 00:44] LABS: Adenovirus Not Detected (NOT DETECT); Chlamydia Pneumoniae Not Detected (NOT DETECT); Coronavirus 229E,HKU1,NL63,OC4 Not Detected (NOT DETECT); Human Metapneumovirus Not Detected (NOT DETECT); Human Rhinovirus/Enterovirus Not Detected (NOT DETECT); Influenza A Not Detected (NOT DETECT); Influenza A H1 Not Detected (NOT DETECT); Influenza A H1-2009 Not Detected (NOT DETECT); Influenza A H3 Not Detected (NOT DETECT); Influenza B Not Detected (NOT DETECT); Mycoplasma Pneumoniae Not Detected (NOT DETECT); Parainfluenza Virus Type 1 Not Detected (NOT DETECT); Parainfluenza Virus Type 2 Not Detected (NOT DETECT); Parainfluenza Virus Type 3 Not Detected (NOT DETECT); Parainfluenza Virus Type 4 Not Detected (NOT DETECT); Respiratory Syncytial Virus A Not Detected (NOT DETECT); Respiratory Syncytial Virus B Not Detected (NOT DETECT); SARS-COV-2 Not Detected (NOT DETECT)
[2023-10-09 03:12] LABS: Basophils % 0.1 %; Hematocrit 34.4 % (37-53); Lymphocytes # 0.8 10^3/uL (0.8-4.8); Lymphocytes % 10.4 %; Mean Corpuscular HGB Conc 32.3 g/dL (30-55); Mean Corpuscular Hemoglobin 32.7 pg (27-33); Mean Corpuscular Volume 101.5 fl (82-101); Mean Platelet Volume 10.4 fL (7.4-10.4); Monocytes # 0.1 10^3/uL (0.2-0.9); Monocytes % 1.2 %; Neutrophils # 6.53 10^3/uL (1.8-7.7); Neutrophils % 87.9 %; Nucleated Red Blood Cells % 0 %; Platelet Count 308 10^3/cmm (157-399); Red Blood Count 3.39 10^6/uL (3.85-5.65); Red Cell Distribution Width 17.7 % (12.1-15.1); White Blood Count 7.43 10^3/uL (3.29-11.43)
[2023-10-09 03:31] LABS: Troponin 5 6HR 9.22 ng/L (0-15)
[2023-10-09 03:35] LABS: Troponin 5 6HR Delta -4.78 ng/L (0-12)
[2023-10-09 03:38] LABS: Anion Gap 13.8 (5-19); Blood Urea Nitrogen 16 mg/dL (6-20); Calcium 9.6 mg/dL (8.5-10.5); Carbon Dioxide 27 mmol/L (22-29); Chloride 103 mmol/L (98-107); Glomerular Filtration Rate 87.9 mL/min (90-130); Glucose 209 mg/dL (65-115); Magnesium 2.3 mg/dL (1.7-2.3); Osmolality Calculated 295 mOsm/kg (285-295); Phosphorus 3.9 mg/dL (2.5-4.5); Potassium 4.8 mmol/L (3.5-5.1); Sodium 139 mmol/L (136-145)
[2023-10-09] MEDS: enoxaparin 40 mg/0.4 mL Syringe SUBCUT (05:35)
--- NOTE | 2023-10-09 10:13 | P.PN_ITS ---
Subjective 2 Subjective: Patient works at [employer] Respiratory panel negative No leukocytosis currently on 5 L I have asked patient to walk around and see how he feels He has pleuritic pain on coughing otherwise no active chest pain No signs of PE, Vitals/I&O/Wt Last Vital Signs Temp 97.5 F L 10/09/23 07:12 Pulse 83 10/09/23 09:42 Resp 18 10/09/23 09:42 BP 90/56 10/09/23 07:12 Pulse Ox 91 10/09/23 09:42 O2 Del Method Nasal Cannula 10/09/23 09:42 O2 Flow Rate 5 10/09/23 09:42 10/08/23 10/09/23 10/09/23 22:59 06:59 14:59 Intake Total 50 / 50 240 / 240 Output Total 400 / 400 Balance 50 / 50 -400 / -350 240 / 240 Weight last 48 hrs Weight 92.731 kg Weight 92.986 kg Weight 53.977 kg Physical Exam 2 Narrative: Awake and alert Currently on 5 L Pleuritic pain Dry cough GCS 15 Pleasant cough Nonfocal neuroexam S1, S2 Well-built Data 10/09/23 03:06 10/09/23 03:06 A&P Assessment and plan (1) Bilateral pneumonia: Qualifiers: Lung location: lower lobe of lung Pneumonia type: due to unspecified organism Qualified Code(s): J18.9 - Pneumonia, unspecified organism (2) Acute hypoxemic respiratory failure: Plan Patient works at [employer] Rester panel negative No fever or leukocytosis Currently on 5 L Wean off oxygen today Add prednisone 40 mg discontinue Decadron Continue antibiotics Plan to discharge him by tomorrow Dyspnea on exertion troponin negative, EKG without ischemic or infarctive changes no sign of fluid overload TSH procalcitonin normal He may be suffering from atypical pneumonia if his symptoms worsen on steroids my suspicion will be related to fungal infection Attestations 2 Medical Necessity Statement*: Discharge by tomorrow Diagnoses Bilateral pneumonia J18.9 Lung location: lower lobe of lung Pneumonia type: due to unspecified organism Acute hypoxemic respiratory failure J96.01
[2023-10-09] MEDS: predniSONE 20 mg Tablet 40 MG PO (10:37)
[2023-10-09] MEDS: benzonatate 100 mg Capsule 200 MG PO ×3 (10:37→20:26)
[2023-10-09] MEDS: azithromycin 500 MG in sodium chloride 0.9% 250 ML 250 MG IV (10:38)
[2023-10-09] MEDS: acetaminophen 325 mg Tablet 650 MG PO ×2 (10:42→20:25)
[2023-10-09] MEDS: cefTRIAXone 1,000 MG in sodium chloride 0.9% (plus) 50 ML 100 MG IV (10:47)
[2023-10-09 10:59] LABS: Procalcitonin 0.11 ng/mL (0-0.5)
[2023-10-09] MEDS: hyDROXYzine 25 mg Capsule PO (21:35)
[2023-10-10] VITALS (9 sets, daily range): BP systolic 96–112; BP diastolic 61–75; PULSE 50–65; RESP 17–18; TEMP 36.5–36.8; O2SAT 86–93
[2023-10-10] MEDS: pantoprazole 40 mg SDV IVP (00:11)
[2023-10-10] MEDS: enoxaparin 40 mg/0.4 mL Syringe SUBCUT (04:02)
[2023-10-10 04:57] LABS: Basophils % 0.2 %; Eosinophils % 0.1 %; Hematocrit 31.4 % (37-53); Lymphocytes # 2.2 10^3/uL (0.8-4.8); Lymphocytes % 18.4 %; Mean Corpuscular HGB Conc 31.5 g/dL (30-55); Mean Corpuscular Hemoglobin 32.6 pg (27-33); Mean Corpuscular Volume 103.3 fl (82-101); Mean Platelet Volume 10.8 fL (7.4-10.4); Monocytes # 0.6 10^3/uL (0.2-0.9); Monocytes % 4.8 %; Neutrophils # 8.91 10^3/uL (1.8-7.7); Nucleated Red Blood Cells % 0 %; Platelet Count 297 10^3/cmm (157-399); Red Blood Count 3.04 10^6/uL (3.85-5.65); Red Cell Distribution Width 17.8 % (12.1-15.1); White Blood Count 11.72 10^3/uL (3.29-11.43)
[2023-10-10 05:17] LABS: Anion Gap 12.8 (5-19); Blood Urea Nitrogen 19 mg/dL (6-20); Calcium 8.9 mg/dL (8.5-10.5); Carbon Dioxide 28 mmol/L (22-29); Chloride 103 mmol/L (98-107); Glomerular Filtration Rate 100.7 mL/min (90-130); Glucose 106 mg/dL (65-115); Osmolality Calculated 293 mOsm/kg (285-295); Potassium 3.8 mmol/L (3.5-5.1); Sodium 140 mmol/L (136-145)
[2023-10-10] MEDS: azithromycin 500 MG in sodium chloride 0.9% 250 ML 250 MG IV (09:58)
[2023-10-10] MEDS: predniSONE 20 mg Tablet 40 MG PO (09:58)
[2023-10-10] MEDS: benzonatate 100 mg Capsule 200 MG PO (09:58)
[2023-10-10] MEDS: cefTRIAXone 1,000 MG in sodium chloride 0.9% (plus) 50 ML 100 MG IV (09:59)
[2023-10-10] MEDS: acetaminophen 325 mg Tablet 650 MG PO (09:59)
--- NOTE | 2023-10-10 10:07 | PC.CHAP ---
Pastoral Care Encounter/Spiritual Assessment Type of Contact [] Declined healthcare account manager visit [] Patient/Family/Request visit [] Outpatient visit [] Follow-up visit [] Physician referral [] Code/Alert [] Routine visit [] Staff referral [] Actively dying [x] Patient sleeping [] Family support [] [] Out of room [] Palliative care [] [] Receiving care in room [] Pre-surgical visit [] Trauma [] Long length of stay [] ICU visit [] Other: Relational/Emotional Strength [] Patient feels connected with others/family/visitors/staff [] Distress [] Loneliness/isolation [] Abandonment Spirituality of Patient [] Person of Shi [] Attends Hoahaoism of their Shi [] Believes in Prayer [] Reads Bible or Alevism materials [] There are Spiritual issues to be addressed Field Professional Interventions [] Prayer [] Active listening [] Non-anxious presence [] Spiritual/emotional support [] Crisis/trauma care [] Spiritual counseling [] Bereavement support [] Provided bereavement packet [] Provided Bible/devotional materials [] Provided toy/stuffed animal, coloring book to patient or family member [] Provided Communion [] Anointing/[place] [] Salvation [] Completed spiritual assessment [] Other: Impact on Illness or Injury [] Angry [] Fearful [] Anxious [] Often cries [] Exhaustion [] Unable to work [] Unable to attend restoration [] Unable to walk/stand [] Unable to read [] Unable to drive [] Unable to eat/drink [] Unable to sleep [] Unable to be with family [] Patient intubated [] Other: Summary Time spent with patient
--- NOTE | 2023-10-10 11:12 | P.DS_ITS ---
Discharge Providers Date of Admission: 10/08/23 22:50 Date of Discharge: October 10, 2023 Attending Provider at Admission: Ger Morales MD Attending Provider at Discharge: Kenrick Romero MD Primary Care Provider: Popeye Bueno MD Diagnoses at Discharge Discharge Diagnosis (1) Bilateral pneumonia: Status: Acute Qualifiers: Lung location: lower lobe of lung Pneumonia type: due to unspecified organism Qualified Code(s): J18.9 - Pneumonia, unspecified organism (2) Acute hypoxemic respiratory failure: Status: Acute Reason for Visit Reason for Visit: sent over by dr, low bp, low O2 Hospital Course Hospital Course 49-year-old male who was admitted for management evaluation of atypical pneumonia, patient works at [employer], 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 he has not been exposed to any part of, no recent fever but his shortness of breath has gotten worse, CT chest did not show any signs of PE, groundglass opacities evident on his CT chest, patient most likely has atypical pneumonia for which I will prescribe him albuterol inhaler along with doxycycline at the time of discharge, during hospitalization he was requiring 3 to 4 L of oxygen however clinically he was not showing any signs of worsening, patient is stating that he walked without oxygen to the bathroom any oxygen remained around 92%, respiratory panel negative, he did receive steroids which would explain leukocytosis Physical Exam Narrative: Awake and alert PCP Currently on 4 L Pleasant S1, S2 Discharge Data Studies Completed and Pending Completed Studies During Hospitalization Category Date Time Status CT angio chest PE protcl [id number] Stat Cat Scan 10/08/23 18:42 Completed XR chest 1V portable [id number] Stat Exams 10/08/23 17:35 Completed Pending at discharge Category Date Time Status Blood Cultures ([facility]) Routine Lab 10/08/23 17:48 Received Blood Cultures ([facility]) Routine Lab 10/08/23 17:48 Received Radiology Impressions Chest X-Ray 10/08/23 17:35 IMPRESSION: Bibasilar atelectasis versus minimal infiltrate. Chest CTA 10/08/23 18:42 IMPRESSION: 1. Negative for pulmonary embolus. 2. Patchy bilateral airspace infiltrates. 3. Scattered subcentimeter short axis nonspecific mediastinal lymph nodes. 4. Coronary artery atherosclerotic calcifications. 5. Mild cardiomegaly. 6. Hepatic steatosis. Laboratory Results WBC 11.72 10^3/uL (3.29-11.43) H 10/10/23 04:18 RBC 3.04 10^6/uL (3.85-5.65) L 10/10/23 04:18 Hgb 9.90 g/dL (11.27-16.99) L 10/10/23 04:18 Hct 31.4 % (37-53) L 10/10/23 04:18 MCV 103.3 fl (82-101) H 10/10/23 04:18 MCH 32.6 pg (27-33) 10/10/23 04:18 MCHC 31.5 g/dL (30-55) 10/10/23 04:18 RDW 17.8 % (12.1-15.1) H 10/10/23 04:18 Plt Count 297 10^3/cmm (157-399) 10/10/23 04:18 MPV 10.8 fL (7.4-10.4) H 10/10/23 04:18 Neut % (Auto) 76.0 % 10/10/23 04:18 Lymph % (Auto) 18.4 % 10/10/23 04:18 [place] % (Auto) 4.8 % 10/10/23 04:18 Eos % (Auto) 0.1 % 10/10/23 04:18 Baso % (Auto) 0.2 % 10/10/23 04:18 Neut # (Auto) 8.91 10^3/uL (1.8-7.7) H 10/10/23 04:18 Lymph # (Auto) 2.2 10^3/uL (0.8-4.8) 10/10/23 04:18 [place] # (Auto) 0.6 10^3/uL (0.2-0.9) 10/10/23 04:18 Eos # (Auto) 0.0 10^3/uL (0.0-0.8) 10/10/23 04:18 Baso # (Auto) 0.0 10^3/uL (0.0-0.1) 10/10/23 04:18 Nucleated RBC % (auto) 0 % 10/10/23 04:18 Nucleated RBCs # 0.0 /100WBC 10/10/23 04:18 Specimen Type Arterial 10/08/23 Sample Site Brachial, left 10/08/23: ABG pH 7.44 (7.35-7.45) 10/08/23: ABG pCO2 41.4 mmHg (35-45) 10/08/23 17: ABG pO2 223.0 mmHg (80.0-100.0) H 10/08/23: ABG HCO3 27.8 mmol/L (22-26) H 10/08/23: ABG O2 Saturation 94.1 10/08/23: ABG Base Excess 3.3 mmol/L (-2.0-2.0) H 10/08/23: Duong Test Pos 10/08/23 A-a O2 Gradient Not Reportable 10/08/23: Hematocrit 33.5 % (42-52) L 10/08/23: Hgb O2 Saturation 91.6 % (95-100) L 10/08/23: Carboxyhemoglobin 1.7 %THgb (0.4-20.1) 10/08/23 17: Methemoglobin 1.0 % (0.4-1.5) 10/08/23: Total Hemoglobin 10.9 g/dL (14-18) L 10/08/23 17: Sodium 142.0 mmol/L (131-143) 10/08/23 17: Potassium 3.9 mmol/L (3.5-5.0) 10/08/23: Glucose 86.0 mg/dL (70-115) 10/08/23: Ionized Calcium 1.3 mmol/L (1.1-1.4) 10/08/23: O2 Delivery Device Nrb 10/08/23: O2 Liters/Min 15.0 % 10/08/23: [employer] Operations [employer] Manager ID Cak 10/08/23 17: Sodium 140 mmol/L (136-145) 10/10/23 04:18 Potassium 3.8 mmol/L (3.5-5.1) 10/10/23 04:18 Chloride 103 mmol/L (98-107) 10/10/23 04:18 Carbon Dioxide 28 mmol/L (22-29) 10/10/23 04:18 Anion Gap 12.8 (5-19) 10/10/23 04:18 BUN 19 mg/dL (6-20) 10/10/23 04:18 Creatinine 0.8 mg/dL (0.7-1.2) 10/10/23 04:18 GFR Calculation 100.7 mL/min (90-130) 10/10/23 04:18 Glucose 106 mg/dL (65-115) 10/10/23 04:18 Estimat Average Glucose 74 10/08/23 17:48 Hemoglobin A1c 4.2 % (4.0-6.0) 10/08/23 17:48 Calculated Osmolality 293 mOsm/kg (285-295) 10/10/23 04:18 Lactic Acid 1.4 mmol/L (0.5-2.2) 10/08/23 17:48 Calcium 8.9 mg/dL (8.5-10.5) 10/10/23 04:18 Phosphorus 3.9 mg/dL (2.5-4.5) 10/09/23 03:06 Magnesium 2.3 mg/dL (1.7-2.3) 10/09/23 03:06 Total Bilirubin 1.3 mg/dL (0.15-1.2) H 10/08/23 17:48 AST 21 U/L (0-40) 10/08/23 17:48 ALT 15 U/L (0-41) 10/08/23 17:48 Alkaline Phosphatase 54 U/L (40-130) 10/08/23 17:48 Troponin T Baseline 14 ng/L (0-15) 10/08/23 17:48 Troponin T 120 Minute 11.43 ng/L (0-15) 10/08/23 21:30 Delta Troponin T -2.57 ABS# (0-10) L 10/08/23 21:30 Troponin T Hi Sens 6Hr 9.22 ng/L (0-15) 10/09/23 03:06 Troponin T Hi Sens 6Hr Delta -4.78 ng/L (0-12) L 10/09/23 03:06 C-Reactive Protein 18.4 mg/L (0.0-4.9) H 10/08/23 17:48 NT-Pro-B Natriuret Pep 67 pg/mL (0-125) 10/08/23 17:48 Total Protein 7.1 g/dL (6.6-8.7) 10/08/23 17:48 Albumin 4.3 g/dL (3.5-5.2) 10/08/23 17:48 Globulin 2.8 g/dL (1.3-4.6) 10/08/23 17:48 Procalcitonin 0.11 ng/mL (0-0.5) 10/09/23 03:06 TSH 1.63 uIU/mL (0.27-4.20) 10/08/23 21:30 Urine Color Yellow (Yellow) 10/08/23 17:40 Urine Appearance Clear (CLEAR) 10/08/23 17:40 Urine pH 7 (5-7) 10/08/23 17:40 Ur Specific [place] 1.010 (1.005-1.030) 10/08/23 17:40 Urine Protein Neg (Negative) 10/08/23 17:40 Urine Glucose (UA) Norm (Normal) 10/08/23 17:40 Urine Ketones Negative (Negative) 10/08/23 17:40 Urine Blood Neg (Negative) 10/08/23 17:40 Urine Nitrate Negative (Negative) 10/08/23 17:40 Urine Bilirubin Neg (Negative) 10/08/23 17:40 Urine Urobilinogen 1 mg/dL (Negative) H 10/08/23 17:40 Ur Leukocyte Esterase Negative (Negative) 10/08/23 17:40 Adenovirus (PCR) Not detected (NOT DETECT) 10/08/23 18:50 C. pneumoniae DNA (PCR) Not detected (NOT DETECT) 10/08/23 18:50 Coronavirus 229E (PCR) Not detected (NOT DETECT) 10/08/23 18:50 Coronavirus 229E (PCR) Not detected (NOT DETECT) 10/08/23 18:50 Human Metapneumovir PCR Not detected (NOT DETECT) 10/08/23 18:50 Influenza A (H1) PCR Not detected (NOT DETECT) 10/08/23 18:50 Influ A (H1/09) PCR Not detected (NOT DETECT) 10/08/23 18:50 Influenza A (H3) PCR Not detected (NOT DETECT) 10/08/23 18:50 Influenza Type A Ag negative (Negative) 10/08/23 18:50 Influenza Type A (PCR) Not detected (NOT DETECT) 10/08/23 18:50 Influenza Type B Ag negative (Negative) 10/08/23 18:50 Influenza Type B (PCR) Not detected (NOT DETECT) 10/08/23 18:50 M. pneumoniae (PCR) Not detected (NOT DETECT) 10/08/23 18:50 Parainfluenza 1 (PCR) Not detected (NOT DETECT) 10/08/23 18:50 Parainfluenza 2 (PCR) Not detected (NOT DETECT) 10/08/23 18:50 Parainfluenza 3 (PCR) Not detected (NOT DETECT) 10/08/23 18:50 Parainfluenza 4 (PCR) Not detected (NOT DETECT) 10/08/23 18:50 RSV Type A (PCR) Not detected (NOT DETECT) 10/08/23 18:50 RSV Type B (PCR) Not detected (NOT DETECT) 10/08/23 18:50 Entero/Rhino (PCR) Not detected (NOT DETECT) 10/08/23 18:50 SARS-CoV-2 (PCR) Not detected (NOT DETECT) 10/08/23 18:50 SARS-CoV-2 (PCR) Not detected (NOT DETECT) 10/08/23 18:50 Vitals Last Vital Signs Temp 97.7 F 10/10/23 07:59 Pulse 65 10/10/23 10:01 Resp 18 10/10/23 10:01 BP 101/62 10/10/23 07:59 Pulse Ox 93 10/10/23 10:01 O2 Del Method Nasal Cannula 10/10/23 10:01 O2 Flow Rate 4 10/10/23 10:01 Discharge Plan Discharge Patient Disposition: Home Condition: Stable Prescriptions: New albuterol sulfate 90 mcg/actuation HFA aerosol inhaler 2 inh inhalation Q8H PRN (Reason: shortness of breath or wheezing) Qty: 6.7 0RF doxycycline hyclate 100 mg tablet 100 mg PO BID 3 Days Qty: 6 0RF methylprednisolone [Medrol (Pedro)] 4 mg tablets,dose pack See Rx Instructions .ROUTE .COMPLEX Qty: 21 0RF Rx Instructions: orally per package directions Continued polyethylene glycol 3350 [Miralax] 17 gram/dose powder 17 g PO BID PRN (Reason: constipation) Qty: 3060 1RF lutein 40 mg Capsule 40 mg PO BID benzonatate 200 mg capsule 200 mg PO TID Qty: 30 0RF albuterol sulfate 90 mcg/actuation HFA aerosol inhaler 2 inh inhalation Q6H PRN (Reason: shortness of breath or wheezing) Qty: 8.5 0RF Discharge Orders: Discharge Order (Routine); Ordered 10/10/23 Ordered By: Kenrick Romero Other Ambulatory Orders: DME: Oxygen (Order) Location: None Selected Ordered By: Kenrick Romero Referrals: Popeye Bueno MD [Primary Care Provider] - Patient Instructions: Opioid Safety Discharge Attestations Time Spent in Discharge Care*: greater than 30 min Quality Metrics Clinical Quality Measures [ No reported AMI, CVA or VTE this stay] Coding Level of Care Code Acute Code for Chg Fwd Diagnoses Bilateral pneumonia J18.9 Lung location: lower lobe of lung Pneumonia type: due to unspecified organism Acute hypoxemic respiratory failure J96.01
[2023-10-10 17:29] LABS: Adenovirus Not Detected (NOT DETECT); Chlamydia Pneumoniae Not Detected (NOT DETECT); Coronavirus 229E,HKU1,NL63,OC4 Not Detected (NOT DETECT); Human Metapneumovirus Not Detected (NOT DETECT); Human Rhinovirus/Enterovirus Not Detected (NOT DETECT); Influenza A Not Detected (NOT DETECT); Influenza A H1 Not Detected (NOT DETECT); Influenza A H1-2009 Not Detected (NOT DETECT); Influenza A H3 Not Detected (NOT DETECT); Influenza B Not Detected (NOT DETECT); Mycoplasma Pneumoniae Not Detected (NOT DETECT); Parainfluenza Virus Type 1 Not Detected (NOT DETECT); Parainfluenza Virus Type 2 Not Detected (NOT DETECT); Parainfluenza Virus Type 3 Not Detected (NOT DETECT); Parainfluenza Virus Type 4 Not Detected (NOT DETECT); Respiratory Syncytial Virus A Not Detected (NOT DETECT); Respiratory Syncytial Virus B Not Detected (NOT DETECT); SARS-COV-2 Not Detected (NOT DETECT)
--- NOTE | 2023-10-11 09:14 | PC.NURSE ---
This nurse attempted to cancel prescriptions at [facility]. The person I spoke with said they were unable to cancel prescriptions that were sent to the main campus pharmacy. This nurse called prescriptions into [facility] pharmacy here in [place].
== END 2023-10-10 19:30 | disposition home or self-care (01) | DRG 193 ==
LOC: ER 21:23 → MEDSURG 22:50
PROVIDERS: Emergency Medicine; Admitting Provider Family Medicine; Emergency Provider Family Medicine; PCP Family Medicine; Visit Provider Internal Medicine
DX: J18.9 Pneumonia, unspecified organism (principal); J96.01 Acute respiratory failure with hypoxia; Z87.891 Personal history of nicotine dependence; Z87.01 Personal history of pneumonia (recurrent)
CPT/HCPCS: 36415; 36600; 71045; 71275; 80048; 80051; 80053; 81003; 82330; 82805; 83036; 83605; 83735; 83880; 84100; 84145; 84443; 84484; 85025; 86140; 87040; 87486; 87581; 87633; 87635; 87804; 93005; 94640; 94664; 94760; 96372; 99285; C9113; J0456; J0696; J1100; J1650; J2543; J7050; J7512; Q9967

== ENCOUNTER → 2023-11-18 15:41 | Outpatient (BNVA) | payer OTHER, MEDICAID, SELFPAY | PROVIDERS: PCP Family Medicine; Visit Provider Internal Medicine Pulmonary Disease | DX: J18.9 Pneumonia, unspecified organism (principal); J96.01 Acute respiratory failure with hypoxia; Z09 Encounter for follow-up examination after completed treatment for conditions other than malignant neoplasm | CPT/HCPCS: 36415; 82785; 86003; 86331; 86606; 86609 ==

== ENCOUNTER 2023-12-04 07:41 | Outpatient (CLI) | payer OTHER, MEDICAID, SELFPAY ==
--- NOTE | 2023-12-04 08:30 | CTR_ITS ---
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 Radiation optimization: All CT scans at this facility use at least one of these dose optimization techniques: automated exposure control; mA and/or kV adjustment per patient size (includes targeted exams where dose is matched to clinical indication); or iterative reconstruction. Contrast material: OMNI 350; Contrast volume: 100 ml; Contrast route: INTRAVENOUS (IV); COMPARISON: CT pelvis w con* [id number] 09/15/2022 7:06 PM RADIATION DOSE METRICS: Total DLP (mGy-cm): 781.36 FINDINGS: Lungs: Lung bases are clear. No pleural effusion. Liver: Normal. No mass. Gallbladder and bile ducts: Normal. No calcified stones. No ductal dilation. Pancreas: Normal. No ductal dilation. Spleen: Normal. No splenomegaly. Adrenal glands: Normal. No mass. Kidneys and ureters: Normal. No hydronephrosis. Stomach and bowel: There is evidence of previous surgery involving the proximal sigmoid colon. There is prominent stool throughout the distal portion of the colon. Appendix: No evidence of appendicitis. Intraperitoneal space: Unremarkable. No free air. No significant fluid collection. Vasculature: Unremarkable. No abdominal aortic aneurysm. Lymph nodes: Unremarkable. No enlarged lymph nodes. Urinary bladder: Unremarkable as visualized. Reproductive: Unremarkable as visualized. Bones/joints: Unremarkable. No acute fracture. Soft tissues: Unremarkable. CT/CT abdomen pelvis w con* [id number] IMPRESSION: Constipation
--- NOTE | 2023-12-04 08:30 | CTR_ITS ---
PROCEDURE INFORMATION: Exam: CT Chest Without Contrast; Diagnostic Exam date and time: 12/04/2023 8:39 AM Age: 53 years old Clinical indication: Abnormal findings; Abnormal radiologic exam of lung or chest; Additional info: To check for resolution of infiltrates, hrct TECHNIQUE: Imaging protocol: Diagnostic computed tomography of the chest without contrast. Radiation optimization: All CT scans at this facility use at least one of these dose optimization techniques: automated exposure control; mA and/or kV adjustment per patient size (includes targeted exams where dose is matched to clinical indication); or iterative reconstruction. COMPARISON: CT angio chest PE protcl [id number] 10/08/2023 7:29 PM RADIATION DOSE METRICS: Total DLP (mGy-cm): 1551.99 FINDINGS: Lungs: Unremarkable. No consolidation. No masses. Pleural spaces: Unremarkable. No pneumothorax. No pleural effusion. Heart: Unremarkable. No cardiomegaly. No pericardial effusion. Coronary artery calcifications are noted. Lymph nodes: Unremarkable. No enlarged lymph nodes. Vasculature: Unremarkable. No aortic aneurysm. Bones/joints: Unremarkable. No acute fracture. Soft tissues: Unremarkable. CT/[facility] [id number] IMPRESSION: No acute findings. The previously noted pulmonary infiltrates have resolved completely.
[2023-12-04] MEDS: iohexol 350 mg/mL 500 mL Btl (per mL) PO (08:44)
[2023-12-04] MEDS: iohexol 350 mg/mL 500 mL Btl (per mL) IV (08:50)
== END 2023-12-04 07:42 | disposition home or self-care (01) ==
LOC: RAD 07:44
PROVIDERS: PCP Family Medicine; Visit Provider Surgery
DX: R10.9 Unspecified abdominal pain (principal); J18.9 Pneumonia, unspecified organism; Z98.890 Other specified postprocedural states; K59.00 Constipation, unspecified
CPT/HCPCS: 71250; 74177; Q9967

== ENCOUNTER 2023-12-11 08:07 | Outpatient (CLI) | payer OTHER, MEDICAID, SELFPAY | END 2023-12-11 08:08 | disposition home or self-care (01) | PROVIDERS: PCP Family Medicine; Visit Provider Internal Medicine Pulmonary Disease | DX: J18.9 Pneumonia, unspecified organism (principal) | CPT/HCPCS: 94010; 94618; 94726; 94729 ==

== ENCOUNTER → 2023-12-16 15:28 | Outpatient (BNVA) | payer OTHER, MEDICAID, SELFPAY | PROVIDERS: PCP Family Medicine; Visit Provider Surgery | DX: Z09 Encounter for follow-up examination after completed treatment for conditions other than malignant neoplasm (principal) | CPT/HCPCS: 99213 ==

== ENCOUNTER → 2024-01-16 09:02 | Outpatient (BNVA) | payer OTHER, MEDICAID, SELFPAY | PROVIDERS: PCP Family Medicine; Visit Provider Family Medicine | DX: R17 Unspecified jaundice (principal); J30.2 Other seasonal allergic rhinitis; R06.02 Shortness of breath; J96.01 Acute respiratory failure with hypoxia; Z79.899 Other long term (current) drug therapy | CPT/HCPCS: 71046; 80053; 80074; 81000; 82977; 83690; 85025 ==

== ENCOUNTER 2024-01-22 07:00 | Outpatient (CLI) | payer MEDICAID, SELFPAY ==
--- NOTE | 2024-01-22 07:00 | USR_ITS ---
PROCEDURE INFORMATION: Exam: US Abdomen Complete Exam date and time: 01/22/2024 7:11 AM Age: 54 years old Clinical indication: Other: Jaundiced; Additional info: Jaundiced, concered for liver pathology TECHNIQUE: Imaging protocol: Real-time ultrasound of the abdomen with image documentation. Complete exam. Total images: 66 COMPARISON: CT abdomen pelvis w con* [id number] 12/04/2023 8:46 AM FINDINGS: Liver: There is diffuse increased echogenicity of the liver, consistent with fatty infiltration. Gallbladder: The gallbladder has a normal appearance with normal wall thickness and no pericholecystic fluid nor inflammatory changes. No gallstones are seen. No sludge is detected. Biliary ducts: Normal. No stones. No dilation. Pancreas: The pancreas is partially visualized due to overlying bowel gas. No gross pathology is detected. Right kidney: Right kidney with normal parenchymal echogenicity and no hydronephrosis, calculi, solid masses, nor perinephric fluid collection. 10.7 cm length of right kidney. Left kidney: Normal. No mass. No hydronephrosis. Spleen: Normal. No splenomegaly. Aorta: Normal. No aneurysm. Inferior vena cava: Normal. Portal venous: Spectral sonography demonstrates patent portal vein with hepatopedal blood flow. Normal respiratory phasicity on spectral waveform, indicating preserved compliance of the liver. No portal venous abnormality identified. US/US abdomen complete* [id number] IMPRESSION: There is diffuse increased echogenicity of the liver, consistent with fatty infiltration.
== END 2024-01-22 07:01 | disposition home or self-care (01) ==
PROVIDERS: PCP Family Medicine; Visit Provider Family Medicine
DX: K76.0 Fatty (change of) liver, not elsewhere classified (principal)
CPT/HCPCS: 76700

== ENCOUNTER 2024-03-09 07:23 | Day surgery (SDC) | payer OTHER, MEDICAID, SELFPAY ==
--- NOTE | 2024-03-09 07:25 | W.PM.OPSFHP ---
Same Day Surgery H&P Indication for Procedure/HPI DATE OF PROCEDURE: March 09, 2024 CHIEF COMPLAINT/INDICATIONFOR SURGICAL PROCEDURE: need for screening colonoscopy PREOP DIAGNOSIS: need for screening colonoscopy PLANNED PROCEDURE: Operation Date: 03/09/24 08:35 Proposed Procedures p Colonoscopy 98268, G0105, Z12.11(Not Applicable) - Van Patel MD Medications/Allergies* Home Medications Medication Instructions Recorded Confirmed Type lutein 40 mg capsule 40 mg PO BID 09/28/23 03/04/24 History Allergies/Adverse Reactions Allergy/AdvReac Type Severity Reaction Status Date / Time hydromorphone Allergy Severe ADR-Nausea Verified 03/02/24 12:53 ketorolac Allergy Intermediate ADR-Nausea Verified 03/02/24 12:53 silk Allergy Unknown Unknown Verified 03/02/24 12:53 bupropion [From Wellbutrin] AdvReac Intermediate bug Verified 03/02/24 12:53 crawling sensation Pertinent History/Comorbid Conditions* Medical History (Updated 03/02/24 @ 13:18 by Laron Leon MD) Acute hypoxemic respiratory failure Osteoarthritis Bilateral pneumonia Constipation Abscess, perianal Hx of sigmoidoscopy Erectile dysfunction URI with cough and congestion Diverticulitis Perianal cyst Surgical History (Updated 10/11/23 @ 00:01 by ROBBIE Leonard) History of colostomy reversal Hx of appendectomy History of hemorrhoidectomy Family History (Updated 01/22/23 @ 13:10 by Monie Au LPN) Diabetes Dementia Hyperlipidemia Psychiatric illness Cancer Grandmother Maternal-unknown Hypertension Stroke Denies family history of CAD (coronary artery disease) Clotting disorder Chronic kidney disease (CKD) Anesthesia complication Bleeding disorder Lung disease Social History Smoking and tobacco/nicotine status: never used tobacco/nicotine Second hand smoke exposure: No Alcohol intake: former 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
[2024-03-09 07:39] VITALS: BP 130/87; PULSE 61; RESP 18; TEMP 36.1; O2SAT 94; BMI 36.6
[2024-03-09] MEDS: sodium chloride 0.9% 1,000 ML 30 ML IV (07:48)
--- NOTE | 2024-03-09 07:54 | ANES.PREANE2 ---
Pre-Anesthetic Assessment Height/Weight: Height 1.65 m Weight 99.79 kg Temp Pulse Resp BP Pulse Ox O2 Del Method 97.0 F L 61 18 130/87 94 Room Air 03/09/24 07:39 03/09/24 07:39 03/09/24 07:39 03/09/24 07:39 03/09/24 07:39 03/09/24 07:39 Preop Diagnosis: need for screening colonoscopy Operation Date: 03/09/24 08:35 Proposed Procedures p Colonoscopy 95037, G0105, Z12.11(Not Applicable) - Van Patel MD Familial anesthetic complications: None Was Beta Jael taken within 24 hours: N/A Was Clonidine taken within 24 hours: N/A Last intake: Intake Last Liquid Date 03/08/24 Last Liquid Time 22:30 Last Solid Date 03/07/24 Last Solid Time 18:00 Social No alcohol and No tobacco Exam alert, oriented x 3, clear to auscultation bilaterally and regular rate & rhythm Airway Submandibular: within normal limits (Large tongue) Cervical ROM: within normal limits Mallampati: Class III Dentition: full History/ROS No significant history except as noted and No significant complaints Pulmonary Asthma, Exertional Dyspnea and Sleep Apnea CV/HEM Palpitations None reported Hepatic Cirrhosis GI Hx colon resection Metabolic None reported Musc/skel Osteoarthritis/DJD Neuropsych Anxiety, Depression and Neuropathy Heat stroke Anesthetic Plan ASA status: 3 Anesthesia: Anesthesia Evaluation, General and MAC Risk of > 500 ml blood loss (7ml/kg in children): No Medications/Allergies Home Medications Medication Instructions Recorded Confirmed Last Taken Type lutein 40 mg capsule 40 mg PO BID 09/28/23 03/09/24 10/08/23 06:00 History polyethylene glycol 3350 17 17 g PO BID PRN constipation 09/29/23 03/09/24 03/06/24 Rx gram/dose oral powder (Miralax) #3,060 grams albuterol sulfate 90 mcg/actuation 2 inh inhalation Q8H PRN shortness 11/06/23 03/09/24 Unknown Rx aerosol inhaler of breath or wheezing #6.7 grams budesonide-formoterol HFA 80 1 inh inhalation BID PRN shortness 11/06/23 03/09/24 Unknown Rx mcg-4.5 mcg/actuation aerosol of breath #10.2 grams inhaler (Symbicort) diclofenac sodium 1 % topical gel 4 g topical QID #100 grams 11/06/23 03/09/24 Unknown Rx (Voltaren Arthritis Pain) cetirizine 10 mg tablet (Zyrtec) 10 mg PO DAILY allergy symptoms 02/14/24 03/09/24 03/06/24 Rx #30 tabs trazodone 50 mg tablet 25 mg (1/2 x 50 mg) PO DAILY sleep 02/20/24 03/09/24 03/07/24 Rx #30 tabs Allergies Allergy/AdvReac Type Severity Reaction Status Date / Time hydromorphone Allergy Severe ADR-Nausea Verified 03/09/24 07:36 ketorolac Allergy Intermediate ADR-Nausea Verified 03/09/24 07:36 silk Allergy Unknown Unknown Verified 03/09/24 07:36 bupropion [From Wellbutrin] AdvReac Intermediate bug Verified 03/09/24 07:36 crawling sensation Current Medications Generic Name Dose Route Start Last Admin Trade Name Freq PRN Reason Stop Dose Admin Sodium Chloride 1,000 mls @ 30 mls/hr 03/09/24 07:30 03/09/24 07:48 Sodium Chloride 0.9% IV 03/10/24 07:29 30 mls/hr .Q24H FISH Administration PFSH Anesthesia Medical History Acute hypoxemic respiratory failure Osteoarthritis Bilateral pneumonia Constipation Abscess, perianal Hx of sigmoidoscopy Erectile dysfunction URI with cough and congestion Diverticulitis Perianal cyst Surgical History History of colostomy reversal Hx of appendectomy History of hemorrhoidectomy Family History Grandmother Cancer Maternal-unknown Other Dementia Diabetes Hyperlipidemia Hypertension Psychiatric illness Stroke Denies family history of CAD (coronary artery disease) Clotting disorder Chronic kidney disease (CKD) Anesthesia complication Bleeding disorder Lung disease Social History Smoking and tobacco/nicotine status: never used tobacco/nicotine Second hand smoke exposure: No Alcohol intake: former 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/quit date alcohol: 2020 Substance/Drug Use: former Lives independently: Yes Current occupational status: unemployed Special viral needs: No Agree to transfusion: Yes Data Anesthesia Cardiac Studies: No Data to Display
[2024-03-09 08:42] VITALS: BP 126/82; PULSE 58; RESP 18; TEMP 36.3; O2SAT 93
[2024-03-09 08:57] VITALS: BP 130/83; PULSE 58; RESP 18; TEMP 36.2; O2SAT 94
--- NOTE | 2024-03-09 09:50 | ANE.PACU2 ---
Inpatient post-anesthesia follow up: Airway intact: Yes Vital signs: Temperature 97.2 F Pulse Rate 58 Respiratory Rate 18 Blood Pressure 130/83 Pulse Oximetry 94 Oxygen Delivery Me thod Room Air Oxygen Flow Rate Fraction of Inspir ed Oxygen Hydration adequate: Yes Nausea and vomiting: No Pain level: 1 Mental status: Baseline
== END 2024-03-09 09:50 | disposition home or self-care (01) ==
PROVIDERS: PCP Family Medicine; Visit Provider Surgery
PROC: 0DJD8ZZ Inspection of Lower Intestinal Tract, Via Natural or Artificial Opening Endoscopic (ICD-10-PCS; CPT 45378; principal; 2024-03-09 08:35)
DX: Z12.11 Encounter for screening for malignant neoplasm of colon (principal); K57.30 Diverticulosis of large intestine without perforation or abscess without bleeding; K60.3 Anal fistula; D12.8 Benign neoplasm of rectum; M19.90 Unspecified osteoarthritis, unspecified site; G47.30 Sleep apnea, unspecified
CPT/HCPCS: 45385; 88305; J2704; J7030

== ENCOUNTER → 2024-04-14 08:07 | Outpatient (BNVA) | payer OTHER, MEDICAID, SELFPAY | PROVIDERS: PCP Family Medicine; Visit Provider Registered Nurse Neonatal Intensive Care | DX: R05.9 Cough, unspecified (principal) | CPT/HCPCS: 87426 ==

== ENCOUNTER 2024-09-07 13:43 | Emergency (ER) | payer MEDICAID, SELFPAY ==
[2024-09-07] VITALS (7 sets, daily range): BP systolic 126–146; BP diastolic 84–102; PULSE 56–74; RESP 14–18; TEMP 36.8; O2SAT 90–93; BMI 34.9
--- NOTE | 2024-09-07 14:15 | ED_ITS ---
Documented by User: Curtis Valdovinos DO 09/08/24 05:56 HPI - Chest Pain 2 General: Chief Complaint: Chest Pain Stated Complaint: Chest pain Time Seen by Provider: 09/07/24 13:44 History of Present Illness: 54-year-old male presents emergency room complaining of chest pain shortness of breath. He has no known history of coronary artery disease. Patient states she just does not feel well he took a long time to get out of bed this morning he feels very weak. No vomiting no diarrhea denies fever nonproductive cough. Patient is nondiabetic and no history of any chronic respiratory issues. Associated symptoms: Reports dyspnea; Deny abdominal pain or fever(s) Related Data Previous Rx's Medication Instructions Recorded trazodone 50 mg tablet 50 mg PO DAILY #90 tabs 04/19/24 levocetirizine 5 mg tablet (Xyzal) 5 mg PO DAILY #60 tabs 07/14/24 ropinirole 0.5 mg tablet 0.5 mg PO DAILY #90 tabs 07/21/24 albuterol sulfate 90 mcg/actuation 2 inh inhalation Q8H PRN shortness 08/23/24 aerosol inhaler of breath or wheezing #6.7 grams cyclobenzaprine 10 mg tablet 10 mg PO TID PRN muscle spasm #10 08/23/24 tabs diclofenac sodium 1 % topical gel 4 g topical QID #100 grams 08/23/24 (Voltaren Arthritis Pain) prazosin 2 mg capsule 2 mg PO DAILY #60 caps 08/23/24 Allergies Allergy/AdvReac Type Severity Reaction Status Date / Time hydromorphone Allergy Severe ADR-Nausea Verified 09/07/24 12:30 ketorolac Allergy Intermediate ADR-Nausea Verified 09/07/24 12:30 silk Allergy Unknown Unknown Verified 09/07/24 12:30 bupropion [From Wellbutrin] AdvReac Intermediate bug Verified 09/07/24 12:30 crawling sensation Review of Systems 2 Const: Denies: fever(s) or chills Card: Reports: chest pain Resp: Reports: dyspnea, non-productive cough and chest congestion GI: Denies: abdominal pain : Denies: dysuria, urinary frequency or urinary urgency Musc: Denies: neck pain or back pain Skin/Breast: Denies: rash PFSH ED 2 PFSH: Medical History Symptomatic bradycardia Acute hypoxemic respiratory failure Osteoarthritis Bilateral pneumonia Constipation Abscess, perianal Hx of sigmoidoscopy Erectile dysfunction URI with cough and congestion Diverticulitis Perianal cyst Surgical History History of colostomy reversal Hx of appendectomy History of hemorrhoidectomy Family History Grandmother Cancer Maternal-unknown Other Dementia Diabetes Hyperlipidemia Hypertension Psychiatric illness Stroke Denies family history of CAD (coronary artery disease) Clotting disorder Chronic kidney disease (CKD) Anesthesia complication Bleeding disorder Lung disease Social History Smoking and tobacco/nicotine status: never used tobacco/nicotine Second hand smoke exposure: No Alcohol intake: former 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/quit date alcohol: 2020 Substance/Drug Use: former Lives independently: Yes Current occupational status: unemployed Special viral needs: No Agree to transfusion: Yes Physical Exam 2 Const: COMMON NORMALS: no acute distress GENERAL APPEARANCE: cooperative and comfortable ORIENTATION/CONSCIOUSNESS: Yes awake, Yes oriented to person, Yes oriented to place and Yes oriented to time HENMT: COMMON NORMALS: normocephalic, atraumatic and hearing grossly normal bilaterally HEAD & SCALP: normocephalic and atraumatic Resp: COMMON NORMALS: normal respiratory effort, No retractions, No use of accessory muscles and clear to auscultation bilaterally AUSCULTATION: clear to auscultation bilaterally Cardio: COMMON NORMALS: regular rate, regular rhythm and No murmurs present (Cardio) RATE: regular rate RHYTHM: regular rhythm GI: COMMON NORMALS: Soft to palpation and No hepatosplenomegaly present A USCULTATION: Yes normoactive bowel sounds PALPATION: Yes Soft to palpation, No Tenderness to palpation present (GI), No Guarding due to palpation present (GI) and Yes No hepatosplenomegaly present Extremity: COMMON NORMALS: normal to inspection, capillary refill normal, no clubbing, cyanosis or edema, no calf tenderness and no pedal edema Neuro: SENSORIUM/ORIENTATION: Yes oriented to person, Yes oriented to place and Yes oriented to time Skin: COMMON NORMALS: no rashes or lesions noted GENERAL SKIN EXAM: no rashes or lesions noted Course 2 Vital Signs: Vital signs: Vital Signs Temperature 98.2 F 09/07/24 13:44 Pulse Rate 66 09/07/24 19:04 Respiratory Rate 16 09/07/24 19:04 Blood Pressure 126/90 09/07/24 19:04 Pulse Oximetry 92 09/07/24 19:04 Oxygen Delivery Nj thod Room Air 09/07/24 17:52 MDM - Chest Pain Medical Decision Making Care signed out to Dr. Carey at change of shift. See final notes for diagnosis and disposition. Patient care transitioned to mo at shift change. Awaiting serial troponin. This is negative. The rest of the workup was negative. Patient discharged home Lab Data 09/07/24 15:50 09/07/24 15:50 Radiology Impressions Chest X-Ray 09/07/24 14:25 Impression: Negative chest. Laboratory Results WBC 7.06 10^3/uL (3.29-11.43) 09/07/24 15:50 RBC 3.94 10^6/uL (3.85-5.65) 09/07/24 15:50 Hgb 12.70 g/dL (11.27-16.99) 09/07/24 15:50 Hct 40.1 % (37-53) 09/07/24 15:50 MCV 101.8 fl (82-101) H 09/07/24 15:50 MCH 32.2 pg (27-33) 09/07/24 15:50 MCHC 31.7 g/dL (30-55) 09/07/24 15:50 RDW 13.2 % (12.1-15.1) 09/07/24 15:50 Plt Count 172 10^3/cmm (157-399) 09/07/24 15:50 MPV 10.7 fL (7.4-10.4) H 09/07/24 15:50 Neut % (Auto) 57.7 % 09/07/24 15:50 Lymph % (Auto) 35.0 % 09/07/24 15:50 Carbon % (Auto) 5.5 % 09/07/24 15:50 Eos % (Auto) 1.4 % 09/07/24 15:50 Baso % (Auto) 0.3 % 09/07/24 15:50 Neut # (Auto) 4.07 10^3/uL (1.8-7.7) 09/07/24 15:50 Lymph # (Auto) 2.5 10^3/uL (0.8-4.8) 09/07/24 15:50 Carbon # (Auto) 0.4 10^3/uL (0.2-0.9) 09/07/24 15:50 Eos # (Auto) 0.1 10^3/uL (0.0-0.8) 09/07/24 15:50 Baso # (Auto) 0.0 10^3/uL (0.0-0.1) 09/07/24 15:50 Nucleated RBC % (auto) 0 % 09/07/24 15:50 Nucleated RBCs # 0.0 /100WBC 09/07/24 15:50 Sodium 142 mmol/L (136-145) 09/07/24 15:50 Potassium 3.8 mmol/L (3.5-5.1) 09/07/24 15:50 Chloride 105 mmol/L (98-107) 09/07/24 15:50 Carbon Dioxide 26 mmol/L (22-29) 09/07/24 15:50 Anion Gap 14.8 (5-19) 09/07/24 15:50 BUN 13 mg/dL (6-20) 09/07/24 15:50 Creatinine 0.8 mg/dL (0.7-1.2) 09/07/24 15:50 GFR Calculation 100.4 mL/min (90-130) 09/07/24 15:50 Glucose 84 mg/dL (65-115) 09/07/24 15:50 Calculated Osmolality 293 mOsm/kg (285-295) 09/07/24 15:50 Calcium 9.3 mg/dL (8.5-10.5) 09/07/24 15:50 Total Bilirubin 1.5 mg/dL (0.15-1.2) H 09/07/24 15:50 AST 18 U/L (0-40) 09/07/24 15:50 ALT 12 U/L (0-41) 09/07/24 15:50 Alkaline Phosphatase 48 U/L (40-130) 09/07/24 15:50 Troponin T Baseline 10 ng/L (0-15) 09/07/24 15:50 Troponin T 120 Minute 12.46 ng/L (0-15) 09/07/24 17:59 Delta Troponin T 2.46 ABS# (0-10) 09/07/24 17:59 Total Protein 6.3 g/dL (6.6-8.7) L 09/07/24 15:50 Albumin 4.6 g/dL (3.5-5.2) 09/07/24 15:50 Globulin 1.7 g/dL (1.3-4.6) 09/07/24 15:50 Urine Color Yellow (Yellow) 09/07/24 15:08 Urine Appearance Clear (CLEAR) 09/07/24 15:08 Urine pH 7.0 (5-7) 09/07/24 15:08 Ur Specific [place] 1.007 (1.005-1.030) 09/07/24 15:08 Urine Protein Negative (Negative) 09/07/24 15:08 Urine Glucose (UA) Negative (Normal) 09/07/24 15:08 Urine Ketones Negative (Negative) 09/07/24 15:08 Urine Blood Negative (Negative) 09/07/24 15:08 Urine Nitrate Negative (Negative) 09/07/24 15:08 Urine Bilirubin Negative (Negative) 09/07/24 15:08 Urine Urobilinogen 0.2 mg/dL (Negative) 09/07/24 15:08 Ur Leukocyte Esterase Negative (Negative) 09/07/24 15:08 Urine RBC 0-2 /hpf (0-2) 09/07/24 15:08 Urine WBC 0-5 /hpf (0-5) 09/07/24 15:08 Ur Squamous Epith Cells 0-5 /hpf (0-5) 09/07/24 15:08 Amorphous Sediment Not Reportable 09/07/24 15:08 Urine Bacteria None seen /hpf (NONE) 09/07/24 15:08 Hyaline Casts 0-4 /lpf H 09/07/24 15:08 Coronavirus (PCR) Negative (Negative) 09/07/24 15:08 Influenza A (PCR) Negative (Negative) 09/07/24 15:08 Influenza Type B (PCR) Negative (Negative) 09/07/24 15:08 RSV (PCR) Negative (Negative) 09/07/24 15:08 Discharge Plan Discharge Patient Disposition: Home Clinical Impression: Non-cardiac chest pain, Generalized weakness Condition: Stable Prescriptions: No Action ropinirole 0.5 mg tablet 0.5 mg PO DAILY Qty: 90 1RF trazodone 50 mg tablet 50 mg PO DAILY Qty: 90 1RF prazosin 2 mg capsule 2 mg PO DAILY Qty: 60 1RF albuterol sulfate 90 mcg/actuation HFA aerosol inhaler 2 inh inhalation Q8H PRN (Reason: shortness of breath or wheezing) Qty: 6.7 2RF cyclobenzaprine 10 mg tablet 10 mg PO TID PRN (Reason: muscle spasm) Qty: 10 3RF Rx Instructions: do not drive after taking tablets diclofenac sodium [Voltaren Arthritis Pain] 1 % gel 4 g topical QID Qty: 100 0RF Rx Instructions: apply to single knee, ankle, foot; for foot includes sole/toes/top of foot levocetirizine [Xyzal] 5 mg tablet 5 mg PO DAILY Qty: 60 1RF Discharge Orders: Discharge ED (Routine); Ordered 09/07/24 Ordered By: Chely Carey Referrals: Popeye Bueno MD [Primary Care Provider] - Discharge Diet: Usual diet Discharge Activity: Increase activity as tolerated Patient Instructions: Noncardiac Chest Pain (ED), Opioid Safety, Pain Management Activity Restrictions/Additional Instructions: Thank you for choosing [facility] for your healthcare needs today. Please realize this is an emergency room and that we are providing you with a medical screening exam and this may not be complete and all inclusive of all the testing and or work up that you may need to determine your ailment or severity of your illness. You have been screened and evaluated and felt safe for discharge. Health conditions do change or evolve sometimes and as such it is important that you follow up with your Primary Doctor to be re checked, 3-5 days is a general good time frame for follow up. You are always welcome to return to the ED for re assessment if your symptoms are worsening or you have new concerns Coding Level of Care Code ED Destination Specialist for Chg Fwd Documented by User: Chely Carey MD 09/07/24 18:53 HPI - Chest Pain 2 General: Chief Complaint: Chest Pain Stated Complaint: Chest pain Time Seen by Provider: 09/07/24 13:44 Related Data Previous Rx's Medication Instructions Recorded trazodone 50 mg tablet 50 mg PO DAILY #90 tabs 04/19/24 levocetirizine 5 mg tablet (Xyzal) 5 mg PO DAILY #60 tabs 07/14/24 ropinirole 0.5 mg tablet 0.5 mg PO DAILY #90 tabs 07/21/24 albuterol sulfate 90 mcg/actuation 2 inh inhalation Q8H PRN shortness 08/23/24 aerosol inhaler of breath or wheezing #6.7 grams cyclobenzaprine 10 mg tablet 10 mg PO TID PRN muscle spasm #10 08/23/24 tabs diclofenac sodium 1 % topical gel 4 g topical QID #100 grams 08/23/24 (Voltaren Arthritis Pain) prazosin 2 mg capsule 2 mg PO DAILY #60 caps 08/23/24 Allergies Allergy/AdvReac Type Severity Reaction Status Date / Time hydromorphone Allergy Severe ADR-Nausea Verified 09/07/24 12:30 ketorolac Allergy Intermediate ADR-Nausea Verified 09/07/24 12:30 silk Allergy Unknown Unknown Verified 09/07/24 12:30 bupropion [From Wellbutrin] AdvReac Intermediate bug Verified 09/07/24 12:30 crawling sensation PFSH ED 2 PFSH: Medical History Symptomatic bradycardia Acute hypoxemic respiratory failure Osteoarthritis Bilateral pneumonia Constipation Abscess, perianal Hx of sigmoidoscopy Erectile dysfunction URI with cough and congestion Diverticulitis Perianal cyst Surgical History History of colostomy reversal Hx of appendectomy History of hemorrhoidectomy Family History Grandmother Cancer Maternal-unknown Other Dementia Diabetes Hyperlipidemia Hypertension Psychiatric illness Stroke Denies family history of CAD (coronary artery disease) Clotting disorder Chronic kidney disease (CKD) Anesthesia complication Bleeding disorder Lung disease Social History Smoking and tobacco/nicotine status: never used tobacco/nicotine Second hand smoke exposure: No Alcohol intake: former 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/quit date alcohol: 2020 Substance/Drug Use: former Lives independently: Yes Current occupational status: unemployed Special viral needs: No Agree to transfusion: Yes Course 2 Vital Signs: Vital signs: Vital Signs Temperature 98.2 F 09/07/24 13:44 Pulse Rate 66 09/07/24 19:04 Respiratory Rate 16 09/07/24 19:04 Blood Pressure 126/90 09/07/24 19:04 Pulse Oximetry 92 09/07/24 19:04 Oxygen Delivery Nj thod Room Air 09/07/24 17:52 MDM - Chest Pain Medical Decision Making Patient care transitioned to mo at shift change. Awaiting serial troponin. This is negative. The rest of the workup was negative. Patient discharged home Lab Data 09/07/24 15:50 09/07/24 15:50 Radiology Impressions Chest X-Ray 09/07/24 14:25 Impression: Negative chest. Laboratory Results WBC 7.06 10^3/uL (3.29-11.43) 09/07/24 15:50 RBC 3.94 10^6/uL (3.85-5.65) 09/07/24 15:50 Hgb 12.70 g/dL (11.27-16.99) 09/07/24 15:50 Hct 40.1 % (37-53) 09/07/24 15:50 MCV 101.8 fl (82-101) H 09/07/24 15:50 MCH 32.2 pg (27-33) 09/07/24 15:50 MCHC 31.7 g/dL (30-55) 09/07/24 15:50 RDW 13.2 % (12.1-15.1) 09/07/24 15:50 Plt Count 172 10^3/cmm (157-399) 09/07/24 15:50 MPV 10.7 fL (7.4-10.4) H 09/07/24 15:50 Neut % (Auto) 57.7 % 09/07/24 15:50 Lymph % (Auto) 35.0 % 09/07/24 15:50 Carbon % (Auto) 5.5 % 09/07/24 15:50 Eos % (Auto) 1.4 % 09/07/24 15:50 Baso % (Auto) 0.3 % 09/07/24 15:50 Neut # (Auto) 4.07 10^3/uL (1.8-7.7) 09/07/24 15:50 Lymph # (Auto) 2.5 10^3/uL (0.8-4.8) 09/07/24 15:50 Carbon # (Auto) 0.4 10^3/uL (0.2-0.9) 09/07/24 15:50 Eos # (Auto) 0.1 10^3/uL (0.0-0.8) 09/07/24 15:50 Baso # (Auto) 0.0 10^3/uL (0.0-0.1) 09/07/24 15:50 Nucleated RBC % (auto) 0 % 09/07/24 15:50 Nucleated RBCs # 0.0 /100WBC 09/07/24 15:50 Sodium 142 mmol/L (136-145) 09/07/24 15:50 Potassium 3.8 mmol/L (3.5-5.1) 09/07/24 15:50 Chloride 105 mmol/L (98-107) 09/07/24 15:50 Carbon Dioxide 26 mmol/L (22-29) 09/07/24 15:50 Anion Gap 14.8 (5-19) 09/07/24 15:50 BUN 13 mg/dL (6-20) 09/07/24 15:50 Creatinine 0.8 mg/dL (0.7-1.2) 09/07/24 15:50 GFR Calculation 100.4 mL/min (90-130) 09/07/24 15:50 Glucose 84 mg/dL (65-115) 09/07/24 15:50 Calculated Osmolality 293 mOsm/kg (285-295) 09/07/24 15:50 Calcium 9.3 mg/dL (8.5-10.5) 09/07/24 15:50 Total Bilirubin 1.5 mg/dL (0.15-1.2) H 09/07/24 15:50 AST 18 U/L (0-40) 09/07/24 15:50 ALT 12 U/L (0-41) 09/07/24 15:50 Alkaline Phosphatase 48 U/L (40-130) 09/07/24 15:50 Troponin T Baseline 10 ng/L (0-15) 09/07/24 15:50 Troponin T 120 Minute 12.46 ng/L (0-15) 09/07/24 17:59 Delta Troponin T 2.46 ABS# (0-10) 09/07/24 17:59 Total Protein 6.3 g/dL (6.6-8.7) L 09/07/24 15:50 Albumin 4.6 g/dL (3.5-5.2) 09/07/24 15:50 Globulin 1.7 g/dL (1.3-4.6) 09/07/24 15:50 Urine Color Yellow (Yellow) 09/07/24 15:08 Urine Appearance Clear (CLEAR) 09/07/24 15:08 Urine pH 7.0 (5-7) 09/07/24 15:08 Ur Specific [place] 1.007 (1.005-1.030) 09/07/24 15:08 Urine Protein Negative (Negative) 09/07/24 15:08 Urine Glucose (UA) Negative (Normal) 09/07/24 15:08 Urine Ketones Negative (Negative) 09/07/24 15:08 Urine Blood Negative (Negative) 09/07/24 15:08 Urine Nitrate Negative (Negative) 09/07/24 15:08 Urine Bilirubin Negative (Negative) 09/07/24 15:08 Urine Urobilinogen 0.2 mg/dL (Negative) 09/07/24 15:08 Ur Leukocyte Esterase Negative (Negative) 09/07/24 15:08 Urine RBC 0-2 /hpf (0-2) 09/07/24 15:08 Urine WBC 0-5 /hpf (0-5) 09/07/24 15:08 Ur Squamous Epith Cells 0-5 /hpf (0-5) 09/07/24 15:08 Amorphous Sediment Not Reportable 09/07/24 15:08 Urine Bacteria None seen /hpf (NONE) 09/07/24 15:08 Hyaline Casts 0-4 /lpf H 09/07/24 15:08 Coronavirus (PCR) Negative (Negative) 09/07/24 15:08 Influenza A (PCR) Negative (Negative) 09/07/24 15:08 Influenza Type B (PCR) Negative (Negative) 09/07/24 15:08 RSV (PCR) Negative (Negative) 09/07/24 15:08 All radiology interpretation(s) finalized by discharge Discharge Plan Discharge Patient Disposition: Home Clinical Impression: Non-cardiac chest pain, Generalized weakness Condition: Stable Prescriptions: No Action ropinirole 0.5 mg tablet 0.5 mg PO DAILY Qty: 90 1RF trazodone 50 mg tablet 50 mg PO DAILY Qty: 90 1RF prazosin 2 mg capsule 2 mg PO DAILY Qty: 60 1RF albuterol sulfate 90 mcg/actuation HFA aerosol inhaler 2 inh inhalation Q8H PRN (Reason: shortness of breath or wheezing) Qty: 6.7 2RF cyclobenzaprine 10 mg tablet 10 mg PO TID PRN (Reason: muscle spasm) Qty: 10 3RF Rx Instructions: do not drive after taking tablets diclofenac sodium [Voltaren Arthritis Pain] 1 % gel 4 g topical QID Qty: 100 0RF Rx Instructions: apply to single knee, ankle, foot; for foot includes sole/toes/top of foot levocetirizine [Xyzal] 5 mg tablet 5 mg PO DAILY Qty: 60 1RF Discharge Orders: Discharge ED (Routine); Ordered 09/07/24 Ordered By: Chely Carey Referrals: Popeye Bueno MD [Primary Care Provider] - Discharge Diet: Usual diet Discharge Activity: Increase activity as tolerated Patient Instructions: Noncardiac Chest Pain (ED), Opioid Safety, Pain Management Activity Restrictions/Additional Instructions: Thank you for choosing [facility] for your healthcare needs today. Please realize this is an emergency room and that we are providing you with a medical screening exam and this may not be complete and all inclusive of all the testing and or work up that you may need to determine your ailment or severity of your illness. You have been screened and evaluated and felt safe for discharge. Health conditions do change or evolve sometimes and as such it is important that you follow up with your Primary Doctor to be re checked, 3-5 days is a general good time frame for follow up. You are always welcome to return to the ED for re assessment if your symptoms are worsening or you have new concerns Coding Level of Care Code ED Destination Specialist for Jerman Lira
--- NOTE | 2024-09-07 14:25 | XR_ITS ---
WS: [id number] Portable AP upright chest, 09/07/2024 Clinical Data: dyspnea/cough Comparison: Two-view chest, 01/16/2024 Findings: No nodules, masses or effusions are seen. The heart is normal. The pulmonary vascularity is not increased. No pneumonia or pneumothorax is seen. Monitor leads are on the chest wall. XR/XR chest 1V portable [id number] Impression: Negative chest.
[2024-09-07] MEDS: ipratropium-albuterol 3 mL Neb INHALATION (14:47)
[2024-09-07 15:21] LABS: Bilirubin Urine Negative (Negative); Blood Urine Negative (Negative); Glucose Urine UA Negative (Normal); Ketones Urine Negative (Negative); Leukocyte Esterase Urine Negative (Negative); Nitrate Urine Negative (Negative); Protein Urine Negative (Negative); Specific Gravity, Urine 1.007 (1.005-1.030); Urine Appearance Clear (CLEAR); Urine Color Yellow (Yellow); Urobilinogen Urine 0.2 mg/dL (Negative)
[2024-09-07 15:26] LABS: Add Urine Microscopic? YES; Bacteria Urine None Seen /hpf; Hyaline Casts Urine 0-4 /lpf; RBC Urine 0-2 /hpf (0-2); Squamous Epithelial Cell Urine 0-5 /hpf (0-5); WBC Urine 0-5 /hpf (0-5)
--- NOTE | 2024-09-07 15:40 | ECG_ITS ---
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 Measurements Intervals [place] Rate: 60 P: 65 VA: 174 QRS: -4 QRSD: 96 T: -87 QT: 416 QTc: 416 Interpretive Statements SINUS RHYTHM MODERATE T-WAVE ABNORMALITY, CONSIDER LATERAL ISCHEMIA [-0.1+ mV T-WAVE IN I/aVL/V5/V6] Compared to ECG 10/08/2023 21:49:38 No significant changes Electronically Signed On 09-08-2024 21:21:09 OFFICE MACHINES SALES REPRESENTATIVE by Nadya Zambrano M.D. [id number]
[2024-09-07 15:56] LABS: Covid PCR NEGATIVE (Negative); Influenza A NEGATIVE (Negative); Influenza B NEGATIVE (Negative); Respiratory Syncytial Virus Ce NEGATIVE (Negative)
[2024-09-07 16:01] LABS: Basophils % 0.3 %; Eosinophils # 0.1 10^3/uL (0.0-0.8); Eosinophils % 1.4 %; Hematocrit 40.1 % (37-53); Lymphocytes # 2.5 10^3/uL (0.8-4.8); Mean Corpuscular HGB Conc 31.7 g/dL (30-55); Mean Corpuscular Hemoglobin 32.2 pg (27-33); Mean Corpuscular Volume 101.8 fl (82-101); Mean Platelet Volume 10.7 fL (7.4-10.4); Monocytes # 0.4 10^3/uL (0.2-0.9); Monocytes % 5.5 %; Neutrophils # 4.07 10^3/uL (1.8-7.7); Neutrophils % 57.7 %; Nucleated Red Blood Cells % 0 %; Platelet Count 172 10^3/cmm (157-399); Red Blood Count 3.94 10^6/uL (3.85-5.65); Red Cell Distribution Width 13.2 % (12.1-15.1); White Blood Count 7.06 10^3/uL (3.29-11.43)
[2024-09-07 16:22] LABS: Alanine Aminotransferase 12 U/L (0-41); Albumin Level 4.6 g/dL (3.5-5.2); Alkaline Phosphatase 48 U/L (40-130); Anion Gap 14.8 (5-19); Aspartate Amino Transferase 18 U/L (0-40); Blood Urea Nitrogen 13 mg/dL (6-20); Calcium 9.3 mg/dL (8.5-10.5); Carbon Dioxide 26 mmol/L (22-29); Chloride 105 mmol/L (98-107); Creatinine Clr Calc Pharmacy 110.6794; Globulin 1.7 g/dL (1.3-4.6); Glomerular Filtration Rate 100.4 mL/min (90-130); Glucose 84 mg/dL (65-115); Osmolality Calculated 293 mOsm/kg (285-295); Potassium 3.8 mmol/L (3.5-5.1); Sodium 142 mmol/L (136-145); Total Bilirubin 1.5 mg/dL (0.15-1.2); Total Protein 6.3 g/dL (6.6-8.7); Troponin(5th) Baseline 10 ng/L (0-15)
--- NOTE | 2024-09-07 17:30 | ECG_ITS ---
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 Measurements Intervals [place] Rate: 64 P: 67 NM: 165 QRS: -2 QRSD: 101 T: 199 QT: 403 QTc: 416 Interpretive Statements SINUS RHYTHM MODERATE T-WAVE ABNORMALITY, CONSIDER LATERAL ISCHEMIA [-0.1+ mV T-WAVE IN I/aVL/V5/V6] Compared to ECG 09/07/2024 15:40:08 No significant changes Electronically Signed On 09-08-2024 21:42:36 KELP GATHERER by Nadya Zambrano M.D. [id number]
[2024-09-07] MEDS: acetaminophen 325 mg Tablet 650 MG PO (17:31)
[2024-09-07] MEDS: aspirin 81 mg Chew Tablet 324 MG PO (17:31)
[2024-09-07 18:28] LABS: Troponin 5 2HR 12.46 ng/L (0-15); Troponin 5 2HR Delta 2.46 ABS# (0-10)
== END 2024-09-07 19:02 | disposition home or self-care (01) ==
PROVIDERS: Family Medicine; Emergency Provider Emergency Medicine; PCP Family Medicine
DX: R07.89 Other chest pain (principal); R53.1 Weakness; Z11.52 Encounter for screening for COVID-19
CPT/HCPCS: 0241U; 36415; 71045; 80053; 81001; 84484; 85025; 93005; 94640; 99285

== ENCOUNTER 2024-09-08 10:46 | Emergency (ER) | payer MEDICAID, SELFPAY ==
[2024-09-08] VITALS (23 sets, daily range): BP systolic 116–143; BP diastolic 82–96; PULSE 56–67; RESP 11–48; TEMP 36.7; O2SAT 90–93
--- NOTE | 2024-09-08 11:16 | ECG_ITS ---
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 Measurements Intervals [place] Rate: 54 P: 42 RI: 164 QRS: 5 QRSD: 97 T: -44 QT: 423 QTc: 401 Interpretive Statements SINUS BRADYCARDIA MODERATE T-WAVE ABNORMALITY, CONSIDER LATERAL ISCHEMIA [-0.1+ mV T-WAVE IN I/aVL/V5/V6] MODERATE T-WAVE ABNORMALITY, CONSIDER INFERIOR ISCHEMIA [-0.1+ mV T-WAVE IN II/aVF] Compared to ECG 09/07/2024 17:00:04 Sinus rhythm no longer present T-wave abnormality still present Possible ischemia still present Electronically Signed On 09-08-2024 21:21:03 BUTCHER FISH by Nadya Zambrano M.D. [id number]
--- NOTE | 2024-09-08 11:17 | XRR_ITS ---
PROCEDURE INFORMATION: Exam: XR Chest Exam date and time: 09/08/2024 11:21 AM Age: 54 years old Clinical indication: Shortness of breath; Additional info: SOB TECHNIQUE: Imaging protocol: Radiologic exam of the chest. Views: 1 view. COMPARISON: CR XR chest 1V portable [id number] 09/07/2024 2:28 PM FINDINGS: Lungs: Unremarkable. No consolidation or mass. Pleural spaces: Unremarkable. No pleural effusion. No pneumothorax. Heart/Mediastinum: Unremarkable. No cardiomegaly. Bones/joints: Unremarkable. XR/XR chest 1V portable [id number] IMPRESSION: No acute findings.
--- NOTE | 2024-09-08 12:40 | ED_ITS ---
HPI - SOB/Dyspnea 2 General: Chief Complaint: Shortness of Breath/Dyspnea Stated Complaint: abn lab (o2) Time Seen by Provider: 09/08/24 12:21 Source: patient Mode of arrival: ambulatory Limitations: no limitations History of Present Illness: HPI Narrative: 54-year-old male who states has been hav ing exertional dyspnea since Friday was seen here yesterday had negative troponins states he still had some shortness of breath he denies any fever he denies any chest pain today he denies any vomiting or diarrhea. Associated symptoms: Deny abdominal pain, fever(s), nausea or vomiting Related Data Previous Rx's Medication Instructions Recorded trazodone 50 mg tablet 50 mg PO DAILY #90 tabs 04/19/24 levocetirizine 5 mg tablet (Xyzal) 5 mg PO DAILY #60 tabs 07/14/24 ropinirole 0.5 mg tablet 0.5 mg PO DAILY #90 tabs 07/21/24 cyclobenzaprine 10 mg tablet 10 mg PO TID PRN muscle spasm #10 08/23/24 tabs diclofenac sodium 1 % topical gel 4 g topical QID #100 grams 08/23/24 (Voltaren Arthritis Pain) prazosin 2 mg capsule 2 mg PO DAILY #60 caps 08/23/24 albuterol sulfate 90 mcg/actuation 2 inh inhalation Q8H PRN shortness 09/08/24 aerosol inhaler of breath or wheezing #6.7 grams Allergies Allergy/AdvReac Type Severity Reaction Status Date / Time hydromorphone Allergy Severe ADR-Nausea Verified 09/08/24 11:07 ketorolac Allergy Intermediate ADR-Nausea Verified 09/08/24 11:07 silk Allergy Unknown Unknown Verified 09/08/24 11:07 bupropion [From Wellbutrin] AdvReac Intermediate bug Verified 09/08/24 11:07 crawling sensation Review of Systems 2 Const: Denies: fever(s), chills, body aches or change in appetite ENMT: Denies: throat pain or dental pain Resp: Reports: dyspnea GI: Denies: abdominal pain, nausea, vomiting or diarrhea Musc: Denies: neck pain or back pain Skin/Breast: Denies: rash Neuro: Denies: headache(s) PFSH ED 2 PFSH: Medical History Symptomatic bradycardia Acute hypoxemic respiratory failure Osteoarthritis Bilateral pneumonia Constipation Abscess, perianal Hx of sigmoidoscopy Erectile dysfunction URI with cough and congestion Diverticulitis Perianal cyst Surgical History History of colostomy reversal Hx of appendectomy History of hemorrhoidectomy Family History Grandmother Cancer Maternal-unknown Other Dementia Diabetes Hyperlipidemia Hypertension Psychiatric illness Stroke Denies family history of CAD (coronary artery disease) Clotting disorder Chronic kidney disease (CKD) Anesthesia complication Bleeding disorder Lung disease Social History Smoking and tobacco/nicotine status: never used tobacco/nicotine Second hand smoke exposure: No Alcohol intake: former 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/quit date alcohol: 2020 Substance/Drug Use: former Lives independently: Yes Current occupational status: unemployed Special viral needs: No Agree to transfusion: Yes Physical Exam 2 Const: COMMON NORMALS: no acute distress, patient oriented x3 and healthy appearing HENMT: COMMON NORMALS: normocephalic and atraumatic HEAD & SCALP: n ormocephalic and atraumatic Eye: COMMON NORMALS: Equal, round and reactive pupils present and EOMs intact bilaterally PUPIL: Yes Equal, round and reactive pupils present Neck/C-Spine: COMMON NORMALS: full ROM and supple Chest: COMMONS NORMALS: normal inspection of the chest and normal palpation of entire chest wall Resp: COMMON NORMALS: normal respiratory effort, No retractions, No use of accessory muscles and clear to auscultation bilaterally AUSCULTATION: clear to auscultation bilaterally Cardio: COMMON NORMALS: regular rate, regular rhythm and No murmurs present (Cardio) RATE: regular rate RHYTHM: regular rhythm GI: COMMON NORMALS: Normal to inspection, nondistended, normoactive bowel sounds present, Soft to palpation, non-tender and no masses PALPATION: Yes Soft to palpation Extremity: COMMON NORMALS: normal to inspection and full ROM Neuro: COMMON NORMALS: patient oriented x3, moves all extremities and no focal motor deficits Psych: COMMON NORMALS: mental status grossly normal, Normal thought process present and cooperative THOUGHT PROCESS: Normal thought process present Skin: COMMON NORMALS: no rashes or lesions noted and no wounds GENERAL SKIN EXAM: no rashes or lesions noted Course 2 Vital Signs: Vital signs: Vital Signs Temperature 98.1 F 09/08/24 11:04 Pulse Rate 62 09/08/24 14:05 Respiratory Rate 19 H 09/08/24 14:05 Blood Pressure 121/85 09/08/24 14:05 Pulse Oximetry 91 09/08/24 14:05 Oxygen Delivery Me thod Room Air 09/08/24 13:55 MDM - SOB/Dyspnea Medical Decision Making Patient presents for shortness of breath he has had no hypoxia here his chest x- ray is normal D-dimer is negative no signs of pulmonary embolism we will give him a dose of Decadron we will refill his albuterol as he is out he is follow-up with PCP return if worsening. Medical Records I reviewed the patient's medical records. Lab Data I reviewed the patient's lab results. 09/08/24 13:15 09/08/24 13:15 Labs/Radiology: Radiology Impressions Chest X-Ray 09/08/24 11:17 IMPRESSION: No acute findings. Laboratory Results WBC 5.34 10^3/uL (3.29-11.43) 09/08/24 13:15 RBC 3.97 10^6/uL (3.85-5.65) 09/08/24 13:15 Hgb 13.20 g/dL (11.27-16.99) 09/08/24 13:15 Hct 40.6 % (37-53) 09/08/24 13:15 MCV 102.3 fl (82-101) H 09/08/24 13:15 MCH 33.2 pg (27-33) H 09/08/24 13:15 MCHC 32.5 g/dL (30-55) 09/08/24 13:15 RDW 13.1 % (12.1-15.1) 09/08/24 13:15 Plt Count 180 10^3/cmm (157-399) 09/08/24 13:15 MPV 10.9 fL (7.4-10.4) H 09/08/24 13:15 Neut % (Auto) 59.8 % 09/08/24 13:15 Lymph % (Auto) 31.1 % 09/08/24 13:15 [place] % (Auto) 6.6 % 09/08/24 13:15 Eos % (Auto) 1.9 % 09/08/24 13:15 Baso % (Auto) 0.4 % 09/08/24 13:15 Neut # (Auto) 3.20 10^3/uL (1.8-7.7) 09/08/24 13:15 Lymph # (Auto) 1.7 10^3/uL (0.8-4.8) 09/08/24 13:15 [place] # (Auto) 0.4 10^3/uL (0.2-0.9) 09/08/24 13:15 Eos # (Auto) 0.1 10^3/uL (0.0-0.8) 09/08/24 13:15 Baso # (Auto) 0.0 10^3/uL (0.0-0.1) 09/08/24 13:15 Nucleated RBC % (auto) 0 % 09/08/24 13:15 Nucleated RBCs # 0.0 /100WBC 09/08/24 13:15 D-Dimer 0.48 ug/mLFEU (0-0.59) 09/08/24 13:15 Sodium 140 mmol/L (136-145) 09/08/24 13:15 Potassium 4.0 mmol/L (3.5-5.1) 09/08/24 13:15 Chloride 100 mmol/L (98-107) 09/08/24 13:15 Carbon Dioxide 30 mmol/L (22-29) H 09/08/24 13:15 Anion Gap 14.0 (5-19) 09/08/24 13:15 BUN 12 mg/dL (6-20) 09/08/24 13:15 Creatinine 0.9 mg/dL (0.7-1.2) 09/08/24 13:15 GFR Calculation 87.6 mL/min (90-130) L 09/08/24 13:15 Glucose 90 mg/dL (65-115) 09/08/24 13:15 Calculated Osmolality 289 mOsm/kg (285-295) 09/08/24 13:15 Calcium 9.7 mg/dL (8.5-10.5) 09/08/24 13:15 Total Bilirubin 1.4 mg/dL (0.15-1.2) H 09/08/24 13:15 AST 19 U/L (0-40) 09/08/24 13:15 ALT 14 U/L (0-41) 09/08/24 13:15 Alkaline Phosphatase 50 U/L (40-130) 09/08/24 13:15 NT-Pro-B Natriuret Pep < 36 pg/mL (0-125) 09/08/24 13:15 Total Protein 6.9 g/dL (6.6-8.7) 09/08/24 13:15 Albumin 4.6 g/dL (3.5-5.2) 09/08/24 13:15 Globulin 2.3 g/dL (1.3-4.6) 09/08/24 13:15 All radiology interpretation(s) finalized by discharge Discharge Plan Discharge Patient Disposition: Home Clinical Impression: Shortness of breath Condition: Stable Prescriptions: Continued albuterol sulfate 90 mcg/actuation HFA aerosol inhaler 2 inh inhalation Q8H PRN (Reason: shortness of breath or wheezing) Qty: 6.7 2RF No Action ropinirole 0.5 mg tablet 0.5 mg PO DAILY Qty: 90 1RF trazodone 50 mg tablet 50 mg PO DAILY Qty: 90 1RF prazosin 2 mg capsule 2 mg PO DAILY Qty: 60 1RF cyclobenzaprine 10 mg tablet 10 mg PO TID PRN (Reason: muscle spasm) Qty: 10 3RF Rx Instructions: do not drive after taking tablets diclofenac sodium [Voltaren Arthritis Pain] 1 % gel 4 g topical QID Qty: 100 0RF Rx Instructions: apply to single knee, ankle, foot; for foot includes sole/toes/top of foot levocetirizine [Xyzal] 5 mg tablet 5 mg PO DAILY Qty: 60 1RF Discharge Orders: Discharge ED (Routine); Ordered 09/08/24 Ordered By: Spencer Villavicencio Referrals: Popeye Bueno MD [Primary Care Provider] - 4-7 days Discharge Diet: Advance as tolerated Discharge Activity: Resume usual activity Patient Instructions: Shortness of Breath (ED) Coding Level of Care Code ED Android Developer for Jerman Lira
[2024-09-08 13:36] LABS: Basophils % 0.4 %; Eosinophils # 0.1 10^3/uL (0.0-0.8); Eosinophils % 1.9 %; Hematocrit 40.6 % (37-53); Lymphocytes # 1.7 10^3/uL (0.8-4.8); Lymphocytes % 31.1 %; Mean Corpuscular HGB Conc 32.5 g/dL (30-55); Mean Corpuscular Hemoglobin 33.2 pg (27-33); Mean Corpuscular Volume 102.3 fl (82-101); Mean Platelet Volume 10.9 fL (7.4-10.4); Monocytes # 0.4 10^3/uL (0.2-0.9); Monocytes % 6.6 %; Neutrophils % 59.8 %; Nucleated Red Blood Cells % 0 %; Platelet Count 180 10^3/cmm (157-399); Red Blood Count 3.97 10^6/uL (3.85-5.65); Red Cell Distribution Width 13.1 % (12.1-15.1); White Blood Count 5.34 10^3/uL (3.29-11.43)
[2024-09-08 13:44] LABS: D Dimer 0.48 ug/mLFEU (0-0.59)
[2024-09-08 13:56] LABS: Alanine Aminotransferase 14 U/L (0-41); Albumin Level 4.6 g/dL (3.5-5.2); Alkaline Phosphatase 50 U/L (40-130); Aspartate Amino Transferase 19 U/L (0-40); Blood Urea Nitrogen 12 mg/dL (6-20); Calcium 9.7 mg/dL (8.5-10.5); Carbon Dioxide 30 mmol/L (22-29); Chloride 100 mmol/L (98-107); Globulin 2.3 g/dL (1.3-4.6); Glomerular Filtration Rate 87.6 mL/min (90-130); Glucose 90 mg/dL (65-115); NT Pro B Type Natriuretic Pept < 36 pg/mL (0-125); Osmolality Calculated 289 mOsm/kg (285-295); Sodium 140 mmol/L (136-145); Total Bilirubin 1.4 mg/dL (0.15-1.2); Total Protein 6.9 g/dL (6.6-8.7)
[2024-09-08] MEDS: dexamethasone 10 mg/mL INJ IVP (14:22)
== END 2024-09-08 15:05 | disposition home or self-care (01) ==
PROVIDERS: Emergency Provider Emergency Medicine; PCP Family Medicine
DX: R06.02 Shortness of breath (principal)
CPT/HCPCS: 36415; 71045; 80053; 83880; 85025; 85378; 93005; 96374; 99285; J1100

== ENCOUNTER → 2024-10-21 12:10 | Outpatient (BNVA) | payer OTHER, MEDICAID, SELFPAY | PROVIDERS: PCP Family Medicine; Visit Provider Registered Nurse Neonatal Intensive Care | DX: R39.89 Other symptoms and signs involving the genitourinary system (principal); R17 Unspecified jaundice | CPT/HCPCS: 80053; 81000 ==

== ENCOUNTER 2024-11-18 09:55 | Outpatient (CLI) | payer MEDICAID, SELFPAY ==
--- NOTE | 2024-11-18 10:15 | CT_ITS ---
WS: [id number] CT ABDOMEN AND PELVIS NONCONTRAST HISTORY: elevated bilirubin TECHNIQUE: Imaging performed through the abdomen and pelvis. Coronal and sagittal reformats are submitted. All CT scans at [facility] use at least one of these dose optimization techniques: automated exposure control; mA and/or kV adjustment per patient size (includes targeted exams where dose is matched to clinical indication); or iterative reconstruction. DLP: 608.40 mGy.cm COMPARISON: 12/04/2023 Lower thorax: Benign granuloma at the LEFT lung base. Normal size heart. Liver: Normal size liver. Mass would be difficult to exclude without IV contrast. Ducts do not appear dilated. Gallbladder: Slightly contracted which may be due to nonfasting state. No adjacent inflammation. Pancreas: Normal size and attenuation. Normal pancreatic duct. No pancreatitis or mass. Spleen: Normal. Adrenal glands: Normal. No mass. Right kidney: Normal size kidney with no mass or hydronephrosis. Left kidney: Normal size kidney with no mass or hydronephrosis. Aorta: Minimal atherosclerotic plaque. No free fluid, intraperitoneal air or significant lymphadenopathy. GI tract: Normally distended stomach. No small bowel obstruction. Distal colon surgical anastomotic site is identified. There is mild wall thickening at the anastomotic site along with narrowing of the central lumen. Mucosal thickening measures up to 8 mm. No perforation. There is no proximal obstruction of the colon. There is additional mild circumferential soft tissue thickening involving the rectum. Surgical suture line is unchanged. There are sutures extending from the medial sigmoid towards the small bowel. Abdominal wall: Negative. No hernia. Pelvis: No free fluid or adenopathy. Nondistended urinary bladder. Osseous structures: Unremarkable. CT/CT abdomen pelvis wo con [id number] IMPRESSION: 1. No intrahepatic biliary duct dilatation. Common bile duct normal size at 5 mm. 2. Gallbladder is slightly contracted. No adjacent inflammation. This may be d ue to contraction from nonfasting state or chronic cholecystitis. 3. Distal colonic anastomotic suture site is identified. There is mild wall th ickening at the anastomotic site along with mild narrowing of the lumen. There is continued mild circumferential wall thickening extending to the rectum. Thes e changes have progressed since the prior study of 12/04/2023. There is no acute perforation or abscess. 4. No free fluid. No free air.
[2024-11-18] MEDS: iohexol 350 mg/mL 500 mL Btl (per mL) PO (11:05)
== END 2024-11-18 09:56 | disposition home or self-care (01) ==
LOC: RAD 10:01
PROVIDERS: PCP Family Medicine; Visit Provider Family Medicine
DX: R17 Unspecified jaundice (principal); R93.3 Abnormal findings on diagnostic imaging of other parts of digestive tract; R93.89 Abnormal findings on diagnostic imaging of other specified body structures; J84.10 Pulmonary fibrosis, unspecified
CPT/HCPCS: 74176

== ENCOUNTER → 2025-01-06 12:22 | Outpatient (BNVA) | payer MEDICAID, SELFPAY | PROVIDERS: PCP Family Medicine; Visit Provider Emergency Medicine | DX: R09.02 Hypoxemia (principal); I70.90 Unspecified atherosclerosis | CPT/HCPCS: 71046 ==

== ENCOUNTER 2025-03-10 13:36 | Emergency (ER) | payer MEDICAID, SELFPAY ==
[2025-03-10 13:40] VITALS: BP 143/82; PULSE 58; RESP 16; TEMP 36.7; O2SAT 91
--- NOTE | 2025-03-10 14:04 | CT_ITS ---
WS: [id number] CT ABDOMEN PELVIS TECHNIQUE: Contrast-enhanced CT of the abdomen and pelvis with coronal and sagittal reformatted images. CLINICAL INFORMATION: abd pain COMPARISON: CT 11/18/2024 DLP: 820.[address] scans at [facility] use at least one of these dose optimization techniques: automated exposure control; mA and/or kV adjustment per patient size (includes targeted exams where dose is matched to clinical indication); or iterative reconstruction. FINDINGS: Enhancement involving the rectum and anus likely postoperative which is otherwise normal in appearance. No evidence of drainable abscess or fluid collection on this study. Prior colonic anastomosis. Fluid in the colon. No evidence of small or large bowel obstruction. Fatty liver. Normal spleen. Normal GE junction. Normal pancreatic parenchymal enhancement. Gallbladder is contracted. Normal portal vein and splenic vein. Lung bases are well aerated. Celiac and SMA are patent. Adrenal glands are normal. Normal renal parenchymal enhancement. No hydronephrosis. Tiny fat- containing umbilical hernia. CT/CT abdomen pelvis w con* [id number] IMPRESSION: 1. No acute findings in the abdomen or pelvis. 2. No evidence of drainable abscess or fluid collection. 3. Postoperative changes involving the rectum extending to the anus.
[2025-03-10] MEDS: iohexol 350 mg/mL 500 mL Btl (per mL) IV (14:17)
--- NOTE | 2025-03-10 14:36 | ED_ITS ---
HPI - General Adult 2 General: Chief complaint: General Medical Stated complaint: post off complications Time Seen by Provider: 03/10/25 14:01 History of Present Illness: 55-year-old male had surgery for an anal fissure done 4 days ago. He is reporting severe anal pain. He had a string from a suture that was will still be present is no longer present they contacted Dr. Martines's colorectal surgeon they had directed him in consultation his primary care doctor to the emergency room. Evidently there is an appliance of sorts that was left in place that is no longer findable. Associated symptoms: Deny chest pain, dyspnea or rash Related Data Home Medications ?Medication ?Instructions ?Recorded ?Confirmed oxycodone 5 mg tablet 5 mg PO TID PRN Pain 5 03/10/25 Previous Rx's ?Medication ?Instructions ?Recorded albuterol sulfate 90 mcg/actuation 2 inh inhalation Q8 H PRN shortness 09/08/24 aerosol inhaler of breath or wheezing #6.7 g dena levocetirizine 5 mg tablet (Xyzal) 5 mg PO DAILY #60 t abs 12/03/24 trazodone 100 mg tablet 100 mg PO DAILY #30 tabs polyethylene glycol 3350 17 17 g PO DAILY #510 grams 0 12/24/24 gram/dose oral powder (Miralax) prazosin 2 mg capsule 2 mg PO DAILY #60 caps 12/24 ropinirole 0.5 mg tablet 0.5 mg PO DAILY #90 tabs 01/14 Allergies Allergy/AdvReac Type Severity Reaction Status Date / Time hydromorphone Allergy Severe ADR-Nausea Verified 03/10/25 13:09 ketorolac Allergy Intermediate ADR-Nausea Verified 03/10/25 13:09 silk Allergy Unknown Unknown Verified 03/10/25 13:09 bupropion (From Wellbutrin) AdvReac Intermediate bug Verified 03/10/25 13:09 crawling sensation Review of Systems 2 Const: Denies: fever(s) or chills Card: Denies: chest pain Resp: Denies: dyspnea GI: Reports: rectal pain; Denies: abdominal pain : Denies: dysuria, urinary frequency or urinary urgency Musc: Denies: neck pain or back pain Skin/Breast: Denies: rash PFSH ED 2 PFSH: Medical History Symptomatic bradycardia Acute hypoxemic respiratory failure Osteoarthritis Bilateral pneumonia Constipation Abscess, perianal Hx of sigmoidoscopy Erectile dysfunction URI with cough and congestion Diverticulitis Perianal cyst Surgical History History of colostomy reversal Hx of appendectomy History of hemorrhoidectomy Family History Grandmother Cancer Maternal-unknown Other Dementia Diabetes Hyperlipidemia Hypertension Psychiatric illness Stroke Denies family history of CAD (coronary artery disease) Clotting disorder Chronic kidney disease (CKD) Anesthesia complication Bleeding disorder Lung disease Social History Smoking and tobacco/nicotine status: never used tobacco/nicotine Second hand smoke exposure: No Alcohol intake: former 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/quit date alcohol: 2020 Substance/Drug Use: former Lives independently: Yes Current occupational status: unemployed Special viral needs: No Agree to transfusion: Yes Physical Exam 2 Const: GENERAL APPEARANCE: cooperative ORIENTATION/CONSCIOUSNESS: Yes awake, Yes oriented to person, Yes oriented to place and Yes oriented to time HENMT: COMMON NORMALS: normocephalic, atraumatic and hearing grossly normal bilaterally HEAD & SCALP: normocephalic and atraumatic Resp: COMMON NORMALS: normal respiratory effort, No retractions, No use of accessory muscles and clear to auscultation bilaterally AUSCULTATION: clear to auscultation bilaterally Cardio: COMMON NORMALS: regular rate, regular rhythm and No murmurs present (Cardio) RATE: regular rate RHYTHM: regular rhythm GI: COMMON NORMALS: Soft to palpation and No hepatosplenomegaly present A USCULTATION: Yes normoactive bowel sounds PALPATION: Yes Soft to palpation, No Tenderness to palpation present (GI), No Guarding due to palpation present (GI) and Yes No hepatosplenomegaly present OTHER: On rectal exam at approximately 6 1 o'clock position there is a 3 inch laceration there seems to be a plastic material inside of this laceration. There is no active drainage from the suture line.. Rectum itself appears intact. Extremity: COMMON NORMALS: normal to inspection, capillary refill normal, no clubbing, cyanosis or edema, no calf tenderness and no pedal edema Neuro: SENSORIUM/ORIENTATION: Yes oriented to person, Yes oriented to place and Yes oriented to time Skin: COMMON NORMALS: no rashes or lesions noted GENERAL SKIN EXAM: no rashes or lesions noted Course 2 Vital Signs: Vital signs: Vital Signs Temperature 98.0 F 03/10/25 13:40 Pulse Rate 58 L 03/10/25 13:40 Respiratory Rate 16 03/10/25 13:40 Blood Pressure 143/82 03/10/25 13:40 Pulse Oximetry 91 03/10/25 13:40 Oxygen Delivery Me thod Room Air 03/10/25 13:40 MDM - General Adult Medical Decision Making Contact Dr. Donahue who did the procedure discussed it with him he says 1 description of what I am seeing on exam is exact precisely what he would expect to see he does not recommend anything different. He does not think the patient needs to be transferred emergently. Patient has no leukocytosis no signs of active infection at this time. CT did not show any particular abnormality. He did offer to have the patient seen tomorrow morning in the office otherwise keep his regular appointment discussed with the patient my exam findings and Dr. Donahue's sense of what was going on. Dr. Donahue described this as a normal appearance for this type of surgery at this point does not need any further intervention. I described the patient's description of his string versus absence of a string he was not concerned about this at this time. He offered the patient to be seen tomorrow in the office or keep his usual follow-up appointment. I reviewed all this with the patient relayed Dr. Donahue's offer to him the patient prefers to keep his regularly scheduled follow-up appointment. Recommend that he continue to follow all other postop instructions as they were given to him after his surgery at the time of his discharge. Lab Data 03/10/25 14:36 03/10/25 14:36 Radiology Impressions Abdomen/Pelvis CT 03/10/25 14:04 IMPRESSION: 1. No acute findings in the abdomen or pelvis. 2. No evidence of drainable abscess or fluid collection. 3. Postoperative changes involving the rectum extending to the anus. Laboratory Results WBC 5.87 10^3/uL (3.29-11.43) 03/10/25 14:36 RBC 2.99 10^6/uL (3.85-5.65) L 03/10/25 14:36 Hgb 10.20 g/dL (11.27-16.99) L 03/10/25 14:36 Hct 31.5 % (37-53) L 03/10/25 14:36 MCV 105.4 fl (82-101) H 03/10/25 14:36 MCH 34.1 pg (27-33) H 03/10/25 14:36 MCHC 32.4 g/dL (30-55) 03/10/25 14:36 RDW 13.7 % (12.1-15.1) 03/10/25 14:36 Plt Count 140 10^3/cmm (157-399) L 03/10/25 14:36 MPV 10.9 fL (7.4-10.4) H 03/10/25 14:36 Neut % (Auto) 61.7 % 03/10/25 14:36 Lymph % (Auto) 25.4 % 03/10/25 14:36 [place] % (Auto) 11.2 % 03/10/25 14:36 Eos % (Auto) 1.2 % 03/10/25 14:36 Baso % (Auto) 0.3 % 03/10/25 14:36 Neut # (Auto) 3.62 10^3/uL (1.8-7.7) 03/10/25 14:36 Lymph # (Auto) 1.5 10^3/uL (0.8-4.8) 03/10/25 14:36 [place] # (Auto) 0.7 10^3/uL (0.2-0.9) 03/10/25 14:36 Eos # (Auto) 0.1 10^3/uL (0.0-0.8) 03/10/25 14:36 Baso # (Auto) 0.0 10^3/uL (0.0-0.1) 03/10/25 14:36 Nucleated RBC % (auto) 0 % 03/10/25 14:36 Nucleated RBCs # 0.0 /100WBC 03/10/25 14:36 Sodium 135 mmol/L (136-145) L 03/10/25 14:36 Potassium 3.6 mmol/L (3.5-5.1) 03/10/25 14:36 Chloride 98 mmol/L (98-107) 03/10/25 14:36 Carbon Dioxide 27 mmol/L (22-29) 03/10/25 14:36 Anion Gap 13.6 (5-19) 03/10/25 14:36 BUN 15 mg/dL (6-20) 03/10/25 14:36 Creatinine 1.0 mg/dL (0.7-1.2) 03/10/25 14:36 GFR Calculation 77.3 mL/min (90-130) L 03/10/25 14:36 Glucose 83 mg/dL (65-115) 03/10/25 14:36 Calculated Osmolality 280 mOsm/kg (285-295) L 03/10/25 14:36 Calcium 8.8 mg/dL (8.5-10.5) 03/10/25 14:36 Total Bilirubin 1.6 mg/dL (0.15-1.2) H 03/10/25 14:36 AST 12 U/L (0-40) 03/10/25 14:36 ALT 7 U/L (0-41) 03/10/25 14:36 Alkaline Phosphatase 51 U/L (40-130) 03/10/25 14:36 Total Protein 6.2 g/dL (6.6-8.7) L 03/10/25 14:36 Albumin 4.0 g/dL (3.5-5.2) 03/10/25 14:36 Globulin 2.2 g/dL (1.3-4.6) 03/10/25 14:36 All radiology interpretation(s) finalized by discharge Discharge Plan Discharge Condition: Stable Prescriptions: No Action trazodone 100 mg tablet 100 mg PO DAILY Qty: 30 1RF polyethylene glycol 3350 [Miralax] 17 gram/dose powder 17 g PO DAILY Qty: 510 3RF ropinirole 0.5 mg tablet 0.5 mg PO DAILY Qty: 90 1RF prazosin 2 mg capsule 2 mg PO DAILY Qty: 60 1RF levocetirizine [Xyzal] 5 mg tablet 5 mg PO DAILY Qty: 60 1RF albuterol sulfate 90 mcg/actuation HFA aerosol inhaler 2 inh inhalation Q8H PRN (Reason: shortness of breath or wheezing) Qty: 6.7 2RF oxycodone 5 mg Tablet 5 mg PO TID PRN (Reason: Pain) Referrals: Popeye Bueno MD [Primary Care Provider, Family Practice] Print Language: French Coding Level of Care Code ED Speech Language Assistant for Jerman Lira
[2025-03-10 14:45] LABS: Basophils % 0.3 %; Eosinophils # 0.1 10^3/uL (0.0-0.8); Eosinophils % 1.2 %; Hematocrit 31.5 % (37-53); Lymphocytes # 1.5 10^3/uL (0.8-4.8); Lymphocytes % 25.4 %; Mean Corpuscular HGB Conc 32.4 g/dL (30-55); Mean Corpuscular Hemoglobin 34.1 pg (27-33); Mean Corpuscular Volume 105.4 fl (82-101); Mean Platelet Volume 10.9 fL (7.4-10.4); Monocytes # 0.7 10^3/uL (0.2-0.9); Monocytes % 11.2 %; Neutrophils # 3.62 10^3/uL (1.8-7.7); Neutrophils % 61.7 %; Nucleated Red Blood Cells % 0 %; Platelet Count 140 10^3/cmm (157-399); Red Blood Count 2.99 10^6/uL (3.85-5.65); Red Cell Distribution Width 13.7 % (12.1-15.1); White Blood Count 5.87 10^3/uL (3.29-11.43)
[2025-03-10 15:02] LABS: Alanine Aminotransferase 7 U/L (0-41); Alkaline Phosphatase 51 U/L (40-130); Anion Gap 13.6 (5-19); Aspartate Amino Transferase 12 U/L (0-40); Blood Urea Nitrogen 15 mg/dL (6-20); Calcium 8.8 mg/dL (8.5-10.5); Carbon Dioxide 27 mmol/L (22-29); Chloride 98 mmol/L (98-107); Creatinine Clr Calc Pharmacy 84.7504; Globulin 2.2 g/dL (1.3-4.6); Glomerular Filtration Rate 77.3 mL/min (90-130); Glucose 83 mg/dL (65-115); Osmolality Calculated 280 mOsm/kg (285-295); Potassium 3.6 mmol/L (3.5-5.1); Sodium 135 mmol/L (136-145); Total Bilirubin 1.6 mg/dL (0.15-1.2); Total Protein 6.2 g/dL (6.6-8.7)
[2025-03-10 15:16] VITALS: BP 105/70; PULSE 60; O2SAT 98
[2025-03-10 15:41] VITALS: BP 117/70; PULSE 80; O2SAT 99
== END 2025-03-10 15:41 | disposition home or self-care (01) ==
PROVIDERS: Emergency Provider Family Medicine; PCP Family Medicine
DX: K62.89 Other specified diseases of anus and rectum (principal); Z98.890 Other specified postprocedural states
CPT/HCPCS: 36415; 74177; 80053; 85025; 99285